=== PATIENT | female | born 1970 | race Caucasian/White ===

== ENCOUNTER 2019-12-20 16:24 | Emergency (ER) | payer SELFPAY ==
[2019-12-20 16:56] VITALS: BP 106/72; PULSE 82; RESP 20; TEMP 36.7; O2SAT 92; BMI 33.6
--- NOTE | 2019-12-20 17:11 | ECG_ITS ---
Measurements Intervals [place] Rate: 90 P: 77 [place]: 181 QRS: -46 QRSD: 118 T: 104 QT: 361 QTc: 442 SINUS RHYTHM RIGHT ATRIAL ENLARGEMENT [0.3mV P WAVE] LEFT ATRIAL ENLARGEMENT [-0.15mV P WAVE IN V1/V2] MARKED LEFT AXIS DEVIATION [QRS AXIS < -30] LEFT VENTRICULAR HYPERTROPHY AND ST-T CHANGE [VOLTAGE CRITERIA PLUS ST/T ABN ABNORMALITY] POSSIBLE ANTEROSEPTAL MYOCARDIAL INFARCTION [30 ms Q WAVE IN V1-V4], OF IN INDETERMINATE AGE Compared to ECG 11/18/2018 15:27:06 No significant changes Electronically Signed On 12-20-2019 20:51:09 CDT by Marbella Forbes M.D. [id number]
--- NOTE | 2019-12-20 18:43 | ED_ITS ---
HPI - SOB/Dyspnea General: Chief Complaint: Shortness of Breath/Dyspnea Stated Complaint: SOB Time Seen by Provider: 12/20/19 18:43 History of Present Illness: HPI Narrative: Patient is a 49-year-old female who comes into the ED with a shortness of breath, cough, nasal drainage and body aches. All the symptoms started about 3 days ago. Patient also has a past medical history of hypertension and heart failure. She has also had prior heart attacks and has had stents placed. She is also current every day smoker. Patient describes that she has trouble laying flat in bed because it makes it hard for her to breathe. She denies any chest pain or fever. She has had 2 episodes of vomiting in the last 3 days. Associated symptoms: Reports lightheadedness, orthopnea and vomiting; Deny abdominal pain, chest pain, fever(s), nausea or palpitations Review of Systems Const: Reports: body aches; Denies: fever, chills or fatigue Eyes: Denies: change in vision or eye discomfort ENMT: Reports: nasal discharge and nasal congestion; Denies: throat pain, painful swallowing, ear pain or facial/sinus pain Card: Reports: lightheadedness and shortness of breath when lying down; Denies: chest pain, palpitations, edema, swelling of feet/ankles or shortness of breath on exertion Resp: Reports: non-productive cough; Denies: shortness of breath or productive cough GI: Reports: vomiting; Denies: abdominal pain, nausea, diarrhea, constipation or blood in stool : Denies: flank pain, painful urination or blood in urine Musc: Denies: neck pain, back pain or extremity swelling Skin/Breast: Denies: rash or new lesion Neuro: Denies: headache, numbness in extremities or weakness in extremities PFS ED PFSH: Medical History Acute anterior wall ND 01/2014 Adult-onset obesity Chest pain COPD (chronic obstructive pulmonary disease) Ischemic cardiomyopathy Tobacco abuse Surgical History History of heart artery stent Hx of cholecystectomy Hx of tubal ligation Family History Grandmother Cancer Father Cancer Hyperlipidemia Hypertension Grandmother Cancer Sister Stroke Denies family history of Diabetes CAD (coronary artery disease) Clotting disorder Dementia Psychiatric illness Chronic kidney disease (CKD) Suicide Anesthesia complication Bleeding disorder Family history of premature coronary artery disease Lung disease Social History Smoking and tobacco status: current every day smoker Second hand smoke exposure: No Smoking risk assessment/counseling performed?: Yes Alcohol intake: never Physical Exam Const: COMMON NORMALS: oriented x3 HENMT: COMMON NORMALS: normocephalic and external nose normal HEAD & SCALP: normocephalic FACE & SINUS: normal facial exam and sinuses nontender NOSE: external nose normal and no nasal discharge TYMPANIC MEMBRANE: TM normal on the right and unable to visualize TM (Left Ear-cerumen obstructed viewing.) MOUTH: oral and palatal mucosa normal THROAT: uvula midline and posterior oropharynx abnormal cobblestoning Neck/C-Spine: COMMON NORMALS: supple GENERAL: Yes normal visual inspection Lymph: LYMPHATIC: no lymphadenopathy noted Resp: COMMON NORMALS: normal respiratory effort, no retractions and no use of accessory muscles AUSCULTATION: wheezes expiratory wheezes (Left lung lower lobe) Cardio: COMMON NORMALS: regular rate, regular rhythm, S1 normal heart sound, S2 normal heart sound, no gallops, no clicks, no murmurs and peripheral pulses 2+ throughout RATE: regular rate RHYTHM: regular rhythm HEART SOUNDS: S1 normal and S2 normal PERIPHERAL PULSES: pulses 2+ throughout GI: COMMON NORMALS: normal to inspection, nondistended, normoactive bowel eric nds, soft to palpation, non-tender and no masses INSPECTION: Yes central obesity PALPATION: Yes soft : COMMON NORMALS: Yes no CVA tenderness BLADDER/KIDNEY EXAM: Yes no CVA tenderness Back/Pelvis: COMMON NORMALS: no CVA tenderness Extremity: COMMON NORMALS: normal to inspection and normal capillary refill Neuro: COMMON NORMALS: oriented x3 and moves all extremities Skin: COMMON NORMALS: no rashes or lesions noted GENERAL SKIN EXAM: no rashes or lesions noted and dry skin Course Reevaluation(s): Reevaluation #1: I wanted to talk with the patient about the results of all the labs that we have done. She says her breathing feels better after the breathing treatment. She is saying that she is starting develop a headache. I told her I would get her some Toradol to help with the headache. She has had no episodes of nausea or vomiting while here in the ED and has been able to keep PO fluids down. Time: 20:27 Vital Signs: Vital signs: Vital Signs Temperature 98.1 F 12/20/19 16:56 Pulse Rate 68 12/20/19 21:39 Respiratory Rate 20 H 12/20/19 21:39 Blood Pressure 146/82 12/20/19 21:39 Pulse Oximetry 93 12/20/19 21:39 MDM - SOB/Dyspnea MDM Narrative: Medical decision making narrative: Patient is a 49-year-old female who comes to the ED with some shortness of breath and other upper respiratory symptoms. Physical exam showed with female in no acute distress or any respiratory distress. There was some light wheezing heard in the lungs upon auscultation. Patient was given a DuoNeb treatment to help with wheezing and it improved. Troponins and EKG were performed and both were negative for cardiac cause of shortness of breath. Chest x-ray was normal and showed no acute findings. CMP and CBC was unremarkable and showed no elevation of white blood cell count. Patient was diagnosed with a viral syndrome and discharged and told to follow-up with primary care doctor in 5 to 7 days for reevaluation. Patient agreed with understood plan and I explained to patient she can return to the ED if symptoms worsen. Lab Data: Attestation: I reviewed the patient's lab results. Labs: Lab Results 12/20/19 12/20/19 12/20/19 Range/Units 17:20 18:20 18:20 WBC 8.1 (4.0-10.0) 10^3/ uL RBC 5.10 (4.1-5.3) 10^6/u L Hgb 15.8 H (11.5-15.3) g/dL Hct 50.3 H (37.0-47.0) % MCV 98.6 (81-99) fL MCH 31.0 (28.0-34.0) pg MCHC 31.4 (30.0-36.0) g/dL RDW 12.9 (12.1-15.1) % Plt Count 288 (130-400) 10^3/c mm MPV 11.4 H (7.4-10.4) fL Neut % (Auto) 82.8 % Lymph % (Auto) 8.9 % [place] % (Auto) 7.8 % Eos % (Auto) 0.1 % Baso % (Auto) 0.2 % Neut # (Auto) 6.7 (1.8-7.7) 10^3/u L Lymph # (Auto) 0.7 L (0.8-4.8) 10^3/u L [place] # (Auto) 0.6 (0.2-0.9) 10^3/u L Eos # (Auto) 0.0 (0.0-0.8) 10^3/u L Baso # (Auto) 0.0 (0.0-0.1) 10^3/u L Nucleated RBC % (a uto) 0 % Nucleated RBCs # 0.0 /100WBC Sodium 139 (136-145) mmol/L Potassium 4.1 (3.5-5.1) mmol/L Chloride 99 (98-107) mmol/L Carbon Dioxide 27 (22-29) mmol/L Anion Gap 17.1 (5-19) BUN 12 (6-20) mg/dL Creatinine 0.8 (0.5-0.9) mg/dL GFR Calculation 76.2 L (90-130) mL/min Glucose 149 H (65-115) mg/dL Calculated Osmolal ity 287 (285-295) mOsm/k g Calcium 9.8 (8.5-10.5) mg/dL Total Bilirubin 1.1 (0.15-1.2) mg/dL AST 18 (0-32) U/L ALT 15 (0-33) U/L Alkaline Phosphata se 90 (35-105) IU/L Troponin T Baselin e 12 H (0-10) ng/mL Troponin T 120 Min [place] (0-10) ng/mL Delta Troponin T (0-10) ABS# NT-Pro-B Natriuret Pep 1396 H (0-125) pg/mL Total Protein 8.1 (6.6-8.7) g/dL Albumin 4.2 (3.5-5.2) g/dL Globulin 3.9 (1.3-4.6) g/dL Influenza Type A A g (Negative) POC Influenza B Ag (Negative) 12/20/19 12/20/19 Range/Units 19:13 19:30 WBC (4.0-10.0) 10^3/ uL RBC (4.1-5.3) 10^6/u L Hgb (11.5-15.3) g/dL Hct (37.0-47.0) % MCV (81-99) fL MCH (28.0-34.0) pg MCHC (30.0-36.0) g/dL RDW (12.1-15.1) % Plt Count (130-400) 10^3/c mm MPV (7.4-10.4) fL Neut % (Auto) % Lymph % (Auto) % [place] % (Auto) % Eos % (Auto) % Baso % (Auto) % Neut # (Auto) (1.8-7.7) 10^3/u L Lymph # (Auto) (0.8-4.8) 10^3/u L [place] # (Auto) (0.2-0.9) 10^3/u L Eos # (Auto) (0.0-0.8) 10^3/u L Baso # (Auto) (0.0-0.1) 10^3/u L Nucleated RBC % (a uto) % Nucleated RBCs # /100WBC Sodium (136-145) mmol/L Potassium (3.5-5.1) mmol/L Chloride (98-107) mmol/L Carbon Dioxide (22-29) mmol/L Anion Gap (5-19) BUN (6-20) mg/dL Creatinine (0.5-0.9) mg/dL GFR Calculation (90-130) mL/min Glucose (65-115) mg/dL Calculated Osmolal ity (285-295) mOsm/k g Calcium (8.5-10.5) mg/dL Total Bilirubin (0.15-1.2) mg/dL AST (0-32) U/L ALT (0-33) U/L Alkaline Phosphata se (35-105) IU/L Troponin T Baselin e (0-10) ng/mL Troponin T 120 Min [place] 11.87 H (0-10) ng/mL Delta Troponin T -0.13 L (0-10) ABS# NT-Pro-B Natriuret Pep (0-125) pg/mL Total Protein (6.6-8.7) g/dL Albumin (3.5-5.2) g/dL Globulin (1.3-4.6) g/dL Influenza Type A A g Negative (Negative) POC Influenza B Ag Negative (Negative) Imaging Data^: CXR: Attestation: I personally reviewed and interpreted this imaging study as follows: Radiologist's impression: [place] [address] XRay Report Signed Patient: Silvia Persaud Unit #: [id number] : 1970 Age/Sex: 49 / F ADM Date: 12/20/19 Loc: ER Room/Bed: Attending Dr: Ordering Provider/Ordering MD: Robel Delatorre Date of Service: 12/20/19 Procedure(s): XR chest 1V portable [id number] Accession Number(s): [id number] Report Number: [id number] PROCEDURE INFORMATION: Exam: XR Chest, 1 View Exam date and time: 12/20/2019 7:33 PM Age: 49 years old Clinical indication: Patient HX: Cough/congestion x1 day, PT denies HX of surgery on chest, PT denies HX of CA, PT is a current smoker; Additional info: Cough and SOB TECHNIQUE: Imaging protocol: XR of the chest Views: 1 view. COMPARISON: CR Chest 1 [place] [id number] 11/18/2018 11:51 AM FINDINGS: The lungs are clear of infiltrate. There are no pleural effusions or pneumothorax. The heart size and pulmonary vascularity are normal. XR/XR chest 1V portable [id number] IMPRESSION: No active disease. Dictated By: Rubén Eisenberg MD Signed By: Rubén Eisenberg MD Signed Date/Time: 12/20/192003 DD/ 01 EKG Data^: EKG 1: Attestation: I personally reviewed and interpreted this EKG as follows: EKG Interpretation Date: 12/20/19 Interpretation: Sinus rhythm, P waves present, 90 bpm, possible ST elevation in leads V1, V2 and V3. No ST segment depression seen. EKG 2: Attestation: I personally reviewed and interpreted this EKG as follows: EKG Interpretation Date: 12/20/19 Interpretation: Sinus rhythm with occasional PVCs. Rate 82 bpm, P waves present, ST segment elevation in V1 V2 and V3 is unchanged and may be a little improved compared to last EKG. No ST segment depression. Discharge Plan Discharge Patient Disposition: Home, Self-Care Clinical Impression: Acute viral syndrome Condition: Stable Prescriptions: No Action lisinopril 20 mg tablet 20 mg PO DAILY Qty: 30 RF: 3 Tylenol PM Extra Strength 2 - 4 tab PO BEDTIME PRN (Reason: Sleep) RF: 0 Discharge Orders: Discharge Order (Routine); Ordered 12/20/19 Ordered By: Robel Delatorre Referrals: [facility] [Other] Discharge Diet: Regular Discharge Activity: Resume usual activity Patient Instructions: Viral Syndrome - Adult Activity Restrictions/Additional Instructions: Follow-up with your PCP in 5 to 7 days reevaluation. Take ibuprofen or Tylenol as needed for fever or headaches. Drink plenty of fluids and stay hydrated. If symptoms worsen you can return to the ED for evaluation. 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
[2019-12-20 19:03] LABS: Basophils % 0.2 %; Eosinophils % 0.1 %; Hematocrit 50.3 % (37.0-47.0); Hemoglobin 15.8 g/dL (11.5-15.3); Lymphocytes # 0.7 10^3/uL (0.8-4.8); Lymphocytes % 8.9 %; Mean Corpuscular HGB Conc 31.4 g/dL (30.0-36.0); Mean Corpuscular Volume 98.6 fL (81-99); Mean Platelet Volume 11.4 fL (7.4-10.4); Monocytes # 0.6 10^3/uL (0.2-0.9); Monocytes % 7.8 %; Neutrophils # 6.7 10^3/uL (1.8-7.7); Neutrophils % 82.8 %; Nucleated Red Blood Cells % 0 %; Platelet Count 288 10^3/cmm (130-400); Red Cell Distribution Width 12.9 % (12.1-15.1); White Blood Count 8.1 10^3/uL (4.0-10.0)
[2019-12-20 19:11] LABS: Troponin(5th) Baseline 12 ng/mL (0-10)
--- NOTE | 2019-12-20 19:11 | ECG_ITS ---
Measurements Intervals [place] Rate: 82 P: 75 [place]: 177 QRS: -44 QRSD: 114 T: 102 QT: 356 QTc: 417 SINUS RHYTHM WITH OCCASIONAL VENTRICULAR PREMATURE COMPLEXES RIGHT ATRIAL ENLARGEMENT [0.3mV P WAVE] LEFT ATRIAL ENLARGEMENT [-0.15mV P WAVE IN V1/V2] LEFT AXIS DEVIATION [QRS AXIS < -30] LEFT VENTRICULAR HYPERTROPHY AND ST-T CHANGE [VOLTAGE CRITERIA PLUS ST/T ABN ABNORMALITY] ANTEROSEPTAL MYOCARDIAL INFARCTION , OF INDETERMINATE AGE [40+ ms Q WAVE IN V1-V4] Compared to ECG 11/18/2018 15:27:06 Ventricular premature complex(es) now present ST (T wave) deviation still present Myocardial infarct finding still present Electronically Signed On 12-20-2019 20:54:21 CDT by Marbella Forbes M.D. [id number]
--- NOTE | 2019-12-20 19:15 | XRR_ITS ---
PROCEDURE INFORMATION: Exam: XR Chest, 1 View Exam date and time: 12/20/2019 7:33 PM Age: 49 years old Clinical indication: Patient HX: Cough/congestion x1 day, PT denies HX of surgery on chest, PT denies HX of CA, PT is a current smoker; Additional info: Cough and SOB TECHNIQUE: Imaging protocol: XR of the chest Views: 1 view. COMPARISON: CR Chest 1 [place] [id number] 11/18/2018 11:51 AM FINDINGS: The lungs are clear of infiltrate. There are no pleural effusions or pneumothorax. The heart size and pulmonary vascularity are normal. XR/XR chest 1V portable [id number] IMPRESSION: No active disease.
[2019-12-20 19:19] LABS: Alanine Aminotransferase 15 U/L (0-33); Albumin Level 4.2 g/dL (3.5-5.2); Alkaline Phosphatase 90 IU/L (35-105); Anion Gap 17.1 (5-19); Aspartate Amino Transferase 18 U/L (0-32); Blood Urea Nitrogen 12 mg/dL (6-20); Calcium 9.8 mg/dL (8.5-10.5); Carbon Dioxide 27 mmol/L (22-29); Chloride 99 mmol/L (98-107); Globulin 3.9 g/dL (1.3-4.6); Glomerular Filtration Rate 76.2 mL/min (90-130); Glucose 149 mg/dL (65-115); NT Pro B Type Natriuretic Pept 1396 pg/mL (0-125); Osmolality Calculated 287 mOsm/kg (285-295); Potassium 4.1 mmol/L (3.5-5.1); Sodium 139 mmol/L (136-145); Total Bilirubin 1.1 mg/dL (0.15-1.2); Total Protein 8.1 g/dL (6.6-8.7)
[2019-12-20] MEDS: ipratropium-albuterol 3 mL Neb INHALATION (19:19)
[2019-12-20 19:20] VITALS: BP 114/57; PULSE 87; RESP 18; O2SAT 94
[2019-12-20 19:21] VITALS: PULSE 89; RESP 18; O2SAT 93
[2019-12-20 19:27] VITALS: PULSE 93
[2019-12-20 19:57] LABS: Troponin 5 2HR 11.87 ng/mL (0-10)
[2019-12-20 20:00] LABS: Troponin 5 2HR Delta -0.13 ABS# (0-10)
[2019-12-20 20:29] LABS: Influenza A by IFA Negative (Negative); Influenza B by IFA Negative (Negative)
[2019-12-20] MEDS: sodium chloride 0.9% 500 ML IV (21:00)
[2019-12-20] MEDS: ketorolac 30 mg/mL INJ IVP (21:01)
[2019-12-20 21:39] VITALS: BP 146/82; PULSE 68; RESP 20; O2SAT 93
== END 2019-12-20 21:42 | disposition home or self-care (01) ==
PROVIDERS: Emergency Medicine; Emergency Provider Physician Assistant; PCP Nurse Practitioner Family
DX: B34.9 Viral infection, unspecified (principal); I11.0 Hypertensive heart disease with heart failure; I50.9 Heart failure, unspecified; I25.2 Old myocardial infarction; J44.9 Chronic obstructive pulmonary disease, unspecified; F17.200 Nicotine dependence, unspecified, uncomplicated; Z95.5 Presence of coronary angioplasty implant and graft
CPT/HCPCS: 12345; 36415; 71045; 80053; 83880; 84484; 85025; 87804; 93005; 94640; 96360; 96361; 96374; 96375; 99283; 99284; J1885; J7040

== ENCOUNTER 2021-02-27 02:43 | Emergency (ER) | payer SELFPAY ==
[2021-02-27] VITALS (8 sets, daily range): BP systolic 187–222; BP diastolic 79–108; PULSE 53–78; RESP 16–20; TEMP 36.1–36.7; O2SAT 97–99; BMI 31.8
--- NOTE | 2021-02-27 02:53 | XRR_ITS ---
PROCEDURE INFORMATION: Exam: XR Chest Exam date and time: 02/27/2021 2:54 AM Age: 50 years old Clinical indication: Pain; Other: Epigastric; Prior surgery; Surgery date: 6+ months; Surgery type: Stents; Additional info: SOB TECHNIQUE: Imaging protocol: XR of the chest. Views: 1 view. COMPARISON: CR XR chest 1V portable [id number] 12/20/2019 7:21 PM FINDINGS: Lungs: Unremarkable. No consolidation. Pleural spaces: Unremarkable. No pleural effusion. No pneumothorax. Heart/Mediastinum: There is mild cardiomegaly. Bones/joints: Unremarkable. XR/XR chest 1V portable [id number] IMPRESSION: Mild cardiomegaly.
--- NOTE | 2021-02-27 02:56 | ECG_ITS ---
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 Measurements Intervals [place] Rate: 50 P: 59 [place]: 181 QRS: -33 QRSD: 122 T: 143 QT: 494 QTc: 454 Interpretive Statements SINUS BRADYCARDIA POSSIBLE LEFT ATRIAL ENLARGEMENT [-0.1mV P WAVE IN V1/V2] MARKED LEFT AXIS DEVIATION [QRS AXIS < -30] LEFT VENTRICULAR HYPERTROPHY AND ST-T CHANGE POSSIBLE ANTERIOR MYOCARDIAL INFARCTION,OF INDETERMINATE AGE Compared to ECG 12/20/2019 19:47:26 Sinus rhythm no longer present Ventricular premature complex(es) no longer present ST (T wave) deviation still present Myocardial infarct finding still present Electronically Signed On 02-28-2021 6:54:37 CDT by Hannah Jordan M.D. [id number]
--- NOTE | 2021-02-27 02:57 | W.ED.DIZZY ---
HPI - Dizziness General: Chief Complaint: Dizziness Stated Complaint: SOB, dizziness Time Seen by Provider: 02/27/21 02:46 Source: patient Mode of arrival: ambulatory Limitations: no limitations History of Present Illness: HPI Narrative: 50-year-old female states she been having upper abdominal pain since 10:00 last night. She has been a sharp pain in the epigastric region. She denies any worsening improving factors. She had some dyspnea when it began but denies any shortness of breath currently. She did vomit once and have nausea. She denies any chest pain. She denies any fevers. Associated symptoms: Reports nausea and vomiting; Denies chest pain, chills or headache(s) Review of Systems Const: Denies: fever(s), chills, body aches or change in appetite Eyes: Denies: blurry vision or eye discomfort ENMT: Denies: throat pain or dental pain Card: Denies: chest pain Resp: Denies: dyspnea GI: Reports: abdominal pain, nausea and vomiting : Denies: dysuria Musc: Denies: neck pain or back pain Skin/Breast: Denies: rash Neuro: Denies: headache(s) Psych: Denies: depression Sandro/Lymph: Denies: easy bruising All/Imm: Denies: urticaria PFSH ED PFSH: Medical History (Updated 02/27/21 @ 05:23 by Nasir Romero MD) Acute anterior wall [place] 01/2014 Adult-onset obesity Chest pain COPD (chronic obstructive pulmonary disease) Ischemic cardiomyopathy Tobacco abuse Surgical History History of heart artery stent Hx of cholecystectomy Hx of tubal ligation Family History Grandmother Cancer Father Cancer Hyperlipidemia Hypertension Grandmother Cancer Sister Stroke Denies family history of Diabetes CAD (coronary artery disease) Clotting disorder Dementia Psychiatric illness Chronic kidney disease (CKD) Suicide Anesthesia complication Bleeding disorder Family history of premature coronary artery disease Lung disease Social History Smoking and tobacco status: current every day smoker Second hand smoke exposure: No Smoking risk assessment/counseling performed?: Yes Alcohol intake: never Physical Exam Const: COMMON NORMALS: no acute distress, patient oriented x3 and healthy appearing HENMT: COMMON NORMALS: normocephalic and atraumatic HEAD & SCALP: normocephalic and atraumatic Eye: COMMON NORMALS: Equal, round and reactive pupils present and EOMs intact bilaterally PUPIL: Yes Equal, round and reactive pupils present Neck/C-Spine: COMMON NORMALS: full ROM and supple Chest: COMMONS NORMALS: normal inspection of the chest and normal palpation of entire chest wall Resp: COMMON NORMALS: normal respiratory effort, No retractions, No use of accessory muscles and clear to auscultation bilaterally AUSCULTATION: clear to auscultation bilaterally Cardio: COMMON NORMALS: regular rate, regular rhythm and No murmurs present (Cardio) RATE: regular rate RHYTHM: regular rhythm GI: COMMON NORMALS: Normal to inspection, nondistended, normoactive bowel sounds present, Soft to palpation and no masses PALPATION: Yes Soft to palpation and Yes Tenderness to palpation present (GI) Details: other (epigastric) Extremity: COMMON NORMALS: normal to inspection and full ROM Neuro: COMMON NORMALS: patient oriented x3, moves all extremities and no focal motor deficits Psych: COMMON NORMALS: mental status grossly normal, Normal thought process present and cooperative THOUGHT PROCESS: Normal thought process present Skin: COMMON NORMALS: no rashes or lesions noted and no wounds GENERAL SKIN EXAM: no rashes or lesions noted Course Vital Signs: Vital signs: Vital Signs Temperature 97.0 F L 02/27/21 02:48 Pulse Rate 75 02/27/21 05:14 Respiratory Rate 20 H 02/27/21 05:14 Blood Pressure 187/108 02/27/21 05:16 Pulse Oximetry 97 02/27/21 05:14 MDM - Dizziness MDM Narrative: Medical decision making narrative: Paper presents with epigastric abdominal pain likely gastritis. Her pain was completely resolved here with GI cocktail. Patient's blood work including initial repeat troponins are negative. CT scan showed no acute findings. Her pain like this had resolved with GI cocktail. We will start her on Protonix and she is to follow-up with PCP and return if worsening. Lab Data: Labs: Lab Results 02/27/21 02/27/21 02/27/21 Range/Units 03:00 03:00 03:00 WBC 5.7 (4.0-10.0) 10^3/ uL RBC 4.46 (4.1-5.3) 10^6/u L Hgb 14.0 (11.5-15.3) g/dL Hct 43.7 (37.0-47.0) % MCV 98.0 (81-99) fL MCH 31.4 (28.0-34.0) pg MCHC 32.0 (30.0-36.0) g/dL RDW 12.6 (12.1-15.1) % Plt Count 284 (130-400) 10^3/c mm MPV 10.3 (7.4-10.4) fL Neut % (Auto) 62.9 % Lymph % (Auto) 26.1 % [place] % (Auto) 9.2 % Eos % (Auto) 0.9 % Baso % (Auto) 0.7 % Neut # (Auto) 3.56 (1.8-7.7) 10^3/u L Lymph # (Auto) 1.5 (0.8-4.8) 10^3/u L [place] # (Auto) 0.5 (0.2-0.9) 10^3/u L Eos # (Auto) 0.1 (0.0-0.8) 10^3/u L Baso # (Auto) 0.0 (0.0-0.1) 10^3/u L Nucleated RBC % (a uto) 0 % Nucleated RBCs # 0.0 /100WBC Sodium 140 (136-145) mmol/L Potassium 4.3 (3.5-5.1) mmol/L Chloride 106 (98-107) mmol/L Carbon Dioxide 25 (22-29) mmol/L Anion Gap 13.3 (5-19) BUN 14 (6-20) mg/dL Creatinine 0.7 (0.5-0.9) mg/dL GFR Calculation 88.6 L (90-130) mL/min Glucose 109 (65-115) mg/dL Calculated Osmolal ity 291 (285-295) mOsm/k g Calcium 8.3 L (8.5-10.5) mg/dL Total Bilirubin 0.7 (0.15-1.2) mg/dL AST 12 (0-32) U/L ALT 11 (0-33) U/L Alkaline Phosphata se 84 (35-105) IU/L Troponin T Baselin e 12 H (0-10) ng/L Troponin T [address] [place] (0-10) ng/L Delta Troponin T (0-10) ABS# Total Protein 7.5 (6.6-8.7) g/dL Albumin 4.0 (3.5-5.2) g/dL Globulin 3.5 (1.3-4.6) g/dL Lipase 20 (13-60) U/L 02/27/21 Range/Units 04:45 WBC (4.0-10.0) 10^3/ uL RBC (4.1-5.3) 10^6/u L Hgb (11.5-15.3) g/dL Hct (37.0-47.0) % MCV (81-99) fL MCH (28.0-34.0) pg MCHC (30.0-36.0) g/dL RDW (12.1-15.1) % Plt Count (130-400) 10^3/c mm MPV (7.4-10.4) fL Neut % (Auto) % Lymph % (Auto) % [place] % (Auto) % Eos % (Auto) % Baso % (Auto) % Neut # (Auto) (1.8-7.7) 10^3/u L Lymph # (Auto) (0.8-4.8) 10^3/u L [place] # (Auto) (0.2-0.9) 10^3/u L Eos # (Auto) (0.0-0.8) 10^3/u L Baso # (Auto) (0.0-0.1) 10^3/u L Nucleated RBC % (a uto) % Nucleated RBCs # /100WBC Sodium (136-145) mmol/L Potassium (3.5-5.1) mmol/L Chloride (98-107) mmol/L Carbon Dioxide (22-29) mmol/L Anion Gap (5-19) BUN (6-20) mg/dL Creatinine (0.5-0.9) mg/dL GFR Calculation (90-130) mL/min Glucose (65-115) mg/dL Calculated Osmolal ity (285-295) mOsm/k g Calcium (8.5-10.5) mg/dL Total Bilirubin (0.15-1.2) mg/dL AST (0-32) U/L ALT (0-33) U/L Alkaline Phosphata se (35-105) IU/L Troponin T Baselin e (0-10) ng/L Troponin T [address] [place] 8.83 (0-10) ng/L Delta Troponin T -3.17 L (0-10) ABS# Total Protein (6.6-8.7) g/dL Albumin (3.5-5.2) g/dL Globulin (1.3-4.6) g/dL Lipase (13-60) U/L Imaging Data^: CT Abd/Pel: Attestation: I personally reviewed and interpreted this imaging study as follows: Radiologist's impression: [facility] [address] [address] [address] Scan Report Signed Patient: Silvia Persaud Unit #: [id number] : 1970 Age/Sex: 50 / F ADM Date: 02/27/21 Loc: ER Room/Bed: Attending Dr: Ordering Provider/Ordering MD: Nasir Romero MD Date of Service: 02/27/21 Procedure(s): CT abdomen pelvis w con* [id number] Accession Number(s): [id number] Report Number: [id number] PROCEDURE INFORMATION: Exam: CT Abdomen And Pelvis With Contrast Exam date and time: 02/27/2021 4:07 AM Age: 50 years old Clinical indication: Abdominal pain; Epigastric; Prior surgery; Surgery date: 6+ months; Surgery type: Gb; Additional info: Abd pain TECHNIQUE: Imaging protocol: Computed tomography of the abdomen and pelvis with contrast. Radiation optimization: All CT scans at this facility use at least one of these dose optimization techniques: automated exposure control; mA and/or kV adjustment per patient size (includes targeted exams where dose is matched to clinical indication); or iterative reconstruction. Contrast material: OMNI 300; Contrast volume: 95 ml; Contrast route: INTRAVENOUS (IV); COMPARISON: CT abdomen pelvis w con* [id number] 02/09/2015 12:07 AM RADIATION DOSE METRICS: Total DLP (mGy-cm): 1640.88 FINDINGS: Lungs: The lung bases are clear. No effusion Liver: Normal. No mass. Gallbladder and bile ducts: There has been a cholecystectomy. Pancreas: Normal. No ductal dilation. Spleen: Normal. No splenomegaly. Adrenal glands: Normal. No mass. Kidneys and ureters: There is a subcentimeter low-attenuation lesions/lesions, both kidneys which are too small to accurately characterize by CT. Stomach and bowel: Diverticulosis without diverticulitis. Appendix: No evidence of appendicitis. Intraperitoneal space: Unremarkable. No free air. No significant fluid collection. Vasculature: Unremarkable. No abdominal aortic aneurysm. Lymph nodes: Unremarkable. No enlarged lymph nodes. Urinary bladder: Unremarkable as visualized. Reproductive: Unremarkable as visualized. Bones/joints: Unremarkable. No acute fracture. Soft tissues: Unremarkable. CT/CT abdomen pelvis w con* [id number] IMPRESSION: 1. No cause for acute pain is identified. 2. Diverticulosis without diverticulitis. EKG Data^: EKG 1: Attestation: I personally reviewed and interpreted this EKG as follows: EKG interpretation date: 02/27/21 EKG interpretation time: 03:03 Interpretation: sinus uvaldo hr 50 lad lvh, t wave inversion lead I no st elevation qrs 122 qtc 468 unchanged 12/20/19 EKG 2: Attestation: I personally reviewed and interpreted this EKG as follows: EKG interpretation date: 02/27/21 EKG interpretation time: 04:52 Interpretation: nsr hr 70 t wave inversion I, avl no st elevation qrs 137 qtc 472 unchanged from previous Discharge Plan Discharge Patient Disposition: Home Clinical Impression: Abdominal pain Qualifiers: Abdominal location: generalized Qualified Code(s): R10.84 - Generalized abdominal pain Condition: Stable Prescriptions: New Protonix 40 mg tablet,delayed release (DR/EC) 40 mg PO DAILY Qty: 60 RF: 0 No Action atorvastatin 40 mg tablet 40 mg PO DAILY Qty: 90 RF: 3 carvedilol 6.25 mg tablet 6.25 mg PO BID Qty: 180 RF: 3 lisinopril 20 mg tablet 20 mg PO DAILY Qty: 90 RF: 3 aspirin [Adult Low Dose Aspirin] 81 mg tablet,delayed release (DR/EC) 81 mg PO DAILY Qty: 90 RF: 3 Tylenol PM Extra Strength 2 - 4 tab PO BEDTIME PRN (Reason: Sleep) RF: 0 Discharge Orders: Discharge ED (Routine); Ordered 02/27/21 Ordered By: Nasir Romero Referrals: Geovanna Ross FNP [Primary Care Provider] - 1-3 days Discharge Diet: Advance as tolerated Discharge Activity: Resume usual activity Patient Instructions: Abdominal Pain (ED) Coding Level of Care Code ED 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
[2021-02-27 03:09] LABS: Basophils % 0.7 %; Eosinophils # 0.1 10^3/uL (0.0-0.8); Eosinophils % 0.9 %; Hematocrit 43.7 % (37.0-47.0); Lymphocytes # 1.5 10^3/uL (0.8-4.8); Lymphocytes % 26.1 %; Mean Corpuscular Hemoglobin 31.4 pg (28.0-34.0); Mean Platelet Volume 10.3 fL (7.4-10.4); Monocytes # 0.5 10^3/uL (0.2-0.9); Monocytes % 9.2 %; Neutrophils # 3.56 10^3/uL (1.8-7.7); Neutrophils % 62.9 %; Nucleated Red Blood Cells % 0 %; Platelet Count 284 10^3/cmm (130-400); Red Blood Count 4.46 10^6/uL (4.1-5.3); Red Cell Distribution Width 12.6 % (12.1-15.1); White Blood Count 5.7 10^3/uL (4.0-10.0)
[2021-02-27] MEDS: morphine 4 mg/mL SDV 1 mL IVP (03:09)
[2021-02-27] MEDS: ondansetron 2 mg/ML SDV 2 mL 4 MG IVP ×2 (03:09→04:43)
[2021-02-27 03:31] LABS: Alanine Aminotransferase 11 U/L (0-33); Alkaline Phosphatase 84 IU/L (35-105); Anion Gap 13.3 (5-19); Aspartate Amino Transferase 12 U/L (0-32); Blood Urea Nitrogen 14 mg/dL (6-20); Calcium 8.3 mg/dL (8.5-10.5); Carbon Dioxide 25 mmol/L (22-29); Chloride 106 mmol/L (98-107); Globulin 3.5 g/dL (1.3-4.6); Glomerular Filtration Rate 88.6 mL/min (90-130); Glucose 109 mg/dL (65-115); Lipase 20 U/L (13-60); Osmolality Calculated 291 mOsm/kg (285-295); Potassium 4.3 mmol/L (3.5-5.1); Sodium 140 mmol/L (136-145); Total Bilirubin 0.7 mg/dL (0.15-1.2); Total Protein 7.5 g/dL (6.6-8.7)
[2021-02-27 03:33] LABS: Troponin(5th) Baseline 12 ng/L (0-10)
--- NOTE | 2021-02-27 03:37 | CTR_ITS ---
PROCEDURE INFORMATION: Exam: CT Abdomen And Pelvis With Contrast Exam date and time: 02/27/2021 4:07 AM Age: 50 years old Clinical indication: Abdominal pain; Epigastric; Prior surgery; Surgery date: 6+ months; Surgery type: Gb; Additional info: Abd pain TECHNIQUE: Imaging protocol: Computed tomography of the abdomen and pelvis with contrast. Radiation optimization: All CT scans at this facility use at least one of these dose optimization techniques: automated exposure control; mA and/or kV adjustment per patient size (includes targeted exams where dose is matched to clinical indication); or iterative reconstruction. Contrast material: OMNI 300; Contrast volume: 95 ml; Contrast route: INTRAVENOUS (IV); COMPARISON: CT abdomen pelvis w con* [id number] 02/09/2015 12:07 AM RADIATION DOSE METRICS: Total DLP (mGy-cm): 1640.88 FINDINGS: Lungs: The lung bases are clear. No effusion Liver: Normal. No mass. Gallbladder and bile ducts: There has been a cholecystectomy. Pancreas: Normal. No ductal dilation. Spleen: Normal. No splenomegaly. Adrenal glands: Normal. No mass. Kidneys and ureters: There is a subcentimeter low-attenuation lesions/lesions, both kidneys which are too small to accurately characterize by CT. Stomach and bowel: Diverticulosis without diverticulitis. Appendix: No evidence of appendicitis. Intraperitoneal space: Unremarkable. No free air. No significant fluid collection. Vasculature: Unremarkable. No abdominal aortic aneurysm. Lymph nodes: Unremarkable. No enlarged lymph nodes. Urinary bladder: Unremarkable as visualized. Reproductive: Unremarkable as visualized. Bones/joints: Unremarkable. No acute fracture. Soft tissues: Unremarkable. CT/CT abdomen pelvis w con* [id number] IMPRESSION: 1. No cause for acute pain is identified. 2. Diverticulosis without diverticulitis. COMMENTS: Consistent with the [employer] [employer]'s Incidental Findings Committee white paper (J Am Ryan Radiol 2018): Any incidental renal lesion less than 1 cm or classified as too small to characterize, or any incidental cystic renal lesion characterized as simple-appearing, is likely benign. No follow-up imaging is recommended for these lesions per consensus recommendations based on imaging criteria. Radiation Dose CTDIVOL = (mGy): DLP = 1640.88 (mGy-cm)
[2021-02-27] MEDS: hyDRALAzine 20 mg/mL INJ 1 mL 10 MG IVP (03:43)
[2021-02-27] MEDS: lidocaine 2% viscous 15 ML, aluminum-mag hydrox-simethicon 30 ML, sucralfate oral liq 1 GM PO (03:50)
[2021-02-27] MEDS: HYDROmorphone 1 mg/mL INJ 1 mL IVP (03:52)
[2021-02-27] MEDS: iohexol 300 mg/mL 100 mL Btl IV (04:19)
--- NOTE | 2021-02-27 04:56 | ECG_ITS ---
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 Measurements Intervals [place] Rate: 70 P: 62 CO: 160 QRS: -34 QRSD: 137 T: 129 QT: 452 QTc: 489 Interpretive Statements SINUS RHYTHM POSSIBLE LEFT ATRIAL ENLARGEMENT [-0.1mV P WAVE IN V1/V2] LEFT AXIS DEVIATION [QRS AXIS < -30] INTRAVENTRICULAR CONDUCTION DELAY [130+ ms QRS DURATION] LEFT VENTRICULAR HYPERTROPHY AND ST-T CHANGE [VOLTAGE CRITERIA PLUS ST/T ABNORMALITY] POSSIBLE ANTERIOR MYOCARDIAL INFARCTION , OF INDETERMINATE AGE [30 ms Q WAVE IN V3/V4, OR R < 0.2 mV IN V4] Compared to ECG 02/27/2021 03:03:02 Intraventricular conduction delay now present Sinus bradycardia no longer present ST (T wave) deviation still present Myocardial infarct finding still present Electronically Signed On 02-28-2021 7:03:54 CDT by Hannah Jordan M.D. [id number]
[2021-02-27] MEDS: cloNIDine 0.1 mg Tablet PO (05:16)
[2021-02-27 05:23] LABS: Troponin 5 2HR 8.83 ng/L (0-10)
[2021-02-27 05:25] LABS: Troponin 5 2HR Delta -3.17 ABS# (0-10)
--- NOTE | 2021-02-27 05:56 | PC.NURSE ---
Patient left with ride.
== END 2021-02-27 05:55 | disposition home or self-care (01) ==
PROVIDERS: Emergency Provider Emergency Medicine; PCP Nurse Practitioner Family
DX: R10.84 Generalized abdominal pain (principal); Z79.82 Long term (current) use of aspirin; J44.9 Chronic obstructive pulmonary disease, unspecified; F17.210 Nicotine dependence, cigarettes, uncomplicated
CPT/HCPCS: 71045; 74177; 80053; 83690; 84484; 85025; 93005; 96374; 96375; 96376; 99284; J0360; J1170; J2270; J2405; Q9967

== ENCOUNTER 2021-04-18 09:06 | Emergency (ER) | payer SELFPAY ==
[2021-04-18 09:23] VITALS: BP 145/65; PULSE 60; RESP 16; TEMP 36.5; O2SAT 95; BMI 31.3
--- NOTE | 2021-04-18 09:32 | XR_ITS ---
WS: [id number] KUB, AP portable supine view, 04/18/2021 Clinical Data: N/V Comparison: Acute abdomen series, 10/07/2013 Findings: No abnormal intraabdominal masses or calcifications are seen. There is no dilatated small bowel or ev idence of obstruction. There are clips in the right upper quadrant from a cholecystectomy. XR/XR KUB portable [id number] Impression: Negative KUB.
[2021-04-18 09:33] VITALS: BP 136/77; PULSE 53; O2SAT 96
--- NOTE | 2021-04-18 09:33 | ED_ITS ---
HPI - General Adult General: Chief complaint: General Medical Stated complaint: N/V Time Seen by Provider: 04/18/21 09:15 History of Present Illness: HPI narrative: Patient complains about intermittent nausea and vomiting over the last few days without any pain. Patient did have chills the first day. Denies any fever sore throat headache or body aches. Patient said she is not able to keep most food down, is able to keep some down. Is able to drink fluids which mainly include Sprite to the last few days. Has had some diarrhea. She did have a bout with constipation before the start of this and took one of her child's laxatives. Does have a history of cardiovascular disease COPD hypertension. Onset (ago): day(s) Associated symptoms: Reports nausea and vomiting; Deny chest pain, dyspnea, headache(s) or rash Review of Systems Const: Denies: fever(s), chills or body aches Eyes: Denies: change in vision or blurry vision ENMT: Denies: throat pain or nasal congestion Card: Denies: chest pain or dyspnea on exertion Resp: Denies: dyspnea, productive cough or non-productive cough GI: Reports: nausea and vomiting Musc: Denies: extremity pain Skin/Breast: Denies: rash Neuro: Denies: headache(s) Psych: Denies: anxiety or depression Sandro/Lymph: Denies: easy bruising PFSH ED PFSH: Medical History (Updated 04/18/21 @ 11:26 by SYEDA [place]) Acute anterior wall [place] 01/2014 Adult-onset obesity Chest pain COPD (chronic obstructive pulmonary disease) Ischemic cardiomyopathy Tobacco abuse Surgical History History of heart artery stent Hx of cholecystectomy Hx of tubal ligation Family History Grandmother Cancer Father Cancer Hyperlipidemia Hypertension Grandmother Cancer Sister Stroke Denies family history of Diabetes CAD (coronary artery disease) Clotting disorder Dementia Psychiatric illness Chronic kidney disease (CKD) Suicide Anesthesia complication Bleeding disorder Family history of premature coronary artery disease Lung disease Social History Smoking and tobacco status: current every day smoker Second hand smoke exposure: No Smoking risk assessment/counseling performed?: Yes Alcohol intake: never Physical Exam Const: COMMON NORMALS: no acute distress, average body habitus and patient oriented x3 HENMT: COMMON NORMALS: normocephalic HEAD & SCALP: normal to inspection and normocephalic FACE & SINUS: normal facial exam Eye: COMMON NORMALS: conjunctivae normal GENERAL EYE: appearance normal, both eyes and all related structures CONJUNCTIVA: Yes conjunctivae normal Neck/C-Spine: COMMON NORMALS: no JVD Chest: COMMONS NORMALS: normal inspection of the chest Resp: COMMON NORMALS: normal respiratory effort and clear to auscultation bilaterally AUSCULTATION: clear to auscultation bilaterally Cardio: COMMON NORMALS: no JVD, regular rate and regular rhythm RATE: regular rate RHYTHM: regular rhythm GI: COMMON NORMALS: Normal to inspection, nondistended, normoactive bowel sounds present Extremity: COMMON NORMALS: normal to inspection and full ROM Neuro: COMMON NORMALS: patient oriented x3 Course Vital Signs: Vital signs: Vital Signs Temperature 97.7 F 04/18/21 09:23 Pulse Rate 53 L 04/18/21 09:57 Respiratory Rate 16 04/18/21 09:23 Blood Pressure 129/76 04/18/21 09:57 Pulse Oximetry 95 04/18/21 09:57 MDM - General Adult MDM Narrative: Medical decision making narrative: Patient did fine during her stay here. Labs were all negative radiology study negative. Patient had no episodes of vomiting. Shared results with patient in the visit patient asked for work note for today. Encourage her to advance diet slowly use medication as directed follow-up with her family medical provider as needed. Lab Data: Labs: Lab Results 04/18/21 04/18/21 04/18/21 Range/Units 10:14 10:14 11:04 WBC 9.2 (4.0-10.0) 10^3/ uL RBC 4.90 (4.1-5.3) 10^6/u L Hgb 15.4 H (11.5-15.3) g/dL Hct 48.6 H (37.0-47.0) % MCV 99.2 H (81-99) fL MCH 31.4 (28.0-34.0) pg MCHC 31.7 (30.0-36.0) g/dL RDW 13.3 (12.1-15.1) % Plt Count 331 (130-400) 10^3/c mm MPV 10.1 (7.4-10.4) fL Neut % (Auto) 79.7 % Lymph % (Auto) 12.4 % [place] % (Auto) 7.0 % Eos % (Auto) 0.4 % Baso % (Auto) 0.3 % Neut # (Auto) 7.33 (1.8-7.7) 10^3/u L Lymph # (Auto) 1.1 (0.8-4.8) 10^3/u L [place] # (Auto) 0.6 (0.2-0.9) 10^3/u L Eos # (Auto) 0.0 (0.0-0.8) 10^3/u L Baso # (Auto) 0.0 (0.0-0.1) 10^3/u L Nucleated RBC % (a uto) 0 % Nucleated RBCs # 0.0 /100WBC Sodium 136 (136-145) mmol/L Potassium 3.9 (3.5-5.1) mmol/L Chloride 101 (98-107) mmol/L Carbon Dioxide 27 (22-29) mmol/L Anion Gap 11.9 (5-19) BUN 19 (6-20) mg/dL Creatinine 0.8 (0.5-0.9) mg/dL GFR Calculation 75.6 L (90-130) mL/min Glucose 135 H (65-115) mg/dL Calculated Osmolal ity 286 (285-295) mOsm/k g Calcium 9.3 (8.5-10.5) mg/dL Total Bilirubin 1.1 (0.15-1.2) mg/dL AST 14 (0-32) U/L ALT 14 (0-33) U/L Alkaline Phosphata se 90 (35-105) IU/L Total Protein 7.6 (6.6-8.7) g/dL Albumin 4.1 (3.5-5.2) g/dL Globulin 3.5 (1.3-4.6) g/dL Lipase 14 (13-60) U/L Urine Color Yellow (Yellow) Urine Appearance Sl hazy (CLEAR) Urine pH 5 (5-7) Ur Specific Gravit y 1.020 (1.005-1.030) Urine Protein Neg (Negative) Urine Glucose (UA) Norm (Normal) Urine Ketones Negative (Negative) Urine Blood Trace H (Negative) Urine Nitrate Negative (Negative) Urine Bilirubin 1+ H (Negative) Urine Urobilinogen 1 H (Negative) mg/dL Ur Leukocyte [place] ase Negative (Negative) Urine RBC Rare (0-2) /hpf Urine WBC 0-4 H (0-5) /hpf Ur Squamous Epith Cells 5-10 H (0-5) /hpf Amorphous Sediment Not Reportable Urine Bacteria Trace (NONE) /hpf Discharge Plan Discharge Patient Disposition: Home Clinical Impression: Gastroenteritis Condition: Stable Prescriptions: New Zofran 4 mg tablet 4 mg PO Q8H 3 Days Qty: 9 RF: 0 No Action carvedilol 6.25 mg tablet 6.25 mg PO BID Qty: 180 RF: 3 atorvastatin 40 mg tablet 40 mg PO QAM RF: 0 lisinopril 20 mg tablet 20 mg PO QAM RF: 0 Adult Low Dose Aspirin 81 mg tablet,delayed release (DR/EC) 81 mg PO QAM RF: 0 Protonix 40 mg tablet,delayed release (DR/EC) 40 mg PO QAM RF: 0 Discharge Orders: Discharge ED (Routine); Ordered 04/18/21 Ordered By: Akbar Tapia Discharge Diet: Advance as tolerated Discharge Activity: Increase activity as tolerated Patient Instructions: Gastroenteritis (ED) Activity Restrictions/Additional Instructions: Follow-up with medical provider as directed. Take medications as prescribed. Return to the ER or your medical provider if condition worsens. Please read and understand discharge instructions. If any questions ask please. Stand Alone Forms: Work/School Release Coding Level of Care Code ED Supervisor Properties for Annie Fwd Exam Comprehensive
[2021-04-18 09:57] VITALS: BP 129/76; PULSE 53; O2SAT 95
[2021-04-18] MEDS: sodium chloride 0.9% 1,000 ML 999 ML IV (10:10)
[2021-04-18] MEDS: ondansetron 2 mg/ML SDV 2 mL 4 MG IVP (10:11)
[2021-04-18 10:18] LABS: Basophils % 0.3 %; Eosinophils % 0.4 %; Hematocrit 48.6 % (37.0-47.0); Hemoglobin 15.4 g/dL (11.5-15.3); Lymphocytes # 1.1 10^3/uL (0.8-4.8); Lymphocytes % 12.4 %; Mean Corpuscular HGB Conc 31.7 g/dL (30.0-36.0); Mean Corpuscular Hemoglobin 31.4 pg (28.0-34.0); Mean Corpuscular Volume 99.2 fL (81-99); Mean Platelet Volume 10.1 fL (7.4-10.4); Monocytes # 0.6 10^3/uL (0.2-0.9); Neutrophils # 7.33 10^3/uL (1.8-7.7); Neutrophils % 79.7 %; Nucleated Red Blood Cells % 0 %; Platelet Count 331 10^3/cmm (130-400); Red Cell Distribution Width 13.3 % (12.1-15.1); White Blood Count 9.2 10^3/uL (4.0-10.0)
[2021-04-18 10:45] LABS: Alanine Aminotransferase 14 U/L (0-33); Albumin Level 4.1 g/dL (3.5-5.2); Alkaline Phosphatase 90 IU/L (35-105); Anion Gap 11.9 (5-19); Aspartate Amino Transferase 14 U/L (0-32); Blood Urea Nitrogen 19 mg/dL (6-20); Calcium 9.3 mg/dL (8.5-10.5); Carbon Dioxide 27 mmol/L (22-29); Chloride 101 mmol/L (98-107); Globulin 3.5 g/dL (1.3-4.6); Glomerular Filtration Rate 75.6 mL/min (90-130); Glucose 135 mg/dL (65-115); Lipase 14 U/L (13-60); Osmolality Calculated 286 mOsm/kg (285-295); Potassium 3.9 mmol/L (3.5-5.1); Sodium 136 mmol/L (136-145); Total Bilirubin 1.1 mg/dL (0.15-1.2); Total Protein 7.6 g/dL (6.6-8.7)
[2021-04-18 11:18] LABS: Bilirubin Urine 1+ (Negative); Blood Urine Trace (Negative); Glucose Urine UA Norm (Normal); Ketones Urine Negative (Negative); Nitrate Urine Negative (Negative); Protein Urine Neg (Negative); Urine Appearance SL Hazy (CLEAR); Urine Color Yellow (Yellow); pH Urine 5 (5-7)
[2021-04-18 11:19] LABS: Add Urine Microscopic? YES; Leukocyte Esterase Urine Negative (Negative); Urobilinogen Urine 1 mg/dL (Negative)
[2021-04-18 11:20] LABS: Add Urine Culture? No; Bacteria Urine TRACE /hpf; RBC Urine RARE /hpf (0-2); WBC Urine 0-4 /hpf (0-5)
== END 2021-04-18 11:32 | disposition home or self-care (01) ==
PROVIDERS: Emergency Provider Nurse Practitioner Family
DX: K52.9 Noninfective gastroenteritis and colitis, unspecified (principal); Z79.82 Long term (current) use of aspirin; J44.9 Chronic obstructive pulmonary disease, unspecified; F17.210 Nicotine dependence, cigarettes, uncomplicated
CPT/HCPCS: 74018; 80053; 81001; 83690; 85025; 96361; 96374; 99284; J2405; J7030

== ENCOUNTER 2021-07-11 15:25 | Emergency (ER) | payer SELFPAY ==
[2021-07-11 15:32] VITALS: BP 152/77; PULSE 69; RESP 20; TEMP 36.4; O2SAT 96; BMI 31.8
--- NOTE | 2021-07-11 15:35 | XR_ITS ---
WS: [id number] Exam: XR chest 1V portable [id number] Date/Time of Exam: 07/11/2021 3:35 PM Reason For Exam: chest pain Comparison 02/27/2021. Findings: The lungs are clear and fully expanded. Costophrenic angles are sharp. No infiltrates. Bronchovascula r relief appears normal. Cardiac silhouette is unremarkable. Bony elements are intact. XR/XR chest 1V portable [id number] IMPRESSION: Unremarkable chest radiograph.
--- NOTE | 2021-07-11 15:57 | ECG_ITS ---
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 Measurements Intervals [place] Rate: 66 P: 64 CA: 183 QRS: -34 QRSD: 102 T: 116 QT: 418 QTc: 438 Interpretive Statements SINUS RHYTHM WITH OCCASIONAL VENTRICULAR PREMATURE COMPLEXES LEFT AXIS DEVIATION [QRS AXIS < -30] LEFT VENTRICULAR HYPERTROPHY AND ST-T CHANGE [VOLTAGE CRITERIA PLUS ST/T ABNORMALITY] POSSIBLE ANTEROSEPTAL MYOCARDIAL INFARCTION , OF INDETERMINATE AGE [30 ms Q WAVE IN V1-V4] INTERPRETATION BASED ON A DEFAULT AGE OF 40 YEARS Compared to ECG 02/27/2021 04:52:24 Ventricular premature complex(es) now present Intraventricular conduction delay no longer present ST (T wave) deviation still present Myocardial infarct finding still present Electronically Signed On 07-11-2021 21:42:10 CDT by Swati Daniels M.D. [id number]
--- NOTE | 2021-07-11 16:06 | W.ED.SOB ---
HPI - SOB/Dyspnea General: Chief Complaint: Shortness of Breath/Dyspnea Stated Complaint: painful/difficult breathing; cough Time Seen by Provider: 07/11/21 16:05 History of Present Illness: HPI Narrative: This patient presents to the emergency department with sinus congestion for a week. Patient denies any acute shortness of breath denies any significant body aches. Patient states she has been taking [id number] antihistamines but still cannot get her nose cleaned out. Noticed that she when she sniffed up and try to cough out some phlegm it was greenish in color. Patient denies fever. On exam patient has tenderness over the maxillary sinuses. Patient believes she has seasonal allergies make it worse. MD elicited complaint: cough Onset (ago): week(s) Timing: constant Severity: mild Relieving factors: nothing Associated symptoms: Deny abdominal pain, chest pain, extremity pain, fever(s), lightheadedness, nausea, palpitations or vomiting Review of Systems General: Reports: 10 or more systems reviewed and unremarkable except in HPI and below Const: Denies: fever(s), chills, body aches or fatigue Eyes: Denies: change in vision or blurry vision ENMT: Reports: nasal discharge and nasal congestion; Denies: throat pain, hoarseness or mouth pain Card: Denies: chest pain, palpitations, irregular heart rhythm, edema, swelling of feet/ankles or lightheadedness Resp: Denies: dyspnea, productive cough, non-productive cough, wheezing or pain on inspiration GI: Denies: abdominal pain, nausea or vomiting : Denies: flank pain, difficulty voiding, dysuria, urinary frequency, urinary urgency or urinary hesitancy Musc: Denies: neck pain, back pain, extremity pain, extremity swelling, joint pain, joint swelling, joint redness, joint warmth or limited range of motion Skin/Breast: Denies: rash, pruritus, erythema or skin tenderness Neuro: Denies: headache(s), numbness in extremities or weakness in extremities Psych: Denies: anxiety or depression PFSH ED PFSH: Medical History Acute anterior wall OR 01/2014 Adult-onset obesity Chest pain COPD (chronic obstructive pulmonary disease) Ischemic cardiomyopathy Tobacco abuse Surgical History History of heart artery stent Hx of cholecystectomy Hx of tubal ligation Family History Grandmother Cancer Father Cancer Hyperlipidemia Hypertension Grandmother Cancer Sister Stroke Denies family history of Diabetes CAD (coronary artery disease) Clotting disorder Dementia Psychiatric illness Chronic kidney disease (CKD) Suicide Anesthesia complication Bleeding disorder Family history of premature coronary artery disease Lung disease Social History Smoking and tobacco status: current every day smoker Second hand smoke exposure: No Smoking risk assessment/counseling performed?: Yes Alcohol intake: never Physical Exam Const: COMMON NORMALS: no acute distress, average body habitus, patient oriented x3, no limitations, healthy appearing, alert and well nourished HENMT: COMMON NORMALS: normocephalic, atraumatic, hearing grossly normal bilaterally, external ears normal, EAC's normal, TM's normal bilaterally, Normal external nose present, Normal nasal mucous membranes and turbinates present, moist oral mucous membranes, oropharynx normal, dentition normal and gingiva normal HEAD & SCALP: normocephalic and atraumatic FACE & SINUS: sinus tenderness maxillary NOSE: Normal external nose present and Normal nasal mucous membranes and turbinates present EXTERNAL EAR: Yes external ears normal EXTERNAL AUDITORY CANAL: EAC's normal TYMPANIC MEMBRANE: TM's normal bilaterally Neck/C-Spine: COMMON NORMALS: full ROM, no lymphadenopathy, supple, no meningeal signs, no JVD, Thyroid normal and No carotid bruits THYROID: Thyroid normal Chest: COMMONS NORMALS: normal inspection of the chest, normal palpation of entire chest wall, normal inspection of the breasts and normal palpation of the breasts Breast/axilla inspection: Yes normal inspection of the breasts BREAST/AXILLA PALPATION: Yes normal palpation of the breasts Resp: COMMON NORMALS: normal respiratory effort, No retractions, No use of accessory muscles, clear to auscultation bilaterally and percussion normal AUSCULTATION: clear to auscultation bilaterally PERCUSSION: percussion normal Cardio: COMMON NORMALS: no JVD, regular rate, regular rhythm, S1 normal heart sound present, S2 normal heart sound present, No gallops present (Cardio), No clicks present (Cardio), No murmurs present (Cardio), No rub (Cardio) and Peripheral pulses 2+ throughout RATE: regular rate RHYTHM: regular rhythm HEART SOUNDS: S1 normal heart sound present and S2 normal heart sound present PERIPHERAL PULSES: Peripheral pulses 2+ throughout GI: COMMON NORMALS: Normal to inspection, nondistended, normoactive bowel sounds present, Soft to palpation, non-tender, No hepatosplenomegaly present, no masses and no bruits PALPATION: Yes Soft to palpation and Yes No hepatosplenomegaly present Back/Pelvis: COMMON NORMALS: thoracic and lumbar spine normal to inspection, no thoracic nor lumbar tenderness, thoraco-lumbar ROM normal and straight leg raise negative bilaterally Extremity: COMMON NORMALS: normal to inspection, full ROM, capillary refill normal, no joint enlargement, no clubbing, cyanosis or edema, no calf tenderness and no pedal edema Neuro: COMMON NORMALS: patient oriented x3 SENSORIUM/ORIENTATION: Yes alert MENINGEAL SIGNS: Yes no meningeal signs Course Reevaluation(s): Reevaluation #1: Encourage p.o. fluids. Any over the counter antihistamine as needed. He will be started on a Zithromax antibiotic. Use nasal saline washes as needed. Coolmist humidifier as needed. Follow-up in primary care physician as needed in 3 to 5 days. Time: 16:13 Vital Signs: Vital signs: Vital Signs Temperature 97.5 F L 07/11/21 15:32 Pulse Rate 69 07/11/21 15:32 Respiratory Rate 20 H 07/11/21 15:32 Blood Pressure 152/77 07/11/21 15:32 Pulse Oximetry 96 07/11/21 15:32 MDM - SOB/Dyspnea MDM Narrative: Medical decision making narrative: This patient presents to the emergency department with sinus congestion for a week. Patient denies any acute shortness of breath denies any significant body aches. Patient states she has been taking [id number] antihistamines but still cannot get her nose cleaned out. Noticed that she when she sniffed up and try to cough out some phlegm it was greenish in color. Patient denies fever. On exam patient has tenderness over the maxillary sinuses. Patient believes she has seasonal allergies make it worse. Encourage p.o. fluids. Any over the counter antihistamine as needed. He will be started on a Zithromax antibiotic. Use nasal saline washes as needed. Coolmist humidifier as needed. Follow-up in primary care physician as needed in 3 to 5 days. Imaging Data^: CXR: Attestation: I personally reviewed and interpreted this imaging study as follows: Radiologist's impression: IMPRESSION: Unremarkable chest radiograph. Discharge Plan Discharge Patient Disposition: Home Clinical Impression: Acute maxillary sinusitis Condition: Stable Prescriptions: New azithromycin 250 mg tablet 250 mg PO DAILY 6 Days Qty: 6 RF: 0 No Action carvedilol 6.25 mg tablet 6.25 mg PO BID Qty: 180 RF: 3 atorvastatin 40 mg tablet 40 mg PO QAM RF: 0 lisinopril 20 mg tablet 20 mg PO QAM RF: 0 Adult Low Dose Aspirin 81 mg tablet,delayed release (DR/EC) 81 mg PO QAM RF: 0 Protonix 40 mg tablet,delayed release (DR/EC) 40 mg PO QAM RF: 0 Discharge Orders: Discharge ED (Routine); Ordered 07/11/21 Ordered By: Terrance Delvalle Discharge Diet: Advance as tolerated Discharge Activity: Resume usual activity Patient Instructions: Opioid Safety Activity Restrictions/Additional Instructions: Encourage p.o. fluids. Any over the counter antihistamine as needed. He will be started on a Zithromax antibiotic. Use nasal saline washes as needed. Coolmist humidifier as needed. Follow-up in primary care physician as needed in 3 to 5 days. Coding Level of Care Code ED Rubber Vulcanizing Machine Operator for Annie Wright
[2021-07-11 16:08] VITALS: TEMP 36.8; O2SAT 96
[2021-07-11 16:13] VITALS: BP 144/80; PULSE 64; RESP 18; O2SAT 96
[2021-07-11] MEDS: benzonatate 100 mg Capsule PO (16:25)
[2021-07-11 16:26] VITALS: BP 134/82; PULSE 78; RESP 18; TEMP 36.8; O2SAT 96
== END 2021-07-11 16:29 | disposition home or self-care (01) ==
PROVIDERS: Emergency Provider Emergency Medicine
DX: J01.00 Acute maxillary sinusitis, unspecified (principal); Z79.82 Long term (current) use of aspirin; J44.9 Chronic obstructive pulmonary disease, unspecified; F17.210 Nicotine dependence, cigarettes, uncomplicated
CPT/HCPCS: 71045; 93005; 99283

== ENCOUNTER 2021-09-04 12:54 | Emergency (ER) | payer MEDICAID, SELFPAY ==
[2021-09-04 13:06] VITALS: BP 127/75; PULSE 62; RESP 16; TEMP 36.4; O2SAT 97; BMI 31.8
--- NOTE | 2021-09-04 13:21 | XRR_ITS ---
PROCEDURE INFORMATION: Exam: XR Right Foot Exam date and time: 09/04/2021 1:21 PM Age: 51 years old Clinical indication: Pain; Foot and toes; Right; Additional info: 1st mcp joint pain TECHNIQUE: Imaging protocol: XR Right foot. Views: Frontal, lateral, and oblique, 3 views. COMPARISON: No relevant prior studies available. FINDINGS: Bones/joints: Slight dorsomedial articular hypertrophy of the 1st metatarsal head at the 1st metatarsophalangeal joint. No acute bony abnormality identified. A moderate plantar calcaneal ossified spur is present. Soft tissues: Soft tissue swelling without calcification medial to the 1st metatarsophalangeal (bunion). XR/XR foot RT min 3V* 24402 IMPRESSION: 1. Soft tissue bunion medial distal forefoot . 2. 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 3. No acute bony abnormality identified. 4. Plantar calcaneal spur. Radiation Dose CTDIVOL = (mGy): DLP = (mGy-cm)
--- NOTE | 2021-09-04 13:31 | ED_ITS ---
HPI - Extremity Problem General: Chief complaint: Extremity Injury, Lower Stated complaint: R GREAT TOE INJURY Time Seen by Provider: 09/04/21 13:14 Source: patient Mode of arrival: wheelchair Limitations: no limitations History of Present Illness: HPI Narrative: Patient is a 51-year-old female who presents to ED today for evaluation of her right foot pain. Patient tells me ye sterday morning she woke up with severe right foot pain and noticed some redness and warmth near her great toe. No injury or trauma. No recent scrapes/abrasions/sores. No previous history of gout. Complaint: extremity pain Onset (ago): hour(s) Pain Consistency: constant Location: right and lower extremity Quality: burning and sharp Radiation: none Relieving factors: nothing Exacerbating factors: range of motion, walking and palpation Associated symptoms: Reports no associated symptoms; Deny chest pain or fever(s) Review of Systems Const: Denies: fever(s), chills, body aches, fatigue or malaise Card: Denies: chest pain Resp: Denies: dyspnea GI: Denies: nausea or vomiting Musc: Reports: extremity pain (R foot) and joint redness (R 1st MTP joint) Neuro: Denies: numbness in extremities, weakness in extremities or sensory changes PFSH ED PFSH: Medical History Acute anterior wall CT 01/2014 Adult-onset obesity Chest pain COPD (chronic obstructive pulmonary disease) Ischemic cardiomyopathy Tobacco abuse Surgical History History of heart artery stent Hx of cholecystectomy Hx of tubal ligation Family History Grandmother Cancer Father Cancer Hyperlipidemia Hypertension Grandmother Cancer Sister Stroke Denies family history of Diabetes CAD (coronary artery disease) Clotting disorder Dementia Psychiatric illness Chronic kidney disease (CKD) Suicide Anesthesia complication Bleeding disorder Family history of premature coronary artery disease Lung disease Social History Smoking and tobacco status: current every day smoker Second hand smoke exposure: No Smoking risk assessment/counseling performed?: Yes Alcohol intake: never Physical Exam Const: COMMON NORMALS: no acute distress, patient oriented x3, no limitations and alert GENERAL APPEARANCE: cooperative Extremity: RIGHT LOWER EXTREMITY: Yes foot & digits (medial bunion) Right foot and digits: Yes palpation (TTP R 1st MTP joint; warm to touch with mild erythema) and Yes neurovascular exam (normal) Neuro: COMMON NORMALS: patient oriented x3, moves all extremities, no focal motor deficits and no sensory deficits noted SENSORIUM/ORIENTATION: Yes alert Skin: NARRATIVE SKIN EXAM: see extremity assessment for pertinent skin findings Course Vital Signs: Vital signs: Vital Signs Temperature 97.6 F 09/04/21 13:06 Pulse Rate 55 L 09/04/21 13:51 Respiratory Rate 16 09/04/21 13:51 Blood Pressure 113/73 09/04/21 13:51 Pulse Oximetry 96 09/04/21 13:51 MDM - Extremity (Nontraumatic) MDM Narrative: Medical decision making narrative: Patient has fairly acute onset right MTP pain. Nontraumatic. She does have a medial bunion present. She has pain, redness, and warmth to her 1st MTP raising the suspicion for a gout flare. Patient has risk factors for gout although she has never experienced a flare previously. Will place on indomethacin and steroids and get her set up with podiatry in case symptoms do not improve (patient does not have a PCP for follow-up). Return to ED precautions given. Imaging Data^: XR R foot: Radiologist's impression: [address] [address]OMfs ReportSigned Patient: Shailesh Persaud #: [id number]: 1970Acct#:[id number]/Sex: 51 / FADM Date: 09/04/21Loc: ERRoom/Bed:Attending Dr: Ordering Provider/Ordering MD: Jennifer Padgett Date of Service: 09/04/21 Procedure(s): XR foot RT min 3V* [id number] Accession Number(s): [id number] Report Number: [id number] PROCEDURE INFORMATION: Exam: XR Right Foot Exam date and time: 09/04/2021 1:21 PM Age: 51 years old Clinical indication: Pain; Foot and toes; Right; Additional info: 1st mcp joint pain TECHNIQUE: Imaging protocol: XR Right foot. Views: Frontal, lateral, and oblique, 3 views. COMPARISON: No relevant prior studies available. FINDINGS: Bones/joints: Slight dorsomedial articular hypertrophy of the 1st metatarsal head at the 1st metatarsophalangeal joint. No acute bony abnormality identified. A moderate plantar calcaneal ossified spur is present. Soft tissues: Soft tissue swelling without calcification medial to the 1st metatarsophalangeal (bunion). XR/XR foot RT min 3V* [id number] IMPRESSION: 1. Soft tissue bunion medial distal forefoot . 2. 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 3. No acute bony abnormality identified. 4. Plantar calcaneal spur. Radiation Dose CTDIVOL = (mGy): DLP = (mGy-cm) Dictated By:Neil Krishnamurthy MDSigned By:Neil Krishnamurthy MDSigned Date/Time:09/04/21 1416DD/ 1321 Discharge Plan Discharge Patient Disposition: Home Clinical Impression: Gout Qualifiers: Gout site: toe Gout etiology: unspecified cause Chronicity: acute Laterality: right Qualified Code(s): M10.9 - Gout, unspecified Condition: Stable Prescriptions: New indomethacin 50 mg capsule 50 mg PO TID Qty: 15 RF: 0 prednisone 10 mg tablet 10 mg PO DAILY 10 Days Qty: 41 RF: 0 No Action carvedilol 6.25 mg tablet 6.25 mg PO BID Qty: 180 RF: 3 atorvastatin 40 mg tablet 40 mg PO QAM RF: 0 lisinopril 20 mg tablet 20 mg PO QAM RF: 0 Adult Low Dose Aspirin 81 mg tablet,delayed release (DR/EC) 81 mg PO QAM RF: 0 Protonix 40 mg tablet,delayed release (DR/EC) 40 mg PO QAM RF: 0 Discharge Orders: Discharge ED (Routine); Ordered 09/04/21 Ordered By: Jennifer Padgett Patient Instructions: Gout, Gout (ED) Activity Restrictions/Additional Instructions: You need to begin taking medications immediately. Case management should contact you shortly to set you up with a follow up appointment with podiatry in case symptoms do not improve. You need to return to ED for worsening or uncontrollable pain, worsening redness/swelling, fevers, streaking up your leg, or any other concerns you may have. I hope you begin to feel better soon. Stand Alone Forms: Work/School Release Coding Level of Care Code ED Sustainability Specialist for Chg Fwd Exam Expanded Problem Focused
[2021-09-04 13:51] VITALS: BP 113/73; PULSE 55; RESP 16; O2SAT 96
--- NOTE | 2021-09-05 09:59 | DCPLANNER ---
platform material handler manager had message to schedule a follow up appointment for patient with ortho. platform material handler manager called the ortho clinic, spoke with Krissy, gave clinic patients information. platform material handler manager was told that patients information would be printed and reviewed. Clinic will call patient with appointment information.
--- NOTE | 2021-09-24 06:30 | DCPLANNER ---
Addendum entered by Elsi Parikh 11/15/21 16:11: Patient had a follow up appointment scheduled for 10.23.[address] Alvarez at ortho - patient did not attend appointment. Original Note: Patient has a follow up appointment scheduled for Saturday, October 23, 2021 at 1:[address] Alvarez at ortho. Clinic will call patient with appointment information.
== END 2021-09-04 14:22 | disposition home or self-care (01) ==
PROVIDERS: Emergency Provider Physician Assistant
DX: M10.9 Gout, unspecified (principal); F17.210 Nicotine dependence, cigarettes, uncomplicated; J44.9 Chronic obstructive pulmonary disease, unspecified; I25.5 Ischemic cardiomyopathy; I25.2 Old myocardial infarction
CPT/HCPCS: 73630; 99282

== ENCOUNTER → 2022-03-05 15:55 | Outpatient (BNVA) | payer BC, SELFPAY | PROVIDERS: Visit Provider Internal Medicine | DX: I11.9 Hypertensive heart disease without heart failure (principal); I25.10 Atherosclerotic heart disease of native coronary artery without angina pectoris; J44.9 Chronic obstructive pulmonary disease, unspecified; F17.200 Nicotine dependence, unspecified, uncomplicated | CPT/HCPCS: 99214 ==

== ENCOUNTER 2022-10-21 01:32 | Inpatient (IN) | payer BC, SELFPAY ==
[2022-10-21] VITALS (137 sets, daily range): BP systolic 102–197; BP diastolic 62–107; PULSE 50–88; RESP 10–29; TEMP 36.6–37.2; O2SAT 86–96; BMI 28.3
--- NOTE | 2022-10-21 01:56 | XRR_ITS ---
PROCEDURE INFORMATION: Exam: XR Chest Exam date and time: 10/21/2022 3:25 AM Age: 52 years old Clinical indication: Pain; Chest pressure; Additional info: Chest pain, c/c TECHNIQUE: Imaging protocol: Radiologic exam of the chest. Views: 1 view. COMPARISON: CR XR chest 1V portable [id number] 07/11/2021 3:47 PM FINDINGS: Lungs: Normal lung volumes. No interstitial or airspace opacities. Pleural spaces: No pleural effusion. No pneumothorax. Heart/Mediastinum: Normal heart size. There is a mildly tortuous thoracic aorta. Midline trachea. Bones/joints: No acute abnormalities. XR/XR chest 1V portable [id number] IMPRESSION: No chest radiographic evidence of acute cardiopulmonary disease.
--- NOTE | 2022-10-21 01:56 | ECG_ITS ---
[facility] Test Date: 2022-10-21 Pat Name: Silvia Persaud Department: Room: Gender: Female [employer] Ambassador: : 1970 Requested By: Erika Muhammad Order Number: [id number] Ana Laura MD: Swati Daniels M.D. Measurements Intervals [place] Rate: 62 P: 65 VT: 187 QRS: -23 QRSD: 126 T: 140 QT: 420 QTc: 428 Interpretive Statements SINUS RHYTHM POSSIBLE LEFT ATRIAL ENLARGEMENT [-0.1mV P-WAVE IN V1/V2] LEFT VENTRICULAR HYPERTROPHY AND ST-T CHANGE [VOLTAGE CRITERIA PLUS ST/T ABNORMALITY] POSSIBLE ANTERIOR MYOCARDIAL INFARCTION , OF INDETERMINATE AGE [30 ms Q WAVE IN V3/V4, OR R < 0.2 mV IN V4] Compared to ECG 07/11/2021 16:02:05 Ventricular premature complex(es) no longer present Left-axis deviation no longer present ST (T wave) deviation still present Myocardial infarct finding still present Electronically Signed On 10-21-2022 20:25:53 MERCHANDISE PICKUP/RECEIVING ASSOCIATE by Swati Daniels M.D. [email or web address] [id number] [email or web address]
[2022-10-21 05:20] LABS: Basophils % 0.2 %; Hemoglobin 14.8 g/dL (11.5-15.3); Lymphocytes # 1.2 10^3/uL (0.8-4.8); Lymphocytes % 10.5 %; Mean Corpuscular HGB Conc 32.9 g/dL (30.0-36.0); Mean Corpuscular Hemoglobin 31.4 pg (28.0-34.0); Mean Corpuscular Volume 95.5 fl (81-99); Mean Platelet Volume 10.3 fL (7.4-10.4); Monocytes # 0.6 10^3/uL (0.2-0.9); Monocytes % 5.2 %; Neutrophils # 9.35 10^3/uL (1.8-7.7); Neutrophils % 83.8 %; Nucleated Red Blood Cells % 0 %; Platelet Count 282 10^3/cmm (130-400); Red Blood Count 4.71 10^6/uL (4.1-5.3); Red Cell Distribution Width 12.6 % (12.1-15.1); White Blood Count 11.2 10^3/uL (4.0-10.0)
--- NOTE | 2022-10-21 05:35 | W.ED.CHESTPA ---
Documented by User: Bryan Barraza DO 10/22/22 12:56 HPI - Chest Pain General: Chief Complaint: Chest Pain Stated Complaint: SOB, CP Time Seen by Provider: 10/21/22 05:31 Source: patient History of Present Illness: 52-year-old female with a history of coronary disease and stents. She presents with chest pressure that woke her up around 1230 this morning with shortness of breath. She notes that she has had a cough and congestion for 2 to 3 weeks. No fever. Some clear sputum production. No increased swelling of her feet. MD complaint: chest heaviness and chest discomfort Pertinent past history: coronary artery disease Onset (ago): hour(s) Timing of current episode: constant and still present Onset: during rest and awoke with symptoms Pain location: substernal Pain radiation: none Quality: aching and heaviness Relieving factors: nothing Exacerbating factors: exertion Associated symptoms: Reports dyspnea and vomiting (1 time); Deny abdominal pain, fever(s) or palpitations Treatment prior to arrival: none Review of Systems Const: Denies: fever(s) or chills ENMT: Denies: throat pain Card: Reports: chest pain; Denies: palpitations Resp: Reports: dyspnea and non-productive cough; Denies: productive cough GI: Reports: vomiting (1 time); Denies: abdominal pain PFSH ED PFSH: Medical History Acute anterior wall [place] 01/2014 Adult-onset obesity Chest pain COPD (chronic obstructive pulmonary disease) GERD (gastroesophageal reflux disease) History of seizure Hypertension Ischemic cardiomyopathy Tobacco abuse Surgical History History of heart artery stent Hx of cholecystectomy Hx of tubal ligation Family History Grandmother Cancer Father Cancer Hyperlipidemia Hypertension Grandmother Cancer Sister Stroke Denies family history of Diabetes CAD (coronary artery disease) Clotting disorder Dementia Psychiatric illness Chronic kidney disease (CKD) Suicide Anesthesia complication Bleeding disorder Family history of premature coronary artery disease Lung disease Social History Smoking and tobacco status: current every day smoker Second hand smoke exposure: No Smoking risk assessment/counseling performed?: Yes Alcohol intake: never Physical Exam Const: COMMON NORMALS: no acute distress GENERAL APPEARANCE: ill appearing; not frail appearing HENMT: COMMON NORMALS: normocephalic and atraumatic HEAD & SCALP: normocephalic and atraumatic FACE & SINUS: normal facial exam Eye: COMMON NORMALS: Equal, round and reactive pupils present and EOMs intact bilaterally PUPIL: Yes Equal, round and reactive pupils present Chest: CHEST: Yes Symmetrical chest wall rise Resp: EFFORT & INSPECTION: Yes tachypneic AUSCULTATION: rhonchi and wheezes Cardio: COMMON NORMALS: regular rate and regular rhythm RATE: regular rate RHYTHM: regular rhythm GI: COMMON NORMALS: Normal to inspection, nondistended, normoactive bowel sounds present and Soft to palpation PALPATION: Yes Soft to palpation Neuro: AVELINO COMA SCALE: document GCS findings A[place] coma scale eye opening: Spontaneous [place] coma scale verbal response: Orientated A[place]ino coma scale motor response: Obey commands [place] coma scale total score: 15 Course Vital Signs: Vital signs: Vital Signs Temperature 98.1 F 10/22/22 11:18 Pulse Rate 78 10/22/22 11:18 Respiratory Rate 22 H 10/22/22 12:41 Blood Pressure 122/73 10/22/22 11:18 Pulse Oximetry 95 10/22/22 12:41 Oxygen Delivery Me thod 10/21/22 20:02 Oxygen Flow Rate 2 10/21/22 20:00 MDM - Chest Pain Medical Decision Making EKG reveals a sinus rhythm without ST changes. She is hypertensive on arrival, 200s over 100s. This is improved to 160 systolic after the use of topical nitroglycerin paste. Heart rate is 60. White blood cell count is 11.2. Hemoglobin 15. Her first troponin is 15 which is near her baseline troponin is prior. Her BNP however is 4800. Chest x-ray does not reveal infiltrate or vascular congestion. She is breathing room air. Swabs for flu and COVID are negative. Will await a second troponin. If no significant delta, will go home on Lasix for the next 4 days to follow-up with PCP or return if worsening conditions. Lab Data 10/21/22 05:11 10/21/22 05:11 Radiology Impressions Chest X-Ray 10/21/22 01:56 IMPRESSION: No chest radiographic evidence of acute cardiopulmonary disease. Laboratory Results WBC 11.9 10^3/uL (4.0-10.0) H 10/22/22 03:12 RBC 4.95 10^6/uL (4.1-5.3) 10/22/22 03:12 Hgb 15.3 g/dL (11.5-15.3) 10/22/22 03:12 Hct 47.2 % (37.0-47.0) H 10/22/22 03:12 MCV 95.4 fl (81-99) 10/22/22 03:12 MCH 30.9 pg (28.0-34.0) 10/22/22 03:12 MCHC 32.4 g/dL (30.0-36.0) 10/22/22 03:12 RDW 12.6 % (12.1-15.1) 10/22/22 03:12 Plt Count 284 10^3/cmm (130-400) 10/22/22 03:12 MPV 10.7 fL (7.4-10.4) H 10/22/22 03:12 Neut % (Auto) 80.0 % 10/22/22 03:12 Lymph % (Auto) 11.0 % 10/22/22 03:12 [place] % (Auto) 8.2 % 10/22/22 03:12 Eos % (Auto) 0.1 % 10/22/22 03:12 Baso % (Auto) 0.2 % 10/22/22 03:12 Neut # (Auto) 9.56 10^3/uL (1.8-7.7) H 10/22/22 03:12 Lymph # (Auto) 1.3 10^3/uL (0.8-4.8) 10/22/22 03:12 [place] # (Auto) 1.0 10^3/uL (0.2-0.9) H 10/22/22 03:12 Eos # (Auto) 0.0 10^3/uL (0.0-0.8) 10/22/22 03:12 Baso # (Auto) 0.0 10^3/uL (0.0-0.1) 10/22/22 03:12 Nucleated RBC % (auto) 0 % 10/22/22 03:12 Nucleated RBCs # 0.0 /100WBC 10/22/22 03:12 Sodium 139 mmol/L (136-145) 10/22/22 03:12 Potassium 3.4 mmol/L (3.5-5.1) L 10/22/22 03:12 Chloride 97 mmol/L (98-107) L 10/22/22 03:12 Carbon Dioxide 28 mmol/L (22-29) 10/22/22 03:12 Anion Gap 17.4 (5-19) 10/22/22 03:12 BUN 12 mg/dL (6-20) 10/22/22 03:12 Creatinine 0.7 mg/dL (0.5-0.9) 10/22/22 03:12 GFR Calculation 87.9 mL/min (90-130) L 10/22/22 03:12 Glucose 126 mg/dL (65-115) H 10/22/22 03:12 Calculated Osmolality 289 mOsm/kg (285-295) 10/22/22 03:12 Calcium 9.0 mg/dL (8.5-10.5) 10/22/22 03:12 Magnesium 1.7 mg/dL (1.7-2.3) 10/22/22 03:12 Total Bilirubin 1.2 mg/dL (0.15-1.2) 10/22/22 03:12 AST 12 U/L (0-32) 10/22/22 03:12 ALT 10 U/L (0-33) 10/22/22 03:12 Alkaline Phosphatase 97 U/L (35-105) 10/22/22 03:12 Troponin T Baseline 15 ng/L (0-10) H 10/21/22 05:11 Troponin T 120 Minute 19.90 ng/L (0-10) H 10/21/22 06:49 Delta Troponin T 4.90 ABS# (0-10) 10/21/22 06:49 Troponin T Hi Sens 6Hr 14.51 ng/L (0-10) H 10/21/22 12:08 Troponin T Hi Sens 6Hr Delta -0.49 ng/L (0-12) L 10/21/22 12:08 NT-Pro-B Natriuret Pep 4832 pg/mL (0-125) H 10/21/22 05:11 Total Protein 8.1 g/dL (6.6-8.7) 10/22/22 03:12 Albumin 3.9 g/dL (3.5-5.2) 10/22/22 03:12 Globulin 4.2 g/dL (1.3-4.6) 10/22/22 03:12 Influenza Type A Ag negative (Negative) 10/21/22 05:11 Influenza Type B Ag negative (Negative) 10/21/22 05:11 SARS-CoV-2 Ag (Rapid) negative (Negative) 10/21/22 05:11 Discharge Plan Discharge Patient Disposition: Admitted As Inpatient Admit Provider: Carlos Banerjee Clinical Impression: Chest pain, Combined systolic and diastolic cardiac dysfunction, Coronary artery disease Condition: Stable Sign Out Sign Out Data: Patient Sign Out occurred on 10/21/22 at 07:21. Patient's care was discussed, and care was transferred from to Alpesh Rowley DO. Coding Level of Care Code ED Java User Interface Developer for Chg Fwd Exam Comprehensive Documented by User: Alpesh Rowley DO 10/21/22 09:37 HPI - Chest Pain General: Chief Complaint: Chest Pain Stated Complaint: SOB, CP Time Seen by Provider: 10/21/22 05:31 PFS ED PFSH: Medical History Acute anterior wall [place] 01/2014 Adult-onset obesity Chest pain COPD (chronic obstructive pulmonary disease) GERD (gastroesophageal reflux disease) History of seizure Hypertension Ischemic cardiomyopathy Tobacco abuse Surgical History History of heart artery stent Hx of cholecystectomy Hx of tubal ligation Family History Grandmother Cancer Father Cancer Hyperlipidemia Hypertension Grandmother Cancer Sister Stroke Denies family history of Diabetes CAD (coronary artery disease) Clotting disorder Dementia Psychiatric illness Chronic kidney disease (CKD) Suicide Anesthesia complication Bleeding disorder Family history of premature coronary artery disease Lung disease Social History Smoking and tobacco status: current every day smoker Second hand smoke exposure: No Smoking risk assessment/counseling performed?: Yes Alcohol intake: never Physical Exam Neuro: AVELINO COMA SCALE: document GCS findings [place] coma scale total score: 15 Course Vital Signs: Vital signs: Vital Signs Temperature 98.1 F 10/22/22 11:18 Pulse Rate 78 10/22/22 11:18 Respiratory Rate 22 H 10/22/22 12:41 Blood Pressure 122/73 10/22/22 11:18 Pulse Oximetry 95 10/22/22 12:41 Oxygen Delivery Me thod 10/21/22 20:02 Oxygen Flow Rate 2 10/21/22 20:00 MDM - Chest Pain Medical Decision Making EKG reveals a sinus rhythm without ST changes. She is hypertensive on arrival, 200s over 100s. This is improved to 160 systolic after the use of topical nitroglycerin paste. Heart rate is 60. White blood cell count is 11.2. Hemoglobin 15. Her first troponin is 15 which is near her baseline troponin is prior. Her BNP however is 4800. Chest x-ray does not reveal infiltrate or vascular congestion. She is breathing room air. Swabs for flu and COVID are negative. Will await a second troponin. If no significant delta, will go home on Lasix for the next 4 days to follow-up with PCP or return if worsening conditions. 10/21/2022 0936 Care assumed at change of shift patient continuing to have chest pain reviewed her chart she had a rather difficult angiogram in 2016 she had an in-stent stenosis. She continues to have chest pain now her troponin bumped +4. She states she has been having intermittent episodes of chest pain for some time now they are increasing intensity and frequency. Discussed with Dr. Pa will admit I switched her from Nitropaste to a nitro drip. Orders written Dr. Banerjee is consulted cardiology. Medical Records I reviewed the patient's medical records. Lab Data I reviewed the patient's lab results. 10/21/22 05:11 10/21/22 05:11 Radiology Impressions Chest X-Ray 10/21/22 01:56 IMPRESSION: No chest radiographic evidence of acute cardiopulmonary disease. Laboratory Results WBC 11.9 10^3/uL (4.0-10.0) H 10/22/22 03:12 RBC 4.95 10^6/uL (4.1-5.3) 10/22/22 03:12 Hgb 15.3 g/dL (11.5-15.3) 10/22/22 03:12 Hct 47.2 % (37.0-47.0) H 10/22/22 03:12 MCV 95.4 fl (81-99) 10/22/22 03:12 MCH 30.9 pg (28.0-34.0) 10/22/22 03:12 MCHC 32.4 g/dL (30.0-36.0) 10/22/22 03:12 RDW 12.6 % (12.1-15.1) 10/22/22 03:12 Plt Count 284 10^3/cmm (130-400) 10/22/22 03:12 MPV 10.7 fL (7.4-10.4) H 10/22/22 03:12 Neut % (Auto) 80.0 % 10/22/22 03:12 Lymph % (Auto) 11.0 % 10/22/22 03:12 [place] % (Auto) 8.2 % 10/22/22 03:12 Eos % (Auto) 0.1 % 10/22/22 03:12 Baso % (Auto) 0.2 % 10/22/22 03:12 Neut # (Auto) 9.56 10^3/uL (1.8-7.7) H 10/22/22 03:12 Lymph # (Auto) 1.3 10^3/uL (0.8-4.8) 10/22/22 03:12 [place] # (Auto) 1.0 10^3/uL (0.2-0.9) H 10/22/22 03:12 Eos # (Auto) 0.0 10^3/uL (0.0-0.8) 10/22/22 03:12 Baso # (Auto) 0.0 10^3/uL (0.0-0.1) 10/22/22 03:12 Nucleated RBC % (auto) 0 % 10/22/22 03:12 Nucleated RBCs # 0.0 /100WBC 10/22/22 03:12 Sodium 139 mmol/L (136-145) 10/22/22 03:12 Potassium 3.4 mmol/L (3.5-5.1) L 10/22/22 03:12 Chloride 97 mmol/L (98-107) L 10/22/22 03:12 Carbon Dioxide 28 mmol/L (22-29) 10/22/22 03:12 Anion Gap 17.4 (5-19) 10/22/22 03:12 BUN 12 mg/dL (6-20) 10/22/22 03:12 Creatinine 0.7 mg/dL (0.5-0.9) 10/22/22 03:12 GFR Calculation 87.9 mL/min (90-130) L 10/22/22 03:12 Glucose 126 mg/dL (65-115) H 10/22/22 03:12 Calculated Osmolality 289 mOsm/kg (285-295) 10/22/22 03:12 Calcium 9.0 mg/dL (8.5-10.5) 10/22/22 03:12 Magnesium 1.7 mg/dL (1.7-2.3) 10/22/22 03:12 Total Bilirubin 1.2 mg/dL (0.15-1.2) 10/22/22 03:12 AST 12 U/L (0-32) 10/22/22 03:12 ALT 10 U/L (0-33) 10/22/22 03:12 Alkaline Phosphatase 97 U/L (35-105) 10/22/22 03:12 Troponin T Baseline 15 ng/L (0-10) H 10/21/22 05:11 Troponin T 120 Minute 19.90 ng/L (0-10) H 10/21/22 06:49 Delta Troponin T 4.90 ABS# (0-10) 10/21/22 06:49 Troponin T Hi Sens 6Hr 14.51 ng/L (0-10) H 10/21/22 12:08 Troponin T Hi Sens 6Hr Delta -0.49 ng/L (0-12) L 10/21/22 12:08 NT-Pro-B Natriuret Pep 4832 pg/mL (0-125) H 10/21/22 05:11 Total Protein 8.1 g/dL (6.6-8.7) 10/22/22 03:12 Albumin 3.9 g/dL (3.5-5.2) 10/22/22 03:12 Globulin 4.2 g/dL (1.3-4.6) 10/22/22 03:12 Influenza Type A Ag negative (Negative) 10/21/22 05:11 Influenza Type B Ag negative (Negative) 10/21/22 05:11 SARS-CoV-2 Ag (Rapid) negative (Negative) 10/21/22 05:11 Discharge Plan Discharge Patient Disposition: Admitted As Inpatient Admit Provider: Carlos Banerjee Clinical Impression: Chest pain, Combined systolic and diastolic cardiac dysfunction, Coronary artery disease Condition: Stable Sign Out Sign Out Data: Patient Sign Out occurred on 10/21/22 at 07:21. Patient's care was discussed, and care was transferred from to Alpesh Rowley DO. Coding Level of Care Code ED Java User Interface Developer for Annie Fwd Exam Comprehensive
[2022-10-21 05:40] LABS: Troponin(5th) Baseline 15 ng/L (0-10)
[2022-10-21 05:44] LABS: Influenza A by IFA negative (Negative); Influenza B by IFA negative (Negative); SARS Covid-2 Antigen negative (Negative)
[2022-10-21] MEDS: nitroglycerin 1 gm/inch oint Pkt 1.5 INCH TOPICAL (05:51)
[2022-10-21] MEDS: aspirin 325 mg Tablet PO (05:51)
[2022-10-21] MEDS: nitroglycerin 0.4 mg sublingual Tablet SUBLINGUAL (05:51)
[2022-10-21 06:02] LABS: Alanine Aminotransferase 12 U/L (0-33); Albumin Level 4.2 g/dL (3.5-5.2); Alkaline Phosphatase 89 U/L (35-105); Anion Gap 15.8 (5-19); Aspartate Amino Transferase 13 U/L (0-32); Blood Urea Nitrogen 9 mg/dL (6-20); Calcium 8.9 mg/dL (8.5-10.5); Carbon Dioxide 22 mmol/L (22-29); Chloride 106 mmol/L (98-107); Globulin 3.4 g/dL (1.3-4.6); Glucose 135 mg/dL (65-115); NT Pro B Type Natriuretic Pept 4832 pg/mL (0-125); Osmolality Calculated 291 mOsm/kg (285-295); Potassium 3.8 mmol/L (3.5-5.1); Sodium 140 mmol/L (136-145); Total Protein 7.6 g/dL (6.6-8.7)
[2022-10-21] MEDS: FUROsemide 10 mg/mL SDV 10mL 60 MG IVP (06:55)
[2022-10-21] MEDS: nitroglycerin drip 50 MG/250 ML PREMIX IV (08:09)
--- NOTE | 2022-10-21 08:09 | PC.NURSE ---
Topical Nitro removed.
--- NOTE | 2022-10-21 08:38 | PC.PHAR ---
pt states she takes care of her own medications-pt states she still takes carvedilol 6.25mg bid ext med history shows last filled 08/13/22 30d/s-
--- NOTE | 2022-10-21 08:55 | PM.HP ---
Providers/Chief Complaint Admitting Physician: Carlos Banerjee MD, hospitalist Chief Complaint: SOB, CP History of Present Illness Silvia Persaud is a 52 year old female with past history of coronary disease presenting to the emergency department complaining of chest discomfort. She reports she has had some chest discomfort on and off for the last 2 weeks, usually only lasting minutes. Last night, she had some chest discomfort that woke her from sleep. It felt like someone sitting on her chest. She ultimately coughed and ended up vomiting. It persisted, and she has a very minor amount currently. The emergency department physician has placed her on a nitroglycerin drip for this discomfort. She reports she had some shortness of breath associated with this. She states she has a cough, productive of white to yellow sputum which is usually chronic with her COPD. She reports she occasionally wheezes, but was not necessarily wheezing more than usual during the event last night. She denies any fevers, recent illness. Last angiogram 2013 and stenting occurred in her LAD and an in-stent stenosis. Last echocardiogram October 1999 1540% EF 1/4 diastolic dysfunction and hypokinesis anterior wall. In the emergency department she got 60 mg of Lasix IV, and aspirin, and was placed on a nitroglycerin drip. Review of Systems General: Reports: 10 or more systems reviewed and unremarkable except in HPI and below Const: Denies: fever(s), chills or fatigue Eyes: Denies: change in vision ENMT: Denies: throat pain Card: Reports: chest pain, dyspnea on exertion and orthopnea; Denies: palpitations or edema Resp: Reports: dyspnea, productive cough and wheezing GI: Reports: nausea and vomiting; Denies: abdominal pain, hematochezia or melena : Denies: flank pain Musc: Denies: neck pain Skin/Breast: Denies: rash Neuro: Denies: headache(s) Psych: Denies: anxiety or depression Endo: Denies: polyuria Sandro/Lymph: Denies: easy bruising All/Imm: Denies: urticaria Medications/Allergies Home Medications Medication Instructions Recorded Confirmed Last Taken Type aspirin 81 mg tablet,delayed 81 mg PO QAM #30 tabs 11/14/21 10/21/22 Unknown Rx release (Adult Low Dose Aspirin) carvedilol 6.25 mg tablet 6.25 mg PO BID #60 tabs 04/17/22 10/21/22 Unknown Rx lisinopril 20 mg tablet 20 mg PO QAM #90 tabs 04/17/22 10/21/22 Unknown Rx pantoprazole 40 mg tablet,delayed 40 mg PO QAM #90 tabs 04/17/22 10/21/22 Unknown Rx release (Protonix) ondansetron 8 mg disintegrating 8 mg PO Q8H PRN nausea and 06/24/22 10/21/22 Unknown Rx tablet vomiting 5 days #15 tabs atorvastatin 40 mg tablet 40 mg PO QAM #90 tabs 09/26/22 10/21/22 Unknown Rx Allergies Allergy/AdvReac Type Severity Reaction Status Date / Time No Known Allergies Allergy Verified 10/21/22 08:36 PFSH Acute PFSH: Medical History (Updated 10/21/22 @ 09:19 by Carlos Banerjee MD) Acute anterior wall [place] 01/2014 Adult-onset obesity Chest pain COPD (chronic obstructive pulmonary disease) GERD (gastroesophageal reflux disease) History of seizure Hypertension Ischemic cardiomyopathy Tobacco abuse Surgical History History of heart artery stent Hx of cholecystectomy Hx of tubal ligation Family History Grandmother Cancer Father Cancer Hyperlipidemia Hypertension Grandmother Cancer Sister Stroke Denies family history of Diabetes CAD (coronary artery disease) Clotting disorder Dementia Psychiatric illness Chronic kidney disease (CKD) Suicide Anesthesia complication Bleeding disorder Family history of premature coronary artery disease Lung disease Social History Smoking and tobacco status: current every day smoker Second hand smoke exposure: No Smoking risk assessment/counseling performed?: Yes Alcohol intake: never Vitals/I&O/Wt Last Vital Signs Temp 97.9 F 10/21/22 01:36 Pulse 61 10/21/22 01:36 Resp 18 10/21/22 01:36 BP 197/80 10/21/22 01:36 Pulse Ox 96 10/21/22 01:36 O2 Del Method 10/21/22 01:36 10/20/22 10/21/22 10/21/22 22:59 06:59 14:59 Intake Total 1.025 / 1.025 Balance 1.025 / 1.025 Weight last 48 hrs Weight 72.575 kg Physical Exam Narrative: General exam is white female, no distress HEENT: Atraumatic normocephalic. Pupils equally round. Oropharynx clear Neck is supple no lymphadenopathy or thyromegaly Cardiovascular regular rate and rhythm without murmur Lungs diminished breath sounds bilaterally but no wheezes or crackles Abdomen is soft with positive bowel sounds. No obvious organomegaly exam is deferred Extremities no cyanosis clubbing or edema, cap refill brisk Skin no rash Neuro no obvious focal deficits. Data 10/21/22 05:11 10/21/22 05:11 Other Labs: EKG demonstrates normal sinus rhythm, left axis deviation, T wave flipped laterally and poor R wave progression. Consistent with past anterior myocardial infarction. LVH by criteria. Chest x-ray no infiltrate Last nuclear stress test November 2015 demonstrating old [place] and no reversible ischemia LFTs normal Troponin 15 with repeat of 20 BNP 4832 COVID and influenza negative A&P Assessment and plan (1) Chest pain: Patient presents with chest discomfort. Some description is atypical, as it is not exertional but other components are concerning. Certainly she has history of coronary disease and significant intervention in the past. Troponin is only minimally elevated. For now continue statin, beta-beth, aspirin Currently on a nitroglycerin drip Will go ahead and fully anticoagulate Morphine for breakthrough pain Cardiology consult. They report possisble angiogram tomorrow. (2) Combined systolic and diastolic cardiac dysfunction: Some concern of acute exacerbation of combined systolic heart failure. 60 mg of Lasix given in the emergency department. We will continue 40 mg IV every 12 hours. (3) COPD (chronic obstructive pulmonary disease): No evidence of exacerbation currently Budesonide, DuoNeb (4) Hypertension: Continue home medications Plan Tobacco abuse. Encourage cessation. Multiple other medical problems as noted in past medical history Full code Lovenox will suffice for DVT prophylaxis Attestations Medical Necessity Statement*: Will need less than 2 midnight stay for evaluation and treatment of chest discomfort Coding Level of Care Code Acute Security Developer for [facility] Fw Diagnoses Chest pain R07.9 Combined systolic and diastolic cardiac dysfunction I51.89 COPD (chronic obstructive pulmonary disease) J44.9 Hypertension I10
--- NOTE | 2022-10-21 09:21 | P.CONIM_ITS ---
Providers/Reason For Consult Consulting Physician/Specialty*: Gurdeep Phillip MD/ Cardiology Reason for Consult*: Unstable angina Requesting Physician: Dr Banerjee History of Present Illness History of Present Illness Silvia Persaud is a 52 year old female with past medical history of coronary artery disease who presented to the hospital with 2 weeks of on and off significant chest pain symptoms. These were lasting few minutes. Occasional radiation to the jaw. Last night she woke up with significant chest pressure and shortness of breath. She felt something sitting on the chest. Troponins are negative. EKG shows normal sinus rhythm with LVH changes.NT proBNP is elevated and is more than 4800. Review of Systems General: Reports: 10 or more systems reviewed and unremarkable except in HPI and below Const: Denies: fever(s), chills or fatigue Eyes: Denies: change in vision ENMT: Denies: throat pain Card: Reports: chest pain, dyspnea on exertion and orthopnea; Denies: palpitations or edema Resp: Reports: dyspnea, productive cough and wheezing GI: Reports: nausea and vomiting; Denies: abdominal pain, hematochezia or melena : Denies: flank pain Musc: Denies: neck pain Skin/Breast: Denies: rash Neuro: Denies: headache(s) Psych: Denies: anxiety or depression Endo: Denies: polyuria Sandro/Lymph: Denies: easy bruising All/Imm: Denies: urticaria Medications/Allergies Home Medications Medication Instructions Recorded Confirmed Last Taken Type aspirin 81 mg tablet,delayed 81 mg PO QAM #30 tabs 11/14/21 10/21/22 Unknown Rx release (Adult Low Dose Aspirin) carvedilol 6.25 mg tablet 6.25 mg PO BID #60 tabs 04/17/22 10/21/22 Unknown Rx lisinopril 20 mg tablet 20 mg PO QAM #90 tabs 04/17/22 10/21/22 Unknown Rx pantoprazole 40 mg tablet,delayed 40 mg PO QAM #90 tabs 04/17/22 10/21/22 Unknown Rx release (Protonix) ondansetron 8 mg disintegrating 8 mg PO Q8H PRN nausea and 06/24/22 10/21/22 Unknown Rx tablet vomiting 5 days #15 tabs atorvastatin 40 mg tablet 40 mg PO QAM #90 tabs 09/26/22 10/21/22 Unknown Rx Allergies Allergy/AdvReac Type Severity Reaction Status Date / Time No Known Allergies Allergy Verified 10/21/22 08:36 Current Medications Generic Name Dose Route Start Last Admin Trade Name Ayaka PRN Reason Stop Dose Admin Nitroglycerin/Dextrose 50 mg in 250 mls @ 0 mls/hr 10/21/22 08:00 10/21/22 08:50 Nitroglycerin Drip IV 10 mcg/min .Q0M LILLIE 3 mls/hr Titration Protocol Per Protocol PFSH Acute PFSH: Medical History Acute anterior wall OR 01/2014 Adult-onset obesity Chest pain COPD (chronic obstructive pulmonary disease) GERD (gastroesophageal reflux disease) History of seizure Hypertension Ischemic cardiomyopathy Tobacco abuse Surgical History History of heart artery stent Hx of cholecystectomy Hx of tubal ligation Family History Grandmother Cancer Father Cancer Hyperlipidemia Hypertension Grandmother Cancer Sister Stroke Denies family history of Diabetes CAD (coronary artery disease) Clotting disorder Dementia Psychiatric illness Chronic kidney disease (CKD) Suicide Anesthesia complication Bleeding disorder Family history of premature coronary artery disease Lung disease Social History Smoking and tobacco status: current every day smoker Second hand smoke exposure: No Smoking risk assessment/counseling performed?: Yes Alcohol intake: never Vitals/I&O/Wt Last Vital Signs Temp 97.9 F 10/21/22 01:36 Pulse 61 10/21/22 01:36 Resp 18 10/21/22 01:36 BP 197/80 10/21/22 01:36 Pulse Ox 96 10/21/22 01:36 O2 Del Method 10/21/22 01:36 10/20/22 10/21/22 10/21/22 22:59 06:59 14:59 Intake Total 1.025 / 1.025 Balance 1.025 / 1.025 Weight last 48 hrs Weight 160 lb Physical Exam Narrative: GENERAL: Patient is alert, awake and oriented x3. [] NECK: No jugular vein distension. [] HEENT: No cyanosis. No icterus. No pallor. [] HEART: Regular S1 and S2. No murmur, rub or gallop. [] LUNGS:Diminished breath sounds CENTRAL NERVOUS SYSTEM: Grossly nonfocal. [] EXTREMITIES: Lower extremities with 1+ edema bilaterally. Pulses palpable in the lower extremities, both dorsalis pedis and posterior tibial. [] Data 10/21/22 05:11 10/21/22 05:11 A&P Assessment and plan (1) Chest pain: (2) Hyperlipidemia: (3) Tobacco abuse: (4) Combined systolic and diastolic cardiac dysfunction: (5) Coronary artery disease: Plan Patient has presented with worsening chest pain symptoms over the last 2 weeks. Some features are concerning for unstable angina. Patient started on nitro drip and anticoagulation. She is mildly volume overloaded. Will need diuresis today. Continue IV diuretics. Tentatively we will plan on coronary angiogram with possible percutaneous coronary intervention tomorrow morning. N.p.o. past midnight. Risks and benefits of the procedure been discussed with the patient. Strict I&O's. Telemetry monitoring Trend troponins Thank you for involving us with care of this patient. We will continue to follow. Please call with questions. Consult Attestations Medical Necessity Statement: Care expected to cross 2 midnights. Coding Level of Care Code Acute Splicing Machine Operator Automatic for Annie Wright Diagnoses Chest pain R07.9 Hyperlipidemia E78.5 Tobacco abuse Z72.0 Combined systolic and diastolic cardiac dysfunction I51.89 Coronary artery disease I25.10
[2022-10-21] MEDS: ondansetron 2 mg/ML SDV 2 mL 4 MG IVP (12:23)
[2022-10-21] MEDS: oxyCODONE 5 mg IR Tab/Cap PO ×2 (12:23→16:51)
[2022-10-21 12:36] LABS: Troponin 5 6HR 14.51 ng/L (0-10)
[2022-10-21 12:40] LABS: Troponin 5 6HR Delta -0.49 ng/L (0-12)
--- NOTE | 2022-10-21 12:56 | PC.NURSE ---
Nitro drip increased to 15mcgs for a sysyolic bp of 167 per protocol.
--- NOTE | 2022-10-21 16:16 | PC.NURSE ---
Pts systolic pressure was 158, titrated nitro drip to 10 mcgs, rechecked pressure 15 minues later and systolic [id number]. Titrated drip back up to 15 mcgs.
[2022-10-21] MEDS: carvedilol 6.25 mg Tablet PO (16:51)
[2022-10-21] MEDS: FUROsemide 10 mg/mL SDV 4mL 40 MG IVP (16:52)
[2022-10-21] MEDS: enoxaparin 80 mg/0.8 mL Syringe 70 MG SUBCUT (19:52)
[2022-10-21] MEDS: morphine 4 mg/mL SDV 1 mL 2 MG IVP (19:56)
[2022-10-22] VITALS (17 sets, daily range): BP systolic 105–173; BP diastolic 62–88; PULSE 56–83; RESP 16–30; TEMP 36.6–37.3; O2SAT 89–95
[2022-10-22] MEDS: oxyCODONE 5 mg IR Tab/Cap PO ×3 (02:28→19:17)
[2022-10-22 04:21] LABS: Basophils % 0.2 %; Eosinophils % 0.1 %; Hematocrit 47.2 % (37.0-47.0); Hemoglobin 15.3 g/dL (11.5-15.3); Lymphocytes # 1.3 10^3/uL (0.8-4.8); Mean Corpuscular HGB Conc 32.4 g/dL (30.0-36.0); Mean Corpuscular Hemoglobin 30.9 pg (28.0-34.0); Mean Corpuscular Volume 95.4 fl (81-99); Mean Platelet Volume 10.7 fL (7.4-10.4); Monocytes % 8.2 %; Neutrophils # 9.56 10^3/uL (1.8-7.7); Nucleated Red Blood Cells % 0 %; Platelet Count 284 10^3/cmm (130-400); Red Blood Count 4.95 10^6/uL (4.1-5.3); Red Cell Distribution Width 12.6 % (12.1-15.1); White Blood Count 11.9 10^3/uL (4.0-10.0)
[2022-10-22 04:50] LABS: Alanine Aminotransferase 10 U/L (0-33); Albumin Level 3.9 g/dL (3.5-5.2); Alkaline Phosphatase 97 U/L (35-105); Anion Gap 17.4 (5-19); Aspartate Amino Transferase 12 U/L (0-32); Blood Urea Nitrogen 12 mg/dL (6-20); Carbon Dioxide 28 mmol/L (22-29); Chloride 97 mmol/L (98-107); Globulin 4.2 g/dL (1.3-4.6); Glomerular Filtration Rate 87.9 mL/min (90-130); Glucose 126 mg/dL (65-115); Magnesium 1.7 mg/dL (1.7-2.3); Osmolality Calculated 289 mOsm/kg (285-295); Potassium 3.4 mmol/L (3.5-5.1); Sodium 139 mmol/L (136-145); Total Bilirubin 1.2 mg/dL (0.15-1.2); Total Protein 8.1 g/dL (6.6-8.7)
[2022-10-22] MEDS: FUROsemide 10 mg/mL SDV 4mL 40 MG IVP (05:48)
[2022-10-22] MEDS: lisinopril 20 mg Tablet PO (05:48)
[2022-10-22] MEDS: pantoprazole DR 40 mg Tablet PO (05:48)
[2022-10-22] MEDS: atorvastatin 40 mg Tablet PO (05:48)
[2022-10-22] MEDS: aspirin 81 mg EC Tablet PO (05:48)
--- NOTE | 2022-10-22 07:34 | XACV_ITS ---
Exam Room: 2 Ht: 160 cm Wt: 73 kg BSA: 1.82 m2 Gender: Female : 1970 Exam Priority: Routine Procedure(s): Procedure Description: Diagnostic procedure Procedure Description: PCI procedure Procedure Description: Left Heart Catheterization Procedure Description: Coronary IVUS Procedure Description: Drug Eluting Coronary Stent Procedure Description: PTCA Procedure Description: Coronary Angiography Diagnostic Cath Status: Urgent Diagnostic Findings * Left Main is very short and has no significant disease. * Right Coronary Artery has diffuse mild to moderate disease. * LAD has a proximal to mid stent * that is patent. It does have * moderate in-stent restenosis * and a distal large there is another 50% stenosis.. * Left circumflex artery is a large sized vessel. Mid Circumflex: significant 80% stenosis, HERIBERTO: 3 flow. * Distal Circumflex: obstructive 70% stenosis, HERIBERTO: 3 flow. * Coronary angiography shows co-dominance. PCI Status: Urgent PCI Indication: Other Interventional Findings * PROCEDURE DETAIL: We engaged left main artery with XB 3.5 guide catheter. IV heparin was administered to maintain ACT above 250S. Using a 0.014 run-through guidewire we crossed left circumflex artery stenoses and was put in distal vessel. We predilated the stenosis with 2.5 x 12 mm compliant balloon. This was followed with placement of 3.0 x 18 mm resolute Summit drug-eluting stent. We postdilated the stent with 3.5 x 8 mm NC balloon. IVUS was performed that showed excellent stent expansion. However there was significant residual distal vessel disease at distal edge of stent. We tried putting an overlapping stent distally however at the time of the stent deployment patient coughed and stent moved further distal leaving a small gap between the 2 stents. To cover it, another 3.0x12 mm Resolute Summit stent was deployed. At this time, final angiogram was performed that showed excellent stent expansion, no residual stenosis and HERIBERTO 3 flow. We then performed IVUS of the LAD. Minimal luminal area was found to be 4.1mm2. It was treated medically. Guidewire and guide catheter were removed. Patient left the Lehr Stripper in a stable condition.. * Mid Circumflex: 80% stenosis treated with a AB TREK 2.50X12 RX BALLOON, MDT R TRACY 3.0X18 VARGAS, and MDT NC EUPHORA RX [id number] BALLOON. 0% residual stenosis, HERIBERTO: 3 flow. * Distal Circumflex: 70% stenosis treated with a MDT R TRACY 3.0X18 VARGAS, and MDT R TRACY 3.0X12 VARGAS. 0% residual stenosis, HERIBERTO: 3 flow. Conclusions 1. Severe mid to distal left circumflex artery stenosis. S/p successful revascularization with VARGAS x3.. 2. Mid Circumflex was treated with a Balloon, Drug Eluting Stent, and Balloon. 3. Distal Circumflex was treated with a Drug Eluting Stent, and Drug Eluting Stent. Recommendations * Dual antiplatelet therapy with aspirin and Plavix for atleast 1 year. * High intensity statin therapy. * Outpatient cardiology follow up in 4 weeks. Interventional RX Recommendation: PCI w/o planned CABG Diagnostic RX Recommendation: PCI w/o planned CABG Anticoagulation: Heparin Pressures Phase:Rest AO : 121 / 83 ( 101 ) @ 8:23:00 AM 122 / 87 ( 105 ) @ 8:27:00 AM 76 / 47 ( 58 ) @ 8:31:00 AM 156 / 88 ( 114 ) @ 8:35:00 AM 156 / 87 ( 113 ) @ 8:35:00 AM 142 / 88 ( 112 ) @ 8:44:00 AM 145 / 94 ( 117 ) @ 8:51:00 AM 191 / 109 ( 145 ) @ 9:01:00 AM 154 / 89 ( 117 ) @ 9:19:00 AM LV : 157 / 3 / 11 @ 8:35:00 AM 153 / 4 / 11 @ 8:35:00 AM Valves Phase:DefaultPhase AV : 0.0 @ 9:50:10 AM AV Mean Gradient: 0.0 @ 9:50:10 AM Clinical Evaluation EBL: 5mL-10mL Procedural Details Procedure Consent Obtained. Pre-Procedure Time Out. Identified patient by full name and date of as verbalized by the patient/guarantor. Does the consent match the physician's order: Yes. Accurate & Complete Informed Consent: Yes. Inpatient/Outpatient History & Physical on Chart: Yes. If H&P is completed, is and addenduem needed: No; If yes, is the addendum complete: N/A. Visualize and Verify Site with Patient/Guarantor: N/A. Relevant Radiology Images available: N/A. The risks, benefits, and alternatives of sedation and/or procedure were discussed by physician. The patient agrees to continue. Procedure started. [facility] Clinical Fraility Score: 3: Managing Well. Lehr Stripper Indications: Worsening Angina. Chest Pain Symptom Assessment: Atypical Angina. Cardiovascular Instability: No,. Correct patient, site and procedure confirmed by cath team. Current diagnosis: Chest Pain. PERRLA. Strong, equal hand insurance underwriter bilaterally. Lungs clear x 5 lobes. IV Site on Arrival: 20 gauge in the right anticubital. IV Fluids: 0.9% NaCl at KVO. 0 mL infused prior to construction laborer. Pre Procedural Pulses: bilateral radial was 2+. Pre Procedural Pulses: bilateral posterior tibial was 1+. Pre Procedural Pulses: bilateral dorsalis pedis was 1+. Oxygen started at 2liters/min via nasal canula. right groin was prepped with chloroprep then draped in the usual sterile fashion. right radial was prepped with chloroprep then draped in the usual sterile fashion. Baseline sample Acquired. HR: 61 BPM. Physician notified. Physician arrived. Physician scrubbed in. Immediate Pre-Procedure Time Out. Correct Patient: Yes; Correct Procedure: Yes; Correct Site: Yes; Correct Patient Position: Yes; Correct Supplies: Yes; Dried Flammable Prep: Yes; Blood Products Available: N/A;. Lidocaine 1% infiltrated to the right radial. Nitro given through access needle. An attempt to gain access to the right radial artery was unsuccessful. Manual pressure was held as needed to stop the bleeding. Lidocaine 1% infiltrated to the right groin. Arterial access obtained with micropuncture set. A 5 cape ver[place] JL4 catheter in over wire. Multiple views taken of left coronary artery. Admit Source: In Patient. Catheter removed over the standard wire. A 5 [place] JR4 catheter in over wire. Multiple views taken of right coronary artery. Catheter removed over the standard wire. A 5 c[place] ver[place] Angled Pig catheter in over wire. EDP Sample taken: LV 157/3,11; HR: 79 BPM; SpO2: 94%. Pullback taken: LV 153/4,11; AO 156/88(114); Mean: 0mmHg, Peak to Peak: 0mmHg, SEP: 6sec/min; HR: 80 BPM; SpO2: 95%. Catheter out. 6 cape verdean XB 3.5 guide catheter was inserted over the wire. Runthrough guidewire was advanced through the guide catheter to lesion in the mid Circ. Inflation number : 1 A AB TREK 2.50X12 RX BALLOON was prepped and advanced across the Mid CX , then inflated to 10 MARGARET for 0:22 seconds. Balloon out. Inflation Number : 2 A MDT R TRACY 3.0X18 VARGAS -Lot Number# [id number] exp date was prepped and advanced across the Mid CX. The stent was deployed at 12 MARGARET for 0:16 seconds. Stent balloon out. IVUS catheter inserted over the wire. IVUS run of the mid CX. Inflation number : 3 A MDT NC EUPHORA RX [id number] BALLOON was prepped and advanced across the Mid CX , then inflated to 12 MARGARET for 0:13 seconds. Inflation number: 4 The MDT NC EUPHORA RX [id number] BALLOON was reinflated across the Mid CX, to 12 MARGARET for 0:10 seconds. Balloon out. Results checked. Inflation Number : 1 A MDT R TRACY 3.0X18 VARGAS -Lot Number# [id number] exp date 05/19/2025 was prepped and advanced across the Dist CX. The stent was deployed at 12 MARGARET for 0:16 seconds. Stent balloon out over wire. IVUS catheter inserted over the wire. IVUS run of the dist CX. IVUS catheter out. Inflation Number : 2 A WALLACE Brooks TRACY 3.0X12 VARGAS -Lot Number#[id number] exp date 11/21/2024 was prepped and advanced across the Dist CX. The stent was deployed at 12 MARGARET for 0:15 seconds. Stent balloon and wire out. Results checked. Results checked. Wire out. ACT drawn. Results 328 seconds. Therapeutic limits - pre-heparin administration 90-150 seconds and monitoring heparin during a vascular procedure >250 seconds. 6 cape verdean XB 3 guide catheter was inserted over the wire. IVUS catheter inserted over the wire. IVUS run of the LAD. ACT drawn. Results 218 seconds. Therapeutic limits - pre-heparin administration 90-150 seconds and monitoring heparin during a vascular procedure >250 seconds. IVUS catheter out. Guide catheter out. A Right femoral angiogram was performed to determine safe placement of closure device. Lidocaine 1% infiltrated to the right groin. A Angio-Seal VIP ([facility]) was successful obtaining hemostatsis at the Right Femoral artery insertion site Lot # [id number] exp date 07/12/2023. Angioseal placed without complications. No signs or symptoms of hematoma noted. Sterile dressing applied per usual sterile fashion. Post Procedure: Pulses reassessed and unchanged. PERRLA. Strong, equal hand insurance underwriter bilaterally. No VTE prophylaxis required. Medication's Wasted: Heparin = 1000 units. Medication's Wasted: Lidocaine 1% = 1 mL. Medication's Wasted: Nitro = 49.7 mg. Total IV fluids: 90 mL. Post-op diagnosis: severe stenosis of MID Circ. Stents to Circ. Complications: none. Estimated blood loss: 5mL-10mL. Responsiveness - Normal response to verbal stimuli; alert and oriented, PERRLA. Airway - Unaffected, no intervention required; spontaneous ventilation. Circulation: W/N/L, pulses unchanged. Nausea/Vomiting: No. Procedure completed. Patient transferred by bed to 1st floor. Vital chart was stopped. Medication's Wasted: Other = lasix 60 mg. Access Site Site: Right Femoral artery Sheath Size: 6 Fr Hemostasis Method: Angio-Seal VIP ([facility]) Hemostasis Success: Successful Procedure Medications Start: 8:16 AM Stop: 8:16 AM Medication: Versed Amount: 1 mg Route: I.V. Start: 8:16 AM Stop: 8:16 AM Medication: Fentanyl Amount: 50 mcg Route: I.V. Start: 8:16 AM Stop: 8:16 AM Medication: Nitrogylcerin Amount: 100 mcg Route: I.A. Start: 8:17 AM Stop: 8:17 AM Medication: Versed Amount: 1 mg Route: I.V. Start: 8:19 AM Stop: 8:19 AM Medication: Versed Amount: 1 mg Route: I.V. Start: 8:19 AM Stop: 8:19 AM Medication: Fentanyl Amount: 50 mcg Route: I.V. Start: 8:36 AM Stop: 8:36 AM Medication: Heparin Amount: 7000 units Route: I.V. Start: 8:43 AM Stop: 8:43 AM Medication: Versed 1 mg and Fentanyl 25 mcg Amount: 1 Route: I.V. Start: 8:43 AM Stop: 8:43 AM Medication: Heparin Amount: 1000 units Route: I.V. Start: 8:54 AM Stop: 8:54 AM Medication: Nitrogylcerin Amount: 200 mcg Route: I.C. Start: 9:05 AM Stop: 9:05 AM Medication: Hydralazine Amount: 10 Route: I.V. Start: 9:05 AM Stop: 9:05 AM Medication: Heparin Amount: 1000 units Route: I.V. Start: 9:08 AM Stop: 9:08 AM Medication: Versed 1 mg and Fentanyl 25 mcg Amount: 1 Route: I.V. Start: 9:12 AM Stop: 9:12 AM Medication: Hydralazine Amount: 10 Route: I.V. Start: 9:16 AM Stop: 9:16 AM Medication: Fentanyl Amount: 50 mcg Route: I.V. Start: 9:23 AM Stop: 9:23 AM Medication: Heparin Amount: 2000 units Route: I.V. Start: 9:40 AM Stop: 9:40 AM Medication: Zofran (ondansetron) Amount: 4 mg Route: I.V. Start: 9:45 AM Stop: 9:45 AM Medication: Lasix (furosemide) Amount: 40 mg Route: I.V. Start: 9:48 AM Stop: 9:48 AM Medication: Plavix Amount: 600 mg Route: P.O. I, the attending physician, have reviewed and verified all procedure medications. Yes, all medications given per verbal order History/Risk Factors Hypertension: Yes Dyslipidemia: Yes Peripheral Arterial Disease (PAD): No Myocardial Infarction (PR): Yes Obesity: No Renal Disease: No Prior Interventions PCI: Yes CABG: Yes Valve Surgery: No Report Signatures Finalized by Gurdeep Phillip MD on 10/28/2022 12:36 PM
--- NOTE | 2022-10-22 08:00 | USCV_ITS ---
Silvia Persaud Age: 52 Gender: F : 1970 Exam Date: 10/22/2022 14:25 Ordering Phys: Gurdeep Phililp M.D ([email or web address]) Technologist: Darrell Murphy Exam Location: [facility] [place] Indication: post cath BP: 123 / 74 HR: 82 Rhythm: Sinus Technical Quality: Adequate MEASUREMENTS (Male / Female) Normal Values 2D ECHO LV Diastolic Diameter PLAX 4.0 cm 4.2 - 5.9 / 3.9 - 5.3 cm LV Systolic Diameter PLAX 2.9 cm IVS Diastolic Thickness 1.5 cm 0.6 - 1.0 / 0.6 - 0.9 cm IVS Systolic Thickness 1.4 cm LVPW Diastolic Thickness 1.4 cm 0.6 - 1.0 / 0.6 - 0.9 cm LVPW Systolic Thickness 1.3 cm LVOT Diameter 2.0 cm LV Ejection Fraction 2D Teich 45.5 % LV Ejection Fraction MOD 2C 66.1 % LV Ejection Fraction 2C AL 64.7 % LA Diameter 3.2 cm M-MODE Aortic Annulus Diameter 2.7 cm LA Ao Ratio MM 1.2 MV E Point Septal Separation 0.9 cm DOPPLER AV Peak Velocity 189.0 cm/s LVOT Peak Velocity 88.0 cm/s AV Area Cont Eq vti 1.6 cm squared AV Area Cont Eq pk 1.5 cm squared MV Area PHT 5.0 cm squared Mitral E to A Ratio 0.8 MV E' Velocity 44.0 cm/s Mitral E to MV E' Ratio 14.3 Mitral E to LV E' Lateral Ratio 11.8 Mitral E to LV E' Septal Ratio 18.1 TR Peak Velocity 182.0 cm/s TR Peak Gradient 13.2 mmHg TV Peak E Velocity 79.0 cm/s Right Atrial Pressure 3.0 mmHg Pulmonary Artery Systolic Pressu 16.2 mmHg RV Acceleration Time 0.1 s FINDINGS Left Ventricle Left ventricle is normal in size. LV systolic function appears to be normal with EF of 50 to 55%. Regional wall motion abnormalities cannot be accurately assessed because of poor windows. Grade 1 diastolic dysfunction. Right Ventricle Normal in size and function Right Atrium Not well visualized Left Atrium Normal in size Mitral Valve Grossly normal. Mild mitral regurgitation Aortic Valve Not well-visualized. No significant stenosis or regurgitation. Tricuspid Valve Mild tricuspid regurgitation. Insufficient TR jet to calculate RVSP. Pulmonic Valve Not well-visualized Pericardium Normal Aorta Normal in size IVC Appears to be normal CONCLUSIONS Technically limited quality echocardiogram because of poor ultrasonic windows. LV systolic function is normal with EF of 50 to 55%. Grade 1 diastolic dysfunction Mild mitral regurgitation Mild tricuspid regurgitation Compared to prior echocardiogram from 2015, LV systolic function has improved and is normal now. Gurdeep Phillip MD (Electronically Signed) Final Date: 22 October 2022 15:25 S
--- NOTE | 2022-10-22 08:04 | W.PM.OPSUD ---
Surgery/Procedure H&P Update DATE OF PROCEDURE: October 22, 2022 DATE H&P PERFORMED: 10/21/22 H&P UPDATE INFORMATION: I have reviewed H&P completed within last 30 days, I have examined patient prior to procedure and No changes to prior documentation PREOP DIAGNOSIS: Unstable angina PRIMARY INDICATION FOR PROCEDURE: Unstable angina PLANNED PROCEDURE: Left heart cath with possible percutaneous coronary intervention PATIENT REASSESSED PRIOR TO SEDATION, WITH NO CHANGE NOTED: Yes PHYSICAL EXAM: alert, oriented x 3, clear to auscultation bilaterally and regular rate & rhythm AIRWAY EVAL/ANESTHESIA PLAN: normal airway, ASA III, Local Anesthesia, Risks, benefits & alternatives of sedation and/or procedure discussed and Patient agrees to continue as planned
--- NOTE | 2022-10-22 10:46 | PC.CHAP ---
Pastoral Care Encounter/Spiritual Assessment Type of Contact [] Declined pathology collector visit [] Patient/Family/Request visit [] Outpatient visit [] Follow-up visit [] Physician referral [] Code/Alert [x] Routine visit [] Staff referral [] Actively dying [] Patient sleeping [] Family support [] [] Out of room [] Palliative care [] [x] Receiving care in room [] Pre-surgical visit [] Trauma [] Long length of stay [] ICU visit [] Other: Relational/Emotional Strength [] Patient feels connected with others/family/visitors/staff [] Distress [] Loneliness/isolation [] Abandonment Spirituality of Patient [] Person of Nohelia [] Attends Synagogue of their Nohelia [] Believes in Prayer [] Reads Bible or Voodoo materials [] There are Spiritual issues to be addressed Speech Pathologist Assistant Interventions [] Prayer [] Active listening [] Non-anxious presence [] Spiritual/emotional support [] Crisis/trauma care [] Spiritual counseling [] Bereavement support [] Provided bereavement packet [] Provided Bible/devotional materials [] Provided toy/stuffed animal, coloring book to patient or family member [] Provided Communion [] Anointing/[place] [] Salvation [] Completed spiritual assessment [] Other: Impact on Illness or Injury [] Angry [] Fearful [] Anxious [] Often cries [] Exhaustion [] Unable to work [] Unable to attend uatsdin [] Unable to walk/stand [] Unable to read [] Unable to drive [] Unable to eat/drink [] Unable to sleep [] Unable to be with family [] Patient intubated [] Other: Summary Time spent with patient
--- NOTE | 2022-10-22 10:52 | P.PN_ITS ---
Subjective Subjective: Silvia was seen after her angiogram. She was having some chest discomfort, which she described as relatively mild. They were notified cardiology. During her angiogram she received stenting of her circumflex artery without complication. Medications: Reviewed: Yes Vitals/I&O/Wt Last Vital Signs Temp 97.8 F 10/22/22 04:30 Pulse 56 L 10/22/22 06:31 Resp 16 10/22/22 04:30 BP 173/74 10/22/22 04:30 Pulse Ox 94 10/22/22 04:30 O2 Del Method 10/21/22 20:02 O2 Flow Rate 2 10/21/22 20:00 10/21/22 10/22/22 10/22/22 22:59 06:59 14:59 Intake Total 120 / 369.325 Balance 120 / 369.325 Weight last 48 hrs Weight 72.575 kg Weight 72.575 kg Physical Exam Narrative: General exam is white female, no distress HEENT: Atraumatic normocephalic. Pupils equally round. Oropharynx clear Neck is supple no lymphadenopathy or thyromegaly Cardiovascular regular rate and rhythm without murmur Lungs diminished breath sounds bilaterally but no wheezes or crackles Abdomen is soft with positive bowel sounds. No obvious organomegaly exam is deferred Extremities no cyanosis clubbing or edema, cap refill brisk Skin no rash Neuro no obvious focal deficits. Data 10/22/22 03:12 10/22/22 03:12 A&P Assessment and plan (1) Chest pain: Patient presents with chest discomfort. Some description is atypical, as it is not exertional but other components are concerning. Certainly she has history of coronary disease and significant intervention in the past. Troponin is only minimally elevated. Continue statin, beta-beth, aspirin Appreciate cardiology consult, circumflex stenting occurred today (2) Combined systolic and diastolic cardiac dysfunction: Some concern of acute exacerbation of combined systolic heart failure. Patient diuresed with Lasix. Hold further Lasix today, reassess tomorrow for p.o. Lasix. She appears compensated currently. (3) COPD (chronic obstructive pulmonary disease): No evidence of exacerbation currently Budesonide, DuoNeb (4) Hypertension: Continue home medications Plan Tobacco abuse. Encourage cessation. Multiple other medical problems as noted in past medical history Full code Hold Lovenox today after cardiac procedure, home monitoring right groin. Attestations Medical Necessity Statement*: Needs continued hospitalization for close monitoring following circumflex stenting performed today. Coding Level of Care Code Acute Building Materials Sales Attendant for Chg Fwd Diagnoses Chest pain R07.9 Combined systolic and diastolic cardiac dysfunction I51.89 COPD (chronic obstructive pulmonary disease) J44.9 Hypertension I10
--- NOTE | 2022-10-22 10:58 | PC.NURSE ---
Spoke with Dr. Adair and he doesn't want pt to receive lasix, IV fluids, or Nitro drip.
[2022-10-22] MEDS: potassium chloride ER 20 mEq Tablet 40 MEQ PO (11:48)
[2022-10-22] MEDS: perflutren protein-a microsphr 0.22 mg/mL SDV 3 mL IV (15:16)
--- NOTE | 2022-10-22 16:37 | PM.PN ---
Subjective Subjective: Patient underwent coronary angiogram which showed severe left circumflex artery stenosis. She underwent successful revascularization with PCI. Vitals/I&O/Wt Last Vital Signs Temp 98.5 F 10/22/22 15:52 Pulse 79 10/22/22 15:52 Resp 24 H 10/22/22 15:52 BP 117/64 10/22/22 15:52 Pulse Ox 92 10/22/22 15:52 O2 Del Method 10/22/22 11:45 O2 Flow Rate 2 10/22/22 11:45 10/22/22 10/22/22 10/22/22 06:59 14:59 22:59 Intake Total 120 / 369.325 120 / 120 Balance 120 / 369.325 120 / 120 Weight last 48 hrs Weight 160 lb Weight 160 lb Physical Exam Narrative: GENERAL: Patient is alert, awake and oriented x3. [] NECK: No jugular vein distension. [] HEENT: No cyanosis. No icterus. No pallor. [] HEART: Regular S1 and S2. No murmur, rub or gallop. [] LUNGS:Diminished breath sounds CENTRAL NERVOUS SYSTEM: Grossly nonfocal. [] EXTREMITIES: Lower extremities with 1+ edema bilaterally. Pulses palpable in the lower extremities, both dorsalis pedis and posterior tibial. [] Data 10/22/22 03:12 10/22/22 03:12 A&P Assessment and plan (1) Chest pain: (2) Hyperlipidemia: (3) Tobacco abuse: (4) Combined systolic and diastolic cardiac dysfunction: (5) Coronary artery disease: Plan Patient has presented with unstable angina. She underwent successful revascularization of left circumflex artery today. Continue dual antiplatelet therapy with aspirin and Plavix Echo shows improved LV systolic function with EF of 50%. Patient has diuresed well. Hold further diuresis for today given contrast use. Thank you for involving us with care of this patient. We will continue to follow. Please call with questions. Attestations Medical Necessity Statement*: Care expected to cross 2 midnights. Coding Level of Care Code Acute Shell Trim Operator for Annie Wright Diagnoses Chest pain R07.9 Hyperlipidemia E78.5 Tobacco abuse Z72.0 Combined systolic and diastolic cardiac dysfunction I51.89 Coronary artery disease I25.10
[2022-10-22] MEDS: carvedilol 6.25 mg Tablet PO (19:18)
[2022-10-23 04:01] LABS: Basophils % 0.1 %; Eosinophils % 0.1 %; Hematocrit 45.4 % (37.0-47.0); Hemoglobin 15.1 g/dL (11.5-15.3); Lymphocytes % 14.1 %; Mean Corpuscular HGB Conc 33.3 g/dL (30.0-36.0); Mean Corpuscular Hemoglobin 31.1 pg (28.0-34.0); Mean Corpuscular Volume 93.4 fl (81-99); Mean Platelet Volume 10.2 fL (7.4-10.4); Monocytes # 1.7 10^3/uL (0.2-0.9); Monocytes % 12.2 %; Neutrophils # 10.21 10^3/uL (1.8-7.7); Neutrophils % 73.1 %; Nucleated Red Blood Cells % 0 %; Platelet Count 357 10^3/cmm (130-400); Red Blood Count 4.86 10^6/uL (4.1-5.3); Red Cell Distribution Width 12.8 % (12.1-15.1)
[2022-10-23 04:05] VITALS: BP 123/64; PULSE 70; RESP 35; O2SAT 91
[2022-10-23 04:22] LABS: Anion Gap 15.4 (5-19); Blood Urea Nitrogen 19 mg/dL (6-20); Calcium 8.9 mg/dL (8.5-10.5); Carbon Dioxide 26 mmol/L (22-29); Chloride 95 mmol/L (98-107); Glomerular Filtration Rate 65.8 mL/min (90-130); Glucose 115 mg/dL (65-115); Magnesium 1.8 mg/dL (1.7-2.3); Osmolality Calculated 279 mOsm/kg (285-295); Potassium 3.4 mmol/L (3.5-5.1); Sodium 133 mmol/L (136-145)
[2022-10-23 04:31] VITALS: PULSE 60
[2022-10-23] MEDS: pantoprazole DR 40 mg Tablet PO (05:12)
[2022-10-23] MEDS: atorvastatin 40 mg Tablet PO (05:12)
[2022-10-23] MEDS: lisinopril 20 mg Tablet PO (05:12)
[2022-10-23] MEDS: aspirin 81 mg EC Tablet PO (05:12)
[2022-10-23 05:15] VITALS: RESP 20; O2SAT 93
[2022-10-23] MEDS: oxyCODONE 5 mg IR Tab/Cap PO (05:15)
--- NOTE | 2022-10-23 07:08 | P.PN_ITS ---
Subjective Subjective: Patient is overall doing well. She underwent successful revascularization of Left circumflex artery yesterday. no chest pain. Still has cough. Vitals/I&O/Wt Last Vital Signs Temp 99.1 F 10/22/22 19:29 Pulse 60 10/23/22 04:31 Resp 20 H 10/23/22 05:15 BP 123/64 10/23/22 04:05 Pulse Ox 93 10/23/22 05:15 O2 Del Method 10/22/22 19:29 O2 Flow Rate 2 10/22/22 11:45 10/22/22 10/23/22 10/23/22 22:59 06:59 14:59 Intake Total 377.775 / 497.775 480 / 977.775 Balance 377.775 / 497.775 480 / 977.775 Weight last 48 hrs Weight 160 lb Physical Exam Narrative: GENERAL: Patient is alert, awake and oriented x3. [] NECK: No jugular vein distension. [] HEENT: No cyanosis. No icterus. No pallor. [] HEART: Regular S1 and S2. No murmur, rub or gallop. [] LUNGS:Diminished breath sounds CENTRAL NERVOUS SYSTEM: Grossly nonfocal. [] EXTREMITIES: Lower extremities with 1+ edema bilaterally. Pulses palpable in the lower extremities, both dorsalis pedis and posterior tibial. [] Data 10/23/22 03:11 10/23/22 03:11 A&P Assessment and plan (1) Chest pain: (2) Hyperlipidemia: (3) Tobacco abuse: (4) Combined systolic and diastolic cardiac dysfunction: (5) Coronary artery disease: Plan Patient is stable from cardiac standpoint. Continue aspirin and plavix for atleast 1 year. High intensity statin therapy. Still having cough and WBC count is higher today. Can consider repeating CXR. Can restart low dose diuretics today. Thank you for involving us with care of this patient. Please call with questi ons. Attestations Medical Necessity Statement*: Care expected to cross 2 midnights. Coding Level of Care Code Acute Machine Edge Bander for Sumig Kyle Diagnoses Chest pain R07.9 Hyperlipidemia E78.5 Tobacco abuse Z72.0 Combined systolic and diastolic cardiac dysfunction I51.89 Coronary artery disease I25.10
[2022-10-23] MEDS: potassium chloride ER 20 mEq Tablet 40 MEQ PO (07:16)
[2022-10-23 07:20] VITALS: PULSE 64; O2SAT 92
[2022-10-23 07:21] VITALS: BP 115/66; PULSE 54; RESP 18; TEMP 36.7; O2SAT 92
[2022-10-23] MEDS: clopidogrel 75 mg Tablet PO ×2 (08:34→10:03)
--- NOTE | 2022-10-23 09:23 | PM.DCS ---
Discharge Providers Date of Admission: 10/22/22 10:56 Date of Discharge: October 23, 2022 Attending Provider at Admission: Carlos Banerjee MD Attending Provider at Discharge: Carlos Banerjee MD Diagnoses at Discharge Discharge Diagnosis (1) Chest pain: Status: Acute (2) Hyperlipidemia: Status: Acute (3) Tobacco abuse: Status: Acute (4) Combined systolic and diastolic cardiac dysfunction: Status: Chronic Permanent problem details: Last echocardiogram 10/2014: LVEF 40%, grade 1/4 diastolic dysfunction. (5) Coronary artery disease: Status: Chronic Permanent problem details: stent to prox LAD, treated with angioplasty due to in-stent restenosis 09/07/2014. Reason for Visit Reason for Visit: DAVID KIM Hospital Course Hospital Course Silvia is a 52-year-old white female who presented to the emergency department with complaints of chest discomfort. EKG nonspecific. Troponin slightly high with positive trend on first enzyme. She was admitted to the hospital, cardiology consulted for concerns of chest discomfort secondary to past history of coronary disease. She was continued on statin, beta-beth, aspirin, full dose anticoagulation, and nitroglycerin was initiated. Echocardiogram was performed demonstrating an EF of 50 to 55% and 1/4 diastolic dysfunction. Angiogram occurred, right femoral artery approach October 22. Circumflex stenting with drug-eluting stent occurred x3, full report pending. She tolerated this well and was ready for discharge the following day. She was given an opportunity to ask questions, and agreed with the plan. Plavix compliance was discussed in detail. Risks and benefits of medicine was discussed in detail. Physical Exam Narrative: General exam no distress Neck is supple Cardiovascular regular rate and rhythm without murmur Lungs clear Abdomen is soft, positive bowel sounds. No obvious organomegaly Extremities no cyanosis clubbing edema, right groin with no significant hematoma. Distal pulses intact. Skin no rash Discharge Data Studies Completed and Pending Completed Studies During Hospitalization Category Date Time Status XR chest 1V portable [id number] Stat Exams 10/21/22 01:56 Completed CV. echo wo/w contrast [id number] Routine Ultrasound 10/22/22 08:00 Completed Pending at discharge Category Date Time Status FIRE INFORMATION OFFICER request for service Routine Exams 10/22/22 07:34 Taken Urinalysis Stat Lab 10/21/22 01:56 Uncollected Radiology Impressions Chest X-Ray 10/21/22 01:56 IMPRESSION: No chest radiographic evidence of acute cardiopulmonary disease. Laboratory Results WBC 14.0 10^3/uL (4.0-10.0) H 10/23/22 03:11 RBC 4.86 10^6/uL (4.1-5.3) 10/23/22 03:11 Hgb 15.1 g/dL (11.5-15.3) 10/23/22 03:11 Hct 45.4 % (37.0-47.0) 10/23/22 03:11 MCV 93.4 fl (81-99) 10/23/22 03:11 MCH 31.1 pg (28.0-34.0) 10/23/22 03:11 MCHC 33.3 g/dL (30.0-36.0) 10/23/22 03:11 RDW 12.8 % (12.1-15.1) 10/23/22 03:11 Plt Count 357 10^3/cmm (130-400) 10/23/22 03:11 MPV 10.2 fL (7.4-10.4) 10/23/22 03:11 Neut % (Auto) 73.1 % 10/23/22 03:11 Lymph % (Auto) 14.1 % 10/23/22 03:11 [place] % (Auto) 12.2 % 10/23/22 03:11 Eos % (Auto) 0.1 % 10/23/22 03:11 Baso % (Auto) 0.1 % 10/23/22 03:11 Neut # (Auto) 10.21 10^3/uL (1.8-7.7) H 10/23/22 03:11 Lymph # (Auto) 2.0 10^3/uL (0.8-4.8) 10/23/22 03:11 [place] # (Auto) 1.7 10^3/uL (0.2-0.9) H 10/23/22 03:11 Eos # (Auto) 0.0 10^3/uL (0.0-0.8) 10/23/22 03:11 Baso # (Auto) 0.0 10^3/uL (0.0-0.1) 10/23/22 03:11 Nucleated RBC % (auto) 0 % 10/23/22 03:11 Nucleated RBCs # 0.0 /100WBC 10/23/22 03:11 Sodium 133 mmol/L (136-145) L 10/23/22 03:11 Potassium 3.4 mmol/L (3.5-5.1) L 10/23/22 03:11 Chloride 95 mmol/L (98-107) L 10/23/22 03:11 Carbon Dioxide 26 mmol/L (22-29) 10/23/22 03:11 Anion Gap 15.4 (5-19) 10/23/22 03:11 BUN 19 mg/dL (6-20) 10/23/22 03:11 Creatinine 0.9 mg/dL (0.5-0.9) 10/23/22 03:11 GFR Calculation 65.8 mL/min (90-130) L 10/23/22 03:11 Glucose 115 mg/dL (65-115) 10/23/22 03:11 Calculated Osmolality 279 mOsm/kg (285-295) L 10/23/22 03:11 Calcium 8.9 mg/dL (8.5-10.5) 10/23/22 03:11 Magnesium 1.8 mg/dL (1.7-2.3) 10/23/22 03:11 Total Bilirubin 1.2 mg/dL (0.15-1.2) 10/22/22 03:12 AST 12 U/L (0-32) 10/22/22 03:12 ALT 10 U/L (0-33) 10/22/22 03:12 Alkaline Phosphatase 97 U/L (35-105) 10/22/22 03:12 Troponin T Baseline 15 ng/L (0-10) H 10/21/22 05:11 Troponin T 120 Minute 19.90 ng/L (0-10) H 10/21/22 06:49 Delta Troponin T 4.90 ABS# (0-10) 10/21/22 06:49 Troponin T Hi Sens 6Hr 14.51 ng/L (0-10) H 10/21/22 12:08 Troponin T Hi Sens 6Hr Delta -0.49 ng/L (0-12) L 10/21/22 12:08 NT-Pro-B Natriuret Pep 4832 pg/mL (0-125) H 10/21/22 05:11 Total Protein 8.1 g/dL (6.6-8.7) 10/22/22 03:12 Albumin 3.9 g/dL (3.5-5.2) 10/22/22 03:12 Globulin 4.2 g/dL (1.3-4.6) 10/22/22 03:12 Influenza Type A Ag negative (Negative) 10/21/22 05:11 Influenza Type B Ag negative (Negative) 10/21/22 05:11 SARS-CoV-2 Ag (Rapid) negative (Negative) 10/21/22 05:11 Vitals Last Vital Signs Temp 98.1 F 10/23/22 07:21 Pulse 54 L 10/23/22 07:21 Resp 18 10/23/22 07:21 BP 115/66 10/23/22 07:21 Pulse Ox 92 10/23/22 07:21 O2 Del Method 10/23/22 07:21 O2 Flow Rate 2 10/22/22 11:45 Discharge Plan Discharge Patient Disposition: Home Condition: Stable Prescriptions: New clopidogrel 75 mg Tablet 75 mg PO DAILY Qty: 30 11RF doxycycline monohydrate 100 mg Tablet 100 mg PO BID Qty: 13 0RF Continued ondansetron 8 mg tablet,disintegrating 8 mg PO Q8H PRN (Reason: nausea and vomiting) 5 Days Qty: 15 0RF Adult Low Dose Aspirin 81 mg tablet,delayed release (DR/EC) 81 mg PO QAM Qty: 30 3RF carvedilol 6.25 mg tablet 6.25 mg PO BID Qty: 60 3RF Rx Instructions: must administer with a meal/food Protonix 40 mg tablet,delayed release (DR/EC) 40 mg PO QAM Qty: 90 3RF lisinopril 20 mg tablet 20 mg PO QAM Qty: 90 3RF atorvastatin 40 mg tablet 40 mg PO QAM Qty: 90 3RF Discharge Orders: Discharge Order (Routine); Ordered 10/23/22 Ordered By: Carlos Banerjee Referrals: Khushi Molina FNP [Nurse Practitioner] - 4-7 days Discharge Diet: Cardiac Discharge Activity: Increase activity as tolerated Patient Instructions: Coronary Angioplasty (DC), Pulmonary Edema (ED), Opioid Safety Activity Restrictions/Additional Instructions: Coronavirus instructed Do not miss any doses of your Plavix Stop smoking Follow-up with cardiology early next week Return for any concerns Please arrange follow-up with primary care provider 3 to 5 days Patient's Health Concerns: Chest pain Assessment: Coronary artery disease, stenting of circumflex Plan of Treatment: Stent as above, medical management Discharge Attestations Time Spent in Discharge Care*: greater than 30 min Quality Metrics Clinical Quality Measures [ No reported AMI, CVA or VTE this stay] Coding Level of Care Code Acute Chg FW DC note Diagnoses Chest pain R07.9 Hyperlipidemia E78.5 Tobacco abuse Z72.0 Combined systolic and diastolic cardiac dysfunction I51.89 Coronary artery disease I25.10
[2022-10-23] MEDS: doxycycline 100 mg Tablet PO (09:58)
[2022-10-23] MEDS: carvedilol 3.125 mg Tablet PO (10:50)
[2022-10-23 10:58] VITALS: BP 104/72; PULSE 82; RESP 18; TEMP 37.1; O2SAT 93
--- NOTE | 2022-10-23 11:57 | PC.NURSE ---
LE: 10/23/2022 @ 1100 systolic Bp greater than 90. Carvedilol given as ordered.
--- NOTE | 2022-10-23 11:59 | PC.NURSE ---
Pt discharged home. Mother here to warp picker patient. Discharge instructions given and pt voices understanding. Taken to vehicle per wc.
== END 2022-10-23 11:56 | disposition home or self-care (01) | DRG 246 ==
LOC: ER 07:38 → CSU 09:37
PROVIDERS: Internal Medicine; Physician Assistant; Admitting Provider Internal Medicine; Emergency Provider Family Medicine; Visit Provider Internal Medicine
PROC: 027036Z Dilation of Coronary Artery, One Artery with Three Drug-eluting Intraluminal Devices, Percutaneous Approach (ICD-10-PCS; principal; 2022-10-22 10:00)
PROC: 027036Z Dilation of Coronary Artery, One Artery with Three Drug-eluting Intraluminal Devices, Percutaneous Approach (ICD-10-PCS; 2022-10-22 10:00)
DX: I25.110 Atherosclerotic heart disease of native coronary artery with unstable angina pectoris (principal); I50.43 Acute on chronic combined systolic (congestive) and diastolic (congestive) heart failure; I95.9 Hypotension, unspecified; E78.5 Hyperlipidemia, unspecified; F17.200 Nicotine dependence, unspecified, uncomplicated; I11.0 Hypertensive heart disease with heart failure; Z79.82 Long term (current) use of aspirin; J44.9 Chronic obstructive pulmonary disease, unspecified; I25.2 Old myocardial infarction; E66.9 Obesity, unspecified; Z68.28 Body mass index [BMI] 28.0-28.9, adult; K21.9 Gastro-esophageal reflux disease without esophagitis; I25.5 Ischemic cardiomyopathy
CPT/HCPCS: 36415; 71045; 80048; 80053; 83735; 83880; 84484; 85025; 85347; 87426; 87804; 92978; 93005; 93458; 96372; 96374; 96375; 99152; 99153; 99285; C1725; C1753; C1760; C1769; C1874; C1887; C1894; C8929; C9600; G0269; G0378; J0360; J0461; J1644; J1650; J1940; J2250; J2270; J2405; J3010; J3490; J7030; Q9956; Q9967

== ENCOUNTER 2023-02-19 02:24 | Emergency (ER) | payer BC, MEDICAID, SELFPAY ==
[2023-02-19] VITALS (7 sets, daily range): BP systolic 146–192; BP diastolic 40–76; PULSE 46–66; RESP 16–18; TEMP 36.6; O2SAT 96–98; BMI 29.2
[2023-02-19] MEDS: ondansetron 2 mg/ML SDV 2 mL 4 MG IVP (02:41)
[2023-02-19] MEDS: sodium chloride 0.9% 1,000 ML 999 ML IV (02:41)
--- NOTE | 2023-02-19 02:44 | USR_ITS ---
PROCEDURE INFORMATION: Exam: US Abdomen, Limited; Right Upper Quadrant Exam date and time: 02/19/2023 2:58 AM Age: 52 years old Clinical indication: Abdominal pain; Prior surgery; Surgery date: 6+ months; Surgery type: [place] 2007; Patient HX: Epigastric pain for months. All labs are pending at end of exam. ; Additional info: Ruq pain TECHNIQUE: Imaging protocol: Real time ultrasound of the abdomen with image documentation. Limited exam focused on the right upper quadrant. COMPARISON: CT abdomen pelvis w con* [id number] 02/27/2021 4:16 AM FINDINGS: Liver: The liver appears borderline/mildly enlarged, with right lobe length of about 19 cm. No definite/significant focal hepatic abnormality. Gallbladder: Prior cholecystectomy. Biliary ducts: No biliary dilation, common duct measures 8-9 mm. Pancreas: Visible pancreas unremarkable. Right kidney: Images of the right kidney show no significant hydronephrosis. US/US gall bladder [id number] IMPRESSION: 1. Prior cholecystectomy, no significant biliary tree dilation. 2. Other findings discussed above.
--- NOTE | 2023-02-19 02:44 | ED_ITS ---
HPI - Abdominal Pain General: Chief Complaint: Abdominal Pain Stated Complaint: n/v Time Seen by Provider: 02/19/23 02:25 Source: patient Mode of arrival: ambulatory Limitations: no limitations History of Present Illness: 52-year-old female states she has been having intermittent abdominal pain for months. States it is upper abdominal pain does take Protonix for reflux she states that today she started having some worsening pain was sharp in nature rates an 8 out of 10 she has had some nausea and vomiting today as well denies any fever denies any worsening improving factors. Denies any diarrhea. Associated Symptoms: Reports nausea and vomiting; Denies chills, diarrhea, dysuria and fever(s) Review of Systems Const: Denies: fever(s) or chills Eyes: Denies: blurry vision or eye discomfort ENMT: Denies: throat pain or dental pain Card: Denies: chest pain Resp: Denies: dyspnea GI: Reports: abdominal pain, nausea and vomiting; Denies: diarrhea : Denies: dysuria Musc: Denies: neck pain or back pain Skin/Breast: Denies: rash Neuro: Denies: headache(s) PFSH ED PFSH: Medical History Acute anterior wall ME 01/2014 Adult-onset obesity Chest pain COPD (chronic obstructive pulmonary disease) GERD (gastroesophageal reflux disease) History of seizure Hypertension Ischemic cardiomyopathy Tobacco abuse Surgical History History of heart artery stent Hx of cholecystectomy Hx of tubal ligation Family History Grandmother Cancer Father Cancer Hyperlipidemia Hypertension Grandmother Cancer Sister Stroke Denies family history of Diabetes CAD (coronary artery disease) Clotting disorder Dementia Psychiatric illness Chronic kidney disease (CKD) Suicide Anesthesia complication Bleeding disorder Family history of premature coronary artery disease Lung disease Social History Smoking and tobacco status: current every day smoker Second hand smoke exposure: No Smoking risk assessment/counseling performed?: Yes Alcohol intake: never Substance/Drug Use: never Physical Exam Const: COMMON NORMALS: no acute distress, patient oriented x3 and healthy appearing HENMT: COMMON NORMALS: normocephalic and atraumatic HEAD & SCALP: normocephalic and atraumatic Eye: COMMON NORMALS: conjunctivae normal CONJUNCTIVA: Yes conjunctivae normal Neck/C-Spine: COMMON NORMALS: full ROM and supple Chest: COMMONS NORMALS: normal inspection of the chest and normal palpation of entire chest wall Resp: COMMON NORMALS: normal respiratory effort, No retractions, No use of accessory muscles and clear to auscultation bilaterally AUSCULTATION: clear to auscultation bilaterally Cardio: COMMON NORMALS: regular rate, regular rhythm and No murmurs present (Cardio) RATE: regular rate RHYTHM: regular rhythm GI: COMMON NORMALS: Normal to inspection, nondistended, normoactive bowel sounds present, Soft to palpation, non-tender and no masses PALPATION: Yes Soft to palpation Extremity: COMMON NORMALS: normal to inspection and full ROM Neuro: COMMON NORMALS: patient oriented x3, moves all extremities and no focal motor deficits Psych: COMMON NORMALS: mental status grossly normal, Normal thought process p resent and cooperative THOUGHT PROCESS: Normal thought process present Skin: COMMON NORMALS: no rashes or lesions noted and no wounds GENERAL SKIN EXAM: no rashes or lesions noted Course Vital Signs: Vital signs: Vital Signs Temperature 97.9 F 02/19/23 02:30 Pulse Rate 66 02/19/23 03:58 Respiratory Rate 16 02/19/23 03:58 Blood Pressure 159/64 02/19/23 03:58 Pulse Oximetry 97 02/19/23 03:58 Oxygen Delivery Me thod Room Air 02/19/23 02:30 MDM - Abdominal Pain Medical Decision Making Patient presents here with abdominal pain has been chronic in nature she is well-appearing here exam here is benign ultrasound showed no acute findings blood work here is all normal she feels improved here we will place her on Bentyl and Zofran she is to follow-up with surgery and she is to return if worsening she understands agrees to plan. Differential Diagnosis Likely abdominal pain; Unlikely acute appendicitis, diverticulitis, pancreatitis or small bowel obstruction Medical Records I reviewed the patient's medical records. Lab Data I reviewed the patient's lab results. 02/19/23 02:40 02/19/23 02:40 Labs/Radiology: Laboratory Results WBC 5.3 10^3/uL (4.0-10.0) 02/19/23 02:40 RBC 4.65 10^6/uL (4.1-5.3) 02/19/23 02:40 Hgb 14.7 g/dL (11.5-15.3) 02/19/23 02:40 Hct 47.0 % (37.0-47.0) 02/19/23 02:40 MCV 101.1 fl (81-99) H 02/19/23 02:40 MCH 31.6 pg (28.0-34.0) 02/19/23 02:40 MCHC 31.3 g/dL (30.0-36.0) 02/19/23 02:40 RDW 14.4 % (12.1-15.1) 02/19/23 02:40 Plt Count 395 10^3/cmm (130-400) 02/19/23 02:40 MPV 9.7 fL (7.4-10.4) 02/19/23 02:40 Neut % (Auto) 46.3 % 02/19/23 02:40 Lymph % (Auto) 43.5 % 02/19/23 02:40 [place] % (Auto) 7.5 % 02/19/23 02:40 Eos % (Auto) 1.9 % 02/19/23 02:40 Baso % (Auto) 0.6 % 02/19/23 02:40 Neut # (Auto) 2.46 10^3/uL (1.8-7.7) 02/19/23 02:40 Lymph # (Auto) 2.3 10^3/uL (0.8-4.8) 02/19/23 02:40 [place] # (Auto) 0.4 10^3/uL (0.2-0.9) 02/19/23 02:40 Eos # (Auto) 0.1 10^3/uL (0.0-0.8) 02/19/23 02:40 Baso # (Auto) 0.0 10^3/uL (0.0-0.1) 02/19/23 02:40 Nucleated RBC % (auto) 0 % 02/19/23 02:40 Nucleated RBCs # 0.0 /100WBC 02/19/23 02:40 Sodium 140 mmol/L (136-145) 02/19/23 02:40 Potassium 4.0 mmol/L (3.5-5.1) 02/19/23 02:40 Chloride 105 mmol/L (98-107) 02/19/23 02:40 Carbon Dioxide 25 mmol/L (22-29) 02/19/23 02:40 Anion Gap 14.0 (5-19) 02/19/23 02:40 BUN 17 mg/dL (6-20) 02/19/23 02:40 Creatinine 0.9 mg/dL (0.5-0.9) 02/19/23 02:40 GFR Calculation 65.8 mL/min (90-130) L 02/19/23 02:40 Glucose 116 mg/dL (65-115) H 02/19/23 02:40 Calculated Osmolality 293 mOsm/kg (285-295) 02/19/23 02:40 Calcium 8.9 mg/dL (8.5-10.5) 02/19/23 02:40 Total Bilirubin 0.3 mg/dL (0.15-1.2) 02/19/23 02:40 AST 15 U/L (0-32) 02/19/23 02:40 ALT 9 U/L (0-33) 02/19/23 02:40 Alkaline Phosphatase 87 U/L (35-105) 02/19/23 02:40 Total Protein 7.8 g/dL (6.6-8.7) 02/19/23 02:40 Albumin 3.8 g/dL (3.5-5.2) 02/19/23 02:40 Globulin 4.0 g/dL (1.3-4.6) 02/19/23 02:40 Lipase 14 U/L (13-60) 02/19/23 02:40 Urine Color Yellow (Yellow) 02/19/23 03:34 Urine Appearance Clear (CLEAR) 02/19/23 03:34 Urine pH 5 (5-7) 02/19/23 03:34 Ur Specific [place] 1.020 (1.005-1.030) 02/19/23 03:34 Urine Protein Neg (Negative) 02/19/23 03:34 Urine Glucose (UA) Norm (Normal) 02/19/23 03:34 Urine Ketones Negative (Negative) 02/19/23 03:34 Urine Blood 2+ (Negative) H 02/19/23 03:34 Urine Nitrate Negative (Negative) 02/19/23 03:34 Urine Bilirubin Neg (Negative) 02/19/23 03:34 Urine Urobilinogen 1 mg/dL (Negative) H 02/19/23 03:34 Ur Leukocyte Esterase Negative (Negative) 02/19/23 03:34 Urine RBC 5-10 /hpf (0-2) H 02/19/23 03:34 Urine WBC None /hpf (0-5) 02/19/23 03:34 Ur Squamous Epith Cells 5-10 /hpf (0-5) H 02/19/23 03:34 Amorphous Sediment Not Reportable 02/19/23 03:34 Urine Bacteria 1+ /hpf (NONE) H 02/19/23 03:34 Urine Mucus 2+ /hpf 02/19/23 03:34 Discharge Plan Discharge Patient Disposition: Home Clinical Impression: Abdominal pain Condition: Stable Prescriptions: New ondansetron 4 mg tablet,disintegrating 4 mg PO Q6H PRN (Reason: nausea and vomiting) Qty: 14 0RF dicyclomine 20 mg tablet 20 mg PO TID PRN (Reason: abdominal pain) Qty: 20 0RF No Action ondansetron 8 mg tablet,disintegrating 8 mg PO Q8H PRN (Reason: nausea and vomiting) 5 Days Qty: 15 0RF Adult Low Dose Aspirin 81 mg tablet,delayed release (DR/EC) 81 mg PO QAM Qty: 30 3RF Protonix 40 mg tablet,delayed release (DR/EC) 40 mg PO QAM Qty: 90 3RF lisinopril 20 mg tablet 20 mg PO QAM Qty: 90 3RF atorvastatin 40 mg tablet 40 mg PO QAM Qty: 90 3RF nicotine 7 mg/24 hr patch 24 hour 1 patch transdermal Q24H Qty: 30 0RF clopidogrel 75 mg Tablet 75 mg PO DAILY Qty: 30 11RF carvedilol 3.125 mg tablet 3.125 mg PO BID Qty: 60 0RF Rx Instructions: must administer with a meal/food Discharge Orders: Discharge ED (Routine); Ordered 02/19/23 Ordered By: Nasir Romero Referrals: Jesus Rinaldi DO [Physician] - 1-3 days Discharge Diet: Advance as tolerated Discharge Activity: Resume usual activity Patient Instructions: Abdominal Pain (ED) Coding Level of Care Code ED Loss Prevention Coordinator for Chg Kyle
[2023-02-19] MEDS: morphine 4 mg/mL SDV 1 mL IVP (02:45)
[2023-02-19 02:46] LABS: Basophils % 0.6 %; Eosinophils # 0.1 10^3/uL (0.0-0.8); Eosinophils % 1.9 %; Hemoglobin 14.7 g/dL (11.5-15.3); Lymphocytes # 2.3 10^3/uL (0.8-4.8); Lymphocytes % 43.5 %; Mean Corpuscular HGB Conc 31.3 g/dL (30.0-36.0); Mean Corpuscular Hemoglobin 31.6 pg (28.0-34.0); Mean Corpuscular Volume 101.1 fl (81-99); Mean Platelet Volume 9.7 fL (7.4-10.4); Monocytes # 0.4 10^3/uL (0.2-0.9); Monocytes % 7.5 %; Neutrophils # 2.46 10^3/uL (1.8-7.7); Neutrophils % 46.3 %; Nucleated Red Blood Cells % 0 %; Platelet Count 395 10^3/cmm (130-400); Red Blood Count 4.65 10^6/uL (4.1-5.3); Red Cell Distribution Width 14.4 % (12.1-15.1); White Blood Count 5.3 10^3/uL (4.0-10.0)
--- NOTE | 2023-02-19 02:54 | ECG_ITS ---
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 Measurements Intervals [place] Rate: 47 P: 69 DC: 195 QRS: -32 QRSD: 148 T: 151 QT: 516 QTc: 460 Interpretive Statements SINUS BRADYCARDIA LEFT AXIS DEVIATION [QRS AXIS < -30] INTRAVENTRICULAR CONDUCTION DELAY [130+ ms QRS DURATION] Compared to ECG 10/21/2022 01:42:04 Left-axis deviation now present Intraventricular conduction delay now present Sinus rhythm no longer present Left ventricular hypertrophy no longer present ST (T wave) deviation no longer present Myocardial infarct finding no longer present Electronically Signed On 02-19-2023 20:59:42 CDT by Swati Daniels M.D. [email or web address]
[2023-02-19 03:04] LABS: Alanine Aminotransferase 9 U/L (0-33); Albumin Level 3.8 g/dL (3.5-5.2); Alkaline Phosphatase 87 U/L (35-105); Aspartate Amino Transferase 15 U/L (0-32); Blood Urea Nitrogen 17 mg/dL (6-20); Calcium 8.9 mg/dL (8.5-10.5); Carbon Dioxide 25 mmol/L (22-29); Chloride 105 mmol/L (98-107); Glomerular Filtration Rate 65.8 mL/min (90-130); Glucose 116 mg/dL (65-115); Lipase 14 U/L (13-60); Osmolality Calculated 293 mOsm/kg (285-295); Sodium 140 mmol/L (136-145); Total Bilirubin 0.3 mg/dL (0.15-1.2); Total Protein 7.8 g/dL (6.6-8.7)
[2023-02-19 03:50] LABS: Urine Appearance Clear (CLEAR); Urine Color Yellow (Yellow)
[2023-02-19 03:51] LABS: Add Urine Microscopic? YES; Bilirubin Urine Neg (Negative); Blood Urine 2+ (Negative); Glucose Urine UA Norm (Normal); Ketones Urine Negative (Negative); Leukocyte Esterase Urine Negative (Negative); Nitrate Urine Negative (Negative); Protein Urine Neg (Negative); Urobilinogen Urine 1 mg/dL (Negative); pH Urine 5 (5-7)
[2023-02-19 03:53] LABS: Add Urine Culture? No; Bacteria Urine 1+ /hpf; Mucus Urine 2+ /hpf
--- NOTE | 2023-02-19 08:37 | DCPLANNER ---
Addendum entered by Elsi Parikh 03/19/23 11:35: Patient had a follow up appointment scheduled with general surgery - patient did not attend appointment. Addendum entered by Elsi Parikh 02/26/23 14:49: Patient has a follow up appointment scheduled for Saturday, March 18, 2023 at 8:[address] Rinaldi at general surgery. Original Note: global sourcing manager had message to schedule a follow up appointment for patient with general surgery. global sourcing manager sent patients information to the front office staff at general surgery. Patients information will be printed and reviewed. Clinic will call patient with appointment information.
--- NOTE | 2023-02-28 07:18 | DCPLANNER ---
software project manager was triggered to call patient due to no primary care physician - patient is established with Dr. Negro.
== END 2023-02-19 04:08 | disposition home or self-care (01) ==
PROVIDERS: Emergency Provider Emergency Medicine
DX: R10.10 Upper abdominal pain, unspecified (principal); Z79.82 Long term (current) use of aspirin; Z79.02 Long term (current) use of antithrombotics/antiplatelets; F17.210 Nicotine dependence, cigarettes, uncomplicated; J44.9 Chronic obstructive pulmonary disease, unspecified; I10 Essential (primary) hypertension
CPT/HCPCS: 76705; 80053; 81001; 83690; 85025; 93005; 96361; 96374; 96375; 99285; J2270; J2405; J7030

== ENCOUNTER 2023-07-30 14:00 | Observation (INO) | payer BC, MEDICAID, SELFPAY ==
[2023-07-30 14:16] VITALS: BP 177/89; PULSE 64; RESP 20; TEMP 36.9; O2SAT 96
--- NOTE | 2023-07-30 14:24 | ECG_ITS ---
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 Measurements Intervals [place] Rate: 63 P: 61 OR: 186 QRS: -30 QRSD: 118 T: 131 QT: 434 QTc: 447 Interpretive Statements SINUS RHYTHM POSSIBLE LEFT ATRIAL ENLARGEMENT [-0.1mV P-WAVE IN V1/V2] LEFT VENTRICULAR HYPERTROPHY AND ST-T CHANGE [VOLTAGE CRITERIA PLUS ST/T ABNORMALITY] POSSIBLE SEPTAL MYOCARDIAL INFARCTION , OF INDETERMINATE AGE [30 ms Q WAVE IN V1/V2] Compared to ECG 02/19/2023 02:54:34 Left ventricular hypertrophy now present ST (T wave) deviation now present.Myocardial infarct finding now present Sinus bradycardia no longer present.Left-axis deviation no longer present Intraventricular conduction delay no longer present Electronically Signed On 07-30-2023 19:37:21 CDT by Swati Daniels M.D. [id number]
--- NOTE | 2023-07-30 14:25 | ED_ITS ---
HPI - Chest Pain General: Chief Complaint: Chest Pain Stated Complaint: chest pressure, sob Time Seen by Provider: 07/30/23 14:19 Source: patient Mode of arrival: ambulatory History of Present Illness: 53-year-old female with a history of coronary disease presents emergency room complaining of central chest pressure that began last night while at rest she has not noticed anything that exacerbates or relieves it. She has some mild associated shortness of breath and nausea during exam she did notice that with deep inspiration exacerbates the pain slightly. No vomiting no diarrhea. Known history of previous coronary disease with previous stenting in the past. MD complaint: chest pain Pertinent past history: coronary artery disease Onset (ago): day(s) (1) Timing of current episode: episodic Prior episodes: Yes Onset: during rest Pain location: substernal Severity: mild Quality: tightness and aching Exacerbating factors: inspiration Associated symptoms: Reports dyspnea and nausea; Deny abdominal pain, diaphoresis, fever(s), leg edema, palpitations, sense of impending doom, syncope or vomiting Risk Factors: Coronary artery disease risk factors: smoking history Review of Systems Const: Denies: fever(s), chills or diaphoresis Card: Reports: chest pain; Denies: palpitations or syncope Resp: Reports: dyspnea GI: Reports: nausea; Denies: abdominal pain or vomiting : Denies: dysuria, urinary frequency or urinary urgency Musc: Denies: neck pain or back pain Skin/Breast: Denies: rash PFSH ED PFSH: Medical History Acute anterior wall [place] 01/2014 Adult-onset obesity Chest pain COPD (chronic obstructive pulmonary disease) GERD (gastroesophageal reflux disease) History of seizure Hypertension Ischemic cardiomyopathy Tobacco abuse Surgical History History of heart artery stent Hx of cholecystectomy Hx of tubal ligation Family History Grandmother Cancer Maternal cervical Father Cancer lung and throat Hyperlipidemia Hypertension Grandmother Cancer Paternal-unknown Sister Stroke Grandfather Cancer Paternal-brain Denies family history of Diabetes CAD (coronary artery disease) Clotting disorder Dementia Psychiatric illness Chronic kidney disease (CKD) Suicide Anesthesia complication Bleeding disorder Family history of premature coronary artery disease Lung disease Social History Smoking and tobacco/nicotine status: current every day tobacco/nicotine user cigarettes Packs smoked per day: 1 Second hand smoke exposure: No Alcohol intake: never Substance/Drug Use: never Lives independently: Yes Marital status: Single Number of children: 3 Current occupational status: employed Previous occupational history: [employer] Special shandra needs: No Agree to transfusion: Yes Physical Exam Const: COMMON NORMALS: no acute distress GENERAL APPEARANCE: cooperative and comfortable ORIENTATION/CONSCIOUSNESS: Yes awake, Yes oriented to person, Yes oriented to place and Yes oriented to time HENMT: COMMON NORMALS: normocephalic, atraumatic and hearing grossly normal bilaterally HEAD & SCALP: normocephalic and atraumatic Resp: COMMON NORMALS: normal respiratory effort, No retractions, No use of a ccessory muscles and clear to auscultation bilaterally AUSCULTATION: clear to auscultation bilaterally Cardio: COMMON NORMALS: regular rate, regular rhythm and No murmurs present (Cardio) RATE: regular rate RHYTHM: regular rhythm GI: COMMON NORMALS: Soft to palpation and No hepatosplenomegaly present AUSCULTATION: Yes normoactive bowel sounds PALPATION: Yes Soft to palpation, No Tenderness to palpation present (GI), No Guarding due to palpation present (GI) and Yes No hepatosplenomegaly present Extremity: COMMON NORMALS: normal to inspection, capillary refill normal, no clubbing, cyanosis or edema, no calf tenderness and no pedal edema Neuro: SENSORIUM/ORIENTATION: Yes oriented to person, Yes oriented to place and Yes oriented to time Skin: COMMON NORMALS: no rashes or lesions noted GENERAL SKIN EXAM: no rashes or lesions noted Course Vital Signs: Vital signs: Vital Signs Temperature 98.0 F 07/31/23 03:58 Pulse Rate 52 L 07/31/23 05:52 Respiratory Rate 18 07/31/23 04:12 Blood Pressure 127/87 07/31/23 03:58 Pulse Oximetry 95 07/31/23 04:12 Oxygen Delivery Me thod Room Air 07/30/23 20:37 MDM - Chest Pain Medical Decision Making EKG shows early repole but largely unchanged from February 2023. Her second troponin is slightly elevated +3.26. Concerning is that the patient has been not taking Plavix for the last several days discussed Dr. Daniels they recommended admission to complete the rule out reestablish optimal medical care. If symptoms persist may need to be further evaluated by cardiology. Per his recommendation we will load with Plavix 300 mg. Medical Records I reviewed the patient's medical records. Lab Data I reviewed the patient's lab results. 07/31/23 03:26 07/31/23 03:26 Radiology Impressions Chest X-Ray 07/30/23 16:24 IMPRESSION: Single-view chest is without acute cardiopulmonary abnormality. Laboratory Results WBC 5.96 10^3/uL (3.29-11.43) 07/30/23 14:53 RBC 4.12 10^6/uL (3.85-5.65) 07/30/23 14:53 Hgb 14.30 g/dL (11.27-16.99) 07/30/23 14:53 Hct 43.7 % (36-47) 07/30/23 14:53 MCV 106.1 fl (85-98) H 07/30/23 14:53 MCH 34.7 pg (27-33) H 07/30/23 14:53 MCHC 32.7 g/dL (30-55) 07/30/23 14:53 RDW 13.2 % (12.1-15.1) 07/30/23 14:53 Plt Count 251 10^3/cmm (157-399) 07/30/23 14:53 MPV 9.9 fL (7.4-10.4) 07/30/23 14:53 Neut % (Auto) 69.6 % 07/30/23 14:53 Lymph % (Auto) 22.5 % 07/30/23 14:53 Alfalfa % (Auto) 7.2 % 07/30/23 14:53 Eos % (Auto) 0.2 % 07/30/23 14:53 Baso % (Auto) 0.2 % 07/30/23 14:53 Neut # (Auto) 4.15 10^3/uL (1.8-7.7) 07/30/23 14:53 Lymph # (Auto) 1.3 10^3/uL (0.8-4.8) 07/30/23 14:53 Alfalfa # (Auto) 0.4 10^3/uL (0.2-0.9) 07/30/23 14:53 Eos # (Auto) 0.0 10^3/uL (0.0-0.8) 07/30/23 14:53 Baso # (Auto) 0.0 10^3/uL (0.0-0.1) 07/30/23 14:53 Nucleated RBC % (auto) 0 % 07/30/23 14:53 Nucleated RBCs # 0.0 /100WBC 07/30/23 14:53 D-Dimer 0.43 ug/mLFEU (0-0.59) 07/30/23 14:53 Sodium 138 mmol/L (136-145) 07/30/23 14:53 Potassium 3.5 mmol/L (3.5-5.1) 07/30/23 14:53 Chloride 106 mmol/L (98-107) 07/30/23 14:53 Carbon Dioxide 22 mmol/L (22-29) 07/30/23 14:53 Anion Gap 13.5 (5-19) 07/30/23 14:53 BUN 11 mg/dL (6-20) 07/30/23 14:53 Creatinine 0.7 mg/dL (0.5-0.9) 07/30/23 14:53 GFR Calculation 87.5 mL/min (90-130) L 07/30/23 14:53 Glucose 159 mg/dL (65-115) H 07/30/23 14:53 Calculated Osmolality 289 mOsm/kg (285-295) 07/30/23 14:53 Calcium 9.3 mg/dL (8.5-10.5) 07/30/23 14:53 Total Bilirubin 0.7 mg/dL (0.15-1.2) 07/30/23 14:53 AST 15 U/L (0-32) 07/30/23 14:53 ALT 12 U/L (0-33) 07/30/23 14:53 Alkaline Phosphatase 77 U/L (35-105) 07/30/23 14:53 Troponin T Baseline 19 ng/L (0-10) H 07/30/23 14:53 Troponin T 120 Minute 22.26 ng/L (0-10) H 07/30/23 16:40 Delta Troponin T 3.26 ABS# (0-10) 07/30/23 16:40 Total Protein 7.9 g/dL (6.6-8.7) 07/30/23 14:53 Albumin 4.4 g/dL (3.5-5.2) 07/30/23 14:53 Globulin 3.5 g/dL (1.3-4.6) 07/30/23 14:53 Vitamin B12 501 pg/mL (232-1245) 07/30/23 14:53 TSH 0.87 uIU/mL (0.27-4.20) 07/30/23 14:53 Urine Color Yellow (Yellow) 07/30/23 15:00 Urine Appearance Hazy (CLEAR) A 07/30/23 15:00 Urine pH 5 (5-7) 07/30/23 15:00 Ur Specific [place] 1.015 (1.005-1.030) 07/30/23 15:00 Urine Protein Trace (Negative) 07/30/23 15:00 Urine Glucose (UA) Norm (Normal) 07/30/23 15:00 Urine Ketones Negative (Negative) 07/30/23 15:00 Urine Blood 2+ (Negative) H 07/30/23 15:00 Urine Nitrate Negative (Negative) 07/30/23 15:00 Urine Bilirubin Neg (Negative) 07/30/23 15:00 Urine Urobilinogen Norm mg/dL (Negative) 07/30/23 15:00 Ur Leukocyte Esterase Negative (Negative) 07/30/23 15:00 Urine RBC 0-4 /hpf (0-2) H 07/30/23 15:00 Urine WBC 0-4 /hpf (0-5) H 07/30/23 15:00 Ur Squamous Epith Cells 0-4 /hpf (0-5) H 07/30/23 15:00 Amorphous Sediment Not Reportable 07/30/23 15:00 Urine Bacteria None /hpf (NONE) 07/30/23 15:00 Urine Mucus None /hpf 07/30/23 15:00 All radiology interpretation(s) finalized by discharge Discharge Plan Discharge Patient Disposition: Placed in Observation Admit Provider: Marbella Moss Clinical Impression: Chest pain, Coronary artery disease, Hypertension Coding Level of Care Code ED It Sales Consultant for Annie Wright
[2023-07-30 15:00] LABS: Basophils % 0.2 %; Eosinophils % 0.2 %; Hematocrit 43.7 % (36-47); Lymphocytes # 1.3 10^3/uL (0.8-4.8); Lymphocytes % 22.5 %; Mean Corpuscular HGB Conc 32.7 g/dL (30-55); Mean Corpuscular Hemoglobin 34.7 pg (27-33); Mean Corpuscular Volume 106.1 fl (85-98); Mean Platelet Volume 9.9 fL (7.4-10.4); Monocytes # 0.4 10^3/uL (0.2-0.9); Monocytes % 7.2 %; Neutrophils # 4.15 10^3/uL (1.8-7.7); Neutrophils % 69.6 %; Nucleated Red Blood Cells % 0 %; Platelet Count 251 10^3/cmm (157-399); Red Blood Count 4.12 10^6/uL (3.85-5.65); Red Cell Distribution Width 13.2 % (12.1-15.1); White Blood Count 5.96 10^3/uL (3.29-11.43)
[2023-07-30 15:18] LABS: Alanine Aminotransferase 12 U/L (0-33); Albumin Level 4.4 g/dL (3.5-5.2); Alkaline Phosphatase 77 U/L (35-105); Anion Gap 13.5 (5-19); Aspartate Amino Transferase 15 U/L (0-32); Blood Urea Nitrogen 11 mg/dL (6-20); Calcium 9.3 mg/dL (8.5-10.5); Carbon Dioxide 22 mmol/L (22-29); Chloride 106 mmol/L (98-107); Globulin 3.5 g/dL (1.3-4.6); Glomerular Filtration Rate 87.5 mL/min (90-130); Glucose 159 mg/dL (65-115); Osmolality Calculated 289 mOsm/kg (285-295); Potassium 3.5 mmol/L (3.5-5.1); Sodium 138 mmol/L (136-145); Total Bilirubin 0.7 mg/dL (0.15-1.2); Total Protein 7.9 g/dL (6.6-8.7)
[2023-07-30 15:20] LABS: Troponin(5th) Baseline 19 ng/L (0-10)
[2023-07-30 15:48] LABS: Add Urine Microscopic? YES; Bilirubin Urine Neg (Negative); Blood Urine 2+ (Negative); Glucose Urine UA Norm (Normal); Ketones Urine Negative (Negative); Leukocyte Esterase Urine Negative (Negative); Nitrate Urine Negative (Negative); Protein Urine Trace (Negative); Specific Gravity, Urine 1.015 (1.005-1.030); Urine Appearance Hazy (CLEAR); Urine Color Yellow (Yellow); Urobilinogen Urine Norm (Negative); pH Urine 5 (5-7)
[2023-07-30 15:51] LABS: RBC Urine 0-4 /hpf (0-2); Squamous Epithelial Cell Urine 0-4 /hpf (0-5); WBC Urine 0-4 /hpf (0-5)
[2023-07-30 15:52] LABS: Add Urine Culture? No
--- NOTE | 2023-07-30 16:24 | XRR_ITS ---
PROCEDURE INFORMATION: Exam: XR Chest Exam date and time: 07/30/2023 4:28 PM Age: 53 years old Clinical indication: Cough and dyspnea and shortness of breath; Additional info: Dyspnea/cough TECHNIQUE: Imaging protocol: Radiologic exam of the chest. Views: 1 view. COMPARISON: CR XR chest 1V portable [id number] 10/21/2022 3:25 AM FINDINGS: Tubes, catheters and devices: Overlying monitor leads are seen. Lungs: Unremarkable. No consolidation. Pleural spaces: Unremarkable. No pleural effusion. No pneumothorax. Heart/Mediastinum: Unremarkable. No cardiomegaly. Bones/joints: Visualized osseous structures show no acute abnormality. Other findings: No significant change with prior exam. XR/XR chest 1V portable [id number] IMPRESSION: Single-view chest is without acute cardiopulmonary abnormality.
--- NOTE | 2023-07-30 16:24 | ECG_ITS ---
[facility] Test Date: 2023-07-30 Pat Name: Silvia Persaud Department: Room: Gender: Female Lead Investigator: : 1970 Requested By: Alpesh Marino Order Number: [id number] Ana Laura MD: Swati Daniels M.D. Measurements Intervals [place] Rate: 58 P: 59 OR: 184 QRS: -27 QRSD: 118 T: 132 QT: 451 QTc: 444 Interpretive Statements SINUS BRADYCARDIA POSSIBLE LEFT ATRIAL ENLARGEMENT [-0.1mV P-WAVE IN V1/V2] LEFT VENTRICULAR HYPERTROPHY AND ST-T CHANGE [VOLTAGE CRITERIA PLUS ST/T ABNORMALITY] POSSIBLE SEPTAL MYOCARDIAL INFARCTION , OF INDETERMINATE AGE [30 ms Q WAVE IN V1/V2] Compared to ECG 07/30/2023 14:07:27 Sinus rhythm no longer present ST (T wave) deviation still present Myocardial infarct finding still present Electronically Signed On 07-30-2023 19:46:48 CDT by Swati Daniels M.D. [id number]
[2023-07-30 17:23] LABS: Troponin 5 2HR 22.26 ng/L (0-10)
[2023-07-30 17:24] LABS: Troponin 5 2HR Delta 3.26 ABS# (0-10)
[2023-07-30 18:24] VITALS: BP 207/96; PULSE 57
[2023-07-30] MEDS: clopidogrel 300 mg Tablet PO (18:24)
[2023-07-30] MEDS: nitroglycerin 1 gm/inch oint Pkt 1 INCH TOPICAL (18:24)
--- NOTE | 2023-07-30 18:35 | PM.HP ---
Providers/Chief Complaint Admitting Physician: Marbella Moss MD Chief Complaint: chest pressure, sob History of Present Illness Silvia Persaud is a 53 year old female with history of established coronary disease, active smoker, noncompliant, missed 2 days of Plavix presented with chief complaint of chest pain. 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 She smokes 1 pack/day, denies alcohol In the ER nonsignificant troponin however because of her hypertension and active chest pain she was put on Nitropaste Dr. Daniels recommended monitoring overnight Review of Systems Const: Denies: fever(s) Eyes: Denies: change in vision ENMT: Denies: throat pain Card: Reports: chest pain Resp: Denies: dyspnea GI: Denies: abdominal pain : Denies: flank pain Musc: Denies: neck pain Skin/Breast: Denies: rash Neuro: Denies: headache(s) Psych: Reports: anxiety Medications/Allergies Home Medications Medication Instructions Recorded Confirmed Last Taken Type aspirin 81 mg tablet,delayed 81 mg PO QAM #30 tabs 11/14/21 07/30/23 07/29/23 Rx release (Adult Low Dose Aspirin) atorvastatin 40 mg tablet 40 mg PO QAM #90 tabs 09/26/22 07/30/23 07/29/23 Rx carvedilol 3.125 mg tablet 3.125 mg PO BID #60 tabs 10/23/22 07/30/23 07/29/23 Rx clopidogrel 75 mg tablet 75 mg PO DAILY #30 tabs 10/23/22 07/30/23 07/29/23 Rx nicotine 7 mg/24 hr daily 1 patch transdermal Q24H #30 ea 12/03/22 07/30/23 Unknown Rx transdermal patch dicyclomine 20 mg tablet 20 mg PO TID PRN abdominal pain 02/19/23 07/30/23 Unknown Rx #20 tabs nicotine 21 mg/24 hr daily 1 patch transdermal Q24H #28 ea 02/20/23 07/30/23 Unknown Rx transdermal patch budesonide-formoterol HFA 160 1 puff inhalation Q12H PRN COPD 04/21/23 07/30/23 07/29/23 Rx mcg-4.5 mcg/actuation aerosol #10.2 grams inhaler (Symbicort) lisinopril 20 mg tablet 20 mg PO QAM #90 tabs 05/29/23 07/30/23 07/29/23 Rx Allergies Allergy/AdvReac Type Severity Reaction Status Date / Time No Known Allergies Allergy Verified 07/30/23 14:37 PFSH Acute PFSH: Medical History Acute anterior wall [place] 01/2014 Adult-onset obesity Chest pain COPD (chronic obstructive pulmonary disease) GERD (gastroesophageal reflux disease) History of seizure Hypertension Ischemic cardiomyopathy Tobacco abuse Surgical History History of heart artery stent Hx of cholecystectomy Hx of tubal ligation Family History Grandmother Cancer Maternal cervical Father Cancer lung and throat Hyperlipidemia Hypertension Grandmother Cancer Paternal-unknown Sister Stroke Grandfather Cancer Paternal-brain Denies family history of Diabetes CAD (coronary artery disease) Clotting disorder Dementia Psychiatric illness Chronic kidney disease (CKD) Suicide Anesthesia complication Bleeding disorder Family history of premature coronary artery disease Lung disease Social History Smoking and tobacco/nicotine status: current every day tobacco/nicotine user cigarettes Packs smoked per day: 1 Second hand smoke exposure: No Alcohol intake: never Substance/Drug Use: never Lives independently: Yes Marital status: Single Number of children: 3 Current occupational status: employed Previous occupational history: [employer] Special shandra needs: No Agree to transfusion: Yes Vitals/I&O/Wt Last Vital Signs Temp 98.4 F 07/30/23 14:16 Pulse 57 L 07/30/23 18:24 Resp 20 H 07/30/23 14:16 BP 207/96 07/30/23 18:24 Pulse Ox 96 07/30/23 14:16 O2 Del Method Room Air 07/30/23 14:16 Weight last 48 hrs Weight 74.843 kg Physical Exam Narrative: Sitting comfortably Hypertensive Reproducible chest pain Awake and alert Nonfocal neuro exam Currently on room air Euvolemic Pleasant and cooperative In good spirits Data 07/30/23 14:53 07/30/23 14:53 A&P Assessment and plan (1) Unstable angina: (2) Smoker: (3) Bipolar disease, chronic: (4) Hypertension: (5) Hypertensive urgency: Plan Unstable angina Established coronary disease Monitor troponins If her troponins are trending up She probably will need a coronary angiogram Nitropaste has beenApplied She is hypertensive Optimize antihypertensive regimen and antianginal Dr. Daniels will be consulted We will keep her n.p.o. after midnight Continue aspirin and loaded with Plavix Full code Attestations Medical Necessity Statement*: Anticipating discharge within 48 hours Diagnoses Unstable angina I20.0 Smoker F17.200 Bipolar disease, chronic F31.9 Hypertension I10 Hypertensive urgency I16.0
[2023-07-30] MEDS: ketorolac 30 mg/mL INJ 15 MG IVP (19:06)
[2023-07-30 19:16] LABS: D Dimer 0.43 ug/mLFEU (0-0.59)
--- NOTE | 2023-07-30 19:25 | USCV_ITS ---
Hung Silvia Age: 53 Gender: F : 1970 Exam Date: 07/30/2023 22:32 Ordering Phys: Marbella Moss MD Technologist: JACQUELINE [place] [facility] [place]ication: chest pain today, history of CAD, some SOB, HTN BP: 207 / 96 HR: 51 Rhythm: Sinus Technical Quality: Technically difficult study MEASUREMENTS (Male / Female) Normal Values 2D ECHO LV Diastolic Diameter PLAX 5.1 cm 4.2 - 5.9 / 3.9 - 5.3 cm LV Systolic Diameter PLAX 3.8 cm IVS Diastolic Thickness 1.4 cm 0.6 - 1.0 / 0.6 - 0.9 cm IVS Systolic Thickness 2.0 cm LVPW Diastolic Thickness 1.1 cm 0.6 - 1.0 / 0.6 - 0.9 cm LVPW Systolic Thickness 1.5 cm LVOT Diameter 1.9 cm LV Ejection Fraction 2D Teich 52.3 % LV Ejection Fraction MOD 2C 50.9 % LV Ejection Fraction 2C AL 51.6 % LA Diameter 3.6 cm LA Width 3.4 cm LA Height 6.3 cm RA Width 3.4 cm RA Height 3.9 cm Aorta at Sinotubular Diameter 2.1 cm IVC Diameter 1.7 cm M-MODE Aortic Annulus Diameter 4.2 cm LA Ao Ratio MM 0.8 DOPPLER AV Peak Velocity 165.0 cm/s LVOT Peak Velocity 126.0 cm/s AV Area Cont Eq vti 2.3 cm squared AV Area Cont Eq pk 2.3 cm squared MV Peak Velocity 126.0 cm/s MV Area PHT 1.8 cm squared Mitral E to A Ratio 0.7 MV E' Velocity 40.0 cm/s Mitral E to MV E' Ratio 12.9 Mitral E to LV E' Lateral Ratio 12.1 Mitral E to LV E' Septal Ratio 14.2 TR Peak Velocity 163.0 cm/s TR Peak Gradient 10.6 mmHg TV Peak E Velocity 56.0 cm/s Right Atrial Pressure 5.0 mmHg Pulmonary Artery Systolic Pressu 15.6 mmHg PV Peak Velocity 149.0 cm/s RV Acceleration Time 0.1 s RV Ejection Time 0.4 s RV AcT/ET 0.3 FINDINGS Left Ventricle Moderate hypokinesia the mid and apical septum and the anteroseptal segments. LV ejection fraction 45 to 50%, visual.Grade I/IV diastolic dysfunction (abnormal relaxation filling pattern), normal to mildly elevated filling pressures. Echodensity at the LV apex, may suggest degenerated endocardial structures versus organized thrombus Right Ventricle The right ventricle is normal in size and function. Right Atrium The right atrium is normal in size. Left Atrium Mildly increased left atrial size. Mitral Valve Thickened mitral valve. Aortic Valve Thickened aortic valve. Tricuspid Valve No gross abnormality noted Pulmonic Valve No gross abnormality noted Pericardium No pericardial effusion. Aorta Normal aortic annulus size. IVC Inferior vena cava not visualized. CONCLUSIONS Moderate hypokinesia the mid and apical septum and the anteroseptal segments. LV ejection fraction 45 to 50%, visual. Grade I/IV diastolic dysfunction (abnormal relaxation filling pattern), normal to mildly elevated filling pressures. Echodensity at the LV apex, may suggest degenerated endocardial structures versus organized thrombus. Thickened mitral valve. Thickened aortic valve. Mildly increased left atrial size. There is no pericardial effusion. Consider contrast echo, to better evaluate the LV apex and rule out apical thrombus Dr Swati Daniels MD FACC (Electronically Signed) Final Date: 31 July 2023 09:14 S
[2023-07-30 20:00] VITALS: BP 199/78; PULSE 54; RESP 17; TEMP 36.4; O2SAT 94
--- NOTE | 2023-07-30 20:00 | ECG_ITS ---
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 Measurements Intervals [place] Rate: 52 P: 60 CT: 179 QRS: -26 QRSD: 126 T: 146 QT: 482 QTc: 451 Interpretive Statements SINUS BRADYCARDIA POSSIBLE LEFT ATRIAL ENLARGEMENT [-0.1mV P-WAVE IN V1/V2] LEFT VENTRICULAR HYPERTROPHY AND ST-T CHANGE [VOLTAGE CRITERIA PLUS ST/T ABNORMALITY] POSSIBLE SEPTAL MYOCARDIAL INFARCTION , OF INDETERMINATE AGE [30 ms Q WAVE IN V1/V2] Compared to ECG 07/30/2023 16:40:42 No significant changes Electronically Signed On 08-01-2023 1:12:12 CDT by Swati Daniels M.D. [id number]
[2023-07-30 20:12] LABS: Thyroid Stimulating Hormone 0.87 uIU/mL (0.27-4.20); Vitamin B12 501 pg/mL (232-1245)
[2023-07-30] MEDS: enoxaparin 100 mg/mL Syringe 70 MG SUBCUT (20:22)
[2023-07-30] MEDS: nicotine 21 mg Patch 1 PATCH TRANSDERMA (20:23)
[2023-07-30] MEDS: lidocaine 2% viscous 15 ML, aluminum-mag hydrox-simethicon 30 ML, sucralfate oral liq 1 GM PO (20:23)
[2023-07-30 20:24] VITALS: RESP 20; O2SAT 96
[2023-07-30] MEDS: morphine IR 15 mg Tablet PO (20:24)
[2023-07-30] MEDS: ondansetron 2 mg/ML SDV 2 mL 4 MG IVP (20:25)
[2023-07-30 20:51] LABS: Troponin 5 6HR 25.04 ng/L (0-10)
[2023-07-30 20:52] LABS: Troponin 5 6HR Delta 6.04 ng/L (0-12)
[2023-07-30 22:00] VITALS: PULSE 59
[2023-07-31] VITALS (12 sets, daily range): BP systolic 127–140; BP diastolic 64–87; PULSE 52–77; RESP 12–18; TEMP 36.4–36.7; O2SAT 92–95
[2023-07-31] MEDS: morphine IR 15 mg Tablet PO ×3 (04:12→15:55)
[2023-07-31 04:13] LABS: Basophils % 0.3 %; Eosinophils # 0.1 10^3/uL (0.0-0.8); Eosinophils % 0.8 %; Hematocrit 40.9 % (36-47); Lymphocytes # 2.3 10^3/uL (0.8-4.8); Lymphocytes % 38.1 %; Mean Corpuscular HGB Conc 32.3 g/dL (30-55); Mean Corpuscular Volume 105.4 fl (85-98); Mean Platelet Volume 10.3 fL (7.4-10.4); Monocytes # 0.5 10^3/uL (0.2-0.9); Monocytes % 8.9 %; Neutrophils # 3.12 10^3/uL (1.8-7.7); Neutrophils % 51.6 %; Nucleated Red Blood Cells % 0 %; Platelet Count 229 10^3/cmm (157-399); Red Blood Count 3.88 10^6/uL (3.85-5.65); Red Cell Distribution Width 13.2 % (12.1-15.1); White Blood Count 6.06 10^3/uL (3.29-11.43)
[2023-07-31 04:35] LABS: Blood Urea Nitrogen 14 mg/dL (6-20); Calcium 8.6 mg/dL (8.5-10.5); Carbon Dioxide 23 mmol/L (22-29); Chloride 107 mmol/L (98-107); Glomerular Filtration Rate 104.6 mL/min (90-130); Glucose 95 mg/dL (65-115); Magnesium 2.1 mg/dL (1.7-2.3); Osmolality Calculated 288 mOsm/kg (285-295); Sodium 139 mmol/L (136-145)
[2023-07-31 05:10] LABS: Anion Gap 12.9 (5-19); Potassium 3.9 mmol/L (3.5-5.1)
[2023-07-31] MEDS: aspirin 81 mg EC Tablet PO (06:18)
[2023-07-31] MEDS: atorvastatin 40 mg Tablet PO (06:19)
[2023-07-31] MEDS: lisinopril 20 mg Tablet PO (06:19)
[2023-07-31] MEDS: pantoprazole 40 mg SDV IVP (08:27)
[2023-07-31] MEDS: clopidogrel 75 mg Tablet PO (08:27)
[2023-07-31] MEDS: enoxaparin 100 mg/mL Syringe 70 MG SUBCUT (08:27)
[2023-07-31] MEDS: sennosides-docusate Tablet 1 TAB PO (08:27)
[2023-07-31] MEDS: isosorbide mononitrate 20 mg Tablet PO (08:27)
--- NOTE | 2023-07-31 09:42 | PM.DCS ---
Discharge Providers Date of Admission: 07/30/23 19:25 Date of Discharge: July 31, 2023 Attending Provider at Admission: Marbella Moss MD Attending Provider at Discharge: Marbella Moss MD Diagnoses at Discharge Discharge Diagnosis (1) Unstable angina: Status: Inactive (2) Smoker: Status: Inactive (3) Bipolar disease, chronic: Status: Inactive (4) Hypertension: Status: Inactive (5) Hypertensive urgency: Status: Inactive Reason for Visit Reason for Visit: chest pressure, sob Hospital Course Hospital Course 53-year-old female with established history of coronary disease with multiple stents, active smoker, has missed 2 days of Plavix because she ran of her medications, presented to the hospital with reproducible chest pain, she was hypertensive, blood pressure improved with use of Nitropaste, her pain improved with use of opioids, EKG not consistent with acute scheming or infarctive changes, echo did show changes related to the territory where she had stents placed patient is hemodynamically stable, contrast echo was requested to rule out left apical thrombus, D-dimer unremarkable, she does have grade 1 diastolic dysfunction. Follows up with Dr. Phillip outpatient Physical Exam Narrative: Awake and alert Chest pain-free Reproducible midsternal pain Currently on room air Blood pressure 138/88 mmHg Pleasant and cooperative Euvolemic Discharge Data Studies Completed and Pending Completed Studies During Hospitalization Category Date Time Status XR chest 1V portable [id number] Stat Exams 07/30/23 16:24 Completed CV. echo complete* [id number] Routine Ultrasound 07/30/23 19:25 Completed Radiology Impressions Chest X-Ray 07/30/23 16:24 IMPRESSION: Single-view chest is without acute cardiopulmonary abnormality. Laboratory Results WBC 6.06 10^3/uL (3.29-11.43) 07/31/23 03:26 RBC 3.88 10^6/uL (3.85-5.65) 07/31/23 03:26 Hgb 13.20 g/dL (11.27-16.99) 07/31/23 03:26 Hct 40.9 % (36-47) 07/31/23 03:26 MCV 105.4 fl (85-98) H 07/31/23 03:26 MCH 34.0 pg (27-33) H 07/31/23 03:26 MCHC 32.3 g/dL (30-55) 07/31/23 03:26 RDW 13.2 % (12.1-15.1) 07/31/23 03:26 Plt Count 229 10^3/cmm (157-399) 07/31/23 03:26 MPV 10.3 fL (7.4-10.4) 07/31/23 03:26 Neut % (Auto) 51.6 % 07/31/23 03:26 Lymph % (Auto) 38.1 % 07/31/23 03:26 Campbell % (Auto) 8.9 % 07/31/23 03:26 Eos % (Auto) 0.8 % 07/31/23 03:26 Baso % (Auto) 0.3 % 07/31/23 03:26 Neut # (Auto) 3.12 10^3/uL (1.8-7.7) 07/31/23 03:26 Lymph # (Auto) 2.3 10^3/uL (0.8-4.8) 07/31/23 03:26 Campbell # (Auto) 0.5 10^3/uL (0.2-0.9) 07/31/23 03:26 Eos # (Auto) 0.1 10^3/uL (0.0-0.8) 07/31/23 03:26 Baso # (Auto) 0.0 10^3/uL (0.0-0.1) 07/31/23 03:26 Nucleated RBC % (auto) 0 % 07/31/23 03:26 Nucleated RBCs # 0.0 /100WBC 07/31/23 03:26 D-Dimer 0.43 ug/mLFEU (0-0.59) 07/30/23 14:53 Sodium 139 mmol/L (136-145) 07/31/23 03:26 Potassium 3.9 mmol/L (3.5-5.1) 07/31/23 03:26 Chloride 107 mmol/L (98-107) 07/31/23 03:26 Carbon Dioxide 23 mmol/L (22-29) 07/31/23 03:26 Anion Gap 12.9 (5-19) 07/31/23 03:26 BUN 14 mg/dL (6-20) 07/31/23 03:26 Creatinine 0.6 mg/dL (0.5-0.9) 07/31/23 03:26 GFR Calculation 104.6 mL/min (90-130) 07/31/23 03:26 Glucose 95 mg/dL (65-115) 07/31/23 03:26 Calculated Osmolality 288 mOsm/kg (285-295) 07/31/23 03:26 Calcium 8.6 mg/dL (8.5-10.5) 07/31/23 03:26 Magnesium 2.1 mg/dL (1.7-2.3) 07/31/23 03:26 Total Bilirubin 0.7 mg/dL (0.15-1.2) 07/30/23 14:53 AST 15 U/L (0-32) 07/30/23 14:53 ALT 12 U/L (0-33) 07/30/23 14:53 Alkaline Phosphatase 77 U/L (35-105) 07/30/23 14:53 Troponin T Baseline 19 ng/L (0-10) H 07/30/23 14:53 Troponin T 120 Minute 22.26 ng/L (0-10) H 07/30/23 16:40 Delta Troponin T 3.26 ABS# (0-10) 07/30/23 16:40 Troponin T Hi Sens 6Hr 25.04 ng/L (0-10) H 07/30/23 20:30 Troponin T Hi Sens 6Hr Delta 6.04 ng/L (0-12) 07/30/23 20:30 Total Protein 7.9 g/dL (6.6-8.7) 07/30/23 14:53 Albumin 4.4 g/dL (3.5-5.2) 07/30/23 14:53 Globulin 3.5 g/dL (1.3-4.6) 07/30/23 14:53 Vitamin B12 501 pg/mL (232-1245) 07/30/23 14:53 TSH 0.87 uIU/mL (0.27-4.20) 07/30/23 14:53 Urine Color Yellow (Yellow) 07/30/23 15:00 Urine Appearance Hazy (CLEAR) A 07/30/23 15:00 Urine pH 5 (5-7) 07/30/23 15:00 Ur Specific [place] 1.015 (1.005-1.030) 07/30/23 15:00 Urine Protein Trace (Negative) 07/30/23 15:00 Urine Glucose (UA) Norm (Normal) 07/30/23 15:00 Urine Ketones Negative (Negative) 07/30/23 15:00 Urine Blood 2+ (Negative) H 07/30/23 15:00 Urine Nitrate Negative (Negative) 07/30/23 15:00 Urine Bilirubin Neg (Negative) 07/30/23 15:00 Urine Urobilinogen Norm mg/dL (Negative) 07/30/23 15:00 Ur Leukocyte Esterase Negative (Negative) 07/30/23 15:00 Urine RBC 0-4 /hpf (0-2) H 07/30/23 15:00 Urine WBC 0-4 /hpf (0-5) H 07/30/23 15:00 Ur Squamous Epith Cells 0-4 /hpf (0-5) H 07/30/23 15:00 Amorphous Sediment Not Reportable 07/30/23 15:00 Urine Bacteria None /hpf (NONE) 07/30/23 15:00 Urine Mucus None /hpf 07/30/23 15:00 Vitals Last Vital Signs Temp 98.1 F 07/31/23 07:00 Pulse 61 07/31/23 07:00 Resp 12 07/31/23 09:21 BP 138/83 07/31/23 07:00 Pulse Ox 93 07/31/23 09:21 O2 Del Method Room Air 07/31/23 07:00 Discharge Plan Discharge Patient Disposition: Home Condition: Stable Prescriptions: New isosorbide mononitrate 30 mg tablet extended release 24 hr 30 mg PO DAILY Qty: 90 2RF Continued nicotine 21 mg/24 hr patch 24 hour 1 patch transdermal Q24H Qty: 28 0RF atorvastatin 40 mg tablet 40 mg PO QAM Qty: 90 3RF nicotine 7 mg/24 hr patch 24 hour 1 patch transdermal Q24H Qty: 30 0RF budesonide-formoterol [Symbicort] 160-4.5 mcg/actuation HFA aerosol inhaler 1 puff inhalation Q12H PRN (Reason: COPD) Qty: 10.2 0RF carvedilol 3.125 mg tablet 3.125 mg PO BID Qty: 60 0RF Rx Instructions: must administer with a meal/food dicyclomine 20 mg tablet 20 mg PO TID PRN (Reason: abdominal pain) Qty: 20 0RF lisinopril 20 mg tablet 20 mg PO QAM Qty: 60 3RF clopidogrel 75 mg Tablet 75 mg PO DAILY Qty: 60 4RF aspirin 81 mg tablet,delayed release (DR/EC) 81 mg PO QAM Qty: 90 3RF Discharge Orders: Discharge Order (Routine); Ordered 07/31/23 Ordered By: Marbella Moss Discharge Diet: Cardiac Discharge Activity: Increase activity as tolerated Patient Instructions: Isosorbide Mononitrate (By mouth) (Imdur, Imdur ER, Ismo), Cardiac Stress Test (GEN), Nuclear Stress Test (GEN), Chest Pain Stoplight, Opioid Safety Stand Alone Forms: Work/School Release Discharge Attestations Time Spent in Discharge Care*: greater than 30 min Quality Metrics Clinical Quality Measures [ No reported AMI, CVA or VTE this stay] Coding Level of Care Code Acute Code for Chg Fwd Diagnoses Unstable angina I20.0 Smoker F17.200 Bipolar disease, chronic F31.9 Hypertension I10 Hypertensive urgency I16.0
--- NOTE | 2023-07-31 09:43 | USCV_ITS ---
Silvia Persaud Age: 53 Gender: F : 1970 Exam Date: 07/31/2023 10:59 Ordering Phys: Marbella Moss MD Technologist: Darrell Murphy Exam Location: [facility] – [place] Indication: ? thrombus BP: 138 / 83 HR: 58 Rhythm: Sinus Technical Quality: Adequate MEASUREMENTS (Male / Female) Normal Values 2D ECHO LV Ejection Fraction MOD 2C 64.8 % LV Ejection Fraction 2C AL 64.9 % FINDINGS Left Ventricle Echo contrast, Optison was used to delineate the endocardium. The left ventricle was found to have concentric hypertrophy with a prominent trabeculations. There was moderate hypokinesia of the mid and apical septum and anteroseptal segments .No filling defects are noted. LV ejection fraction was around 50% (visual). Right Ventricle Right Atrium Left Atrium Mitral Valve Aortic Valve Tricuspid Valve Pulmonic Valve Pericardium Aorta IVC CONCLUSIONS 1. No evidence of LV thrombus. 2. Concentric left ventricular hypertrophy with a prominent trabeculations 3. Hypokinetic segments as mentioned above 4. LV ejection fraction around 50%, (visual) Optison was used for endocardial delineation Dr Swati Daniels MD [facility] (Electronically Signed) Final Date: 31 July 2023 15:12 S
--- NOTE | 2023-07-31 09:54 | PC.CHAP ---
Pastoral Care Encounter/Spiritual Assessment Type of Contact [] Declined improvement specialist visit [] Patient/Family/Request visit [] Outpatient visit [] Follow-up visit [] Physician referral [] Code/Alert [x] Routine visit [] Staff referral [] Actively dying [] Patient sleeping [] Family support [] [] Out of room [] Palliative care [] [x] Receiving care in room [] Pre-surgical visit [] Trauma [] Long length of stay [] ICU visit [] Other: Relational/Emotional Strength [x] Patient feels connected with others/family/visitors/staff [] Distress [] Loneliness/isolation [] Abandonment Spirituality of Patient [x] Person of Nohelia [] Attends Catholic of their Nohelia [x] Believes in Prayer [] Reads Bible or Anabaptist materials [] There are Spiritual issues to be addressed Bow Rehairer Interventions [x] Prayer [x] Active listening [x] Non-anxious presence [x] Spiritual/emotional support [] Crisis/trauma care [x] Spiritual counseling [] Bereavement support [] Provided bereavement packet [] Provided Bible/devotional materials [] Provided toy/stuffed animal, coloring book to patient or family member [] Provided Communion [] Anointing/[place] [] Salvation [x] Completed spiritual assessment [] Other: Impact on Illness or Injury [] Angry [] Fearful [] Anxious [] Often cries [] Exhaustion [] Unable to work [] Unable to attend jain [] Unable to walk/stand [] Unable to read [] Unable to drive [] Unable to eat/drink [] Unable to sleep [] Unable to be with family [] Patient intubated [] Other: Summary senior heart tests waiting on report has a good attitude well go home Time spent with patient 10 mins
[2023-07-31] MEDS: perflutren protein-a microsphr 0.22 mg/mL SDV 3 mL IV (11:16)
--- NOTE | 2023-07-31 16:08 | PC.NURSE ---
contact case mgt that pt does not have any pcp. case mgt is aware already.
--- NOTE | 2023-07-31 19:23 | PC.NURSE ---
Discharge Note Patient discharged to home via bed accompanied by mother and nephew. Discharge instructions reviewed with patient and/or telephone service representative. Mobile pharmacy medications and/or prescriptions provided. Belongings/home medications returned.
== END 2023-07-31 17:58 | disposition home or self-care (01) ==
LOC: ER 17:47 → CSU 07-31 06:14
PROVIDERS: Admitting Provider Internal Medicine; Emergency Provider Family Medicine; Visit Provider Internal Medicine
DX: I25.110 Atherosclerotic heart disease of native coronary artery with unstable angina pectoris (principal); F31.9 Bipolar disorder, unspecified; I10 Essential (primary) hypertension; I16.0 Hypertensive urgency; Z95.5 Presence of coronary angioplasty implant and graft; Z79.02 Long term (current) use of antithrombotics/antiplatelets; I35.8 Other nonrheumatic aortic valve disorders; I05.9 Rheumatic mitral valve disease, unspecified; Z91.148 Patient's other noncompliance with medication regimen for other reason; I25.2 Old myocardial infarction; J44.9 Chronic obstructive pulmonary disease, unspecified; F17.210 Nicotine dependence, cigarettes, uncomplicated
CPT/HCPCS: 36415; 71045; 80048; 80053; 81001; 81015; 82607; 83735; 84443; 84484; 85025; 85378; 93005; 93306; 96372; 96374; 96375; 96376; 99285; C8924; C9113; G0378; J1650; J1885; J2405; Q9956

== ENCOUNTER 2023-08-18 08:04 | Outpatient (CLI) | payer BC, MEDICAID, SELFPAY ==
[2023-08-18 08:21] VITALS: BMI 29.2
--- NOTE | 2023-08-18 08:22 | ECG_ITS ---
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 Interpretive Statements NAME OF STUDY: LEXISCAN SESTAMIBI STRESS TEST INDICATION: [Chest Pain, ] Procedure: At the baseline, the blood pressure was 186/78 mmHg with a heart rate of 47 bpm. The electrocardiogram showed sinus bradycardia, interventricular conduction delay with normal ST and T's. The Lexiscan was infused over a period of 20 seconds. A total of 0.4 mg of Lexiscan was infused. The stress phase was continued for a total of 5 minutes. Heart rate was at the end of stress phase was 93 bpm and a blood pressure of 165/91 mmHg. The EKG at the peak infusion revealed normal sinus rhythm with no significant ST-T wave changes. Sestamibi was injected 20 seconds after the Lexiscan infusion. Blood pressure at the end of recovery phase was 178/80 mmHg with a heart rate of 50 bpm. Conclusion: 1. Normal EKG response to Lexiscan infusion 2. No Lexiscan induced chest pain or cardiac arrhythmia. 3. Normal blood pressure and heart rate response. 4. Sestamibi/sestamibi perfusion scan pending; see separate report. Electronically Signed On 08-20-2023 10:00:33 [employer] by Gurdeep Phillip M.D. [id number]
--- NOTE | 2023-08-18 08:32 | NMCV_ITS ---
NM liang perf SPECT r/s* [id number] Silvia Persaud Age: 53 Gender: F : 1970 Exam Date: 08/18/2023 08:32 Ordering Phys: Marbella Moss MD Technologist: CELESTE Uriarte Exam Location: [facility] Indications: CHEST PAIN, UNSTABLE ANGINA PECTORIS STRESS TEST Please see separate stress test report in [facility] for full findings IMAGE PROTOCOL Rest/Stress 1 Lexiscan Day Radiopharmaceutical Dose (mCi) Administration Site Administered by Rest: Tc-99m 10.5 IV CELESTE Mustafa Sestamibi Stress:Tc-99m 32.5 IV CELESTE Mustafa Sestamibi Rest: 18-Aug-2023 60 Discovery 630 Stress: 18-Aug-2023 30 Discovery 630 0.4mg Lexiscan. Supine position only as patient was unable to lay prone. SPECT RESULTS Technical Quality: Excellent Raw Data Analysis: Normal Image Corrections: No attenuation or motion correction applied Summed Stress Score: 19 Summed Rest Score: 16 Summed Difference Score: 4 PERFUSION FINDINGS Moderate area of moderate to severely decreased tracer uptake was noted in the mid anterior, mid anteroseptal, mid anterolateral and all the apical segments including the LV apex. Some reversibility was noted in the mid anterior, anterolateral and apical lateral regions FUNCTIONAL RESULTS (calculated via Gated SPECT) Stress Image LV EF (%): 27 Stress EDV (mL):223 TID: 1.05 Stress ESV (mL):163 FUNCTIONAL FINDINGS: Segmental wall motion analysis revealed severe diffuse hypokinesia of the left ventricle, most of the mid and apical segments IMPRESSIONS 1. Myocardial perfusion imaging revealing moderate area of moderate to severely decreased tracer uptake, involving all the apical segments including the LV apex, mid anterior, mid anteroseptal, mid anterolateral regions with some reversibility suggesting myocardial scarring in the distribution of all the 3 coronary arteries, predominantly involving the LAD distribution with a small areas of barrington-infarction ischemia. 2. Diminished LV ejection fraction of 27%. 3. Multiple wall motion normalities as mentioned above. 4. Moderately dilated LV cavity with an end-systolic volume of 163 mL No similar previous studies are available for comparison Dr Swati Daniels MD [facility] (Electronically Signed) Final Date: 18 August 2023 14:00 S
[2023-08-18] MEDS: regadenoson 0.4 Mg/5 ml Syringe IVP (10:06)
[2023-08-18] MEDS: aminophylline 25 mg/mL SDV 10 mL IVP ×2 (10:14→10:18)
[2023-08-18 10:30] VITALS: BP 148/80; PULSE 53
== END 2023-08-18 08:05 | disposition home or self-care (01) ==
LOC: CDL 08:05
PROVIDERS: Visit Provider Internal Medicine
DX: R07.9 Chest pain, unspecified (principal); I20.0 Unstable angina
CPT/HCPCS: 36415; 78452; 93017; 96374; 96375; A9500; J0280; J2785

== ENCOUNTER 2024-05-12 03:35 | Emergency (ER) | payer BC, MEDICAID, SELFPAY ==
[2024-05-12] VITALS (7 sets, daily range): BP systolic 149–194; BP diastolic 61–94; PULSE 50–57; RESP 16–18; TEMP 36.4; O2SAT 96–99; BMI 30.1
--- NOTE | 2024-05-12 03:54 | XRR_ITS ---
PROCEDURE INFORMATION: Exam: XR Chest Exam date and time: 05/12/2024 4:07 AM Age: 54 years old Clinical indication: Dyspnea; Prior surgery; Surgery date: 6+ months; Surgery type: Stents TECHNIQUE: Imaging protocol: Radiologic exam of the chest. Views: 1 view. COMPARISON: CR XR chest 1V portable [id number] 07/30/2023 4:28 PM FINDINGS: Lungs: Unremarkable. No consolidation. Pleural spaces: Unremarkable. No pleural effusion. No pneumothorax. Heart/Mediastinum: Unremarkable. No cardiomegaly. Bones/joints: Unremarkable. XR/XR chest 1V portable [id number] IMPRESSION: No acute findings.
--- NOTE | 2024-05-12 03:55 | ECG_ITS ---
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 Measurements Intervals Beauty Rate: 52 P: 76 MI: 200 QRS: -14 QRSD: 111 T: 149 QT: 448 QTc: 420 Interpretive Statements SINUS BRADYCARDIA INCOMPLETE RIGHT BUNDLE BRANCH BLOCK [90+ ms QRS DURATION, TERMINAL R IN V1/V2, 40+ ms S IN I/aVL/V4/V5/V6] LEFT VENTRICULAR HYPERTROPHY AND ST-T CHANGE [VOLTAGE CRITERIA PLUS ST/T ABNORMALITY] POSSIBLE SEPTAL MYOCARDIAL INFARCTION , OF INDETERMINATE AGE [30 ms Q WAVE IN V1/V2] Compared to ECG 07/30/2023 20:00:56 Incomplete right bundle-branch block now present ST (T wave) deviation still present Myocardial infarct finding still present Electronically Signed On 05-12-2024 6:29:17 CDT by Swati Daniels M.D. [id number]
[2024-05-12 04:12] LABS: Basophils % 0.5 %; Eosinophils # 0.2 10^3/uL (0.0-0.8); Eosinophils % 2.2 %; Hematocrit 41.9 % (36-47); Lymphocytes # 1.9 10^3/uL (0.8-4.8); Lymphocytes % 24.6 %; Mean Corpuscular Hemoglobin 32.8 pg (27-33); Mean Corpuscular Volume 102.4 fl (85-98); Mean Platelet Volume 9.5 fL (7.4-10.4); Monocytes # 0.7 10^3/uL (0.2-0.9); Monocytes % 8.8 %; Neutrophils % 63.6 %; Nucleated Red Blood Cells % 0 %; Platelet Count 302 10^3/cmm (157-399); Red Blood Count 4.09 10^6/uL (3.85-5.65); Red Cell Distribution Width 13.1 % (12.1-15.1); White Blood Count 7.71 10^3/uL (3.29-11.43)
--- NOTE | 2024-05-12 04:12 | ED_ITS ---
Documented by User: Billy Vázquez DO 05/12/24 05:48 HPI - SOB/Dyspnea 2 General: Chief Complaint: Shortness of Breath/Dyspnea Stated Complaint: SOB Time Seen by Provider: 05/12/24 03:54 History of Present Illness: HPI Narrative: Patient arrives via private vehicle from home with complaints of shortness of breath and chest tightness. Patient says over the last few days she did wake up in the middle the night short of breath. Tonight she woke up short of breath and chest tightness. This has not resolved so that she came to the ER to be checked out. Patient's O2 sat is 99% on room air. Patient is a smoker and does report history of 2 heart attacks. Patient takes 81 mg aspirin, Plavix, isosorbide, lisinopril, carvedilol, budesonide/formoterol inhaler. Patient has a history of COPD, obesity, ischemic cardiomyopathy, coronary artery disease, smoker Review of Systems 2 General: Reports: 10 or more systems reviewed and unremarkable except in HPI and below PFSH ED 2 PFSH: Medical History Chest pain Hypertensive urgency Smoker Unstable angina Bipolar disease, chronic History of seizure GERD (gastroesophageal reflux disease) Chest pain Coronary artery disease Hypertension Ischemic cardiomyopathy Tobacco abuse COPD (chronic obstructive pulmonary disease) Adult-onset obesity Acute anterior wall [place] 01/2014 Surgical History History of heart artery stent Hx of cholecystectomy Hx of tubal ligation Family History Grandmother Cancer Maternal cervical Father Cancer lung and throat Hyperlipidemia Hypertension Grandmother Cancer Paternal-unknown Sister Stroke Grandfather Cancer Paternal-brain Denies family history of Diabetes CAD (coronary artery disease) Clotting disorder Dementia Psychiatric illness Chronic kidney disease (CKD) Suicide Anesthesia complication Bleeding disorder Family history of premature coronary artery disease Lung disease Social History Smoking and tobacco/nicotine status: current every day tobacco/nicotine user cigarettes Packs smoked per day: 1 Second hand smoke exposure: No Alcohol intake: never Substance/Drug Use: never Lives independently: Yes Marital status: Single Number of children: 3 Current occupational status: employed Previous occupational history: [employer] Special shandra needs: No Agree to transfusion: Yes Physical Exam 2 Const: COMMON NORMALS: no acute distress, average body habitus, patient oriented x3, no limitations, healthy appearing, alert and well nourished HENMT: COMMON NORMALS: normocephalic, atraumatic, hearing grossly normal bilaterally, external ears normal, Normal external nose present and moist oral mucous membranes HEAD & SCALP: normocephalic and atraumatic NOSE: Normal external nose present EXTERNAL EAR: Yes external ears normal Neck/C-Spine: COMMON NORMALS: full ROM, no lymphadenopathy, supple, no meningeal signs, no JVD and Thyroid normal THYROID: Thyroid normal Chest: COMMONS NORMALS: normal inspection of the chest and normal palpation of entire chest wall Resp: COMMON NORMALS: normal respiratory effort, No retractions and No use of accessory muscles; negative for clear to auscultation bilaterally (Diffuse wheezing expiratory leg bilaterally) AUSCULTATION: not clear to auscultation bilaterally (Diffuse wheezing expiratory leg bilaterally) Cardio: COMMON NORMALS: no JVD, regular rate, regular rhythm, S1 normal heart sound present, S2 normal heart sound present, No gallops present (Cardio), No clicks present (Cardio), No murmurs present (Cardio) and No rub (Cardio) R ATE: regular rate RHYTHM: regular rhythm HEART SOUNDS: S1 normal heart sound present and S2 normal heart sound present GI: COMMON NORMALS: Normal to inspection, nondistended, normoactive bowel sounds present, Soft to palpation, non-tender, No hepatosplenomegaly present and no masses PALPATION: Yes Soft to palpation and Yes No hepatosplenomegaly present Neuro: COMMON NORMALS: patient oriented x3 SENSORIUM/ORIENTATION: Yes alert MENINGEAL SIGNS: Yes no meningeal signs Course 2 Vital Signs: Vital signs: Vital Signs Temperature 97.5 F L 05/12/24 03:40 Pulse Rate 55 L 05/12/24 06:00 Respiratory Rate 16 05/12/24 06:00 Blood Pressure 150/68 05/12/24 06:00 Pulse Oximetry 96 05/12/24 06:00 Oxygen Delivery Me thod Room Air 05/12/24 06:00 MDM - SOB/Dyspnea Differential Diagnosis Likely acute exacerbation of chronic obstructive airways disease and congestive heart failure Medical Records I reviewed the patient's medical records. Lab Data I reviewed the patient's lab results. 05/12/24 04:07 05/12/24 04:07 Labs/Radiology: Radiology Impressions Chest X-Ray 05/12/24 03:54 IMPRESSION: No acute findings. Laboratory Results WBC 7.71 10^3/uL (3.29-11.43) 05/12/24 04:07 RBC 4.09 10^6/uL (3.85-5.65) 05/12/24 04:07 Hgb 13.40 g/dL (11.27-16.99) 05/12/24 04:07 Hct 41.9 % (36-47) 05/12/24 04:07 MCV 102.4 fl (85-98) H 05/12/24 04:07 MCH 32.8 pg (27-33) 05/12/24 04:07 MCHC 32.0 g/dL (30-55) 05/12/24 04:07 RDW 13.1 % (12.1-15.1) 05/12/24 04:07 Plt Count 302 10^3/cmm (157-399) 05/12/24 04:07 MPV 9.5 fL (7.4-10.4) 05/12/24 04:07 Neut % (Auto) 63.6 % 05/12/24 04:07 Lymph % (Auto) 24.6 % 05/12/24 04:07 Caroline % (Auto) 8.8 % 05/12/24 04:07 Eos % (Auto) 2.2 % 05/12/24 04:07 Baso % (Auto) 0.5 % 05/12/24 04:07 Neut # (Auto) 4.90 10^3/uL (1.8-7.7) 05/12/24 04:07 Lymph # (Auto) 1.9 10^3/uL (0.8-4.8) 05/12/24 04:07 Caroline # (Auto) 0.7 10^3/uL (0.2-0.9) 05/12/24 04:07 Eos # (Auto) 0.2 10^3/uL (0.0-0.8) 05/12/24 04:07 Baso # (Auto) 0.0 10^3/uL (0.0-0.1) 05/12/24 04:07 Nucleated RBC % (auto) 0 % 05/12/24 04:07 Nucleated RBCs # 0.0 /100WBC 05/12/24 04:07 PT 13.00 SECONDS (12.1-14.9) 05/12/24 04:07 INR 0.95 (0.8-1.2) 05/12/24 04:07 Sodium 140 mmol/L (136-145) 05/12/24 04:07 Potassium 4.3 mmol/L (3.5-5.1) 05/12/24 04:07 Chloride 108 mmol/L (98-107) H 05/12/24 04:07 Carbon Dioxide 21 mmol/L (22-29) L 05/12/24 04:07 Anion Gap 15.3 (5-19) 05/12/24 04:07 BUN 23 mg/dL (6-20) H 05/12/24 04:07 Creatinine 0.8 mg/dL (0.5-0.9) 05/12/24 04:07 GFR Calculation 74.7 mL/min (90-130) L 05/12/24 04:07 Glucose 116 mg/dL (65-115) H 05/12/24 04:07 Calculated Osmolality 295 mOsm/kg (285-295) 05/12/24 04:07 Calcium 8.6 mg/dL (8.5-10.5) 05/12/24 04:07 Total Bilirubin 0.6 mg/dL (0.15-1.2) 05/12/24 04:07 AST 13 U/L (0-32) 05/12/24 04:07 ALT 11 U/L (0-33) 05/12/24 04:07 Alkaline Phosphatase 72 U/L (35-105) 05/12/24 04:07 Troponin T Baseline 13 ng/L (0-10) H 05/12/24 04:07 Troponin T 120 Minute 14.91 ng/L (0-10) H 05/12/24 03:45 Delta Troponin T 1.91 ABS# (0-10) 05/12/24 03:45 Total Protein 7.4 g/dL (6.6-8.7) 05/12/24 04:07 Albumin 3.7 g/dL (3.5-5.2) 05/12/24 04:07 Globulin 3.7 g/dL (1.3-4.6) 05/12/24 04:07 All radiology interpretation(s) finalized by discharge Discharge Plan Discharge Patient Disposition: Home Clinical Impression: Acute exacerbation of chronic obstructive airways disease Condition: Stable Prescriptions: New doxycycline hyclate 100 mg capsule 100 mg PO BID 10 Days Qty: 20 0RF Medrol (Seth) 4 mg tablets,dose pack See Rx Instructions .ROUTE .COMPLEX Qty: 21 0RF Rx Instructions: orally per package directions albuterol sulfate 90 mcg/actuation HFA aerosol inhaler 2 inh INHALATION Q4H PRN (Reason: shortness of breath or wheezing) Qty: 18 0RF No Action nicotine 21 mg/24 hr patch 24 hour 1 patch transdermal Q24H Qty: 28 0RF nicotine 7 mg/24 hr patch 24 hour 1 patch transdermal Q24H Qty: 30 0RF budesonide-formoterol [Symbicort] 160-4.5 mcg/actuation HFA aerosol inhaler 1 puff inhalation Q12H PRN (Reason: COPD) Qty: 10.2 0RF clopidogrel 75 mg tablet 75 mg PO DAILY Qty: 90 0RF Rx Instructions: PATIENT MUST MAKE APPOINTMENT AND BE SEEN FOR FURTHER REFILLS atorvastatin 40 mg tablet 40 mg PO QAM Qty: 90 0RF Rx Instructions: PATIENT MUST MAKE APPOINTMENT AND BE SEEN FOR FURTHER REFILLS carvedilol 3.125 mg tablet 3.125 mg PO BID Qty: 60 0RF Rx Instructions: must administer with a meal/food dicyclomine 20 mg tablet 20 mg PO TID PRN (Reason: abdominal pain) Qty: 20 0RF isosorbide mononitrate 30 mg tablet extended release 24 hr 30 mg PO DAILY Qty: 90 2RF lisinopril 20 mg tablet 20 mg PO QAM Qty: 60 3RF aspirin 81 mg tablet,delayed release (DR/EC) 81 mg PO QAM Qty: 90 3RF Discharge Orders: Discharge ED (Routine); Ordered 05/12/24 Ordered By: Alpesh Rowley Discharge Diet: Usual diet Discharge Activity: Increase activity as tolerated Patient Instructions: Opioid Safety, Pain Management Activity Restrictions/Additional Instructions: Thank you for choosing [facility] for your healthcare needs today. It is very important that you follow up as instructed or that you return to the Emergency Department should you have concerns or if your condition changes or worsens in any way. You were seen today for complaints of shortness of breath. Cardiac enzymes and EKG did not show any abnormalities. Chest x-ray did not show any evidence of pneumonia or congestive heart failure. Recommend that you use albuterol inhaler as needed for shortness of breath or wheezing you had reported increased productive cough we will have used start doxycycline 100 mg twice a day for 1 week. Will also have use a steroid taper. Avoid the heat and humidity [id number] and recommend that you stop smoking. Sign Out Sign Out Data: Patient Sign Out occurred on 05/12/24 at 05:57. Patient's care was discussed, and care was transferred from Billy Vázquez DO to Alpesh Rowley DO. Coding Level of Care Code ED Otm Consultant for Chg Fwd Documented by User: Alpesh Rowley DO 05/12/24 06:45 HPI - SOB/Dyspnea 2 General: Chief Complaint: Shortness of Breath/Dyspnea Stated Complaint: SOB Time Seen by Provider: 05/12/24 03:54 [facility] ED 2 PFSH: Medical History Chest pain Hypertensive urgency Smoker Unstable angina Bipolar disease, chronic History of seizure GERD (gastroesophageal reflux disease) Chest pain Coronary artery disease Hypertension Ischemic cardiomyopathy Tobacco abuse COPD (chronic obstructive pulmonary disease) Adult-onset obesity Acute anterior wall [place] 01/2014 Surgical History History of heart artery stent Hx of cholecystectomy Hx of tubal ligation Family History Grandmother Cancer Maternal cervical Father Cancer lung and throat Hyperlipidemia Hypertension Grandmother Cancer Paternal-unknown Sister Stroke Grandfather Cancer Paternal-brain Denies family history of Diabetes CAD (coronary artery disease) Clotting disorder Dementia Psychiatric illness Chronic kidney disease (CKD) Suicide Anesthesia complication Bleeding disorder Family history of premature coronary artery disease Lung disease Social History Smoking and tobacco/nicotine status: current every day tobacco/nicotine user cigarettes Packs smoked per day: 1 Second hand smoke exposure: No Alcohol intake: never Substance/Drug Use: never Lives independently: Yes Marital status: Single Number of children: 3 Current occupational status: employed Previous occupational history: [employer] Special shandra needs: No Agree to transfusion: Yes Course 2 Vital Signs: Vital signs: Vital Signs Temperature 97.5 F L 05/12/24 03:40 Pulse Rate 55 L 05/12/24 06:00 Respiratory Rate 16 05/12/24 06:00 Blood Pressure 150/68 05/12/24 06:00 Pulse Oximetry 96 05/12/24 06:00 Oxygen Delivery Me thod Room Air 05/12/24 06:00 MDM - SOB/Dyspnea Medical Decision Making Care assumed at change of shift. EKG does not show any acute changes cardiac enzymes negative. Unchanged from EKG done July 30, 2023. Patient not having any chest pain. Patient improved with nebulizer and steroid. Will start on oral steroid taper doxycycline 100 twice daily for 1 week follow-up with her primary care doctor. Return if she has worsening symptoms. 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 Medical Records I reviewed the patient's medical records. Lab Data I reviewed the patient's lab results. 05/12/24 04:07 05/12/24 04:07 Labs/Radiology: Radiology Impressions Chest X-Ray 05/12/24 03:54 IMPRESSION: No acute findings. Laboratory Results WBC 7.71 10^3/uL (3.29-11.43) 05/12/24 04:07 RBC 4.09 10^6/uL (3.85-5.65) 05/12/24 04:07 Hgb 13.40 g/dL (11.27-16.99) 05/12/24 04:07 Hct 41.9 % (36-47) 05/12/24 04:07 MCV 102.4 fl (85-98) H 05/12/24 04:07 MCH 32.8 pg (27-33) 05/12/24 04:07 MCHC 32.0 g/dL (30-55) 05/12/24 04:07 RDW 13.1 % (12.1-15.1) 05/12/24 04:07 Plt Count 302 10^3/cmm (157-399) 05/12/24 04:07 MPV 9.5 fL (7.4-10.4) 05/12/24 04:07 Neut % (Auto) 63.6 % 05/12/24 04:07 Lymph % (Auto) 24.6 % 05/12/24 04:07 Caroline % (Auto) 8.8 % 05/12/24 04:07 Eos % (Auto) 2.2 % 05/12/24 04:07 Baso % (Auto) 0.5 % 05/12/24 04:07 Neut # (Auto) 4.90 10^3/uL (1.8-7.7) 05/12/24 04:07 Lymph # (Auto) 1.9 10^3/uL (0.8-4.8) 05/12/24 04:07 Caroline # (Auto) 0.7 10^3/uL (0.2-0.9) 05/12/24 04:07 Eos # (Auto) 0.2 10^3/uL (0.0-0.8) 05/12/24 04:07 Baso # (Auto) 0.0 10^3/uL (0.0-0.1) 05/12/24 04:07 Nucleated RBC % (auto) 0 % 05/12/24 04:07 Nucleated RBCs # 0.0 /100WBC 05/12/24 04:07 PT 13.00 SECONDS (12.1-14.9) 05/12/24 04:07 INR 0.95 (0.8-1.2) 05/12/24 04:07 Sodium 140 mmol/L (136-145) 05/12/24 04:07 Potassium 4.3 mmol/L (3.5-5.1) 05/12/24 04:07 Chloride 108 mmol/L (98-107) H 05/12/24 04:07 Carbon Dioxide 21 mmol/L (22-29) L 05/12/24 04:07 Anion Gap 15.3 (5-19) 05/12/24 04:07 BUN 23 mg/dL (6-20) H 05/12/24 04:07 Creatinine 0.8 mg/dL (0.5-0.9) 05/12/24 04:07 GFR Calculation 74.7 mL/min (90-130) L 05/12/24 04:07 Glucose 116 mg/dL (65-115) H 05/12/24 04:07 Calculated Osmolality 295 mOsm/kg (285-295) 05/12/24 04:07 Calcium 8.6 mg/dL (8.5-10.5) 05/12/24 04:07 Total Bilirubin 0.6 mg/dL (0.15-1.2) 05/12/24 04:07 AST 13 U/L (0-32) 05/12/24 04:07 ALT 11 U/L (0-33) 05/12/24 04:07 Alkaline Phosphatase 72 U/L (35-105) 05/12/24 04:07 Troponin T Baseline 13 ng/L (0-10) H 05/12/24 04:07 Troponin T 120 Minute 14.91 ng/L (0-10) H 05/12/24 03:45 Delta Troponin T 1.91 ABS# (0-10) 05/12/24 03:45 Total Protein 7.4 g/dL (6.6-8.7) 05/12/24 04:07 Albumin 3.7 g/dL (3.5-5.2) 05/12/24 04:07 Globulin 3.7 g/dL (1.3-4.6) 05/12/24 04:07 All radiology interpretation(s) finalized by discharge Discharge Plan Discharge Patient Disposition: Home Clinical Impression: Acute exacerbation of chronic obstructive airways disease Condition: Stable Prescriptions: New doxycycline hyclate 100 mg capsule 100 mg PO BID 10 Days Qty: 20 0RF Medrol (Seth) 4 mg tablets,dose pack See Rx Instructions .ROUTE .COMPLEX Qty: 21 0RF Rx Instructions: orally per package directions albuterol sulfate 90 mcg/actuation HFA aerosol inhaler 2 inh INHALATION Q4H PRN (Reason: shortness of breath or wheezing) Qty: 18 0RF No Action nicotine 21 mg/24 hr patch 24 hour 1 patch transdermal Q24H Qty: 28 0RF nicotine 7 mg/24 hr patch 24 hour 1 patch transdermal Q24H Qty: 30 0RF budesonide-formoterol [Symbicort] 160-4.5 mcg/actuation HFA aerosol inhaler 1 puff inhalation Q12H PRN (Reason: COPD) Qty: 10.2 0RF clopidogrel 75 mg tablet 75 mg PO DAILY Qty: 90 0RF Rx Instructions: PATIENT MUST MAKE APPOINTMENT AND BE SEEN FOR FURTHER REFILLS atorvastatin 40 mg tablet 40 mg PO QAM Qty: 90 0RF Rx Instructions: PATIENT MUST MAKE APPOINTMENT AND BE SEEN FOR FURTHER REFILLS carvedilol 3.125 mg tablet 3.125 mg PO BID Qty: 60 0RF Rx Instructions: must administer with a meal/food dicyclomine 20 mg tablet 20 mg PO TID PRN (Reason: abdominal pain) Qty: 20 0RF isosorbide mononitrate 30 mg tablet extended release 24 hr 30 mg PO DAILY Qty: 90 2RF lisinopril 20 mg tablet 20 mg PO QAM Qty: 60 3RF aspirin 81 mg tablet,delayed release (DR/EC) 81 mg PO QAM Qty: 90 3RF Discharge Orders: Discharge ED (Routine); Ordered 05/12/24 Ordered By: Alpesh Rowley Discharge Diet: Usual diet Discharge Activity: Increase activity as tolerated Patient Instructions: Opioid Safety, Pain Management Activity Restrictions/Additional Instructions: Thank you for choosing [facility] for your healthcare needs today. It is very important that you follow up as instructed or that you return to the Emergency Department should you have concerns or if your condition changes or worsens in any way. You were seen today for complaints of shortness of breath. Cardiac enzymes and EKG did not show any abnormalities. Chest x-ray did not show any evidence of pneumonia or congestive heart failure. Recommend that you use albuterol inhaler as needed for shortness of breath or wheezing you had reported increased productive cough we will have used start doxycycline 100 mg twice a day for 1 week. Will also have use a steroid taper. Avoid the heat and humidity [id number] and recommend that you stop smoking. Sign Out Sign Out Data: Patient Sign Out occurred on 05/12/24 at 05:57. Patient's care was discussed, and care was transferred from Billy Vázquez DO to Alpesh Rowley DO. Coding Level of Care Code ED Otm Consultant for Annie Wright
[2024-05-12] MEDS: ipratropium-albuterol 3 mL Neb INHALATION (04:15)
[2024-05-12 04:24] LABS: INR 0.95 (0.8-1.2)
[2024-05-12 04:29] LABS: Alanine Aminotransferase 11 U/L (0-33); Albumin Level 3.7 g/dL (3.5-5.2); Alkaline Phosphatase 72 U/L (35-105); Anion Gap 15.3 (5-19); Aspartate Amino Transferase 13 U/L (0-32); Blood Urea Nitrogen 23 mg/dL (6-20); Calcium 8.6 mg/dL (8.5-10.5); Carbon Dioxide 21 mmol/L (22-29); Chloride 108 mmol/L (98-107); Globulin 3.7 g/dL (1.3-4.6); Glomerular Filtration Rate 74.7 mL/min (90-130); Glucose 116 mg/dL (65-115); Osmolality Calculated 295 mOsm/kg (285-295); Potassium 4.3 mmol/L (3.5-5.1); Sodium 140 mmol/L (136-145); Total Bilirubin 0.6 mg/dL (0.15-1.2); Total Protein 7.4 g/dL (6.6-8.7); Troponin(5th) Baseline 13 ng/L (0-10)
--- NOTE | 2024-05-12 05:55 | ECG_ITS ---
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 Measurements Intervals [place] Rate: 51 P: 59 [place]: 198 QRS: -29 QRSD: 115 T: 150 QT: 448 QTc: 417 Interpretive Statements SINUS BRADYCARDIA LOW QRS VOLTAGE IN PRECORDIAL LEADS [QRS DEFLECTION < 1.0 mV IN CHEST LEADS] INCOMPLETE RIGHT BUNDLE BRANCH BLOCK [90+ ms QRS DURATION, TERMINAL R IN V1/V2, 40+ ms S IN I/aVL/V4/V5/V6] LEFT VENTRICULAR HYPERTROPHY AND ST-T CHANGE [VOLTAGE CRITERIA PLUS ST/T ABNORMALITY] POSSIBLE ANTEROSEPTAL MYOCARDIAL INFARCTION , OF INDETERMINATE AGE [30 ms Q WAVE IN V1-V4] Compared to ECG 05/12/2024 03:44:20 Low QRS voltage now present ST (T wave) deviation still present Myocardial infarct finding still present Electronically Signed On 05-12-2024 17:17:13 CDT by Gurdeep Phillip M.D. [email or web address]
[2024-05-12 06:16] LABS: Troponin 5 2HR 14.91 ng/L (0-10)
[2024-05-12 06:21] LABS: Troponin 5 2HR Delta 1.91 ABS# (0-10)
== END 2024-05-12 06:51 | disposition home or self-care (01) ==
PROVIDERS: Emergency Medicine; Emergency Provider Family Medicine
DX: J44.1 Chronic obstructive pulmonary disease with (acute) exacerbation (principal); Z79.02 Long term (current) use of antithrombotics/antiplatelets; Z79.82 Long term (current) use of aspirin; F17.210 Nicotine dependence, cigarettes, uncomplicated; I25.10 Atherosclerotic heart disease of native coronary artery without angina pectoris; I10 Essential (primary) hypertension; I25.5 Ischemic cardiomyopathy; J44.9 Chronic obstructive pulmonary disease, unspecified; I25.2 Old myocardial infarction
CPT/HCPCS: 36415; 71045; 80053; 84484; 85025; 85610; 93005; 94640; 96374; 99285

== ENCOUNTER 2024-06-23 16:27 | Emergency (ER) | payer BC, MEDICAID, SELFPAY ==
[2024-06-23 16:39] VITALS: BP 171/76; PULSE 66; RESP 18; TEMP 36.9; O2SAT 96; BMI 32.5
--- NOTE | 2024-06-23 17:32 | ED_ITS ---
HPI - Wound/Laceration General: Chief Complaint: Wound/Laceration Stated Complaint: left hand middle finger cut Time Seen by Provider: 06/23/24 16:38 Source: patient Mode of arrival: ambulatory Limitations: no limitations History of Present Illness: Patient is a nice 54-year-old female presents to ED today for evaluation of a laceration to her left middle finger that she sustained just prior to arrival after she was washing dishes and accidentally cut it while washing a knife. Last tetanus is unknown. Onset (ago): hour(s) Extremity Location: Left: hand (middle finger) Place: home Patient tetanus UTD: No Context: accidental Associated symptoms: Reports no associated symptoms Treatments prior to arrival: bandage Related Data Previous Rx's Medication Instructions Recorded carvedilol 3.125 mg tablet 3.125 mg PO BID #60 tabs 10/23/22 nicotine 7 mg/24 hr daily 1 patch transdermal Q24H #30 ea 12/03/22 transdermal patch dicyclomine 20 mg tablet 20 mg PO TID PRN abdominal pain 02/19/23 #20 tabs nicotine 21 mg/24 hr daily 1 patch transdermal Q24H #28 ea 02/20/23 transdermal patch budesonide-formoterol HFA 160 1 puff inhalation Q12H PRN COPD 04/21/23 mcg-4.5 mcg/actuation aerosol #10.2 grams inhaler (Symbicort) aspirin 81 mg tablet,delayed 81 mg PO QAM #90 tabs 07/31/23 release isosorbide mononitrate 30 mg 30 mg PO DAILY #90 tabs 07/31/23 tablet,extended release 24 hr lisinopril 20 mg tablet 20 mg PO QAM #60 tabs 07/31/23 atorvastatin 40 mg tablet 40 mg PO QAM #90 tabs 11/10/23 clopidogrel 75 mg tablet 75 mg PO DAILY #90 tabs 11/10/23 albuterol sulfate 90 mcg/actuation 2 inh inhalation Q4H PRN shortness 05/12/24 aerosol inhaler of breath or wheezing #18 grams methylprednisolone 4 mg tablets in See Rx Instructions PO .COMPLEX 05/12/24 a dose pack (Medrol (Seth)) #21 ea Allergies Allergy/AdvReac Type Severity Reaction Status Date / Time No Known Allergies Allergy Verified 07/30/23 14:37 Review of Systems Musc: Reports: extremity pain Skin/Breast: Reports: other (laceration L middle finger) Neuro: Denies: numbness in extremities or sensory changes PFSH ED 2 PFSH: Medical History Chest pain Hypertensive urgency Smoker Unstable angina Bipolar disease, chronic History of seizure GERD (gastroesophageal reflux disease) Chest pain Coronary artery disease Hypertension Ischemic cardiomyopathy Tobacco abuse COPD (chronic obstructive pulmonary disease) Adult-onset obesity Acute anterior wall IN 01/2014 Surgical History History of heart artery stent Hx of cholecystectomy Hx of tubal ligation Family History Grandmother Cancer Maternal cervical Father Cancer lung and throat Hyperlipidemia Hypertension Grandmother Cancer Paternal-unknown Sister Stroke Grandfather Cancer Paternal-brain Denies family history of Diabetes CAD (coronary artery disease) Clotting disorder Dementia Psychiatric illness Chronic kidney disease (CKD) Suicide Anesthesia complication Bleeding disorder Family history of premature coronary artery disease Lung disease Social History Smoking and tobacco/nicotine status: current every day tobacco/nicotine user cigarettes Packs smoked per day: 1 Second hand smoke exposure: No Alcohol intake: never Substance/Drug Use: never Lives independently: Yes Marital status: Single Number of children: 3 Current occupational status: employed Previous occupational history: [employer] Special shandra needs: No Agree to transfusion: Yes Physical Exam Const: COMMON NORMALS: no acute distress, average body habitus, no limitations, healthy appearing, alert and well nourished Extremity: COMMON NORMALS: full ROM and capillary refill normal GENERAL: Yes normal exam except as noted LEFT UPPER EXTREMITY: Yes hand & digits (small flap laceration distal palmar pad L middle finger) Left hand and digits: Yes neurovascular exam (normal) and Yes tendon exam (no tendon involvement) Neuro: SENSORIUM/ORIENTATION: Yes alert Procedures Laceration Laceration 1: Site: hand (L middle finger) Side (If applicable): left Size (cm): 1.0 Description: flap Depth: simple, single layer Pre-repair: wound explored and irrigated extensively Skin layer closed with: other (glue/steri strips) Course Vital Signs: Vital signs: Vital Signs Temperature 98.5 F 06/23/24 16:39 Pulse Rate 52 L 09/11/24 17:52 Respiratory Rate 18 06/23/24 16:39 Blood Pressure 176/93 06/23/24 17:52 Pulse Oximetry 93 06/23/24 17:52 Oxygen Delivery Me thod Room Air 06/23/24 16:39 MDM - Wound/Laceration Medical Decision Making Wound copiously irrigated and repaired with skin glue/Steri-Strips. Tetanus updated. Infection/wound care precautions discussed. Differential Diagnosis Likely laceration and avulsion of skin Medical Records I reviewed the patient's medical records. No radiology studies performed this visit Discharge Plan Discharge Patient Disposition: Home Clinical Impression: Laceration of left middle finger Qualifiers: Encounter type: initial encounter Damage to nail status: without damage Foreign body presence: without foreign body Qualified Code(s): S61.213A - Laceration without foreign body of left middle finger without damage to nail, initial encounter Condition: Stable Prescriptions: No Action nicotine 21 mg/24 hr patch 24 hour 1 patch transdermal Q24H Qty: 28 0RF nicotine 7 mg/24 hr patch 24 hour 1 patch transdermal Q24H Qty: 30 0RF budesonide-formoterol [Symbicort] 160-4.5 mcg/actuation HFA aerosol inhaler 1 puff inhalation Q12H PRN (Reason: COPD) Qty: 10.2 0RF clopidogrel 75 mg tablet 75 mg PO DAILY Qty: 90 0RF Rx Instructions: PATIENT MUST MAKE APPOINTMENT AND BE SEEN FOR FURTHER REFILLS atorvastatin 40 mg tablet 40 mg PO QAM Qty: 90 0RF Rx Instructions: PATIENT MUST MAKE APPOINTMENT AND BE SEEN FOR FURTHER REFILLS carvedilol 3.125 mg tablet 3.125 mg PO BID Qty: 60 0RF Rx Instructions: must administer with a meal/food Medrol (Seth) 4 mg tablets,dose pack See Rx Instructions .ROUTE .COMPLEX Qty: 21 0RF Rx Instructions: orally per package directions albuterol sulfate 90 mcg/actuation HFA aerosol inhaler 2 inh INHALATION Q4H PRN (Reason: shortness of breath or wheezing) Qty: 18 0RF dicyclomine 20 mg tablet 20 mg PO TID PRN (Reason: abdominal pain) Qty: 20 0RF isosorbide mononitrate 30 mg tablet extended release 24 hr 30 mg PO DAILY Qty: 90 2RF lisinopril 20 mg tablet 20 mg PO QAM Qty: 60 3RF aspirin 81 mg tablet,delayed release (DR/EC) 81 mg PO QAM Qty: 90 3RF Discharge Orders: Discharge ED (Routine); Ordered 06/23/24 Ordered By: Jennifer Padgett Activity Restrictions/Additional Instructions: Keep wound/laceration clean with warm soap and water twice daily. Monitor for signs of infection such as redness, swelling, increased pain, or drainage. Please seek medical re-evaluation if these occur. If your wound was closed with Steri-Strips or glue/adhesive these will fall off within the next week or so. Coding Level of Care Code ED Multimedia Developer for Annie Wright
[2024-06-23] MEDS: tetanus-dipt-pertussis 0.5 mL SDV IM (17:43)
[2024-06-23 17:52] VITALS: BP 176/93; PULSE 52; O2SAT 93
== END 2024-06-23 17:53 | disposition home or self-care (01) ==
PROVIDERS: Emergency Provider Physician Assistant
DX: S61.213A Laceration without foreign body of left middle finger without damage to nail, initial encounter (principal); Z79.02 Long term (current) use of antithrombotics/antiplatelets; Z79.82 Long term (current) use of aspirin; F17.210 Nicotine dependence, cigarettes, uncomplicated; I25.10 Atherosclerotic heart disease of native coronary artery without angina pectoris; I25.5 Ischemic cardiomyopathy; I10 Essential (primary) hypertension; J44.9 Chronic obstructive pulmonary disease, unspecified; I25.2 Old myocardial infarction; W26.0XXA Contact with knife, initial encounter; Y93.G1 Activity, food preparation and clean up; Z23 Encounter for immunization
CPT/HCPCS: 12001; 90471; 90715; 99283

== ENCOUNTER 2024-06-30 03:45 | Emergency (ER) | payer BC, MEDICAID, SELFPAY ==
[2024-06-30] VITALS (10 sets, daily range): BP systolic 158–210; BP diastolic 70–157; PULSE 55–70; RESP 18–23; TEMP 36.7; O2SAT 58–99; BMI 31.8
--- NOTE | 2024-06-30 03:48 | ECG_ITS ---
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 Measurements Intervals [place] Rate: 67 P: 66 NC: 192 QRS: -28 QRSD: 113 T: 123 QT: 439 QTc: 464 Interpretive Statements SINUS RHYTHM WITH MARKED SINUS ARRHYTHMIA POSSIBLE LEFT ATRIAL ENLARGEMENT [-0.1mV P-WAVE IN V1/V2] INCOMPLETE RIGHT BUNDLE BRANCH BLOCK [90+ ms QRS DURATION, TERMINAL R IN V1/V2, 40+ ms S IN I/aVL/V4/V5/V6] POSSIBLE LEFT VENTRICULAR HYPERTROPHY [VOLTAGE CRITERIA PLUS LAE OR QRS WIDENING] POSSIBLE ANTEROSEPTAL MYOCARDIAL INFARCTION , OF INDETERMINATE AGE [30 ms Q WAVE IN V1-V4] MODERATE T-WAVE ABNORMALITY, CONSIDER LATERAL ISCHEMIA [-0.1+ mV T-WAVE IN I/aVL/V5/V6] Compared to ECG 05/12/2024 06:42:06 T-wave abnormality now present Possible ischemia now present Sinus bradycardia no longer present ST (T wave) deviation no longer present Myocardial infarct finding still present Electronically Signed On 07-01-2024 0:18:13 CDT by Swati Daniels M.D. [email or web address]
--- NOTE | 2024-06-30 03:58 | XRR_ITS ---
PROCEDURE INFORMATION: Exam: XR Chest Exam date and time: 06/30/2024 4:05 AM Age: 54 years old Clinical indication: Shortness of breath; Additional info: Dyspnea TECHNIQUE: Imaging protocol: Radiologic exam of the chest. Views: 1 view. COMPARISON: CR XR chest 1V portable [id number] 05/12/2024 4:07 AM FINDINGS: Lungs: No acute infiltrate identified. Pleural spaces: No significant pleural fluid. No pneumothorax detected. Heart/Mediastinum: Heart size is stable compared to 05/12/2024. No pulmonary vascular congestion. Bones/joints: No obvious acute abnormality. XR/XR chest 1V portable [id number] IMPRESSION: No acute cardiopulmonary abnormality detected on AP portable chest radiograph.
--- NOTE | 2024-06-30 04:01 | ED_ITS ---
Documented by User: Billy Vázquez DO 06/30/24 04:03 HPI - SOB/Dyspnea 2 General: Chief Complaint: Shortness of Breath/Dyspnea Stated Complaint: SOB cant catch air Time Seen by Provider: 06/30/24 03:55 History of Present Illness: HPI Narrative: Presents to the ER with complaints of increasing cough, shortness of breath, chest pain. Says started about 3 days ago but has progressively gotten worse. Patient states chest pain does not radiate. Patient denies any fevers chills nausea vomiting diarrhea. Patient does have COPD and still smokes. Related Data Previous Rx's Medication Instructions Recorded carvedilol 3.125 mg tablet 3.125 mg PO BID #60 tabs 10/23/22 nicotine 7 mg/24 hr daily 1 patch transdermal Q24H #30 ea 12/03/22 transdermal patch dicyclomine 20 mg tablet 20 mg PO TID PRN abdominal pain 02/19/23 #20 tabs nicotine 21 mg/24 hr daily 1 patch transdermal Q24H #28 ea 02/20/23 transdermal patch budesonide-formoterol HFA 160 1 puff inhalation Q12H PRN COPD 04/21/23 mcg-4.5 mcg/actuation aerosol #10.2 grams inhaler (Symbicort) aspirin 81 mg tablet,delayed 81 mg PO QAM #90 tabs 07/31/23 release isosorbide mononitrate 30 mg 30 mg PO DAILY #90 tabs 07/31/23 tablet,extended release 24 hr lisinopril 20 mg tablet 20 mg PO QAM #60 tabs 07/31/23 atorvastatin 40 mg tablet 40 mg PO QAM #90 tabs 11/10/23 clopidogrel 75 mg tablet 75 mg PO DAILY #90 tabs 11/10/23 albuterol sulfate 90 mcg/actuation 2 inh inhalation Q4H PRN shortness 05/12/24 aerosol inhaler of breath or wheezing #18 grams methylprednisolone 4 mg tablets in See Rx Instructions PO .COMPLEX 05/12/24 a dose pack (Medrol (Seth)) #21 ea prednisone 20 mg tablet 60 mg (3 x 20 mg) PO DAILY 5 days 06/30/24 #15 tabs Allergies Allergy/AdvReac Type Severity Reaction Status Date / Time No Known Allergies Allergy Verified 07/30/23 14:37 Review of Systems 2 General: Reports: 10 or more systems reviewed and unremarkable except in HPI and below PFSH ED 2 PFSH: Medical History Chest pain Hypertensive urgency Smoker Unstable angina Bipolar disease, chronic History of seizure GERD (gastroesophageal reflux disease) Chest pain Coronary artery disease Hypertension Ischemic cardiomyopathy Tobacco abuse COPD (chronic obstructive pulmonary disease) Adult-onset obesity Acute anterior wall IN 01/2014 Surgical History History of heart artery stent Hx of cholecystectomy Hx of tubal ligation Family History Grandmother Cancer Maternal cervical Father Cancer lung and throat Hyperlipidemia Hypertension Grandmother Cancer Paternal-unknown Sister Stroke Grandfather Cancer Paternal-brain Denies family history of Diabetes CAD (coronary artery disease) Clotting disorder Dementia Psychiatric illness Chronic kidney disease (CKD) Suicide Anesthesia complication Bleeding disorder Family history of premature coronary artery disease Lung disease Social History Smoking and tobacco/nicotine status: current every day tobacco/nicotine user cigarettes Packs smoked per day: 1 Second hand smoke exposure: No Alcohol intake: never Substance/Drug Use: never Lives independently: Yes Marital status: Single Number of children: 3 Current occupational status: employed Previous occupational history: [employer] Special shandra needs: No Agree to transfusion: Yes Physical Exam 2 Const: COMMON NORMALS: no acute distress, average body habitus, patient oriented x3, no limitations, healthy appearing, alert and well nourished HENMT: COMMON NORMALS: normocephalic, atraumatic, hearing grossly normal bilaterally, external ears normal, Normal external nose present and moist oral mucous membranes HEAD & SCALP: normocephalic and atraumatic NOSE: Normal external nose present EXTERNAL EAR: Yes external ears normal Neck/C-Spine: COMMON NORMALS: no JVD Chest: COMMONS NORMALS: normal inspection of the chest and normal palpation of entire chest wall Resp: COMMON NORMALS: normal respiratory effort, No retractions, No use of accessory muscles and clear to auscultation bilaterally AUSCULTATION: clear to auscultation bilaterally Cardio: COMMON NORMALS: no JVD, regular rate, regular rhythm, S1 normal heart sound present, S2 normal heart sound present, No gallops present (Cardio), No clicks present (Cardio), No murmurs present (Cardio) and No rub (Cardio) R ATE: regular rate RHYTHM: regular rhythm HEART SOUNDS: S1 normal heart sound present and S2 normal heart sound present GI: COMMON NORMALS: Normal to inspection, nondistended, normoactive bowel sounds present, Soft to palpation, non-tender, No hepatosplenomegaly present and no masses PALPATION: Yes Soft to palpation and Yes No hepatosplenomegaly present Neuro: COMMON NORMALS: patient oriented x3 SENSORIUM/ORIENTATION: Yes alert Course 2 Vital Signs: Vital signs: Vital Signs Temperature 98.1 F 06/30/24 03:53 Pulse Rate 57 L 06/30/24 06:00 Respiratory Rate 23 H 06/30/24 05:30 Blood Pressure 158/87 06/30/24 06:00 Pulse Oximetry 99 06/30/24 06:00 Oxygen Delivery Me thod Room Air 06/30/24 06:00 MDM - SOB/Dyspnea Medical Records I reviewed the patient's medical records. Lab Data I reviewed the patient's lab results. 06/30/24 04:05 06/30/24 04:05 Labs/Radiology: Radiology Impressions Chest X-Ray 06/30/24 03:58 IMPRESSION: No acute cardiopulmonary abnormality detected on AP portable chest radiograph. Laboratory Results WBC 6.95 10^3/uL (3.29-11.43) 06/30/24 04:05 RBC 4.18 10^6/uL (3.85-5.65) 06/30/24 04:05 Hgb 13.60 g/dL (11.27-16.99) 06/30/24 04:05 Hct 42.2 % (36-47) 06/30/24 04:05 MCV 101.0 fl (85-98) H 06/30/24 04:05 MCH 32.5 pg (27-33) 06/30/24 04:05 MCHC 32.2 g/dL (30-55) 06/30/24 04:05 RDW 12.9 % (12.1-15.1) 06/30/24 04:05 Plt Count 282 10^3/cmm (157-399) 06/30/24 04:05 MPV 9.7 fL (7.4-10.4) 06/30/24 04:05 Neut % (Auto) 69.8 % 06/30/24 04:05 Lymph % (Auto) 22.2 % 06/30/24 04:05 Whitley % (Auto) 6.5 % 06/30/24 04:05 Eos % (Auto) 1.0 % 06/30/24 04:05 Baso % (Auto) 0.4 % 06/30/24 04:05 Neut # (Auto) 4.85 10^3/uL (1.8-7.7) 06/30/24 04:05 Lymph # (Auto) 1.5 10^3/uL (0.8-4.8) 06/30/24 04:05 Whitley # (Auto) 0.5 10^3/uL (0.2-0.9) 06/30/24 04:05 Eos # (Auto) 0.1 10^3/uL (0.0-0.8) 06/30/24 04:05 Baso # (Auto) 0.0 10^3/uL (0.0-0.1) 06/30/24 04:05 Nucleated RBC % (auto) 0 % 06/30/24 04:05 Nucleated RBCs # 0.0 /100WBC 06/30/24 04:05 Sodium 140 mmol/L (136-145) 06/30/24 04:05 Potassium 4.0 mmol/L (3.5-5.1) 06/30/24 04:05 Chloride 105 mmol/L (98-107) 06/30/24 04:05 Carbon Dioxide 24 mmol/L (22-29) 06/30/24 04:05 Anion Gap 15.0 (5-19) 06/30/24 04:05 BUN 15 mg/dL (6-20) 06/30/24 04:05 Creatinine 0.8 mg/dL (0.5-0.9) 06/30/24 04:05 GFR Calculation 74.7 mL/min (90-130) L 06/30/24 04:05 Glucose 138 mg/dL (65-115) H 06/30/24 04:05 Calculated Osmolality 293 mOsm/kg (285-295) 06/30/24 04:05 Calcium 8.9 mg/dL (8.5-10.5) 06/30/24 04:05 Total Bilirubin 0.6 mg/dL (0.15-1.2) 06/30/24 04:05 AST 15 U/L (0-32) 06/30/24 04:05 ALT 11 U/L (0-33) 06/30/24 04:05 Alkaline Phosphatase 78 U/L (35-105) 06/30/24 04:05 Troponin T Baseline 18 ng/L (0-10) H 06/30/24 04:05 Total Protein 7.3 g/dL (6.6-8.7) 06/30/24 04:05 Albumin 4.1 g/dL (3.5-5.2) 06/30/24 04:05 Globulin 3.2 g/dL (1.3-4.6) 06/30/24 04:05 All radiology interpretation(s) finalized by discharge Discharge Plan Discharge Patient Disposition: Home Condition: Stable Prescriptions: New prednisone 20 mg tablet 60 mg PO DAILY 5 Days Qty: 15 0RF No Action nicotine 21 mg/24 hr patch 24 hour 1 patch transdermal Q24H Qty: 28 0RF nicotine 7 mg/24 hr patch 24 hour 1 patch transdermal Q24H Qty: 30 0RF budesonide-formoterol [Symbicort] 160-4.5 mcg/actuation HFA aerosol inhaler 1 puff inhalation Q12H PRN (Reason: COPD) Qty: 10.2 0RF clopidogrel 75 mg tablet 75 mg PO DAILY Qty: 90 0RF Rx Instructions: PATIENT MUST MAKE APPOINTMENT AND BE SEEN FOR FURTHER REFILLS atorvastatin 40 mg tablet 40 mg PO QAM Qty: 90 0RF Rx Instructions: PATIENT MUST MAKE APPOINTMENT AND BE SEEN FOR FURTHER REFILLS carvedilol 3.125 mg tablet 3.125 mg PO BID Qty: 60 0RF Rx Instructions: must administer with a meal/food Medrol (Seth) 4 mg tablets,dose pack See Rx Instructions .ROUTE .COMPLEX Qty: 21 0RF Rx Instructions: orally per package directions albuterol sulfate 90 mcg/actuation HFA aerosol inhaler 2 inh INHALATION Q4H PRN (Reason: shortness of breath or wheezing) Qty: 18 0RF dicyclomine 20 mg tablet 20 mg PO TID PRN (Reason: abdominal pain) Qty: 20 0RF isosorbide mononitrate 30 mg tablet extended release 24 hr 30 mg PO DAILY Qty: 90 2RF lisinopril 20 mg tablet 20 mg PO QAM Qty: 60 3RF aspirin 81 mg tablet,delayed release (DR/EC) 81 mg PO QAM Qty: 90 3RF Discharge Orders: Discharge ED (Routine); Ordered 06/30/24 Ordered By: Renetta Nuñez Discharge Diet: Usual diet Discharge Activity: Increase activity as tolerated Patient Instructions: COPD (Chronic Obstructive Pulmonary Disease) (ED) Activity Restrictions/Additional Instructions: Thank you for choosing [facility] for your healthcare needs today. Please realize this is an emergency room and that we are providing you with a medical screening exam and this may not be complete and all inclusive of all the testing and or work up that you may need to determine your ailment or severity of your illness. You have been screened and evaluated and felt safe for discharge. Health conditions do change or evolve sometimes and as such it is important that you follow up with your Primary Doctor to be re checked, 3-5 days is a general good time frame for follow up. You are always welcome to return to the ED for re assessment if your symptoms are worsening or you have new concerns Coding Level of Care Code ED Machine Adjuster Leader for Chg Fwd Documented by User: Renetta Nuñez MD 06/30/24 06:06 HPI - SOB/Dyspnea 2 General: Chief Complaint: Shortness of Breath/Dyspnea Stated Complaint: SOB cant catch air Time Seen by Provider: 06/30/24 03:55 Related Data Previous Rx's Medication Instructions Recorded carvedilol 3.125 mg tablet 3.125 mg PO BID #60 tabs 10/23/22 nicotine 7 mg/24 hr daily 1 patch transdermal Q24H #30 ea 12/03/22 transdermal patch dicyclomine 20 mg tablet 20 mg PO TID PRN abdominal pain 02/19/23 #20 tabs nicotine 21 mg/24 hr daily 1 patch transdermal Q24H #28 ea 02/20/23 transdermal patch budesonide-formoterol HFA 160 1 puff inhalation Q12H PRN COPD 04/21/23 mcg-4.5 mcg/actuation aerosol #10.2 grams inhaler (Symbicort) aspirin 81 mg tablet,delayed 81 mg PO QAM #90 tabs 07/31/23 release isosorbide mononitrate 30 mg 30 mg PO DAILY #90 tabs 07/31/23 tablet,extended release 24 hr lisinopril 20 mg tablet 20 mg PO QAM #60 tabs 07/31/23 atorvastatin 40 mg tablet 40 mg PO QAM #90 tabs 11/10/23 clopidogrel 75 mg tablet 75 mg PO DAILY #90 tabs 11/10/23 albuterol sulfate 90 mcg/actuation 2 inh inhalation Q4H PRN shortness 05/12/24 aerosol inhaler of breath or wheezing #18 grams methylprednisolone 4 mg tablets in See Rx Instructions PO .COMPLEX 05/12/24 a dose pack (Medrol (Seth)) #21 ea prednisone 20 mg tablet 60 mg (3 x 20 mg) PO DAILY 5 days 06/30/24 #15 tabs Allergies Allergy/AdvReac Type Severity Reaction Status Date / Time No Known Allergies Allergy Verified 07/30/23 14:37 PFS ED 2 PFSH: Medical History Chest pain Hypertensive urgency Smoker Unstable angina Bipolar disease, chronic History of seizure GERD (gastroesophageal reflux disease) Chest pain Coronary artery disease Hypertension Ischemic cardiomyopathy Tobacco abuse COPD (chronic obstructive pulmonary disease) Adult-onset obesity Acute anterior wall IN 01/2014 Surgical History History of heart artery stent Hx of cholecystectomy Hx of tubal ligation Family History Grandmother Cancer Maternal cervical Father Cancer lung and throat Hyperlipidemia Hypertension Grandmother Cancer Paternal-unknown Sister Stroke Grandfather Cancer Paternal-brain Denies family history of Diabetes CAD (coronary artery disease) Clotting disorder Dementia Psychiatric illness Chronic kidney disease (CKD) Suicide Anesthesia complication Bleeding disorder Family history of premature coronary artery disease Lung disease Social History Smoking and tobacco/nicotine status: current every day tobacco/nicotine user cigarettes Packs smoked per day: 1 Second hand smoke exposure: No Alcohol intake: never Substance/Drug Use: never Lives independently: Yes Marital status: Single Number of children: 3 Current occupational status: employed Previous occupational history: [employer] Special shandra needs: No Agree to transfusion: Yes Course 2 Vital Signs: Vital signs: Vital Signs Temperature 98.1 F 06/30/24 03:53 Pulse Rate 57 L 06/30/24 06:00 Respiratory Rate 23 H 06/30/24 05:30 Blood Pressure 158/87 06/30/24 06:00 Pulse Oximetry 99 06/30/24 06:00 Oxygen Delivery Me thod Room Air 06/30/24 06:00 MDM - SOB/Dyspnea Medical Decision Making Patient care transitioned me at discharge. Awaiting second troponin. Assessment and plan: Accelerated hypertension COPD with acute exacerbation - Discharged home - Evaluation and treatment of this problem were appropriate in the emergency setting Lab Data 06/30/24 04:05 06/30/24 04:05 Labs/Radiology: Radiology Impressions Chest X-Ray 06/30/24 03:58 IMPRESSION: No acute cardiopulmonary abnormality detected on AP portable chest radiograph. Laboratory Results WBC 6.95 10^3/uL (3.29-11.43) 06/30/24 04:05 RBC 4.18 10^6/uL (3.85-5.65) 06/30/24 04:05 Hgb 13.60 g/dL (11.27-16.99) 06/30/24 04:05 Hct 42.2 % (36-47) 06/30/24 04:05 MCV 101.0 fl (85-98) H 06/30/24 04:05 MCH 32.5 pg (27-33) 06/30/24 04:05 MCHC 32.2 g/dL (30-55) 06/30/24 04:05 RDW 12.9 % (12.1-15.1) 06/30/24 04:05 Plt Count 282 10^3/cmm (157-399) 06/30/24 04:05 MPV 9.7 fL (7.4-10.4) 06/30/24 04:05 Neut % (Auto) 69.8 % 06/30/24 04:05 Lymph % (Auto) 22.2 % 06/30/24 04:05 Whitley % (Auto) 6.5 % 06/30/24 04:05 Eos % (Auto) 1.0 % 06/30/24 04:05 Baso % (Auto) 0.4 % 06/30/24 04:05 Neut # (Auto) 4.85 10^3/uL (1.8-7.7) 06/30/24 04:05 Lymph # (Auto) 1.5 10^3/uL (0.8-4.8) 06/30/24 04:05 Whitley # (Auto) 0.5 10^3/uL (0.2-0.9) 06/30/24 04:05 Eos # (Auto) 0.1 10^3/uL (0.0-0.8) 06/30/24 04:05 Baso # (Auto) 0.0 10^3/uL (0.0-0.1) 06/30/24 04:05 Nucleated RBC % (auto) 0 % 06/30/24 04:05 Nucleated RBCs # 0.0 /100WBC 06/30/24 04:05 Sodium 140 mmol/L (136-145) 06/30/24 04:05 Potassium 4.0 mmol/L (3.5-5.1) 06/30/24 04:05 Chloride 105 mmol/L (98-107) 06/30/24 04:05 Carbon Dioxide 24 mmol/L (22-29) 06/30/24 04:05 Anion Gap 15.0 (5-19) 06/30/24 04:05 BUN 15 mg/dL (6-20) 06/30/24 04:05 Creatinine 0.8 mg/dL (0.5-0.9) 06/30/24 04:05 GFR Calculation 74.7 mL/min (90-130) L 06/30/24 04:05 Glucose 138 mg/dL (65-115) H 06/30/24 04:05 Calculated Osmolality 293 mOsm/kg (285-295) 06/30/24 04:05 Calcium 8.9 mg/dL (8.5-10.5) 06/30/24 04:05 Total Bilirubin 0.6 mg/dL (0.15-1.2) 06/30/24 04:05 AST 15 U/L (0-32) 06/30/24 04:05 ALT 11 U/L (0-33) 06/30/24 04:05 Alkaline Phosphatase 78 U/L (35-105) 06/30/24 04:05 Troponin T Baseline 18 ng/L (0-10) H 06/30/24 04:05 Total Protein 7.3 g/dL (6.6-8.7) 06/30/24 04:05 Albumin 4.1 g/dL (3.5-5.2) 06/30/24 04:05 Globulin 3.2 g/dL (1.3-4.6) 06/30/24 04:05 Discharge Plan Discharge Patient Disposition: Home Condition: Stable Prescriptions: New prednisone 20 mg tablet 60 mg PO DAILY 5 Days Qty: 15 0RF No Action nicotine 21 mg/24 hr patch 24 hour 1 patch transdermal Q24H Qty: 28 0RF nicotine 7 mg/24 hr patch 24 hour 1 patch transdermal Q24H Qty: 30 0RF budesonide-formoterol [Symbicort] 160-4.5 mcg/actuation HFA aerosol inhaler 1 puff inhalation Q12H PRN (Reason: COPD) Qty: 10.2 0RF clopidogrel 75 mg tablet 75 mg PO DAILY Qty: 90 0RF Rx Instructions: PATIENT MUST MAKE APPOINTMENT AND BE SEEN FOR FURTHER REFILLS atorvastatin 40 mg tablet 40 mg PO QAM Qty: 90 0RF Rx Instructions: PATIENT MUST MAKE APPOINTMENT AND BE SEEN FOR FURTHER REFILLS carvedilol 3.125 mg tablet 3.125 mg PO BID Qty: 60 0RF Rx Instructions: must administer with a meal/food Medrol (Seth) 4 mg tablets,dose pack See Rx Instructions .ROUTE .COMPLEX Qty: 21 0RF Rx Instructions: orally per package directions albuterol sulfate 90 mcg/actuation HFA aerosol inhaler 2 inh INHALATION Q4H PRN (Reason: shortness of breath or wheezing) Qty: 18 0RF dicyclomine 20 mg tablet 20 mg PO TID PRN (Reason: abdominal pain) Qty: 20 0RF isosorbide mononitrate 30 mg tablet extended release 24 hr 30 mg PO DAILY Qty: 90 2RF lisinopril 20 mg tablet 20 mg PO QAM Qty: 60 3RF aspirin 81 mg tablet,delayed release (DR/EC) 81 mg PO QAM Qty: 90 3RF Discharge Orders: Discharge ED (Routine); Ordered 06/30/24 Ordered By: Renetta Nuñez Discharge Diet: Usual diet Discharge Activity: Increase activity as tolerated Patient Instructions: COPD (Chronic Obstructive Pulmonary Disease) (ED) Activity Restrictions/Additional Instructions: Thank you for choosing [facility] for your healthcare needs today. Please realize this is an emergency room and that we are providing you with a medical screening exam and this may not be complete and all inclusive of all the testing and or work up that you may need to determine your ailment or severity of your illness. You have been screened and evaluated and felt safe for discharge. Health conditions do change or evolve sometimes and as such it is important that you follow up with your Primary Doctor to be re checked, 3-5 days is a general good time frame for follow up. You are always welcome to return to the ED for re assessment if your symptoms are worsening or you have new concerns Coding Level of Care Code ED Machine Adjuster Leader for Annie Wright
[2024-06-30] MEDS: hyDRALAzine 20 mg/mL INJ 1 mL IVP (04:07)
[2024-06-30 04:13] LABS: Basophils % 0.4 %; Eosinophils # 0.1 10^3/uL (0.0-0.8); Hematocrit 42.2 % (36-47); Lymphocytes # 1.5 10^3/uL (0.8-4.8); Lymphocytes % 22.2 %; Mean Corpuscular HGB Conc 32.2 g/dL (30-55); Mean Corpuscular Hemoglobin 32.5 pg (27-33); Mean Platelet Volume 9.7 fL (7.4-10.4); Monocytes # 0.5 10^3/uL (0.2-0.9); Monocytes % 6.5 %; Neutrophils # 4.85 10^3/uL (1.8-7.7); Neutrophils % 69.8 %; Nucleated Red Blood Cells % 0 %; Platelet Count 282 10^3/cmm (157-399); Red Blood Count 4.18 10^6/uL (3.85-5.65); Red Cell Distribution Width 12.9 % (12.1-15.1); White Blood Count 6.95 10^3/uL (3.29-11.43)
[2024-06-30 04:30] LABS: Troponin(5th) Baseline 18 ng/L (0-10)
[2024-06-30 04:31] LABS: Alanine Aminotransferase 11 U/L (0-33); Albumin Level 4.1 g/dL (3.5-5.2); Alkaline Phosphatase 78 U/L (35-105); Aspartate Amino Transferase 15 U/L (0-32); Blood Urea Nitrogen 15 mg/dL (6-20); Calcium 8.9 mg/dL (8.5-10.5); Carbon Dioxide 24 mmol/L (22-29); Chloride 105 mmol/L (98-107); Creatinine Clr Calc Pharmacy 81.3476; Globulin 3.2 g/dL (1.3-4.6); Glomerular Filtration Rate 74.7 mL/min (90-130); Glucose 138 mg/dL (65-115); Osmolality Calculated 293 mOsm/kg (285-295); Sodium 140 mmol/L (136-145); Total Bilirubin 0.6 mg/dL (0.15-1.2); Total Protein 7.3 g/dL (6.6-8.7)
[2024-06-30] MEDS: cloNIDine 0.1 mg Tablet 0.2 MG PO ×2 (04:47→05:46)
[2024-06-30] MEDS: ipratropium-albuterol 3 mL Neb INHALATION (05:13)
[2024-06-30 06:07] LABS: Adenovirus Not Detected (NOT DETECT); Chlamydia Pneumoniae Not Detected (NOT DETECT); Coronavirus 229E,HKU1,NL63,OC4 Not Detected (NOT DETECT); Human Metapneumovirus Not Detected (NOT DETECT); Human Rhinovirus/Enterovirus Detected (NOT DETECT); Influenza A Not Detected (NOT DETECT); Influenza A H1 Not Detected (NOT DETECT); Influenza A H1-2009 Not Detected (NOT DETECT); Influenza A H3 Not Detected (NOT DETECT); Influenza B Not Detected (NOT DETECT); Mycoplasma Pneumoniae Not Detected (NOT DETECT); Parainfluenza Virus Type 1 Not Detected (NOT DETECT); Parainfluenza Virus Type 2 Not Detected (NOT DETECT); Parainfluenza Virus Type 3 Not Detected (NOT DETECT); Parainfluenza Virus Type 4 Not Detected (NOT DETECT); Respiratory Syncytial Virus A Not Detected (NOT DETECT); Respiratory Syncytial Virus B Not Detected (NOT DETECT); SARS-COV-2 Not Detected (NOT DETECT)
[2024-06-30 06:12] LABS: Troponin 5 2HR 16.31 ng/L (0-10)
[2024-06-30 06:15] LABS: Troponin 5 2HR Delta -1.69 ABS# (0-10)
[2024-06-30 07:16] LABS: Human Metapneumovirus Not Detected (NOT DETECT); Human Rhinovirus/Enterovirus Detected (NOT DETECT); Results from Genmark
== END 2024-06-30 06:10 | disposition home or self-care (01) ==
PROVIDERS: Emergency Medicine; Emergency Provider Emergency Medicine
DX: R05.9 Cough, unspecified (principal); R06.02 Shortness of breath; R07.9 Chest pain, unspecified; I25.10 Atherosclerotic heart disease of native coronary artery without angina pectoris; I25.5 Ischemic cardiomyopathy; I10 Essential (primary) hypertension; J44.9 Chronic obstructive pulmonary disease, unspecified; I25.2 Old myocardial infarction; F17.210 Nicotine dependence, cigarettes, uncomplicated; Z79.02 Long term (current) use of antithrombotics/antiplatelets; Z79.82 Long term (current) use of aspirin
CPT/HCPCS: 71045; 80053; 84484; 85025; 87635; 87801; 93005; 94640; 96374; 99285; J0360

== ENCOUNTER 2024-07-04 16:45 | Emergency (ER) | payer BC, MEDICAID, SELFPAY ==
[2024-07-04 16:57] VITALS: BP 207/100; PULSE 59; RESP 18; TEMP 36.8; O2SAT 95
--- NOTE | 2024-07-04 17:14 | ECG_ITS ---
[facility] Test Date: 2024-07-04 Pat Name: Silvia Persaud Department: Room: Gender: Female Breeding Manager: : 1970 Requested By: Renetta Marino Order Number: [id number] Du MD: Swati Daniels M.D. Measurements Intervals [place] Rate: 56 P: 81 [place]: 157 QRS: -3 QRSD: 108 T: 150 QT: 418 QTc: 405 Interpretive Statements SINUS BRADYCARDIA LEFT VENTRICULAR HYPERTROPHY AND ST-T CHANGE [VOLTAGE CRITERIA PLUS ST/T ABNORMALITY] POSSIBLE SEPTAL MYOCARDIAL INFARCTION , OF INDETERMINATE AGE [30 ms Q WAVE IN V1/V2] Compared to ECG 06/30/2024 03:48:30 ST (T wave) deviation now present Sinus rhythm no longer present Sinus arrhythmia no longer present. Incomplete right bundle-branch block no longer present T-wave abnormality no longer present. Possible ischemia no longer present Myocardial infarct finding still present Electronically Signed On 07-04-2024 19:21:17 CDT by Swati Daniels M.D. [email or web address]
--- NOTE | 2024-07-04 17:20 | XRR_ITS ---
PROCEDURE INFORMATION: Exam: XR Chest Exam date and time: 07/04/2024 5:32 PM Age: 54 years old Clinical indication: Cough and dyspnea; Patient HX: Cough; Chest congestion; SOB TECHNIQUE: Imaging protocol: Radiologic exam of the chest. Views: 1 view. COMPARISON: CR (CHEST, ) 06/30/2024 4:05 AM FINDINGS: Lungs: Mild peribronchial cuffing. No consolidation. Pleural spaces: Unremarkable. No pleural effusion. No pneumothorax. Heart/Mediastinum: Unremarkable. No cardiomegaly. Bones/joints: Unremarkable. XR/XR chest 1V portable [id number] IMPRESSION: Mild peribronchial cuffing could indicate mild bronchitis or asthma.
[2024-07-04 18:21] LABS: Basophils % 0.1 %; Eosinophils % 0.2 %; Hematocrit 43.4 % (36-47); Lymphocytes # 0.9 10^3/uL (0.8-4.8); Lymphocytes % 7.2 %; Mean Corpuscular HGB Conc 32.5 g/dL (30-55); Mean Corpuscular Hemoglobin 33.1 pg (27-33); Mean Corpuscular Volume 101.9 fl (85-98); Mean Platelet Volume 9.6 fL (7.4-10.4); Monocytes % 8.3 %; Neutrophils # 10.26 10^3/uL (1.8-7.7); Neutrophils % 83.4 %; Nucleated Red Blood Cells % 0 %; Platelet Count 358 10^3/cmm (157-399); Red Blood Count 4.26 10^6/uL (3.85-5.65); Red Cell Distribution Width 13.3 % (12.1-15.1); White Blood Count 12.29 10^3/uL (3.29-11.43)
[2024-07-04 18:42] LABS: Alanine Aminotransferase 27 U/L (0-33); Albumin Level 3.9 g/dL (3.5-5.2); Alkaline Phosphatase 93 U/L (35-105); Aspartate Amino Transferase 25 U/L (0-32); Blood Urea Nitrogen 20 mg/dL (6-20); Carbon Dioxide 24 mmol/L (22-29); Chloride 103 mmol/L (98-107); Creatinine Clr Calc Pharmacy 92.9687; Globulin 3.5 g/dL (1.3-4.6); Glomerular Filtration Rate 87.2 mL/min (90-130); Glucose 129 mg/dL (65-115); Osmolality Calculated 288 mOsm/kg (285-295); Sodium 137 mmol/L (136-145); Total Bilirubin 0.7 mg/dL (0.15-1.2); Total Protein 7.4 g/dL (6.6-8.7)
[2024-07-04 18:44] LABS: Anion Gap 14.2 (5-19); Potassium 4.2 mmol/L (3.5-5.1)
[2024-07-04 18:51] LABS: ABG PCO2 40.8 mmHg (35-45); ABG PH Result 7.41 (7.35-7.45); Alveolar-Arterial Oxygen Gradi 3.4 mmHg (5-10); Arterial Blood Gas Hematocrit 43.5 % (37-47); Base Excess ABG 1.1 mmol/L (-2.0-2.0); Blood Gas Allen Test Pos; Blood Gas Operator Identificat CAK; Blood Gas Sample Site Brachial, left; Blood Gas Sample Type Arterial; Carboxyhemoglobin 2.4 %THgb (0.4-20.1); HCO3 ABG 25.9 mmol/L (22-26); HGB O2 Sat 92.9 % (95-100); Ionized Calcium Level - ABG 1.2 mmol/L (1.1-1.4); Methemoglobin 0.9 % (0.4-1.5); Oxygen Device ROOM AIR; PO2 ABG 72.3 mmHg (80.0-100.0); PO2 FiO2 Ratio Arterial Blood 344; Potassium Level - ABG 3.8 mmol/L (3.5-5.0); Total Hemoglobin 14.2 g/dL (12-16)
[2024-07-04] MEDS: hyDRALAzine 20 mg/mL INJ 1 mL IVP (18:53)
[2024-07-04 18:55] VITALS: BP 198/76; PULSE 57; O2SAT 95
[2024-07-04 19:02] LABS: NT Pro B Type Natriuretic Pept 4417 pg/mL (0-125)
[2024-07-04 19:03] LABS: Slide Review Slide Review Perform
--- NOTE | 2024-07-04 19:28 | ED_ITS ---
HPI - SOB/Dyspnea 2 General: Chief Complaint: Shortness of Breath/Dyspnea Stated Complaint: SOB Time Seen by Provider: 07/04/24 18:36 History of Present Illness: HPI Narrative: Patient presents to the ER still short of breath, patient was seen approximately 4 days ago by myself and Dr. Nuñez, lab work was reviewed as well as chest x- ray, patient was discharged on prednisone. A nasal swab was obtained which showed positive for rhino enterovirus patient saw Dr. Daniels yesterday and he set her up to get a BNP, we got a BNP on her today, patient says she is no better but she finished her steroid pack and she is oxygen saturation on room air is 95+ percent. Patient appears in no acute distress and is nontoxic in appearance. Related Data Previous Rx's Medication Instructions Recorded dicyclomine 20 mg tablet 20 mg PO TID PRN abdominal pain 02/19/23 #20 tabs budesonide-formoterol HFA 160 1 puff inhalation Q12H PRN COPD 04/21/23 mcg-4.5 mcg/actuation aerosol #10.2 grams inhaler (Symbicort) aspirin 81 mg tablet,delayed 81 mg PO QAM #90 tabs 07/31/23 release albuterol sulfate 90 mcg/actuation 2 inh inhalation Q4H PRN shortness 05/12/24 aerosol inhaler of breath or wheezing #18 grams atorvastatin 40 mg tablet 40 mg PO QAM #90 tabs 07/01/24 carvedilol 3.125 mg tablet 3.125 mg PO BID #60 tabs 07/01/24 clopidogrel 75 mg tablet 75 mg PO DAILY #90 tabs 07/01/24 isosorbide mononitrate 30 mg 30 mg PO DAILY #90 tabs 07/01/24 tablet,extended release 24 hr lisinopril 40 mg tablet 40 mg PO DAILY #90 tabs 07/01/24 furosemide 40 mg tablet (Lasix) 40 mg PO DAILY #5 tabs 07/04/24 Allergies Allergy/AdvReac Type Severity Reaction Status Date / Time No Known Allergies Allergy Verified 07/04/24 17:01 [facility] ED 2 PFSH: Medical History Chest pain Hypertensive urgency Smoker Unstable angina Bipolar disease, chronic History of seizure GERD (gastroesophageal reflux disease) Chest pain Coronary artery disease Hypertension Ischemic cardiomyopathy Tobacco abuse COPD (chronic obstructive pulmonary disease) Adult-onset obesity Acute anterior wall [place] 01/2014 Surgical History History of heart artery stent Hx of cholecystectomy Hx of tubal ligation Family History Grandmother Cancer Maternal cervical Father Cancer lung and throat Hyperlipidemia Hypertension Grandmother Cancer Paternal-unknown Sister Stroke Grandfather Cancer Paternal-brain Denies family history of Diabetes CAD (coronary artery disease) Clotting disorder Dementia Psychiatric illness Chronic kidney disease (CKD) Suicide Anesthesia complication Bleeding disorder Family history of premature coronary artery disease Lung disease Social History Smoking and tobacco/nicotine status: current every day tobacco/nicotine user cigarettes Packs smoked per day: 1 Second hand smoke exposure: No Alcohol intake: never Substance/Drug Use: never Lives independently: Yes Marital status: Single Number of children: 3 Current occupational status: employed Previous occupational history: [employer] Special shandra needs: No Agree to transfusion: Yes Physical Exam 2 Const: COMMON NORMALS: no acute distress, average body habitus, patient oriented x3, no limitations, healthy appearing, alert and well nourished HENMT: COMMON NORMALS: normocephalic, atraumatic, hearing grossly normal bilaterally, external ears normal, Normal external nose present and moist oral mucous membranes HEAD & SCALP: normocephalic and atraumatic NOSE: Normal external nose present EXTERNAL EAR: Yes external ears normal Neck/C-Spine: COMMON NORMALS: full ROM, no lymphadenopathy, supple, no meningeal signs, no JVD and Thyroid normal THYROID: Thyroid normal Chest: COMMONS NORMALS: normal inspection of the chest and normal palpation of entire chest wall Resp: COMMON NORMALS: normal respiratory effort, No retractions, No use of accessory muscles and clear to auscultation bilaterally AUSCULTATION: clear to auscultation bilaterally Cardio: COMMON NORMALS: no JVD, regular rate, regular rhythm, S1 normal heart sound present, S2 normal heart sound present, No gallops present (Cardio), No clicks present (Cardio), No murmurs present (Cardio) and No rub (Cardio) R ATE: regular rate RHYTHM: regular rhythm HEART SOUNDS: S1 normal heart sound present and S2 normal heart sound present GI: COMMON NORMALS: Normal to inspection, nondistended, normoactive bowel sounds present, Soft to palpation, non-tender, No hepatosplenomegaly present and no masses PALPATION: Yes Soft to palpation and Yes No hepatosplenomegaly present Neuro: COMMON NORMALS: patient oriented x3 SENSORIUM/ORIENTATION: Yes alert MENINGEAL SIGNS: Yes no meningeal signs Course 2 Vital Signs: Vital signs: Vital Signs Temperature 98.2 F 07/04/24 16:57 Pulse Rate 68 07/04/24 20:39 Respiratory Rate 18 07/04/24 16:57 Blood Pressure 174/73 07/04/24 20:39 Pulse Oximetry 93 07/04/24 20:39 Oxygen Delivery Me thod Room Air 07/04/24 20:00 MDM - SOB/Dyspnea Medical Decision Making . Last visits note and labs, this visits x-rays labs also show benign except elevated BNP of approximately 4400. Will be given Lasix 40 mg IV here and sent home with 20 mg daily for the next 5 days. Lab Data 07/04/24 18:14 07/04/24 18:14 Labs/Radiology: Radiology Impressions Chest X-Ray 07/04/24 17:20 IMPRESSION: Mild peribronchial cuffing could indicate mild bronchitis or asthma. Laboratory Results WBC 12.29 10^3/uL (3.29-11.43) H 07/04/24 18:14 RBC 4.26 10^6/uL (3.85-5.65) 07/04/24 18:14 Hgb 14.10 g/dL (11.27-16.99) 07/04/24 18:14 Hct 43.4 % (36-47) 07/04/24 18:14 MCV 101.9 fl (85-98) H 07/04/24 18:14 MCH 33.1 pg (27-33) H 07/04/24 18:14 MCHC 32.5 g/dL (30-55) 07/04/24 18:14 RDW 13.3 % (12.1-15.1) 07/04/24 18:14 Plt Count 358 10^3/cmm (157-399) 07/04/24 18:14 MPV 9.6 fL (7.4-10.4) 07/04/24 18:14 Neut % (Auto) 83.4 % 07/04/24 18:14 Lymph % (Auto) 7.2 % 07/04/24 18:14 [place] % (Auto) 8.3 % 07/04/24 18:14 Eos % (Auto) 0.2 % 07/04/24 18:14 Baso % (Auto) 0.1 % 07/04/24 18:14 Neut # (Auto) 10.26 10^3/uL (1.8-7.7) H 07/04/24 18:14 Lymph # (Auto) 0.9 10^3/uL (0.8-4.8) 07/04/24 18:14 [place] # (Auto) 1.0 10^3/uL (0.2-0.9) H 07/04/24 18:14 Eos # (Auto) 0.0 10^3/uL (0.0-0.8) 07/04/24 18:14 Baso # (Auto) 0.0 10^3/uL (0.0-0.1) 07/04/24 18:14 Nucleated RBC % (auto) 0 % 07/04/24 18:14 Nucleated RBCs # 0.0 /100WBC 07/04/24 18:14 Specimen Type Arterial 07/04/24 18:40 Sample Site Brachial, left 07/04/24 18:40 ABG pH 7.41 (7.35-7.45) 07/04/24 18:40 ABG pCO2 40.8 mmHg (35-45) 07/04/24 18:40 ABG pO2 72.3 mmHg (80.0-100.0) L 07/04/24 18:40 ABG PO2/FiO2 Ratio 344 07/04/24 18:40 ABG HCO3 25.9 mmol/L (22-26) 07/04/24 18:40 ABG O2 Saturation 96.0 07/04/24 18:40 ABG Base Excess 1.1 mmol/L (-2.0-2.0) 07/04/24 18:40 [place] Test Pos 07/04/24 18:40 A-a O2 Gradient 3.4 mmHg (5-10) L 07/04/24 18:40 Hematocrit 43.5 % (37-47) 07/04/24 18:40 Hgb O2 Saturation 92.9 % (95-100) L 07/04/24 18:40 Carboxyhemoglobin 2.4 %THgb (0.4-20.1) 07/04/24 18:40 Methemoglobin 0.9 % (0.4-1.5) 07/04/24 18:40 Total Hemoglobin 14.2 g/dL (12-16) 07/04/24 18:40 Sodium 141.0 mmol/L (131-143) 07/04/24 18:40 Potassium 3.8 mmol/L (3.5-5.0) 07/04/24 18:40 Glucose 120.0 mg/dL (70-115) H 07/04/24 18:40 Ionized Calcium 1.2 mmol/L (1.1-1.4) 07/04/24 18:40 O2 Delivery Device Room air 07/04/24 18:40 FiO2 21.0 % 07/04/24 18:40 Traffic Police Officer ID Cak 07/04/24 18:40 Sodium 137 mmol/L (136-145) 07/04/24 18:14 Potassium 4.2 mmol/L (3.5-5.1) 07/04/24 18:14 Chloride 103 mmol/L (98-107) 07/04/24 18:14 Carbon Dioxide 24 mmol/L (22-29) 07/04/24 18:14 Anion Gap 14.2 (5-19) 07/04/24 18:14 BUN 20 mg/dL (6-20) 07/04/24 18:14 Creatinine 0.7 mg/dL (0.5-0.9) 07/04/24 18:14 GFR Calculation 87.2 mL/min (90-130) L 07/04/24 18:14 Glucose 129 mg/dL (65-115) H 07/04/24 18:14 Calculated Osmolality 288 mOsm/kg (285-295) 07/04/24 18:14 Calcium 9.0 mg/dL (8.5-10.5) 07/04/24 18:14 Total Bilirubin 0.7 mg/dL (0.15-1.2) 07/04/24 18:14 AST 25 U/L (0-32) 07/04/24 18:14 ALT 27 U/L (0-33) 07/04/24 18:14 Alkaline Phosphatase 93 U/L (35-105) 07/04/24 18:14 NT-Pro-B Natriuret Pep 4417 pg/mL (0-125) H 07/04/24 18:14 Total Protein 7.4 g/dL (6.6-8.7) 07/04/24 18:14 Albumin 3.9 g/dL (3.5-5.2) 07/04/24 18:14 Globulin 3.5 g/dL (1.3-4.6) 07/04/24 18:14 All radiology interpretation(s) finalized by discharge Discharge Plan Discharge Patient Disposition: Home Clinical Impression: Exertional shortness of breath, Elevated brain natriuretic peptide (BNP) level, Acute bronchitis due to Rhinovirus Condition: Stable Prescriptions: New Lasix 40 mg tablet 40 mg PO DAILY Qty: 5 0RF No Action lisinopril 40 mg tablet 40 mg PO DAILY Qty: 90 3RF carvedilol 3.125 mg tablet 3.125 mg PO BID Qty: 60 0RF Rx Instructions: must administer with a meal/food clopidogrel 75 mg tablet 75 mg PO DAILY Qty: 90 0RF Rx Instructions: PATIENT MUST MAKE APPOINTMENT AND BE SEEN FOR FURTHER REFILLS isosorbide mononitrate 30 mg tablet extended release 24 hr 30 mg PO DAILY Qty: 90 2RF atorvastatin 40 mg tablet 40 mg PO QAM Qty: 90 0RF Rx Instructions: PATIENT MUST MAKE APPOINTMENT AND BE SEEN FOR FURTHER REFILLS budesonide-formoterol [Symbicort] 160-4.5 mcg/actuation HFA aerosol inhaler 1 puff inhalation Q12H PRN (Reason: COPD) Qty: 10.2 0RF albuterol sulfate 90 mcg/actuation HFA aerosol inhaler 2 inh INHALATION Q4H PRN (Reason: shortness of breath or wheezing) Qty: 18 0RF dicyclomine 20 mg tablet 20 mg PO TID PRN (Reason: abdominal pain) Qty: 20 0RF aspirin 81 mg tablet,delayed release (DR/EC) 81 mg PO QAM Qty: 90 3RF Discharge Orders: Discharge ED (Routine); Ordered 07/04/24 Ordered By: Billy Vázquez Patient Instructions: Shortness of Breath (ED) Activity Restrictions/Additional Instructions: Review of your lab work shows you have rhinovirus which is a common cold virus but now also an upper respiratory virus. Your BNP is also elevated. You have been put on Lasix for this. Please go to the pharmacy get your prescription filled and take them as directed. Please follow-up with your family practice physician and/or inspector circuitry negative within next 7 to 10 days for further evaluation and treatment. Stand Alone Forms: Work/School Release Coding Level of Care Code ED Engine Room Operator for Annie Wright
[2024-07-04 19:59] VITALS: BP 164/77
[2024-07-04] MEDS: cloNIDine 0.1 mg Tablet 0.2 MG PO (19:59)
[2024-07-04 20:00] VITALS: BP 164/77; PULSE 63; O2SAT 92
[2024-07-04] MEDS: FUROsemide 10 mg/mL SDV 4mL 40 MG IVP (20:33)
[2024-07-04 20:39] VITALS: BP 174/73; PULSE 68; O2SAT 93
== END 2024-07-04 20:43 | disposition home or self-care (01) ==
PROVIDERS: Emergency Provider Emergency Medicine
DX: R06.02 Shortness of breath (principal); J20.6 Acute bronchitis due to rhinovirus; R79.89 Other specified abnormal findings of blood chemistry; Z79.02 Long term (current) use of antithrombotics/antiplatelets; Z79.82 Long term (current) use of aspirin; F17.210 Nicotine dependence, cigarettes, uncomplicated; I25.10 Atherosclerotic heart disease of native coronary artery without angina pectoris; I10 Essential (primary) hypertension; J44.0 Chronic obstructive pulmonary disease with (acute) lower respiratory infection; I25.2 Old myocardial infarction
CPT/HCPCS: 36415; 36600; 71045; 80051; 80053; 82330; 82805; 83880; 85025; 93005; 96374; 96375; 99285; J0360; J1940

== ENCOUNTER 2024-11-09 08:18 | Emergency (ER) | payer BC, MEDICAID, SELFPAY ==
[2024-11-09 08:39] VITALS: BP 174/79; PULSE 61; RESP 16; TEMP 36.7; O2SAT 99; BMI 30.9
[2024-11-09 08:58] VITALS: PULSE 76; RESP 16; O2SAT 99
--- NOTE | 2024-11-09 09:04 | CT_ITS ---
WS: [id number] CT ABDOMEN PELVIS TECHNIQUE: Noncontrast CT of the abdomen and pelvis with coronal and sagittal reformatted images. CLINICAL INFORMATION: epigastric pain radiating to RLQ COMPARISON: 02/27/2021 DLP: 696.[address] scans at [facility] use at least one of these dose optimization techniques: automated e xposure control; mA and/or kV adjustment per patient size (includes targeted exams where dose is matc hed to clinical indication); or iterative reconstruction. FINDINGS: Hepatomegaly. Cholecystectomy clips. Splenic artery calcification. Lung bases are well aerated. Normal noncontrast pancreas. Adrenal gland s are normal. 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 Slightly dilated RI GHT renal pelvis and proximal ureter unchanged from the prior studies. Tiny RIGHT renal cortical cyst. Cortical scarring LEFT kidney. No obstructing renal or ureteral calcu li. Normal caliber abdominal aorta. Aortic calcification. Sigmoid diverticulosis. Normal appendix in the RIGHT lower quadrant. Tiny fat-containing umbilical hernia. CT/CT abdomen pelvis wo con [id number] IMPRESSION: 1. No obstructing renal or ureteral calculi. 2. Normal appendix in the RIGHT lower quadrant. 3. Prior cholecystectomy. 4. Hepatomegaly.
--- NOTE | 2024-11-09 09:04 | ECG_ITS ---
[facility] Test Date: 2024-11-09 Pat Name: Silvia Persaud Department: Room: Gender: Female Resistor Winder: : 1970 Requested By: Alpesh Marino Order Number: [id number] Ana Laura MD: Gurdeep Phillip M.D. Measurements Intervals [place] Rate: 54 P: 69 W[place]: 190 QRS: -30 QRSD: 129 T: 130 QT: 454 QTc: 432 Interpretive Statements SINUS BRADYCARDIA POSSIBLE RIGHT VENTRICULAR CONDUCTION DELAY [RSR (QR) IN V1/V2] LEFT VENTRICULAR HYPERTROPHY AND ST-T CHANGE [VOLTAGE CRITERIA PLUS ST/T ABNORMALITY] POSSIBLE SEPTAL MYOCARDIAL INFARCTION , OF INDETERMINATE AGE [30 ms Q WAVE IN V1/V2] Compared to ECG 07/04/2024 17:14:19 No significant changes Electronically Signed On 11-11-2024 11:24:09 TECHNICAL SUPPORT ENGINEER by Gurdeep Phillip M.D. [email or web address]
--- NOTE | 2024-11-09 09:05 | XR_ITS ---
WS: [id number] Exam: XR chest 1V portable [id number] Date/Time of Exam: 11/09/2024 9:05 AM Reason For Exam: dyspnea/cough Comparison 07/04/2024. Lungs are clear and fully expanded. Normal cardiomediastinal silhouette and regional bony elements. N o pleural effusion. XR/XR chest 1V portable [id number] IMPRESSION: 1. Negative chest.
[2024-11-09] MEDS: diphenhydrAMINE 50 mg/mL SDV 1mL 25 MG IVP (09:37)
[2024-11-09] MEDS: ketorolac 30 mg/mL INJ IVP (09:37)
[2024-11-09] MEDS: prochlorperazine 10 mg/2 mL Inj IVP (09:37)
[2024-11-09] MEDS: sodium chloride 0.9% 1,000 ML 999 ML IV (09:38)
[2024-11-09 09:45] LABS: Basophils % 0.3 %; Eosinophils % 0.2 %; Hematocrit 45.2 % (36-47); Lymphocytes % 17.2 %; Mean Corpuscular HGB Conc 31.4 g/dL (30-55); Mean Corpuscular Hemoglobin 31.1 pg (27-33); Mean Corpuscular Volume 99.1 fl (85-98); Mean Platelet Volume 9.8 fL (7.4-10.4); Monocytes # 0.4 10^3/uL (0.2-0.9); Monocytes % 6.4 %; Neutrophils # 4.58 10^3/uL (1.8-7.7); Neutrophils % 75.7 %; Nucleated Red Blood Cells % 0 %; Platelet Count 270 10^3/cmm (157-399); Red Blood Count 4.56 10^6/uL (3.85-5.65); Red Cell Distribution Width 13.8 % (12.1-15.1); White Blood Count 6.05 10^3/uL (3.29-11.43)
[2024-11-09 10:09] LABS: Alanine Aminotransferase 11 U/L (0-33); Albumin Level 4.1 g/dL (3.5-5.2); Alkaline Phosphatase 86 U/L (35-105); Anion Gap 16.8 (5-19); Aspartate Amino Transferase 16 U/L (0-32); Blood Urea Nitrogen 15 mg/dL (6-20); Calcium 9.2 mg/dL (8.5-10.5); Carbon Dioxide 22 mmol/L (22-29); Chloride 103 mmol/L (98-107); Creatinine Clr Calc Pharmacy 80.1963; Globulin 3.7 g/dL (1.3-4.6); Glomerular Filtration Rate 74.7 mL/min (90-130); Glucose 139 mg/dL (65-115); Lipase 18 U/L (13-60); Osmolality Calculated 289 mOsm/kg (285-295); Potassium 3.8 mmol/L (3.5-5.1); Sodium 138 mmol/L (136-145); Total Bilirubin 0.8 mg/dL (0.15-1.2); Total Protein 7.8 g/dL (6.6-8.7)
[2024-11-09 10:35] VITALS: BP 168/63
[2024-11-09 11:00] VITALS: BP 197/74; PULSE 59; RESP 16; O2SAT 99
[2024-11-09 11:11] LABS: Bilirubin Urine Negative (Negative); Blood Urine 1+ (Negative); Glucose Urine UA Negative (Normal); Ketones Urine Negative (Negative); Leukocyte Esterase Urine Negative (Negative); Nitrate Urine Negative (Negative); Protein Urine Negative (Negative); Specific Gravity, Urine 1.013 (1.005-1.030); Urine Appearance Clear (CLEAR); Urine Color Yellow (Yellow); pH Urine 5.5 (5-7)
[2024-11-09 11:13] LABS: Add Urine Microscopic? YES; Bacteria Urine None Seen /hpf; Hyaline Casts Urine 0.81 /lpf; RBC Urine 0-2 /hpf (0-2); Squamous Epithelial Cell Urine 0-5 /hpf (0-5); WBC Urine 0-5 /hpf (0-5)
--- NOTE | 2024-11-09 11:56 | W.ED.NAVMDI ---
HPI - Nausea/Vomiting/Diarrhea General: Chief complaint: Nausea/Vomiting/Diarrhea Stated complaint: NVD Time Seen by Provider: 11/09/24 08:55 History of Present Illness: Silvia is a 54-year-old female presenting today for 2 days of progressively worsening abdominal pain, nausea, vomiting, diarrhea. She has been having difficulty holding down any fluids or food. Denies fevers, blood in the vomit or stool, chest pain, shortness of breath. Has been taking [id number] analgesics with some improvement. She has a history of cholecystectomy but still has her appendix. Associated symtoms: Denies chest pain or dysuria Related Data Home Medications ?Medication ?Instructions ?Recorded ?Confirmed furosemide 40 mg tablet 40 mg PO DAILY 11/09/24 11/09/24 Previous Rx's ?Medication ?Instructions ?Recorded aspirin 81 mg tablet,delayed 81 mg PO QAM #90 tabs 07/31/23 release carvedilol 3.125 mg tablet 3.125 mg PO BID #60 tabs 07/01/24 clopidogrel 75 mg tablet 75 mg PO DAILY #90 tabs 07/01/24 isosorbide mononitrate 30 mg 30 mg PO DAILY #90 tabs 07/01/24 tablet,extended release 24 hr lisinopril 40 mg tablet 40 mg PO DAILY #90 tabs 07/01/24 magnesium L-lactate 84 mg 168 mg (2 x 84 mg) PO DAILY #90 07/12/24 tablet,extended release tabs albuterol sulfate 90 mcg/actuation 2 inh inhalation Q4H PRN shortness 07/13/24 aerosol inhaler of breath or wheezing #18 grams budesonide-formoterol HFA 160 1 puff inhalation Q12H PRN COPD 07/13/24 mcg-4.5 mcg/actuation aerosol #10.2 grams inhaler (Symbicort) potassium chloride 20 mEq See Rx Instructions .Route 08/04/24 tablet,extended release .COMPLEX #90 tabs nortriptyline 25 mg capsule 25 mg PO DAILY #30 caps 09/21/24 atorvastatin 40 mg tablet 40 mg PO QAM #90 tabs 11/01/24 ondansetron HCl 4 mg tablet 4 mg PO Q6H PRN nausea and 11/09/24 vomiting #20 tabs Allergies Allergy/AdvReac Type Severity Reaction Status Date / Time No Known Allergies Allergy Verified 08/16/24 13:33 Review of Systems Const: Denies: fever(s) or body aches ENMT: Denies: nasal congestion Card: Denies: chest pain, edema, dyspnea on exertion or orthopnea Resp: Denies: dyspnea, productive cough or non-productive cough GI: Denies: hematemesis, coffee ground emesis, hematochezia or melena : Denies: flank pain, difficulty voiding, dysuria, urinary frequency or urinary urgency PFSH ED PFSH: Medical History Encounter to establish care Encounter for smoking cessation counseling Chest pain Hypertensive urgency Smoker Unstable angina Bipolar disease, chronic History of seizure GERD (gastroesophageal reflux disease) Chest pain Coronary artery disease Hypertension Ischemic cardiomyopathy Tobacco abuse COPD (chronic obstructive pulmonary disease) Adult-onset obesity Acute anterior wall [place] 01/2014 Surgical History History of heart artery stent Hx of cholecystectomy Hx of tubal ligation Family History Grandmother Cancer Maternal cervical Father Cancer lung and throat Hyperlipidemia Hypertension Grandmother Cancer Paternal-unknown Sister Stroke Grandfather Cancer Paternal-brain Denies family history of Diabetes CAD (coronary artery disease) Clotting disorder Dementia Psychiatric illness Chronic kidney disease (CKD) Suicide Anesthesia complication Bleeding disorder Family history of premature coronary artery disease Lung disease Social History Smoking and tobacco/nicotine status: current every day tobacco/nicotine user cigarettes Packs smoked per day: 1 Second hand smoke exposure: No Alcohol intake: never Substance/Drug Use: never Lives independently: Yes Marital status: Single Number of children: 3 Current occupational status: employed Previous occupational history: [employer] Special shandra needs: No Agree to transfusion: Yes Physical Exam Const: COMMON NORMALS: no acute distress GENERAL APPEARANCE: cooperative and comfortable ORIENTATION/CONSCIOUSNESS: Yes awake, Yes oriented to person, Yes oriented to place and Yes oriented to time HENMT: COMMON NORMALS: normocephalic, atraumatic, hearing grossly normal bilaterally, external ears normal, EAC's normal, TM's normal bilaterally, moist oral mucous membranes and oropharynx normal HEAD & SCALP: normocephalic and atraumatic EXTERNAL EAR: Yes external ears normal EXTERNAL AUDITORY CANAL: EAC's normal TYMPANIC MEMBRANE: TM's normal bilaterally Eye: COMMON NORMALS: Equal, round and reactive pupils present, EOMs intact bilaterally, conjunctivae normal and no scleral icterus CONJUNCTIVA: Yes conjunctivae normal PUPIL: Yes Equal, round and reactive pupils present Neck/C-Spine: COMMON NORMALS: full ROM Lymph: LYMPHATIC: no lymphadenopathy noted and no lymphedema noted Resp: COMMON NORMALS: normal respiratory effort, No retractions, No use of accessory muscles and clear to auscultation bilaterally AUSCULTATION: clear to auscultation bilaterally Cardio: COMMON NORMALS: regular rate, regular rhythm and No murmurs present (Cardio) RATE: regular rate RHYTHM: regular rhythm GI: COMMON NORMALS: Soft to palpation and No hepatosplenomegaly present AUSCULTATION: Yes normoactive bowel sounds PALPATION: Yes Soft to palpation, Yes Tenderness to palpation present (GI) (Diffuse mild tenderness present over the epigastrium radiating to RLQ ) and Yes No hepatosplenomegaly present Neuro: SENSORIUM/ORIENTATION: Yes oriented to person, Yes oriented to place and Yes oriented to time Course Vital Signs: Vital signs: Vital Signs Temperature 98.1 F 11/09/24 08:39 Pulse Rate 57 L 11/09/24 12:29 Respiratory Rate 18 11/09/24 12:29 Blood Pressure 163/72 11/09/24 12:29 Pulse Oximetry 97 11/09/24 12:29 Oxygen Delivery Me thod Room Air 11/09/24 08:39 MDM - Nausea/Vomiting/Diarrhea Medical Decision Making Silvia is a 54-year-old female presenting today for 2 days of progressively worsening abdominal pain, nausea, vomiting, diarrhea. On arrival vitals overall unremarkable. No leukocytosis, CMP and lipase were normal. Urinalysis was noninfectious. Chest x-ray unremarkable. We did obtain a CT abdomen given concern for appendicitis, it is returned negative without any acute abnormalities. She received Toradol, Compazine, and 1 L of IV fluids with improvement in her symptoms. After this time patient requested to go home. Discussed return precautions. Sent prescription for ondansetron and discharge patient home in stable condition. Lab Data 11/09/24 09:37 11/09/24 09:37 Radiology Impressions Abdomen/Pelvis CT 11/09/24 09:04 IMPRESSION: 1. No obstructing renal or ureteral calculi. 2. Normal appendix in the RIGHT lower quadrant. 3. Prior cholecystectomy. 4. Hepatomegaly. Chest X-Ray 11/09/24 09:05 IMPRESSION: 1. Negative chest. Laboratory Results WBC 6.05 10^3/uL (3.29-11.43) 11/09/24 09:37 RBC 4.56 10^6/uL (3.85-5.65) 11/09/24 09:37 Hgb 14.20 g/dL (11.27-16.99) 11/09/24 09:37 Hct 45.2 % (36-47) 11/09/24 09:37 MCV 99.1 fl (85-98) H 11/09/24 09:37 MCH 31.1 pg (27-33) 11/09/24 09:37 MCHC 31.4 g/dL (30-55) 11/09/24 09:37 RDW 13.8 % (12.1-15.1) 11/09/24 09:37 Plt Count 270 10^3/cmm (157-399) 11/09/24 09:37 MPV 9.8 fL (7.4-10.4) 11/09/24 09:37 Neut % (Auto) 75.7 % 11/09/24 09:37 Lymph % (Auto) 17.2 % 11/09/24 09:37 [place] % (Auto) 6.4 % 11/09/24 09:37 Eos % (Auto) 0.2 % 11/09/24 09:37 Baso % (Auto) 0.3 % 11/09/24 09:37 Neut # (Auto) 4.58 10^3/uL (1.8-7.7) 11/09/24 09:37 Lymph # (Auto) 1.0 10^3/uL (0.8-4.8) 11/09/24 09:37 [place] # (Auto) 0.4 10^3/uL (0.2-0.9) 11/09/24 09:37 Eos # (Auto) 0.0 10^3/uL (0.0-0.8) 11/09/24 09:37 Baso # (Auto) 0.0 10^3/uL (0.0-0.1) 11/09/24 09:37 Nucleated RBC % (auto) 0 % 11/09/24 09:37 Nucleated RBCs # 0.0 /100WBC 11/09/24 09:37 Sodium 138 mmol/L (136-145) 11/09/24 09:37 Potassium 3.8 mmol/L (3.5-5.1) 11/09/24 09:37 Chloride 103 mmol/L (98-107) 11/09/24 09:37 Carbon Dioxide 22 mmol/L (22-29) 11/09/24 09:37 Anion Gap 16.8 (5-19) 11/09/24 09:37 BUN 15 mg/dL (6-20) 11/09/24 09:37 Creatinine 0.8 mg/dL (0.5-0.9) 11/09/24 09:37 GFR Calculation 74.7 mL/min (90-130) L 11/09/24 09:37 Glucose 139 mg/dL (65-115) H 11/09/24 09:37 Calculated Osmolality 289 mOsm/kg (285-295) 11/09/24 09:37 Calcium 9.2 mg/dL (8.5-10.5) 11/09/24 09:37 Total Bilirubin 0.8 mg/dL (0.15-1.2) 11/09/24 09:37 AST 16 U/L (0-32) 11/09/24 09:37 ALT 11 U/L (0-33) 11/09/24 09:37 Alkaline Phosphatase 86 U/L (35-105) 11/09/24 09:37 Total Protein 7.8 g/dL (6.6-8.7) 11/09/24 09:37 Albumin 4.1 g/dL (3.5-5.2) 11/09/24 09:37 Globulin 3.7 g/dL (1.3-4.6) 11/09/24 09:37 Lipase 18 U/L (13-60) 11/09/24 09:37 Urine Color Yellow (Yellow) 11/09/24 10:57 Urine Appearance Clear (CLEAR) 11/09/24 10:57 Urine pH 5.5 (5-7) 11/09/24 10:57 Ur Specific [place] 1.013 (1.005-1.030) 11/09/24 10:57 Urine Protein Negative (Negative) 11/09/24 10:57 Urine Glucose (UA) Negative (Normal) 11/09/24 10:57 Urine Ketones Negative (Negative) 11/09/24 10:57 Urine Blood 1+ (Negative) A 11/09/24 10:57 Urine Nitrate Negative (Negative) 11/09/24 10:57 Urine Bilirubin Negative (Negative) 11/09/24 10:57 Urine Urobilinogen 1.0 mg/dL (Negative) 11/09/24 10:57 Ur Leukocyte Esterase Negative (Negative) 11/09/24 10:57 Urine RBC 0-2 /hpf (0-2) 11/09/24 10:57 Urine WBC 0-5 /hpf (0-5) 11/09/24 10:57 Ur Squamous Epith Cells 0-5 /hpf (0-5) 11/09/24 10:57 Amorphous Sediment Not Reportable 11/09/24 10:57 Urine Bacteria None seen /hpf (NONE) 11/09/24 10:57 Hyaline Casts 0.81 /lpf 11/09/24 10:57 All radiology interpretation(s) finalized by discharge Discharge Plan Discharge Patient Disposition: Home Clinical Impression: Gastroenteritis Condition: Stable Prescriptions: New ondansetron HCl 4 mg tablet 4 mg PO Q6H PRN (Reason: nausea and vomiting) Qty: 20 0RF No Action lisinopril 40 mg tablet 40 mg PO DAILY Qty: 90 3RF carvedilol 3.125 mg tablet 3.125 mg PO BID Qty: 60 0RF Rx Instructions: must administer with a meal/food clopidogrel 75 mg tablet 75 mg PO DAILY Qty: 90 0RF Rx Instructions: PATIENT MUST MAKE APPOINTMENT AND BE SEEN FOR FURTHER REFILLS isosorbide mononitrate 30 mg tablet extended release 24 hr 30 mg PO DAILY Qty: 90 2RF budesonide-formoterol [Symbicort] 160-4.5 mcg/actuation HFA aerosol inhaler 1 puff inhalation Q12H PRN (Reason: COPD) Qty: 10.2 2RF albuterol sulfate 90 mcg/actuation HFA aerosol inhaler 2 inh INHALATION Q4H PRN (Reason: shortness of breath or wheezing) Qty: 18 2RF magnesium L-lactate 84 mg tablet extended release 168 mg PO DAILY Qty: 90 0RF potassium chloride 20 mEq tablet extended release See Rx Instructions .ROUTE .COMPLEX Qty: 90 3RF Dose Instruction: TAKE 1 TABLET BY MOUTH EVERY DAY with lasix Rx Instructions: TAKE 1 TABLET BY MOUTH EVERY DAY with lasix nortriptyline 25 mg capsule 25 mg PO DAILY Qty: 30 0RF atorvastatin 40 mg tablet 40 mg PO QAM Qty: 90 3RF Rx Instructions: PATIENT MUST MAKE APPOINTMENT AND BE SEEN FOR FURTHER REFILLS furosemide 40 mg tablet 40 mg PO DAILY Rx Instructions: TAKE 1 TABLET BY MOUTH EVERY DAY aspirin 81 mg tablet,delayed release (DR/EC) 81 mg PO QAM Qty: 90 3RF Discharge Orders: Discharge ED (Routine); Ordered 11/09/24 Ordered By: Alpesh Rowley Referrals: Jossie Topete NP [Primary Care Provider] - Discharge Diet: Advance as tolerated Discharge Activity: Resume usual activity Patient Instructions: Opioid Safety, Pain Management Print Language: Chadian Coding Level of Care Code 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
[2024-11-09 12:02] VITALS: BP 197/74; PULSE 53; RESP 18; O2SAT 97
[2024-11-09 12:29] VITALS: BP 163/72; PULSE 57; RESP 18; O2SAT 97
== END 2024-11-09 12:32 | disposition home or self-care (01) ==
PROVIDERS: Emergency Provider Family Medicine
DX: K52.9 Noninfective gastroenteritis and colitis, unspecified (principal); Z79.82 Long term (current) use of aspirin; F17.210 Nicotine dependence, cigarettes, uncomplicated; I25.10 Atherosclerotic heart disease of native coronary artery without angina pectoris; J44.9 Chronic obstructive pulmonary disease, unspecified; I10 Essential (primary) hypertension
CPT/HCPCS: 71045; 74176; 80053; 81001; 83690; 85025; 93005; 96374; 96375; 99285; J0780; J1200; J1885; J7030

== ENCOUNTER 2024-11-29 13:14 | Emergency (ER) | payer BC, MEDICAID, SELFPAY ==
[2024-11-29 13:23] VITALS: BP 194/72; PULSE 57; RESP 18; TEMP 36.6; O2SAT 97
--- NOTE | 2024-11-29 13:30 | W.ED.EYEPROB ---
HPI - Eye Problem General: Chief complaint: Eye Problems Stated complaint: chemicals in eye Time Seen by Provider: 11/29/24 13:29 Source: patient Mode of arrival: ambulatory Limitations: no limitations History of Present Illness: Patient is a nice 54-year-old female presents to ED today for evaluation of right eye pain that began after she accidentally got countertop cleaner and polisher splashed into it. She states she irrigated her eye at home before seeking medical evaluation. She complains of eye redness, tearing, pain, and photophobia. MD chief complaint: eye pain, eye redness and vision change Onset (ago): hour(s) Onset description: sudden Duration: constant Location: right eye Eye Symptoms: burning, redness and pain Place: home Mechanism: chemical exposure Severity: moderate Associated symptoms: Reports no associated symptoms; Denies nausea or vomiting Treatments Prior to Arrival: irrigated eye Related Data Home Medications ?Medication ?Instructions ?Recorded ?Confirmed furosemide 40 mg tablet 40 mg PO DAILY 11/09/24 11/29/24 Previous Rx's ?Medication ?Instructions ?Recorded aspirin 81 mg tablet,delayed 81 mg PO QAM #90 tabs 07/31/23 release carvedilol 3.125 mg tablet 3.125 mg PO BID #60 tabs 07/01/24 clopidogrel 75 mg tablet 75 mg PO DAILY #90 tabs 07/01/24 isosorbide mononitrate 30 mg 30 mg PO DAILY #90 tabs 07/01/24 tablet,extended release 24 hr lisinopril 40 mg tablet 40 mg PO DAILY #90 tabs 07/01/24 magnesium L-lactate 84 mg 168 mg (2 x 84 mg) PO DAILY #90 07/12/24 tablet,extended release tabs albuterol sulfate 90 mcg/actuation 2 inh inhalation Q4H PRN shortness 07/13/24 aerosol inhaler of breath or wheezing #18 grams budesonide-formoterol HFA 160 1 puff inhalation Q12H PRN COPD 07/13/24 mcg-4.5 mcg/actuation aerosol #10.2 grams inhaler (Symbicort) potassium chloride 20 mEq See Rx Instructions .Route 08/04/24 tablet,extended release .COMPLEX #90 tabs nortriptyline 25 mg capsule 25 mg PO DAILY #30 caps 09/21/24 atorvastatin 40 mg tablet 40 mg PO QAM #90 tabs 11/01/24 ondansetron HCl 4 mg tablet 4 mg PO Q6H PRN nausea and 11/09/24 vomiting #20 tabs erythromycin 5 mg/gram (0.5 %) eye 1 applic ophthalmic (eye) Q4H 7 11/29/24 ointment (3.5 gram tube) days #1 g hydrocodone 5 mg-acetaminophen 325 1 tab PO Q4H PRN pain #14 tabs 11/29/24 mg tablet Allergies Allergy/AdvReac Type Severity Reaction Status Date / Time No Known Allergies Allergy Verified 08/16/24 13:33 Review of Systems Eyes: Reports: change in vision, photophobia, eye discomfort, eye discharge and eye redness; Denies: blind spots GI: Denies: nausea or vomiting PFSH ED PFSH: Medical History Encounter to establish care Encounter for smoking cessation counseling Chest pain Hypertensive urgency Smoker Unstable angina Bipolar disease, chronic History of seizure GERD (gastroesophageal reflux disease) Chest pain Coronary artery disease Hypertension Ischemic cardiomyopathy Tobacco abuse COPD (chronic obstructive pulmonary disease) Adult-onset obesity Acute anterior wall [place] 01/2014 Surgical History History of heart artery stent Hx of cholecystectomy Hx of tubal ligation Family History Grandmother Cancer Maternal cervical Father Cancer lung and throat Hyperlipidemia Hypertension Grandmother Cancer Paternal-unknown Sister Stroke Grandfather Cancer Paternal-brain Denies family history of Diabetes CAD (coronary artery disease) Clotting disorder Dementia Psychiatric illness Chronic kidney disease (CKD) Suicide Anesthesia complication Bleeding disorder Family history of premature coronary artery disease Lung disease Social History Smoking and tobacco/nicotine status: current every day tobacco/nicotine user cigarettes Packs smoked per day: 1 Second hand smoke exposure: No Alcohol intake: never Substance/Drug Use: never Lives independently: Yes Marital status: Single Number of children: 3 Current occupational status: employed Previous occupational history: [employer] Special shandra needs: No Agree to transfusion: Yes Physical Exam Const: COMMON NORMALS: average body habitus, no limitations, healthy appearing, alert and well nourished GENERAL APPEARANCE: cooperative and in distress (appears uncomfortable) HENMT: FACE & SINUS: normal facial exam Eye: COMMON NORMALS: Equal, round and reactive pupils present, EOMs intact bilaterally and no scleral icterus GENERAL EYE: normal light reflex VISUAL ACUITY: Yes acuity normal ALIGNMENT: Yes alignment normal PERIORBITAL: periorbital findings normal EYELID: eyelids normal CONJUNCTIVA: Yes conjunctival abnormal positive right conjunctival injection PUPIL: Yes Equal, round and reactive pupils present DIRECT OPHTHALMOSCOPY: Yes normal light reflex OTHER: R eye pH measured and initially 7.5-8.0; eye was copiously manually irrigated with approximately 300ml of NS; pH was re-measured and now 7.0 which matches unaffected eye; fluorescein stain used and shows a large conjunctival and small corneal area of uptake Neuro: SENSORIUM/ORIENTATION: Yes alert Course Vital Signs: Vital signs: Vital Signs Temperature 97.8 F 11/29/24 13:23 Pulse Rate 57 L 11/29/24 13:23 Respiratory Rate 18 11/29/24 13:23 Blood Pressure 194/72 11/29/24 13:23 Pulse Oximetry 97 11/29/24 13:23 Oxygen Delivery Me thod Room Air 11/29/24 13:23 MDM - Eye Problem Medical Decision Making Patient 54-year-old female came in with a chemical burn involving her right eye. Eye pH was initially elevated but this was manually irrigated to a normal pH. She does have a large amount of stain uptake involving her conjunctiva and small portion of her cornea. Spoke to Taj Craig PA-C and their office will see patient at 8 AM in the morning. He agreed with erythromycin ointment. No radiology studies performed this visit Discharge Plan Discharge Patient Disposition: Home Clinical Impression: Chemical burn of eyelid, right Qualifiers: Encounter type: initial encounter Qualified Code(s): T26.51XA - Corrosion of right eyelid and periocular area, initial encounter Condition: Stable Prescriptions: New erythromycin 5 mg/gram (0.5 %) ointment 1 applic ophthalmic (eye) Q4H 7 Days Qty: 1 0RF hydrocodone-acetaminophen 5-325 mg tablet 1 tab PO Q4H PRN (Reason: pain) Qty: 14 0RF No Action lisinopril 40 mg tablet 40 mg PO DAILY Qty: 90 3RF carvedilol 3.125 mg tablet 3.125 mg PO BID Qty: 60 0RF Rx Instructions: must administer with a meal/food clopidogrel 75 mg tablet 75 mg PO DAILY Qty: 90 0RF Rx Instructions: PATIENT MUST MAKE APPOINTMENT AND BE SEEN FOR FURTHER REFILLS isosorbide mononitrate 30 mg tablet extended release 24 hr 30 mg PO DAILY Qty: 90 2RF budesonide-formoterol [Symbicort] 160-4.5 mcg/actuation HFA aerosol inhaler 1 puff inhalation Q12H PRN (Reason: COPD) Qty: 10.2 2RF albuterol sulfate 90 mcg/actuation HFA aerosol inhaler 2 inh INHALATION Q4H PRN (Reason: shortness of breath or wheezing) Qty: 18 2RF magnesium L-lactate 84 mg tablet extended release 168 mg PO DAILY Qty: 90 0RF potassium chloride 20 mEq tablet extended release See Rx Instructions .ROUTE .COMPLEX Qty: 90 3RF Dose Instruction: TAKE 1 TABLET BY MOUTH EVERY DAY with lasix Rx Instructions: TAKE 1 TABLET BY MOUTH EVERY DAY with lasix nortriptyline 25 mg capsule 25 mg PO DAILY Qty: 30 0RF atorvastatin 40 mg tablet 40 mg PO QAM Qty: 90 3RF Rx Instructions: PATIENT MUST MAKE APPOINTMENT AND BE SEEN FOR FURTHER REFILLS furosemide 40 mg tablet 40 mg PO DAILY Rx Instructions: TAKE 1 TABLET BY MOUTH EVERY DAY ondansetron HCl 4 mg tablet 4 mg PO Q6H PRN (Reason: nausea and vomiting) Qty: 20 0RF aspirin 81 mg tablet,delayed release (DR/EC) 81 mg PO QAM Qty: 90 3RF Discharge Orders: Discharge ED (Routine); Ordered 11/29/24 Ordered By: Jennifer Padgett Referrals: Jossie Topete NP [Primary Care Provider] - Taj Meneses [Referring] - Patient Instructions: [facility], [facility] (ED) Activity Restrictions/Additional Instructions: As we discussed, Dr. Wood's office/Taj Meneses PA-C will see you tomorrow at 8 AM. Address and phone number has been attached to your discharge paperwork. As we discussed, you need to use the erythromycin is much as possible between now and your appointment in the morning. 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
[2024-11-29] MEDS: fluorescein 1 mg Strip EYE-RIGHT (13:42)
[2024-11-29] MEDS: erythromycin Op Oint 1 gm 1 APPLIC EYE-RIGHT (14:30)
[2024-11-29 14:52] VITALS: BP 196/78; PULSE 68; O2SAT 100
== END 2024-11-29 14:53 | disposition home or self-care (01) ==
PROVIDERS: Emergency Provider Physician Assistant
DX: T26.51XA Corrosion of right eyelid and periocular area, initial encounter (principal); X58.XXXA Exposure to other specified factors, initial encounter; Z79.02 Long term (current) use of antithrombotics/antiplatelets; Z79.82 Long term (current) use of aspirin; F17.210 Nicotine dependence, cigarettes, uncomplicated; I25.10 Atherosclerotic heart disease of native coronary artery without angina pectoris; J44.9 Chronic obstructive pulmonary disease, unspecified; I10 Essential (primary) hypertension
CPT/HCPCS: 99283

== ENCOUNTER → 2025-01-04 13:42 | Outpatient (BNVA) | payer SELFPAY | PROVIDERS: Visit Provider Emergency Medicine | DX: R10.9 Unspecified abdominal pain (principal) | CPT/HCPCS: 80053; 83690; 85025 ==

== ENCOUNTER 2025-02-03 11:25 | Inpatient (IN) | payer SELFPAY ==
[2025-02-03] VITALS (18 sets, daily range): BP systolic 114–199; BP diastolic 64–97; PULSE 47–71; RESP 11–21; TEMP 36.2–36.9; O2SAT 90–99; BMI 31.8; BMI 13.4
--- NOTE | 2025-02-03 11:31 | ECG_ITS ---
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 Measurements Intervals [place] Rate: 57 P: 74 TX: 190 QRS: -32 QRSD: 108 T: 109 QT: 455 QTc: 446 Interpretive Statements SINUS BRADYCARDIA POSSIBLE LEFT ATRIAL ENLARGEMENT [-0.1mV P-WAVE IN V1/V2] LEFT AXIS DEVIATION [QRS AXIS < -30] INCOMPLETE RIGHT BUNDLE BRANCH BLOCK [90+ ms QRS DURATION, TERMINAL R IN V1/V2, 40+ ms S IN I/aVL/V4/V5/V6] LEFT VENTRICULAR HYPERTROPHY AND ST-T CHANGE [VOLTAGE CRITERIA PLUS ST/T ABNORMALITY] POSSIBLE ANTEROSEPTAL MYOCARDIAL INFARCTION , OF INDETERMINATE AGE [30 ms Q WAVE IN V1-V4] Compared to ECG 11/09/2024 09:14:37 Left-axis deviation now present.Incomplete right bundle-branch block now present ST (T wave) deviation still present.Myocardial infarct finding still present Electronically Signed On 02-04-2025 10:36:56 CDT by Swati Daniels M.D. [email or web address] [id number]
--- NOTE | 2025-02-03 12:10 | XR_ITS ---
WS: [id number] Exam: XR chest 1V portable [id number] Date/Time of Exam: 02/03/2025 12:10 PM Reason For Exam: Chest pain Comparison 11/09/2024. Lungs are hyperinflated and clear. Normal cardiomediastinal silhouette. No pleural effusion. Bony structures are intact. XR/XR chest 1V portable [id number] IMPRESSION: 1. No acute process.
[2025-02-03 12:40] LABS: Basophils % 0.2 %; Eosinophils % 0.5 %; Hematocrit 45.6 % (36-47); Lymphocytes # 1.1 10^3/uL (0.8-4.8); Lymphocytes % 17.9 %; Mean Corpuscular Hemoglobin 31.5 pg (27-33); Mean Corpuscular Volume 98.5 fl (85-98); Monocytes # 0.3 10^3/uL (0.2-0.9); Monocytes % 4.9 %; Neutrophils # 4.65 10^3/uL (1.8-7.7); Neutrophils % 76.3 %; Nucleated Red Blood Cells % 0 %; Platelet Count 259 10^3/cmm (157-399); Red Blood Count 4.63 10^6/uL (3.85-5.65); Red Cell Distribution Width 14.8 % (12.1-15.1); White Blood Count 6.09 10^3/uL (3.29-11.43)
[2025-02-03] MEDS: aspirin 81 mg Chew Tablet 324 MG PO (12:55)
[2025-02-03] MEDS: ondansetron 2 mg/ML SDV 2 mL 4 MG IVP ×2 (12:55→15:08)
[2025-02-03] MEDS: nitroglycerin 0.4 mg sublingual Tablet SUBLINGUAL (12:55)
[2025-02-03 13:06] LABS: Troponin(5th) Baseline 13 ng/L (0-10)
--- NOTE | 2025-02-03 13:07 | W.ED.CHESTPA ---
HPI - Chest Pain General: Chief Complaint: Chest Pain Stated Complaint: chest pressure,abd pain, headache Time Seen by Provider: 02/03/25 12:34 History of Present Illness: 54-year-old female with history of coronary artery disease status post stents multiple times in the past, COPD, tobacco dependence, hypertension and hyperlipidemia who presents to the emergency room with chest pain. She reports a central chest pain that feels like something sitting on her chest. She also is complaining of a headache. Symptoms started last night and have been fluctuating in intensity. Related Data Home Medications ?Medication ?Instructions ?Recorded ?Confirmed furosemide 40 mg tablet 40 mg PO DAILY 11/09/24 02/03/25 hydroxyzine HCl 50 mg tablet 25 - 50 mg PO .bedtime PRN sleep 02/03/25 02/03/25 Previous Rx's ?Medication ?Instructions ?Recorded aspirin 81 mg tablet,delayed 81 mg PO QAM #90 tabs 07/31/23 release clopidogrel 75 mg tablet 75 mg PO DAILY #90 tabs 07/01/24 isosorbide mononitrate 30 mg 30 mg PO DAILY #90 tabs 07/01/24 tablet,extended release 24 hr lisinopril 40 mg tablet 40 mg PO DAILY #90 tabs 07/01/24 magnesium L-lactate 84 mg 168 mg (2 x 84 mg) PO DAILY #90 07/12/24 tablet,extended release tabs albuterol sulfate 90 mcg/actuation 2 inh inhalation Q4H PRN shortness 07/13/24 aerosol inhaler of breath or wheezing #18 grams budesonide-formoterol HFA 160 1 puff inhalation Q12H PRN COPD 07/13/24 mcg-4.5 mcg/actuation aerosol #10.2 grams inhaler (Symbicort) atorvastatin 40 mg tablet 40 mg PO QAM #90 tabs 11/01/24 carvedilol 6.25 mg tablet 6.25 mg PO BID #180 tabs 12/23/24 ondansetron 4 mg disintegrating 4 mg PO Q6H PRN nausea and 01/04/25 tablet vomiting #30 tabs icomxoxgv-ckvkfv-ocqcmmvw-scop 10 ml PO BID PRN indigestion #120 01/31/25 16.2 mg-0.1037 mg-0.0194 mg/5 mL mL elixir () Allergies Allergy/AdvReac Type Severity Reaction Status Date / Time No Known Allergies Allergy Verified 01/31/25 12:19 Review of Systems Narrative: Constitutional symptoms: Negative except as documented in HPI. Skin symptoms: Negative except as documented in HPI. Eye symptoms: Negative except as documented in HPI. ENMT symptoms: Negative except as documented in HPI. Respiratory symptoms: Negative except as documented in HPI. Cardiovascular symptoms: Negative except as documented in HPI. Gastrointestinal symptoms: Negative except as documented in HPI. Genitourinary symptoms: Negative except as documented in HPI. Musculoskeletal symptoms: Negative except as documented in HPI. Neurologic symptoms: Negative except as documented in HPI. Psychiatric symptoms: Negative except as documented in HPI. Endocrine symptoms: Negative except as documented in HPI. PFSH ED PFSH: Medical History Poor sleep pattern Encounter to establish care Encounter for smoking cessation counseling Chest pain Hypertensive urgency Smoker Unstable angina Bipolar disease, chronic History of seizure GERD (gastroesophageal reflux disease) Chest pain Coronary artery disease Hypertension Ischemic cardiomyopathy Tobacco abuse COPD (chronic obstructive pulmonary disease) Adult-onset obesity Acute anterior wall [place] 01/2014 Surgical History History of heart artery stent Hx of cholecystectomy Hx of tubal ligation Family History Grandmother Cancer Maternal cervical Father Cancer lung and throat Hyperlipidemia Hypertension Grandmother Cancer Paternal-unknown Sister Stroke Grandfather Cancer Paternal-brain Denies family history of Diabetes CAD (coronary artery disease) Clotting disorder Dementia Psychiatric illness Chronic kidney disease (CKD) Suicide Anesthesia complication Bleeding disorder Family history of premature coronary artery disease Lung disease Social History Smoking and tobacco/nicotine status: current every day tobacco/nicotine user cigarettes Packs smoked per day: 1 Second hand smoke exposure: No Alcohol intake: never Substance/Drug Use: never Lives independently: Yes Marital status: Single Number of children: 3 Current occupational status: employed Previous occupational history: [employer] Special shandra needs: No Agree to transfusion: Yes Physical Exam Narrative: EXAM NARRATIVE: General: Alert, no acute distress. Skin: Warm, dry. Head: Normocephalic, atraumatic. Neck: Supple, trachea midline. Eye: Extraocular movements are intact. Ears, nose, mouth and throat: mucosa moist. Cardiovascular: Regular, Normal peripheral perfusion. Respiratory: Lungs are clear to auscultation, respirations are non-labored, breath sounds are equal, Symmetrical chest wall expansion. Gastrointestinal: Soft, Nontender, Non distended Musculoskeletal: Normal ROM, no deformity. Neurological: Alert and oriented, No focal neurological deficit observed. Psychiatric: Cooperative, appropriate mood & affect. Course Vital Signs: Vital signs: Vital Signs Temperature 98.0 F 02/03/25 11:29 Pulse Rate 52 L 02/03/25 14:00 Respiratory Rate 20 H 02/03/25 15:08 Blood Pressure 143/86 02/03/25 14:00 Pulse Oximetry 98 02/03/25 15:08 Oxygen Delivery Me thod Room Air 02/03/25 12:35 MDM - Chest Pain Medical Decision Making Differential diagnosis for patient with chest pain includes but is not limited to and based on the above HPI, review of systems and physical exam: Pneumonia. unstable angina. angina. Acute coronary syndrome / [place]. Pulmonary embolism. Costochondritis / musculoskeletal. Pleurisy. Pericarditis. Esophageal spasm. Pancreatis. Cholecystitis. Orders placed to evaluate differential diagnosis based on the above differential, HPI and physical exam EKG: Time 1131. Rate 57. Sinus bradycardia, nonspecific ST changes, no ectopy, normal [place] & QRS intervals, This was reviewed and interpreted by myself the ER physician at 1137 Repeat EKG: Time 1420. Rate 49. Sinus bradycardia, nonspecific ST changes, no ectopy, normal [place] & QRS intervals, This was reviewed and interpreted by myself the ER physician at 1425. No significant changes other than heart rate has decreased slightly from previous EKG done in the emergency room today Chest x-ray: No acute process. No infiltrate. No pneumothorax. This was reviewed and interpreted by myself the emergency room physician. I also reviewed the radiology report. Lab Review: Laboratory results were reviewed and interpreted by myself the emergency room physician. No leukocytosis. No anemia. No renal failure. Initial troponin is 13 and follow-up is 16 with a delta of 3. proBNP is below her baseline at around 1500. I reviewed the patient's medical record. HEART Path[facility] All calculations should be rechecked by clinician prior to use RESULT SUMMARY: 6 points HEART Pathway Score High risk 12-65% 30-day MACE Admit to hospital or observation. Further testing indicated. INPUTS: History ?> 2 = Highly suspicious EKG ?> 1 = Non-specific repolarization disturbance Age ?> 1 = 45-64 Risk factors ?> 2 = >= risk factors or history of atherosclerotic disease Initial troponin ?> 0 = <=ormal limit Reexamination: Patient remained stable. No increased work of breathing. No altered mental status. No focal motor deficits. Still with some chest pain although it did improve some with nitro. Giving some morphine. She received Tylenol for headache. Consultation: I spoke with Dr. Nascimento who is on-call for the hospitalist service who agrees to admission Assessment and plan: Chest pain Coronary artery disease ?Nitro, aspirin, morphine, IV Tylenol -I discussed the patient with the hospitalist on-call who is admitting the patient. - Discussed findings and plan with patient. Answered any questions. - All laboratory values were reviewed and interpreted personally by myself, the ER physician - All imaging was reviewed and interpreted personally by myself, the ER physician. - Evaluation and treatment of this problem were appropriate in the emergency setting Lab Data 02/03/25 12:26 02/03/25 12:26 Radiology Impressions Chest X-Ray 02/03/25 12:10 IMPRESSION: 1. No acute process. Laboratory Results WBC 6.09 10^3/uL (3.29-11.43) 02/03/25 12: RBC 4.63 10^6/uL (3.85-5.65) 02/03/25 12:26 Hgb 14.60 g/dL (11.27-16.99) 02/03/25 12:26 Hct 45.6 % (36-47) 02/03/25 12:26 MCV 98.5 fl (85-98) H 02/03/25 12:26 MCH 31.5 pg (27-33) 02/03/25 12:26 MCHC 32.0 g/dL (30-55) 02/03/25 12:26 RDW 14.8 % (12.1-15.1) 02/03/25 12:26 Plt Count 259 10^3/cmm (157-399) 02/03/25 12:26 MPV 10.0 fL (7.4-10.4) 02/03/25 12: Neut % (Auto) 76.3 % 02/03/25 12: Lymph % (Auto) 17.9 % 02/03/25 12: [place] % (Auto) 4.9 % 02/03/25 12: Eos % (Auto) 0.5 % 02/03/25 12: Baso % (Auto) 0.2 % 02/03/25 12: Neut # (Auto) 4.65 10^3/uL (1.8-7.7) 02/03/25 12: Lymph # (Auto) 1.1 10^3/uL (0.8-4.8) 02/03/25 12: [place] # (Auto) 0.3 10^3/uL (0.2-0.9) 02/03/25 12: Eos # (Auto) 0.0 10^3/uL (0.0-0.8) 02/03/25 12: Baso # (Auto) 0.0 10^3/uL (0.0-0.1) 02/03/25 12: Nucleated RBC % (auto) 0 % 02/03/25 12: Nucleated RBCs # 0.0 /100WBC 02/03/25 12:26 Sodium 137 mmol/L (136-145) 02/03/25 12: Potassium 4.7 mmol/L (3.5-5.1) 02/03/25 12: Chloride 103 mmol/L (98-107) 02/03/25 12: Carbon Dioxide 24 mmol/L (22-29) 02/03/25 12:26 Anion Gap 14.7 (5-19) 02/03/25 12: BUN 15 mg/dL (6-20) 02/03/25 12:26 Creatinine 0.8 mg/dL (0.5-0.9) 02/03/25 12:26 GFR Calculation 74.7 mL/min (90-130) L 02/03/25 12:26 Glucose 109 mg/dL (65-115) 02/03/25 12: Calculated Osmolality 285 mOsm/kg (285-295) 02/03/25 12:26 Calcium 9.4 mg/dL (8.5-10.5) 02/03/25 12:26 Total Bilirubin 1.5 mg/dL (0.15-1.2) H 02/03/25 12:26 AST 17 U/L (0-32) 02/03/25 12:26 ALT 11 U/L (0-33) 02/03/25 12:26 Alkaline Phosphatase 87 U/L (35-105) 02/03/25 12:26 Troponin T Baseline 13 ng/L (0-10) H 02/03/25 12:26 Troponin T 120 Minute 15.84 ng/L (0-10) H 02/03/25 14:27 Delta Troponin T 2.84 ABS# (0-10) 02/03/25 14:27 NT-Pro-B Natriuret Pep 1634 pg/mL (0-125) H 02/03/25 12:26 Total Protein 7.6 g/dL (6.6-8.7) 02/03/25 12:26 Albumin 4.2 g/dL (3.5-5.2) 02/03/25 12:26 Globulin 3.4 g/dL (1.3-4.6) 02/03/25 12:26 Lipase 11 U/L (13-60) L 02/03/25 12:26 All radiology interpretation(s) finalized by discharge Clincial Decision Support The following clinical decision support tools were used to aid in care of the patient HEART Score -> History: Highly Suspicious, EKG: Non-specific Changes, Age: 45-64 yrs, Risk Factors: >/=3 Risk Factors, Troponin: Baseline Trop <16 ng/L. Resulting HEART Score: 6. Discharge Plan Discharge Patient Disposition: Placed in Observation Clinical Impression: Chest pain, Coronary artery disease Coding Level of Care Code ED Prosthetics Lab Technician for Annie Wright
[2025-02-03 13:15] LABS: Alanine Aminotransferase 11 U/L (0-33); Albumin Level 4.2 g/dL (3.5-5.2); Alkaline Phosphatase 87 U/L (35-105); Anion Gap 14.7 (5-19); Aspartate Amino Transferase 17 U/L (0-32); Blood Urea Nitrogen 15 mg/dL (6-20); Calcium 9.4 mg/dL (8.5-10.5); Carbon Dioxide 24 mmol/L (22-29); Chloride 103 mmol/L (98-107); Creatinine Clr Calc Pharmacy 81.3476; Globulin 3.4 g/dL (1.3-4.6); Glomerular Filtration Rate 74.7 mL/min (90-130); Glucose 109 mg/dL (65-115); Lipase 11 U/L (13-60); NT Pro B Type Natriuretic Pept 1634 pg/mL (0-125); Osmolality Calculated 285 mOsm/kg (285-295); Potassium 4.7 mmol/L (3.5-5.1); Sodium 137 mmol/L (136-145); Total Bilirubin 1.5 mg/dL (0.15-1.2); Total Protein 7.6 g/dL (6.6-8.7)
[2025-02-03] MEDS: acetaminophen 1,000 MG/100 ML PIGGYBACK 400 MG IV (14:07)
--- NOTE | 2025-02-03 14:20 | ECG_ITS ---
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 Measurements Intervals [place] Rate: 49 P: 65 TX: 187 QRS: -37 QRSD: 119 T: 127 QT: 495 QTc: 448 Interpretive Statements SINUS BRADYCARDIA POSSIBLE LEFT ATRIAL ENLARGEMENT [-0.1mV P-WAVE IN V1/V2] LEFT AXIS DEVIATION [QRS AXIS < -30] POSSIBLE RIGHT VENTRICULAR CONDUCTION DELAY [RSR (QR) IN V1/V2] LEFT VENTRICULAR HYPERTROPHY AND ST-T CHANGE [VOLTAGE CRITERIA PLUS ST/T ABNORMALITY] POSSIBLE ANTEROSEPTAL MYOCARDIAL INFARCTION , OF INDETERMINATE AGE [30 ms Q WAVE IN V1-V4] Compared to ECG 02/03/2025 11:31:45 Incomplete right bundle-branch block no longer present ST (T wave) deviation still present Myocardial infarct finding still present Electronically Signed On 02-04-2025 10:42:29 CDT by Swati Daniels M.D. [id number]
[2025-02-03 14:55] LABS: Troponin 5 2HR 15.84 ng/L (0-10); Troponin 5 2HR Delta 2.84 ABS# (0-10)
[2025-02-03] MEDS: morphine 4 mg/mL SDV 1 mL IVP (15:08)
--- NOTE | 2025-02-03 15:13 | USCV_ITS ---
Silvia Persaud Age: 54 Gender: F : 1970 Exam Date: 02/03/2025 16:02 Ordering Phys: Moreno Nascimento MD Technologist: CIERRA Exam Location: [facility] [place] Indication: SoB BP: 181 / 78 HR: 48 Rhythm: Sinus Technical Quality: Adequate MEASUREMENTS (Male / Female) Normal Values 2D ECHO LV Diastolic Diameter PLAX 4.8 cm 4.2 - 5.9 / 3.9 - 5.3 cm IVS Diastolic Thickness 1.1 cm 0.6 - 1.0 / 0.6 - 0.9 cm IVS Systolic Thickness 2.0 cm LVPW Diastolic Thickness 1.7 cm 0.6 - 1.0 / 0.6 - 0.9 cm LVPW Systolic Thickness 1.8 cm LVOT Diameter 1.8 cm LV Ejection Fraction 2D Teich 52.9 % LV Ejection Fraction MOD 4C 56.2 % LV Ejection Fraction MOD 2C 65.2 % LV Ejection Fraction 2C AL 64.5 % LA Diameter 2.8 cm RA Systolic Volume 4C AL 62.9 ml RA Systolic Volume 4C MOD 56.6 ml LA Sys Volume AL 51.8 cm cubed LA Sys Volume Index AL 26.8 cm cubed/m squared Aorta at Sinotubular Diameter 1.9 cm M-MODE LA Ao Ratio MM 1.7 AV Cusp Separation MM 1.1 cm DOPPLER AV Peak Velocity 203.7 cm/s LVOT Peak Velocity 159.0 cm/s AV Area Cont Eq vti 1.7 cm squared AV Area Cont Eq pk 1.9 cm squared MV Peak Velocity 124.0 cm/s MV Area PHT 2.1 cm squared Mitral E to A Ratio 0.5 TV Peak E Velocity 64.0 cm/s PV Peak Velocity 120.0 cm/s FINDINGS Left Ventricle Normal LV size with a slightly reduced ejection fraction of 50% (visual). Mild diffuse hypokinesis of the LV apex.Grade I/IV diastolic dysfunction (abnormal relaxation filling pattern), normal to mildly elevated filling pressures. Mild left ventricular hypertrophy. Right Ventricle Normal right ventricular size and systolic function. Right Atrium Normal right atrial size. Left Atrium Mildly increased left atrial size. Mitral Valve No gross abnormalities noted Aortic Valve Aortic leaflets could not visualized well. Elevated velocity across aortic valve Tricuspid Valve Tricuspid valve not well visualized. Pulmonic Valve Pulmonic valve not well visualized. Pericardium No pericardial effusion. Aorta Normal aortic annulus size. IVC Inferior vena cava not visualized. CONCLUSIONS Normal LV size with a slightly reduced ejection fraction of 50% (visual). Mild diffuse hypokinesis of the LV apex.Grade I/IV diastolic dysfunction (abnormal relaxation filling pattern), normal to mildly elevated filling pressures. Mild left ventricular hypertrophy. Mildly increased left atrial size. Elevated velocity across aortic valve.-Possible aortic valve sclerosis versus mild LV outflow obstruction. There is no pericardial effusion. Compared to the study from 07/31/2023, there may be a significant change in the 2D findings Dr Swati Daniels MD [facility] (Electronically Signed) Final Date: 03 February 2025 22:00 S
--- NOTE | 2025-02-03 16:56 | PM.HP ---
Providers/Chief Complaint Admitting Physician: Moreno Nascimento MD Primary Care Provider: Jossie Topete NP Chief Complaint: chest pressure,abd pain, headache History of Present Illness Silvia Persaud is a 54 year old female with a past medical history of hypertension, hyperlipidemia, CAD status post stenting, CHF, current smoker, COPD, history of marijuana use, who presents [facility] for chest pain. Patient reports anterior substernal chest pain today, she has been having chest pain on and off for the last few months, today the chest pain was much more severe, seemed like something sitting on her chest, no nausea, no diaphoresis, currently chest pain is minimal, 3 out of 10, she has received nitroglycerin, receiving morphine Review of Systems Const: Denies: fever(s) or chills Card: Reports: chest pain Resp: Denies: dyspnea Medications/Allergies Home Medications ?Medication ?Instructions ?Recorded ?Confirmed ?Last Taken ?Type aspirin 81 mg tablet,delayed 81 mg PO QAM #90 tabs 07/31/23 02/03/25 02/03/25 Rx release clopidogrel 75 mg tablet 75 mg PO DAILY #90 tabs 07/01/24 02/03/25 02/03/25 Rx isosorbide mononitrate 30 mg 30 mg PO DAILY #90 tabs 07/01/24 02/03/25 02/03/25 Rx tablet,extended release 24 hr lisinopril 40 mg tablet 40 mg PO DAILY #90 tabs 07/01/24 02/03/25 02/03/25 Rx magnesium L-lactate 84 mg 168 mg (2 x 84 mg) PO DAILY #90 07/12/24 02/03/25 02/03/25 Rx tablet,extended release tabs albuterol sulfate 90 mcg/actuation 2 inh inhalation Q4H PRN shortness 07/13/24 02/03/25 11/08/24 Rx aerosol inhaler of breath or wheezing #18 grams budesonide-formoterol HFA 160 1 puff inhalation Q12H PRN COPD 07/13/24 02/03/25 11/08/24 Rx mcg-4.5 mcg/actuation aerosol #10.2 grams inhaler (Symbicort) atorvastatin 40 mg tablet 40 mg PO QAM #90 tabs 11/01/24 02/03/25 02/03/25 Rx furosemide 40 mg tablet 40 mg PO DAILY 11/09/24 02/03/25 02/03/25 History carvedilol 6.25 mg tablet 6.25 mg PO BID #180 tabs 12/23/24 02/03/25 02/03/25 Rx ondansetron 4 mg disintegrating 4 mg PO Q6H PRN nausea and 01/04/25 02/03/25 Unknown Rx tablet vomiting #30 tabs ydzvsxkpz-joguvl-vaifkmyr-scop 10 ml PO BID PRN indigestion #120 01/31/25 02/03/25 Unknown Rx 16.2 mg-0.1037 mg-0.0194 mg/5 mL mL elixir () hydroxyzine HCl 50 mg tablet 25 - 50 mg PO .bedtime PRN sleep 02/03/25 02/03/25 Unknown History Allergies Allergy/AdvReac Type Severity Reaction Status Date / Time No Known Allergies Allergy Verified 01/31/25 12:19 PFSH Acute PFSH: Medical History Poor sleep pattern Encounter to establish care Encounter for smoking cessation counseling Chest pain Hypertensive urgency Smoker Unstable angina Bipolar disease, chronic History of seizure GERD (gastroesophageal reflux disease) Chest pain Coronary artery disease Hypertension Ischemic cardiomyopathy Tobacco abuse COPD (chronic obstructive pulmonary disease) Adult-onset obesity Acute anterior wall [place] 01/2014 Surgical History History of heart artery stent Hx of cholecystectomy Hx of tubal ligation Family History Grandmother Cancer Maternal cervical Father Cancer lung and throat Hyperlipidemia Hypertension Grandmother Cancer Paternal-unknown Sister Stroke Grandfather Cancer Paternal-brain Denies family history of Diabetes CAD (coronary artery disease) Clotting disorder Dementia Psychiatric illness Chronic kidney disease (CKD) Suicide Anesthesia complication Bleeding disorder Family history of premature coronary artery disease Lung disease Social History Smoking and tobacco/nicotine status: current every day tobacco/nicotine user cigarettes Packs smoked per day: 1 Second hand smoke exposure: No Alcohol intake: never Substance/Drug Use: never Lives independently: Yes Marital status: Single Number of children: 3 Current occupational status: employed Previous occupational history: [employer] Special shandra needs: No Agree to transfusion: Yes Vitals/I&O/Wt Last Vital Signs Temp 98.0 F 02/03/25 11:29 Pulse 55 L 02/03/25 16:53 Resp 21 H 02/03/25 16:53 BP 177/85 02/03/25 16:53 Pulse Ox 94 02/03/25 16:53 O2 Del Method Room Air 02/03/25 16:53 02/03/25 02/03/25 02/03/25 06:59 14:59 22:59 Intake Total 100 / 100 Balance 100 / 100 Weight last 48 hrs Weight 81.647 kg Physical Exam Const: COMMON NORMALS: no acute distress and patient oriented x3 HENMT: COMMON NORMALS: normocephalic HEAD & SCALP: normocephalic Neck/C-Spine: COMMON NORMALS: no JVD Resp: COMMON NORMALS: normal respiratory effort, No retractions, No use of accessory muscles and clear to auscultation bilaterally AUSCULTATION: crackles and wheezes Cardio: COMMON NORMALS: no JVD, regular rate, regular rhythm, S1 normal heart sound present and S2 normal heart sound present RATE: regular rate RHYTHM: regular rhythm HEART SOUNDS: S1 normal heart sound present and S2 normal heart sound present GI: COMMON NORMALS: Normal to inspection, nondistended, normoactive bowel sounds present, Soft to palpation, non-tender, No hepatosplenomegaly present, no masses and no bruits PALPATION: Yes Soft to palpation and Yes No hepatosplenomegaly present Extremity: COMMON NORMALS: no calf tenderness NARRATIVE EXTREMITY EXAM: 1+ edema Neuro: COMMON NORMALS: patient oriented x3, CN's II-XII intact bilaterally and moves all extremities Psych: COMMON NORMALS: mental status grossly normal Data 02/03/25 12:26 02/03/25 12:26 A&P Assessment and plan (1) Chest pain: (2) Combined systolic and diastolic cardiac dysfunction: Plan Chest pain - Serial EKGs, serial troponins, telemetry monitoring - Aspirin, statin, Plavix, beta-beth - Nitro as needed for chest pain - Morphine as needed - Cardiac echo - N.p.o. midnight - Cardiac stress test tomorrow morning Concerns for systolic diastolic CHF exacerbation, does have 1+ pitting edema lower extremities, scattered crackles on examination, will start Lasix 40 mg IV Full code Lovenox for DVT prophylaxis PDMP PDMP Reviewed: Not Reviewed Attestations Medical Necessity Statement*: Patient requires hospitalization, outpatient with observation, for chest pain, CHF exacerbation Diagnoses Chest pain R07.9 Combined systolic and diastolic cardiac dysfunction I51.89
--- NOTE | 2025-02-03 17:21 | ECG_ITS ---
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 Interpretive Statements Lung unchanged pre/post procedure; Intraprocedure shortess of breath; Symptoms resoled by discharge PROCEDURE: At the baseline, the EKG revealed sinus bradycardia with a poor R wave progression. Possible old septal TN. Diffuse nonspecific ST-T changes. Nonspecific IVCD. Voltage of anterior for LVH. The baseline heart was 50 bpm with a blood pressue of 132/70 mm of Hg Lexiscan was infused over a period of 20 seconds. A total of 0.4 milligrams of Lexiscan was infused. The stress phase was continued for a total of 5 minutes. Heart rate at the end of the stress phase was 78 bpm with a blood pressure 166/87 mm of Hg. The EKG at the peak infusion revealed no significant changes. Sestamibi was injected 20 seconds after the Lexiscan infusion. Heart rate at the end of the recovery phase was left anterior descending artery bpm with a blood pressure of 150/90 mm of Hg. CONCLUSION: 1. No significant EKG changes with the LexiScan infusion 2. No LexiScan induced chest pain or cardiac arrhythmia 3. Normal blood pressure and heart rate response 4. Sestamibi/sestamibi perfusion scan pending; see separate report. Electronically Signed On 02-06-2025 13:05:34 CDT by Swati Daniels M.D. [email or web address] [id number]
[2025-02-03] MEDS: enoxaparin 40 mg/0.4 mL Syringe SUBCUT (17:35)
[2025-02-03] MEDS: FUROsemide 10 mg/mL SDV 4mL 40 MG IVP (17:35)
[2025-02-03] MEDS: pantoprazole 40 mg SDV IVP (17:35)
[2025-02-03 17:59] LABS: Chol HDL Ratio 4.13 mg/dL (0.0-4.40); Cholesterol 132 mg/dL (0-200); HDL Cholesterol 32 mg/dL (60-100); LDL Cholesterol Calculated 79 mg/dL (50-129); LDL HDL Ratio 2.47 RATIO (0.00-3.22); Thyroid Stimulating Hormone 0.53 uIU/mL (0.27-4.20); Triglycerides 107 mg/dL (0-150)
--- NOTE | 2025-02-03 18:10 | ECG_ITS ---
[facility] Date: 2025-02-03 Pat Name: Silvia Persaud Department: Room: 112 Gender: Female Director Medical Affairs: : 1970 Requested By: Renetta Marino Order Number: [id number] Ana Laura MD: Swati Daniels M.D. Measurements Intervals [place] Rate: 49 P: 64 LA: 177 QRS: -24 QRSD: 145 T: 139 QT: 519 QTc: 469 Interpretive Statements SINUS BRADYCARDIA WITH OCCASIONAL VENTRICULAR PREMATURE COMPLEXES BORDERLINE LEFT AXIS DEVIATION [QRS AXIS < -20] INTRAVENTRICULAR CONDUCTION DELAY [130+ ms QRS DURATION] Anteroseptal VT Compared to ECG 02/03/2025 14:20:57 Ventricular premature complex(es) now present Intraventricular conduction delay now present Left ventricular hypertrophy no longer present ST (T wave) deviation no longer present Myocardial infarct finding no longer present Electronically Signed On 02-04-2025 10:41:27 CDT by Swati Daniels M.D. [id number] [id number]
[2025-02-03 18:53] LABS: Bilirubin Urine Negative (Negative); Blood Urine Trace (Negative); Glucose Urine UA Negative (Normal); Ketones Urine Negative (Negative); Leukocyte Esterase Urine Negative (Negative); Nitrate Urine Negative (Negative); Protein Urine Negative (Negative); Specific Gravity, Urine 1.014 (1.005-1.030); Urine Appearance Clear (CLEAR); Urine Color Yellow (Yellow); Urobilinogen Urine 0.2 mg/dL (Negative); pH Urine 5.5 (5-7)
[2025-02-03 18:58] LABS: Bacteria Urine None Seen /hpf; Hyaline Casts Urine 0-4 /lpf; RBC Urine 0-2 /hpf (0-2); Squamous Epithelial Cell Urine 0-5 /hpf (0-5); WBC Urine 0-5 /hpf (0-5)
[2025-02-03 19:30] LABS: Add Urine Culture? No
[2025-02-03 19:51] LABS: Troponin 5 6HR 17.33 ng/L (0-10); Troponin 5 6HR Delta 4.33 ng/L (0-12)
[2025-02-03] MEDS: morphine 4 mg/mL SDV 1 mL 2 MG IVP (20:42)
[2025-02-03 21:09] LABS: Estmated Average Glucose 117; Hemoglobin A1C 5.7 % (4.0-6.0)
[2025-02-04] VITALS (13 sets, daily range): BP systolic 94–164; BP diastolic 55–90; PULSE 47–80; RESP 11–23; TEMP 36.5–37; O2SAT 90–94
[2025-02-04] MEDS: morphine 4 mg/mL SDV 1 mL 2 MG IVP ×5 (02:48→22:45)
[2025-02-04 03:46] LABS: Alanine Aminotransferase 10 U/L (0-33); Albumin Level 4.2 g/dL (3.5-5.2); Alkaline Phosphatase 86 U/L (35-105); Anion Gap 17.3 (5-19); Aspartate Amino Transferase 17 U/L (0-32); Blood Urea Nitrogen 20 mg/dL (6-20); Calcium 9.2 mg/dL (8.5-10.5); Carbon Dioxide 24 mmol/L (22-29); Chloride 102 mmol/L (98-107); Creatinine Clr Calc Pharmacy 34.7692; Globulin 3.4 g/dL (1.3-4.6); Glomerular Filtration Rate 57.8 mL/min (90-130); Glucose 96 mg/dL (65-115); Osmolality Calculated 290 mOsm/kg (285-295); Phosphorus 4.3 mg/dL (2.5-4.5); Potassium 4.3 mmol/L (3.5-5.1); Sodium 139 mmol/L (136-145); Total Protein 7.6 g/dL (6.6-8.7)
[2025-02-04 03:47] LABS: NT Pro B Type Natriuretic Pept 1318 pg/mL (0-125)
[2025-02-04] MEDS: atorvastatin 40 mg Tablet PO (05:14)
[2025-02-04] MEDS: aspirin 81 mg EC Tablet PO (05:14)
[2025-02-04 06:37] LABS: Basophils % 0.5 %; Eosinophils % 0.2 %; Lymphocytes # 1.6 10^3/uL (0.8-4.8); Lymphocytes % 25.4 %; Mean Corpuscular HGB Conc 31.3 g/dL (30-55); Mean Corpuscular Hemoglobin 31.3 pg (27-33); Mean Platelet Volume 10.5 fL (7.4-10.4); Monocytes # 0.5 10^3/uL (0.2-0.9); Monocytes % 8.3 %; Neutrophils # 4.02 10^3/uL (1.8-7.7); Neutrophils % 65.4 %; Nucleated Red Blood Cells % 0 %; Platelet Count 235 10^3/cmm (157-399); Red Cell Distribution Width 14.9 % (12.1-15.1); White Blood Count 6.14 10^3/uL (3.29-11.43)
[2025-02-04] MEDS: regadenoson 0.4 Mg/5 ml Syringe IVP (07:09)
[2025-02-04] MEDS: ondansetron 2 mg/ML SDV 2 mL 4 MG IVP (07:18)
[2025-02-04] MEDS: clopidogrel 75 mg Tablet PO (08:43)
[2025-02-04] MEDS: carvedilol 6.25 mg Tablet PO ×2 (08:43→16:45)
[2025-02-04] MEDS: magnesium lactate 84 mg Tablet 168 MG PO (08:43)
[2025-02-04] MEDS: isosorbide mononitrate ER 30 mg Tablet PO (08:43)
--- NOTE | 2025-02-04 13:14 | P.CONIM_ITS ---
<Statement entered by Marbella Forbes MD - 02/04/25 19:38> Patient was evaluated and cared for in conjunction with an advanced practice practitioner. I personally examined the patient and reviewed the chart and all pertinent data including imaging, telemetry, and laboratory results. I discussed the patient in detail with the advanced practice practitioner. Please see their note for complete H&P testing result and agreed upon plan of care for the patient. Patient underwent stress test which showed old myocardial infarction with subtle ischemia however patient continues to have symptoms at rest chest pressure upon mild exertion she has chest pain and would not like to go home without having definite answer. According to the patient for the past couple of months she has been struggling with worsening of chest pain along with shortness of breath now to the extent that more frequently she get chest pressure at rest. Her presentation is very typical. Do stress test is not suggestive of moderate to large ischemia burden however given her presentation and history of multiple stents I have suspicion patient may have possible in-stent restenosis or any new blockages therefore will recommend proceeding with left heart cath tomorrow. GENERAL: Patient is alert, awake and oriented x3. HEART: Regular S1 and S2. No murmur, rub or gallop. LUNGS: Clear to auscultate bilaterally. CENTRAL NERVOUS SYSTEM: Grossly nonfocal. EXTREMITIES: Lower extremities with out edema bilaterally. Chest pain Abnormal stress test Ischemic cardiomyopathy Proceed with left heart cath tomorrow she will be n.p.o. overnight Providers/Reason For Consult 2 Consulting Physician/Specialty*: Marbella Forbes MD Reason for Consult*: Chest pain, history of CAD Requesting Physician: Dr. Nascimento Attending Physician: Moreno Nascimento MD Primary Care Provider: Jossie Topete NP History of Present Illness History of Present Illness Silvia Persaud is a 54 year old female who has a history of severe coronary artery disease status post stenting of the left circumflex with drug-eluting stent x 3, at the time RCA showed mild to moderate disease, LAD had moderate in- stent stenosis at that time. This was in 2022. She does currently smoke. History of hypertension, hyperlipidemia, and COPD. She came to the ER yesterday with a complaint of several days of chest pressure. She states it felt like elephant was sitting on her chest . She states this all started Friday and came and went. She states it originally woke her up in her sleep. She denies any aggravating factors. She states that the chest pressure did radiate to her neck. She states in the ER she was given nitro and her chest pressure improved. Tropes were mildly elevated at 13-15-17. proBNP elevated at 1318. Denies any shortness of breath or orthopnea at this time. Echo was done that showed EF 50% with mild diffuse hypokinesis of the left apex. Stress test showed myocardial perfusion imaging revealing moderate area of persistent decreased tracer uptake involving all apical segments and LV apex with a subtle area of reversibility suggesting myocardial scarring involving mostly the apical region with a subtle area of ischemia. There was diffuse severe hypokinesis of the left ventricular apex seen. Most recent EKG shows sinus bradycardia with occasional PVCs, no significant ST elevation or T wave abnormality seen. Creatinine is ok at 1.0. Review of Systems 2 Narrative: Consitutional: denies fever, chills, body aches, or changes in appetite, denies abnormal weight loss Eyes: Denies changes in vision Card: reports chest pressurex3 days, palpitations, irregular heart rhythm, edema, syncope, shortness of breath, orthopnea, leg pain with exertion Resp: Denies shortness of breath, denies hemoptysis, denies cough GI: denies abdominal pain, denies nausea or voimting, denies blood in stool : denies blood in urine, denies dysuria Musc: Denies extremity pain, denies limited range of motion or recent injury Skin: Denies rash, lesions, or wounds, denies changes to skin color Neuro: Denies nubmness in extremities, h/a, s/s of stroke Sandro: Denies easy bruiding/bleeding Medications/Allergies Home Medications ?Medication ?Instructions ?Recorded ?Confirmed ?Last Taken ?Type aspirin 81 mg tablet,delayed 81 mg PO QAM #90 tabs 02/03/25 02/03/25 Rx release clopidogrel 75 mg tablet 75 mg PO DAILY #90 tabs 06/1302/03/25 02/03/25 Rx isosorbide mononitrate 30 mg 30 mg PO DAILY #90 tabs 0 07/01/24 02/03/25 02/03/25 Rx tablet,extended release 24 hr lisinopril 40 mg tablet 40 mg PO DAILY #90 tabs 09/07/0602/03/25 02/03/25 Rx magnesium L-lactate 84 mg 168 mg (2 x 84 mg) PO DAILY #90 07/12/24 02/03/25 02/03/25 Rx tablet,extended release tabs albuterol sulfate 90 mcg/actuation 2 inh inhalation Q4 H PRN shortness 07/13/24 02/03/25 11/08/24 Rx aerosol inhaler of breath or wheezing #18 gr ams budesonide-formoterol HFA 160 1 puff inhalation Q12H P RN COPD 07/13/24 02/03/25 11/08/24 Rx mcg-4.5 mcg/actuation aerosol #10.2 grams inhaler (Symbicort) atorvastatin 40 mg tablet 40 mg PO QAM #90 tabs 02/03/25 02/03/25 Rx furosemide 40 mg tablet 40 mg PO DAILY 11/09/24 04/02/0402/03/25 History carvedilol 6.25 mg tablet 6.25 mg PO BID #180 tabs 02/03/25 02/03/25 Rx ondansetron 4 mg disintegrating 4 mg PO Q6H PRN nausea and 01/04/25 02/03/25 Unknown Rx tablet vomiting #30 tabs fptbvccib-jxriuf-uusgqotz-scop 10 ml PO BID PRN indige stion #120 01/31/25 02/03/25 Unknown Rx 16.2 mg-0.1037 mg-0.0194 mg/5 mL mL elixir () hydroxyzine HCl 50 mg tablet 25 - 50 mg PO .bedtime MS N sleep 02/03/25 02/03/25 Unknown History Allergies Allergy/AdvReac Type Severity Reaction Status Date / Time No Known Allergies Allergy Verified 01/31/25 12:19 Current Medications Generic Name Dose Route Start Last Admin Trade Name Freq PRN Reason Stop Dose Admin Aspirin 81 mg 02/04/25 06:00 02/04/25 05:14 Aspirin 81 Mg Ec Tablet PO 81 mg QAM LILLIE Administration Atorvastatin Calcium 40 mg 02/04/25 06:00 02/04/25 05:14 Atorvastatin 40 Mg Tablet PO 40 mg QAM LILLIE Administration Carvedilol 6.25 mg 02/03/25 18:00 02/04/25 08:43 Carvedilol 6.25 Mg Tablet PO 6.25 mg BID LILLIE Administration Clopidogrel Bisulfate 75 mg 02/04/25 09:00 02/04/25 08:43 Clopidogrel 75 Mg Tablet PO 75 mg DAILY LILLIE Administration Enoxaparin Sodium 40 mg 02/03/25 17:30 02/03/25 17:35 Enoxaparin 40 Mg/0.4 Ml Syringe SUBCUT 40 mg Q24H LILLIE Administration Isosorbide Mononitrate 30 mg 02/04/25 09:00 02/04/25 08:43 Isosorbide Mononitrate Er 30 Mg Tablet PO 30 mg DAILY LILLIE Administration Magnesium Lactate 168 mg 02/04/25 09:00 02/04/25 08:43 Magnesium Lactate 84 Mg Tablet PO 168 mg DAILY LILLIE Administration Morphine Sulfate 2 mg 02/03/25 17:21 02/04/25 13:10 Morphine 4 Mg/Ml Sdv 1 Ml IVP 2 mg Q4H PRN Administration SEVERE PAIN Ondansetron HCl 4 mg 02/04/25 06:47 02/04/25 07:18 Ondansetron 2 Mg/Ml Sdv 2 Ml IVP 4 mg Q2M PRN Administration NAUSEA Pantoprazole Sodium 40 mg 02/03/25 17:21 02/03/25 17:35 Pantoprazole 40 Mg Sdv IVP 40 mg Q24H LILLIE Administration PFSH Acute 2 PFSH: Medical History Poor sleep pattern Encounter to establish care Encounter for smoking cessation counseling Chest pain Hypertensive urgency Smoker Unstable angina Bipolar disease, chronic History of seizure GERD (gastroesophageal reflux disease) Chest pain Coronary artery disease Hypertension Ischemic cardiomyopathy Tobacco abuse COPD (chronic obstructive pulmonary disease) Adult-onset obesity Acute anterior wall [place] 01/2014 Surgical History History of heart artery stent Hx of cholecystectomy Hx of tubal ligation Family History Grandmother Cancer Maternal cervical Father Cancer lung and throat Hyperlipidemia Hypertension Grandmother Cancer Paternal-unknown Sister Stroke Grandfather Cancer Paternal-brain Denies family history of Diabetes CAD (coronary artery disease) Clotting disorder Dementia Psychiatric illness Chronic kidney disease (CKD) Suicide Anesthesia complication Bleeding disorder Family history of premature coronary artery disease Lung disease Social History Smoking and tobacco/nicotine status: current every day tobacco/nicotine user cigarettes Packs smoked per day: 1 Second hand smoke exposure: No Alcohol intake: never Substance/Drug Use: never Lives independently: Yes Marital status: Single Number of children: 3 Current occupational status: employed Previous occupational history: [employer] Special shandra needs: No Agree to transfusion: Yes Vitals/I&O/Wt Last Vital Signs Temp 97.7 F 02/04/25 12:00 Pulse 54 L 02/04/25 12:00 Resp 16 02/04/25 13:10 BP 111/56 02/04/25 12:00 Pulse Ox 91 02/04/25 12:00 O2 Del Method Room Air 02/04/25 12:00 02/03/25 02/04/25 02/04/25 22:59 06:59 14:59 Intake Total 340 / 340 0 / 340 360 / 360 Output Total 1620 / 1620 300 / 1920 300 / 300 Balance -1280 / -1280 -300 / -1580 60 / 60 Weight last 48 hrs Weight 165 lb 5.547 oz Weight 75 lb 8 oz Weight 180 lb Physical Exam 2 Narrative: General: No apparent distress, healthy appearing, well nourished HENMT: normoceophalic Neck: no carotid bruit bilaterally Muskuloskeletal: Full ROM Respiratory: Normal respiratory effort, clear to auscultation bilaterally throughout all lung hennessy, no use of accessory muscles Cardio: No JVD, regular rate, regular rhythm, S1 S2 normal, no murmurs, peripheral pulses 2+ radial palpated bilaterally GI: Normal to inspection, nondistended Extremities: Full ROM, normal, normal capillary refill, no cyanosis or edema Neuro: Alert and oriented x4, no focal motor deficits Psych: Affect normal, denies suicidal ideation, mental status grossly normal Skin: No rashes or lesions noted, no wounds Data 02/04/25 05:41 02/04/25 02:50 Other data: Stress test IMPRESSIONS 1. Myocardial perfusion imaging revealing moderate area of persistent decreased tracer uptake involving all apical segments and LV apex with a subtle area reversibility suggesting myocardial scarring involving mostly the apical region with a subtle area of ischemia 2. Diminished LV ejection fraction of 39%. 3. LV wall motion analysis revealing severe diffuse hypokinesia of the LV apex 4. Moderately dilated LV cavity with end-systolic volume of 107 mL Compared to the study from 08/18/2023, ischemic burden is less. LV ejection fraction has improved from 27% to 39%. LV systolic volume has decreased from 163 mL to 107 mL Echo complete CONCLUSIONS Normal LV size with a slightly reduced ejection fraction of 50% (visual). Mild diffuse hypokinesis of the LV apex.Grade I/IV diastolic dysfunction (abnormal relaxation filling pattern), normal to mildly elevated filling pressures. Mild left ventricular hypertrophy. Mildly increased left atrial size. Elevated velocity across aortic valve.-Possible aortic valve sclerosis versus mild LV outflow obstruction. There is no pericardial effusion. Compared to the study from 07/31/2023, there may be a significant change in the 2D findings A&P Assessment and plan (1) Chest pain: Qualifiers: Chest pain type: unspecified Qualified Code(s): R07.9 - Chest pain, unspecified (2) Hyperlipidemia: Qualifiers: Hyperlipidemia type: mixed hyperlipidemia Qualified Code(s): E78.2 - Mixed hyperlipidemia (3) Tobacco abuse: (4) Combined systolic and diastolic cardiac dysfunction: (5) Coronary artery disease: Qualifiers: Associated angina: with stable angina Coronary Disease-Associated Artery/Lesion type: sioux artery [place] vs. transplanted heart: sioux heart Qualified Code(s): I25.118 - Atherosclerotic heart disease of sioux coronary artery with other forms of angina pectoris Plan At this time, patient has typical signs and symptoms of acute coronary syndrome with typical chest pain. With mildly abnormal stress test and patient's symptoms, high suspicion is for worsening CAD. We have recommended patient go to the blood bank laboratory professional for possible PCI tomorrow morning around [address] Forbes reviewed the risk and benefits in detail with the patient. The risk of bleeding, hematoma, vascular injury, myocardial infarction, myocardial perforation, malignant cardiac arrhythmias ,CVA, renal failure and other concomitant complications were explained in detail. Patient agrees to proceed. PDMP PDMP Reviewed: Not Reviewed Consult Attestations 2 Medical Necessity Statement: Deferred to primary Coding Level of Care Code Acute Code for Chg Fwd Diagnoses Chest pain, unspecified type R07.9 Chest pain type: unspecified Mixed hyperlipidemia E78.2 Hyperlipidemia type: mixed hyperlipidemia Tobacco abuse Z72.0 Combined systolic and diastolic cardiac dysfunction I51.89 Coronary artery disease of sioux artery of sioux heart with stable angina pectoris I25.118 Associated angina: with stable angina Coronary Disease-Associated Artery/Lesion type: sioux artery [place] vs. transplanted heart: sioux heart
--- NOTE | 2025-02-04 16:15 | P.PN_ITS ---
Subjective 2 Subjective: Patient was seen this morning, she did report episode of chest pain during her stress test, currently chest pain-free, no nausea, vomiting Vitals/I&O/Wt Last Vital Signs Temp 97.7 F 02/04/25 12:00 Pulse 54 L 02/04/25 12:00 Resp 16 02/04/25 13:10 BP 111/56 02/04/25 12:00 Pulse Ox 91 02/04/25 12:00 O2 Del Method Room Air 02/04/25 12:00 02/04/25 02/04/25 02/04/25 06:59 14:59 22:59 Intake Total 0 / 340 360 / 360 Output Total 300 / 1920 500 / 500 Balance -300 / -1580 -140 / -140 Weight last 48 hrs Weight 75 kg Weight 34.246 kg Weight 81.647 kg Physical Exam 2 Const: COMMON NORMALS: no acute distress and patient oriented x3 Resp: COMMON NORMALS: normal respiratory effort, No retractions, No use of accessory muscles and clear to auscultation bilaterally AUSCULTATION: clear to auscultation bilaterally Cardio: COMMON NORMALS: regular rate, regular rhythm, S1 normal heart sound present and S2 normal heart sound present RATE: regular rate RHYTHM: r egular rhythm HEART SOUNDS: S1 normal heart sound present and S2 normal heart sound present GI: COMMON NORMALS: Normal to inspection, nondistended, normoactive bowel sounds present and non-tender Extremity: COMMON NORMALS: no pedal edema Neuro: COMMON NORMALS: patient oriented x3 Psych: COMMON NORMALS: mental status grossly normal Data 02/04/25 05:41 02/04/25 02:50 A&P Assessment and plan (1) Chest pain: (2) Combined systolic and diastolic cardiac dysfunction: Plan Chest pain - Serial EKGs, serial troponins, telemetry monitoring - Aspirin, statin, Plavix, beta-beth - Nitro as needed for chest pain - Morphine as needed - Cardiac echo CONCLUSIONS Normal LV size with a slightly reduced ejection fraction of 50% (visual). Mild diffuse hypokinesis of the LV apex.Grade I/IV diastolic dysfunction (abnormal relaxation filling pattern), normal to mildly elevated filling pressures. Mild left ventricular hypertrophy. Mildly increased left atrial size. Elevated velocity across aortic valve.-Possible aortic valve sclerosis versus mild LV outflow obstruction. There is no pericardial effusion. - Cardiac stress test IMPRESSIONS 1. Myocardial perfusion imaging revealing moderate area of persistent decreased tracer uptake involving all apical segments and LV apex with a subtle area reversibility suggesting myocardial scarring involving mostly the apical region with a subtle area of ischemia 2. Diminished LV ejection fraction of 39%. 3. LV wall motion analysis revealing severe diffuse hypokinesia of the LV apex 4. Moderately dilated LV cavity with end-systolic volume of 107 mL Compared to the study from 08/18/2023, ischemic burden is less. LV ejection fraction has improved from 27% to 39%. LV systolic volume has decreased from 163 mL to 107 mL Spoke to cardiology, n.p.o. midnight, for coronary angiography tomorrow morning- Concerns for systolic diastolic CHF exacerbation, does have 1+ pitting edema lower extremities, scattered crackles on examination, appears euvolemic hold off on Lasix therapy Full code Lovenox for DVT prophylaxis PDMP PDMP Reviewed: Not Reviewed Attestations 2 Medical Necessity Statement*: Patient requires hospitalization for chest pain proceeding with coronary angiography tomorrow, inpatient, greater than 2 midnights Diagnoses Chest pain R07.9 Combined systolic and diastolic cardiac dysfunction I51.89
[2025-02-04] MEDS: pantoprazole 40 mg SDV IVP (16:45)
[2025-02-04] MEDS: enoxaparin 40 mg/0.4 mL Syringe SUBCUT (16:45)
--- NOTE | 2025-02-04 17:21 | NMCV_ITS ---
NM liang perf SPECT r/s* [id number] Silvia Persaud Age: 54 Gender: F : 1970 Exam Date: 02/04/2025 06:40 Ordering Phys: Moreno Nascimento MD Technologist: CELESTE Venegas Exam Location: [facility] Indications: CP STRESS TEST Please see separate stress test report in [facility] for full findings IMAGE PROTOCOL Rest/Stress 1 Lexiscan Day Radiopharmaceutical Dose (mCi) Administration Site Administered by Rest: Tc-99m 11 IV Nancy Seble, SLAGGER Sestamibi Stress:Tc-99m 32.4 IV Nancy Seble, SLAGGER Sestamibi Rest: 04-Feb-2025 60 Discovery 630 Stress: 04-Feb-2025 30 Discovery 630 0.4mg Lexiscan. Supine position only as patient was unable to lay prone. SPECT RESULTS Technical Quality: Good Raw Data Analysis: Normal Image Corrections: No attenuation or motion correction applied Summed Stress Score: 11 Summed Rest Score: 12 Summed Difference Score: 1 PERFUSION FINDINGS Moderate area of moderate to severely decreases uptake involving all the apical segments the apical anterior, apical septal and LV apex. No reversibility was noted in this region. Slightly decreased tracer uptake was noted in the apical inferior and apical lateral segment with a subtle area of reversibility FUNCTIONAL RESULTS (calculated via Gated SPECT) Stress Image LV EF (%): 39 Stress EDV (mL):174 TID: 1.06 Stress ESV (mL):107 FUNCTIONAL FINDINGS: Segmental wall motion analysis revealed a severe diffuse hypokinesia with LV apex. IMPRESSIONS 1. Myocardial perfusion imaging revealing moderate area of persistent decreased tracer uptake involving all apical segments and LV apex with a subtle area reversibility suggesting myocardial scarring involving mostly the apical region with a subtle area of ischemia 2. Diminished LV ejection fraction of 39%. 3. LV wall motion analysis revealing severe diffuse hypokinesia of the LV apex 4. Moderately dilated LV cavity with end-systolic volume of 107 mL Compared to the study from 08/18/2023, ischemic burden is less. LV ejection fraction has improved from 27% to 39%. LV systolic volume has decreased from 163 mL to [address] Swati Daniels MD FAC (Electronically Signed) Final Date: 04 February 2025 10:48 S
[2025-02-04] MEDS: nitroglycerin 0.4 mg sublingual Tablet SUBLINGUAL (21:35)
[2025-02-05] VITALS (29 sets, daily range): BP systolic 110–181; BP diastolic 53–87; PULSE 46–56; RESP 15–25; TEMP 36.6–37.2; O2SAT 91–95
[2025-02-05] MEDS: morphine 4 mg/mL SDV 1 mL 2 MG IVP ×3 (03:42→16:30)
[2025-02-05 05:43] LABS: Alanine Aminotransferase 10 U/L (0-33); Alkaline Phosphatase 78 U/L (35-105); Blood Urea Nitrogen 21 mg/dL (6-20); Calcium 9.1 mg/dL (8.5-10.5); Carbon Dioxide 25 mmol/L (22-29); Chloride 101 mmol/L (98-107); Creatinine Clr Calc Pharmacy 77.9733; Glomerular Filtration Rate 74.7 mL/min (90-130); Glucose 106 mg/dL (65-115); Magnesium 1.9 mg/dL (1.7-2.3); Osmolality Calculated 289 mOsm/kg (285-295); Phosphorus 3.9 mg/dL (2.5-4.5); Sodium 138 mmol/L (136-145); Total Bilirubin 0.9 mg/dL (0.15-1.2)
[2025-02-05 05:49] LABS: Anion Gap 16.6 (5-19); Potassium 4.6 mmol/L (3.5-5.1)
[2025-02-05 05:50] LABS: Aspartate Amino Transferase 16 U/L (0-32)
[2025-02-05] MEDS: atorvastatin 40 mg Tablet PO (06:03)
[2025-02-05] MEDS: aspirin 81 mg EC Tablet PO (06:03)
[2025-02-05] MEDS: sodium chloride 0.9% 1,000 ML 50 ML IV (06:03)
[2025-02-05] MEDS: ondansetron 2 mg/ML SDV 2 mL 4 MG IVP (06:16)
[2025-02-05] MEDS: clopidogrel 75 mg Tablet PO (08:04)
[2025-02-05] MEDS: carvedilol 6.25 mg Tablet PO (08:04)
[2025-02-05] MEDS: isosorbide mononitrate ER 30 mg Tablet PO (08:04)
[2025-02-05] MEDS: diphenhydrAMINE 50 mg Capsule PO (08:04)
--- NOTE | 2025-02-05 08:34 | XACV_ITS ---
Exam Room: 2 Ht: 160 cm Wt: 77 kg BSA: 1.88 m2 Gender: Female : 1970 Any Known Allergies: No known allergies Exam Priority: Routine Procedure(s): Procedure Description: Diagnostic procedure Procedure Description: Left Heart Catheterization Procedure Description: Coronary Angiography MARYAndrei SCHROEDER; Diagnostic Cath Status: Elective Conclusions 1. Indication: Persistent chest pain on agiv-mg-fgnufawn exertion suspicious for unstable angina despite of optimization of medicine. #1 No left main separate ostia #2 LAD has luminal irregularity without significant stenosis proximal stent in the LAD is patent with 50 to 60% in-stent restenosis does not appear to be significant #3 Left circumflex is large caliber size dominant vessel without significant stenosis #4 RCA has luminal irregularity without significant stenosisLeft ventricle end-diastolic pressure is within normal limit of 15 mmHg. Recommendations * Continue medical management. Diagnostic RX Recommendation: medical therapy and/or counseling Pressures Phase:Rest AO : 125 / 89 ( 107 ) @ 10:42:00 AM 174 / 82 ( 115 ) @ 10:46:00 AM 172 / 56 ( 94 ) @ 10:46:00 AM LV : 174 / 5 / 15 @ 10:45:00 AM 187 / 7 / 21 @ 10:46:00 AM Clinical Evaluation EBL: 5mL-10mL Procedural Details Procedure Consent Obtained. Current Diagnosis : Chest Pain. Pre-Procedure Time Out. Identified patient by full name and date of as verbalized by the patient/guarantor. Does the consent match the physician's order: Yes. Accurate & Complete Informed Consent: Yes. Inpatient/Outpatient History & Physical on Chart: Yes. If H&P is completed, is and addenduem needed: No; If yes, is the addendum complete: N/A. Visualize and Verify Site with Patient/Guarantor: N/A. Relevant Radiology Images available: Yes. Pre-op teaching completed and patient verbalized understanding. The risks, benefits, and alternatives of sedation and/or procedure were discussed by physician. The patient agrees to continue. Procedure started. [facility] Clinical Fraility Score: 3: Managing Well. 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 Chest Pain Symptom Assessment: Typical Angina Symptoms. Correct patient, site and procedure confirmed by cath team. Current diagnosis: Chest Pain. PERRLA. Strong, equal hand irrigation installation specialist bilaterally. Lungs clear x 5 lobes. IV Site on Arrival: 20 gauge in the left forearm. IV Fluids: 0.9% NaCl at KVO. 0 mL infused prior to oven laborer. Pre Procedural Pulses: right radial was 1+. Oxygen started at 2liters/min via nasal canula. right groin was prepped with chloroprep then draped in the usual sterile fashion. right radial was prepped with chloroprep then draped in the usual sterile fashion. Physician notified. Baseline sample Acquired. HR: 50 BPM. Physician arrived. Physician scrubbed in. Immediate Pre-Procedure Time Out. Correct Patient: Yes; Correct Procedure: Yes; Correct Site: Yes; Correct Patient Position: Yes; Correct Supplies: Yes; Dried Flammable Prep: Yes; Blood Products Available: N/A;. Lidocaine 1% infiltrated to the right radial. Unable to obtain radial access. MD attempting to gain access in the Femoral artery. Lidocaine 1% infiltrated to the right groin. Arterial access obtained with micropuncture set. A Right femoral angiogram was performed to determine safe placement of closure device. A 5 [place] JL4 catheter in over wire. Multiple views taken of left coronary artery. Physician review of cine films. Catheter removed over the standard wire. A 5 [place] JR4 catheter in over wire. EDP Sample taken: LV 174/5,15; HR: 61 BPM; SpO2: 98%. EDP Sample taken: LV 187/7,21; HR: 40 BPM; SpO2: 96%. Pullback taken: LV Off; AO Off; Mean: , Peak to Peak: , SEP: ; HR: 49 BPM; SpO2: 97%. Multiple views taken of right coronary artery. Catheter removed over the standard wire. Lidocaine 1% infiltrated to the right groin. A Angio-Seal VIP ([facility]) Lot# [id number] was successful obtaining hemostatsis at the Right Femoral artery insertion site. Vital chart was stopped. Post Procedure: Pulses reassessed and unchanged. PERRLA. Strong, equal hand irrigation installation specialist bilaterally. No VTE prophylaxis required. Medication's Wasted: Lidocaine 1% = 10 mL. Medication's Wasted: Nitro = 50 mcg. Medication's Wasted: Heparin = 1000 units. Medication's Wasted: Other = Fentanyl 75mcg Versed 1 mg. Total IV fluids: 45 mL. Complications: None. Post-op diagnosis: Non-obstructive CAD. Estimated blood loss: 5mL-10mL. Responsiveness - Normal response to verbal stimuli; alert and oriented, PERRLA. Airway - Unaffected, no intervention required; spontaneous ventilation. Circulation: W/N/L, pulses unchanged. Nausea/Vomiting: No. Procedure completed. Patient transferred by bed to 1st floor. Access Site Site: Right Femoral artery Sheath Size: 6 Fr Hemostasis Method: Angio-Seal VIP ([facility]) Hemostasis Success: Successful Procedure Medications Start: 9:12 AM Stop: 9:12 AM Medication: Versed Amount: 1 mg Route: I.V. Start: 9:12 AM Stop: 9:12 AM Medication: Fentanyl Amount: 50 mcg Route: I.V. Start: 9:13 AM Stop: 9:13 AM Medication: Zofran (ondansetron) Amount: 4 mg Route: I.V. Start: 9:20 AM Stop: 9:20 AM Medication: Versed 1 mg and Fentanyl 25 mcg Amount: 1 Route: I.V. Start: 9:25 AM Stop: 9:25 AM Medication: Versed 1 mg and Fentanyl 25 mcg Amount: 1 Route: I.V. Start: 9:29 AM Stop: 9:29 AM Medication: Benadryl Amount: 25 mg Route: I.V. Start: 9:45 AM Stop: 9:45 AM Medication: Fentanyl Amount: 25 mcg Route: I.V. I, the attending physician, have reviewed and verified all procedure medications. Yes, all medications given per verbal order History/Risk Factors Hypertension: No Dyslipidemia: Yes Peripheral Arterial Disease (PAD): No Myocardial Infarction (ND): No Obesity: No Renal Disease: No Tobacco Use: Current/Recent(w/in 1 year) Prior Interventions PCI: Yes CABG: No Valve Surgery: No Report Signatures Finalized by Marbella Frobes MD on 02/05/2025 01:21 PM
--- NOTE | 2025-02-05 09:14 | W.PM.OPSUD ---
Surgery/Procedure H&P Update DATE OF PROCEDURE: February 05, 2025 DATE H&P PERFORMED: 02/04/25 H&P UPDATE INFORMATION: I have reviewed H&P completed within last 30 days, I have examined patient prior to procedure and No changes to prior documentation PREOP DIAGNOSIS: Unstable angina PRIMARY INDICATION FOR PROCEDURE: Coronary artery disease history of multiple stents worsening of angina PLANNED PROCEDURE: Operation Date: 02/05/25 09:00 Proposed Procedures p Cardiac Catheterization(Left) - Marbella Forbes MD PATIENT REASSESSED PRIOR TO SEDATION, WITH NO CHANGE NOTED: Yes PHYSICAL EXAM: alert, oriented x 3, clear to auscultation bilaterally, regular rate & rhythm and operative site marked AIRWAY EVAL/ANESTHESIA PLAN: ASA II, Risks, benefits & alternatives of sedation and/or procedure discussed and Patient agrees to continue as planned ADDITIONAL INFORMATION: Patient has been explained all risk-benefit and alternative for the procedure. Patient understand 2% risk of stroke major bleed, patient understand 5% risk of contrast-induced nephropathy pseudoaneurysm urgent emergent bypass surgery vascular surgery hematoma and laceration. Patient would like to proceed with it.
[2025-02-05] MEDS: sodium chloride 0.9% 1,000 ML 100 ML IV (10:00)
--- NOTE | 2025-02-05 10:04 | PM.PROC ---
Procedure Note: Date of procedure: 02/05/25 Pre-procedure diagnosis: Angina/coronary artery disease Post-procedure diagnosis: same Procedure: Patent previously placed LAD stent with less than 50% mild to moderate in-stent restenosis not significant LAD and circumflex are separate ostium Mid to distal LAD has luminal irregularities Left circumflex is luminal irregularity there is a dominant vessel RCA is nondominant vessel with medium caliber has luminal irregularity with 20 to 30% stenosis in the entire length which is not significant Left ventricular end-diastolic pressure was within normal limit of less than 15 mmHg Plan: Medical management Advise quitting smoking IV fluid 100 mL/h for 5 hours Bedrest with Angio-Seal in place 4 hours Coding Level of Care Code Acute Code for Annie Fwd
--- NOTE | 2025-02-05 10:06 | P.PN_ITS ---
Subjective 2 Subjective: Patient underwent left heart catheterization noted to have diffuse luminal irregularity without significant stenosis of the coronary arteries. LAD stent has less than 50% in-stent restenosis which is not significant and may not be causing any problem. Vitals/I&O/Wt Last Vital Signs Temp 98.7 F 02/05/25 07:50 Pulse 50 L 02/05/25 07:50 Resp 18 02/05/25 07:50 BP 181/87 02/05/25 07:50 Pulse Ox 95 02/05/25 07:50 O2 Del Method Room Air 02/05/25 07:50 02/04/25 02/05/25 02/05/25 22:59 06:59 14:59 Intake Total 120 / 480 Output Total 675 / 1175 Balance 120 / -20 -675 / -695 Weight last 48 hrs Weight 170 lb 10.205 oz Weight 165 lb 5.547 oz Weight 75 lb 8 oz Weight 180 lb Physical Exam 2 Const: COMMON NORMALS: alert HENMT: OTHER: GENERAL: Patient is alert, awake and oriented x3. HEART: Regular S1 and S2. No murmur, rub or gallop. LUNGS: Clear to auscultate bilaterally. CENTRAL NERVOUS SYSTEM: Grossly nonfocal. EXTREMITIES: Lower extremities with out edema bilaterally. Resp: COMMON NORMALS: clear to auscultation bilaterally AUSCULTATION: clear to auscultation bilaterally Neuro: SENSORIUM/ORIENTATION: Yes alert Data 02/04/25 05:41 02/05/25 04:17 A&P Assessment and plan (1) Chest pain: Qualifiers: Chest pain type: unspecified Qualified Code(s): R07.9 - Chest pain, unspecified (2) Hyperlipidemia: Qualifiers: Hyperlipidemia type: mixed hyperlipidemia Qualified Code(s): E78.2 - Mixed hyperlipidemia (3) Tobacco abuse: (4) Combined systolic and diastolic cardiac dysfunction: (5) Coronary artery disease: Qualifiers: Associated angina: with stable angina Coronary Disease-Associated Artery/Lesion type: [place] artery [place] vs. transplanted heart: [place] heart Qualified Code(s): I25.118 - Atherosclerotic heart disease of [place] coronary artery with other forms of angina pectoris Plan Left heart catheterization as above has no significant obstructive disease patent previously placed LAD stent with minimal in-stent restenosis LCx and RCA has no significant disease Continue medical management Add isosorbide mononitrate to the regimen Advise quitting smoking After completing bedrest which is 4 to 5 hours from cardiovascular perspective patient can be discharged home. Follow-up with cardiology as scheduled PDMP PDMP Reviewed: Not Reviewed Attestations 2 Medical Necessity Statement*: As per medicine Coding Level of Care Code Acute Code for Chg Fwd Diagnoses Chest pain, unspecified type R07.9 Chest pain type: unspecified Mixed hyperlipidemia E78.2 Hyperlipidemia type: mixed hyperlipidemia Tobacco abuse Z72.0 Combined systolic and diastolic cardiac dysfunction I51.89 Coronary artery disease of [place] artery of [place] heart with stable angina pectoris I25.118 Associated angina: with stable angina Coronary Disease-Associated Artery/Lesion type: [place] artery [place] vs. transplanted heart: [place] heart
[2025-02-05] MEDS: magnesium lactate 84 mg Tablet 168 MG PO (11:02)
--- NOTE | 2025-02-05 11:05 | P.DS_ITS ---
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 transplanted heart: [place] heart Qualified Code(s): I25.118 - Atherosclerotic heart disease of [place] coronary artery with other forms of angina pectoris Reason for Visit Reason for Visit: chest pressure,abd pain, headache Hospital Course Hospital Course Silvia Persaud is a 54 year old female with a past medical history of hypertension, hyperlipidemia, CAD status post stenting, CHF, current smoker, COPD, history of marijuana use, who presents [facility] for chest pain. Patient reports anterior substernal chest pain today, she has been having chest pain on and off for the last few months, today the chest pain was much more severe, seemed like something sitting on her chest, no nausea, no diaphoresis, currently chest pain is minimal, 3 out of 10, she has received nitroglycerin, receiving morphine Patient was admitted to [facility] for chest pain - Serial EKGs, serial troponins, telemetry monitoring - Aspirin, statin, Plavix, beta-beth - Nitro as needed for chest pain - Morphine as needed - Cardiac echo CONCLUSIONS Normal LV size with a slightly reduced ejection fraction of 50% (visual). Mild diffuse hypokinesis of the LV apex.Grade I/IV diastolic dysfunction (abnormal relaxation filling pattern), normal to mildly elevated filling pressures. Mild left ventricular hypertrophy. Mildly increased left atrial size. Elevated velocity across aortic valve.-Possible aortic valve sclerosis versus mild LV outflow obstruction. There is no pericardial effusion. - Cardiac stress test IMPRESSIONS 1. Myocardial perfusion imaging revealing moderate area of persistent decreased tracer uptake involving all apical segments and LV apex with a subtle area reversibility suggesting myocardial scarring involving mostly the apical region with a subtle area of ischemia 2. Diminished LV ejection fraction of 39%. 3. LV wall motion analysis revealing severe diffuse hypokinesia of the LV apex 4. Moderately dilated LV cavity with end-systolic volume of 107 mL Compared to the study from 08/18/2023, ischemic burden is less. LV ejection fraction has improved from 27% to 39%. LV systolic volume has decreased from 163 mL to 107 mL Spoke to cardiology, patient underwent coronary angiography, previously placed LAD stent with less than 50% mild to moderate in-stent restenosis not significant LAD and circumflex are separate ostium Mid to distal LAD has luminal irregularities Left circumflex is luminal irregularity there is a dominant vessel RCA is nondominant vessel with medium caliber has luminal irregularity with 20 to 30% stenosis in the entire length which is not significant -Will be discharged home with close follow-up with cardiology as outpatient Physical Exam Const: COMMON NORMALS: no acute distress and patient oriented x3 Resp: COMMON NORMALS: normal respiratory effort, No retractions, No use of accessory muscles and clear to auscultation bilaterally AUSCULTATION: clear to auscultation bilaterally Cardio: COMMON NORMALS: regular rate, regular rhythm, S1 normal heart sound present and S2 normal heart sound present RATE: regular rate RHYTHM: regular rhythm HEART SOUNDS: S1 normal heart sound present and S2 normal heart sound present GI: COMMON NORMALS: Normal to inspection, nondistended, normoactive bowel sounds present and non-tender Extremity: COMMON NORMALS: no pedal edema Neuro: COMMON NORMALS: patient oriented x3 Psych: COMMON NORMALS: mental status grossly normal Discharge Data Studies Completed and Pending Completed Studies During Hospitalization Category Date Time Status Sestamibi Stress Test Request Routine Exams 02/03/25 17:21 Draft XR chest 1V portable [id number] Stat Exams 02/03/25 12:10 Completed NM liang perf SPECT r/s* [id number] Routine Nuc Med 02/04/25 17:21 Completed CV. echo complete* [id number] Stat Ultrasound 02/03/25 15:13 Completed Pending at discharge Category Date Time Status [employer] request for service Routine Exams 02/05/25 08:34 Ordered Complete Blood Count w/Auto AM LABS Lab 02/06/25 04:00 Ordered Complete Blood Count w/Auto Routine Lab 02/05/25 05:28 Ordered Comprehensive Metabolic Panel AM LABS Lab 02/06/25 04:00 Ordered Magnesium AM LABS Lab 02/06/25 04:00 Ordered Phosphorus AM LABS Lab 02/06/25 04:00 Ordered Urinalysis Routine Lab 02/03/25 17:21 Ordered Radiology Impressions Chest X-Ray 02/03/25 12:10 IMPRESSION: 1. No acute process. Laboratory Results WBC Cancelled 02/05/25 04:17 Corrected WBC Cancelled 02/05/25 04:17 RBC Cancelled 02/05/25 04:17 Hgb Cancelled 02/05/25 04:17 Hct Cancelled 02/05/25 04:17 MCV Cancelled 02/05/25 04:17 MCH Cancelled 02/05/25 04:17 MCHC Cancelled 02/05/25 04:17 RDW Cancelled 02/05/25 04:17 Plt Count Cancelled 02/05/25 04:17 MPV Cancelled 02/05/25 04:17 Gran % Cancelled 02/05/25 04:17 Neut % (Auto) Cancelled 02/05/25 04:17 Lymph % (Auto) Cancelled 02/05/25 04:17 [place] % (Auto) Cancelled 02/05/25 04:17 Eos % (Auto) Cancelled 02/05/25 04:17 Baso % (Auto) Cancelled 02/05/25 04:17 Neut # (Auto) Cancelled 02/05/25 04:17 Lymph # (Auto) Cancelled 02/05/25 04:17 [place] # (Auto) Cancelled 02/05/25 04:17 Eos # (Auto) Cancelled 02/05/25 04:17 Baso # (Auto) Cancelled 02/05/25 04:17 Absolute Gran (auto) Cancelled 02/05/25 04:17 Nucleated RBC % (auto) Cancelled 02/05/25 04:17 Nucleated RBCs # Cancelled 02/05/25 04:17 Sodium 138 mmol/L (136-145) 02/05/25 04:17 Potassium 4.6 mmol/L (3.5-5.1) 02/05/25 04:17 Chloride 101 mmol/L (98-107) 02/05/25 04:17 Carbon Dioxide 25 mmol/L (22-29) 02/05/25 04:17 Anion Gap 16.6 (5-19) 02/05/25 04:17 BUN 21 mg/dL (6-20) H 02/05/25 04:17 Creatinine 0.8 mg/dL (0.5-0.9) 02/05/25 04:17 GFR Calculation 74.7 mL/min (90-130) L 02/05/25 04:17 Glucose 106 mg/dL (65-115) 02/05/25 04:17 Estimat Average Glucose 117 02/03/25 12:26 Hemoglobin A1c 5.7 % (4.0-6.0) 02/03/25 12:26 Calculated Osmolality 289 mOsm/kg (285-295) 02/05/25 04:17 Calcium 9.1 mg/dL (8.5-10.5) 02/05/25 04:17 Phosphorus 3.9 mg/dL (2.5-4.5) 02/05/25 04:17 Magnesium 1.9 mg/dL (1.7-2.3) 02/05/25 04:17 Total Bilirubin 0.9 mg/dL (0.15-1.2) 02/05/25 04:17 AST 16 U/L (0-32) 02/05/25 04:17 ALT 10 U/L (0-33) 02/05/25 04:17 Alkaline Phosphatase 78 U/L (35-105) 02/05/25 04:17 Troponin T Baseline 13 ng/L (0-10) H 02/03/25 12:26 Troponin T 120 Minute 15.84 ng/L (0-10) H 02/03/25 14:27 Delta Troponin T 2.84 ABS# (0-10) 02/03/25 14:27 Troponin T Hi Sens 6Hr 17.33 ng/L (0-10) H 02/03/25 19:23 Troponin T Hi Sens 6Hr Delta 4.33 ng/L (0-12) 02/03/25 19:23 NT-Pro-B Natriuret Pep 1318 pg/mL (0-125) H 02/04/25 02:50 Total Protein 7.0 g/dL (6.6-8.7) 02/05/25 04:17 Albumin 4.0 g/dL (3.5-5.2) 02/05/25 04:17 Globulin 3.0 g/dL (1.3-4.6) 02/05/25 04: Triglycerides 107 mg/dL (0-150) 02/03/25 12: Cholesterol 132 mg/dL (0-200) 02/03/25 12: LDL Cholesterol, Calc 79 mg/dL (50-129) 02/03/25 12: HDL Cholesterol 32 mg/dL (60-100) L 02/03/25 12: LDL/HDL Ratio 2.47 RATIO (0.00-3.22) 02/03/25 12: Cholesterol/HDL Ratio 4.13 mg/dL (0.0-4.40) 02/03/25 12: Lipase 11 U/L (13-60) L 02/03/25 12: TSH 0.53 uIU/mL (0.27-4.20) 02/03/25 12: Urine Color Yellow (Yellow) 02/03/25 18:20 Urine Appearance Clear (CLEAR) 02/03/25 18:20 Urine pH 5.5 (5-7) 02/03/25 18:20 Ur Specific [place] 1.014 (1.005-1.030) 02/03/25 18:20 Urine Protein Negative (Negative) 02/03/25 18:20 Urine Glucose (UA) Negative (Normal) 02/03/25 18:20 Urine Ketones Negative (Negative) 02/03/25 18:20 Urine Blood Trace (Negative) A 02/03/25 18:20 Urine Nitrate Negative (Negative) 02/03/25 18:20 Urine Bilirubin Negative (Negative) 02/03/25 18:20 Urine Urobilinogen 0.2 mg/dL (Negative) 02/03/25 18:20 Ur Leukocyte Esterase Negative (Negative) 02/03/25 18:20 Urine RBC 0-2 /hpf (0-2) 02/03/25 18:20 Urine WBC 0-5 /hpf (0-5) 02/03/25 18:20 Ur Squamous Epith Cells 0-5 /hpf (0-5) 02/03/25 18:20 Amorphous Sediment Not Reportable 02/03/25 18:20 Urine Bacteria None seen /hpf (NONE) 02/03/25 18:20 Hyaline Casts 0-4 /lpf H 02/03/25 18:20 Vitals Last Vital Signs Temp 98.3 F 02/05/25 09:59 Pulse 48 L 02/05/25 09:59 Resp 16 02/05/25 09:59 BP 154/76 02/05/25 09:59 Pulse Ox 92 02/05/25 09:59 O2 Del Method Room Air 02/05/25 09:59 Discharge Plan Discharge Patient Disposition: Home Condition: Stable Prescriptions: New nitroglycerin 0.4 mg Tablet, Sublingual 0.4 mg sublingual Q5M PRN (Reason: Chest Pain) 30 Days Qty: 30 0RF Continued lisinopril 40 mg tablet 40 mg PO DAILY Qty: 90 3RF clopidogrel 75 mg tablet 75 mg PO DAILY Qty: 90 0RF isosorbide mononitrate 30 mg tablet extended release 24 hr 30 mg PO DAILY Qty: 90 2RF carvedilol 6.25 mg tablet 6.25 mg PO BID Qty: 180 3RF Rx Instructions: must administer with a meal/food ondansetron 4 mg tablet,disintegrating 4 mg PO Q6H PRN (Reason: nausea and vomiting) Qty: 30 1RF Rx Instructions: 340b please budesonide-formoterol [Symbicort] 160-4.5 mcg/actuation HFA aerosol inhaler 1 puff inhalation Q12H PRN (Reason: COPD) Qty: 10.2 2RF albuterol sulfate 90 mcg/actuation HFA aerosol inhaler 2 inh INHALATION Q4H PRN (Reason: shortness of breath or wheezing) Qty: 18 2RF cpsjvqssx-hlkhdk-tfptgloz-scop [] 16.2-0.1037 -0.0194 mg/5 mL elixir 10 ml PO BID PRN (Reason: indigestion) Qty: 120 0RF magnesium L-lactate 84 mg tablet extended release 168 mg PO DAILY Qty: 90 0RF atorvastatin 40 mg tablet 40 mg PO QAM Qty: 90 3RF furosemide 40 mg tablet 40 mg PO DAILY aspirin 81 mg tablet,delayed release (DR/EC) 81 mg PO QAM Qty: 90 3RF hydroxyzine HCl 50 mg tablet 25 - 50 mg PO .bedtime PRN (Reason: sleep) Discharge Orders: Discharge Order (Routine); Ordered 02/05/25 Ordered By: Moreno Nascimento Referrals: Jennifer Jack COMPLIANCE MANAGER [Nurse Practitioner] - 02/15/25 3:30 pm Jossie Topete NP [Primary Care Provider] - 02/15/25 1:30 pm Discharge Diet: Cardiac Discharge Activity: Resume usual activity Patient Instructions: Opioid Safety Discharge Attestations Time Spent in Discharge Care*: greater than 30 min Time Spent in Smoking Cessation: more than 10 minutes Detailed discussion about smoking cessation counseling, morbidity mortality associated, CAD, CHF, COPD Quality Metrics Clinical Quality Measures [ No reported AMI, CVA or VTE this stay] Coding Level of Care Code 23863 Total time (in minutes) for Discharge: 45 Diagnoses Chest pain, unspecified type R07.9 Chest pain type: unspecified Mixed hyperlipidemia E78.2 Hyperlipidemia type: mixed hyperlipidemia Tobacco abuse Z72.0 Combined systolic and diastolic cardiac dysfunction I51.89 Coronary artery disease of [place] artery of [place] heart with stable angina pectoris I25.118 Associated angina: with stable angina Coronary Disease-Associated Artery/Lesion type: [place] artery [place] vs. transplanted heart: [place] heart
[2025-02-05 12:10] LABS: Basophils % 0.3 %; Hematocrit 43.4 % (36-47); Lymphocytes # 0.9 10^3/uL (0.8-4.8); Lymphocytes % 13.8 %; Mean Corpuscular HGB Conc 31.8 g/dL (30-55); Mean Corpuscular Hemoglobin 31.7 pg (27-33); Mean Corpuscular Volume 99.8 fl (85-98); Mean Platelet Volume 9.8 fL (7.4-10.4); Monocytes # 0.3 10^3/uL (0.2-0.9); Monocytes % 5.1 %; Neutrophils # 5.37 10^3/uL (1.8-7.7); Neutrophils % 80.5 %; Nucleated Red Blood Cells % 0 %; Platelet Count 246 10^3/cmm (157-399); Red Blood Count 4.35 10^6/uL (3.85-5.65); Red Cell Distribution Width 14.7 % (12.1-15.1); White Blood Count 6.67 10^3/uL (3.29-11.43)
[2025-02-05] MEDS: lisinopril 20 mg Tablet 40 MG PO (12:20)
== END 2025-02-05 17:25 | disposition home or self-care (01) | DRG 286 ==
LOC: ER 15:09 → CSU 16:38
PROVIDERS: Internal Medicine Cardiovascular Disease; Admitting Provider Family Medicine; Emergency Provider Emergency Medicine; Visit Provider Family Medicine
PROC: 4A023N7 Measurement of Cardiac Sampling and Pressure, Left Heart, Percutaneous Approach (ICD-10-PCS; principal; 2025-02-05 09:00)
DX: I25.118 Atherosclerotic heart disease of native coronary artery with other forms of angina pectoris (principal); I50.43 Acute on chronic combined systolic (congestive) and diastolic (congestive) heart failure; E78.5 Hyperlipidemia, unspecified; I11.0 Hypertensive heart disease with heart failure; F17.210 Nicotine dependence, cigarettes, uncomplicated; J44.9 Chronic obstructive pulmonary disease, unspecified; K21.9 Gastro-esophageal reflux disease without esophagitis; I25.5 Ischemic cardiomyopathy; Z95.5 Presence of coronary angioplasty implant and graft; I25.2 Old myocardial infarction; Z79.82 Long term (current) use of aspirin; Z79.02 Long term (current) use of antithrombotics/antiplatelets
CPT/HCPCS: 36415; 71045; 78452; 80053; 80061; 81001; 83036; 83690; 83735; 83880; 84100; 84443; 84484; 85025; 93005; 93017; 93306; 93458; 94664; 96372; 96374; 96375; 96376; 99152; 99153; 99285; A9270; A9500; C1760; C1769; C1887; C1894; G0269; G0378; J0131; J1200; J1644; J1650; J1940; J2250; J2270; J2405; J2470; J2785; J3010; J3490; J7030; J9999; Q0163; Q9967

== ENCOUNTER → 2025-02-15 15:28 | Outpatient (BNVA) | payer MEDICAID, SELFPAY | PROVIDERS: Visit Provider Nurse Practitioner Family | DX: I25.10 Atherosclerotic heart disease of native coronary artery without angina pectoris (principal); Z09 Encounter for follow-up examination after completed treatment for conditions other than malignant neoplasm; Z79.01 Long term (current) use of anticoagulants; Z79.82 Long term (current) use of aspirin; I25.2 Old myocardial infarction; Z95.5 Presence of coronary angioplasty implant and graft; F17.210 Nicotine dependence, cigarettes, uncomplicated; I10 Essential (primary) hypertension | CPT/HCPCS: 99213 ==

== ENCOUNTER 2025-09-03 15:10 | Emergency (ER) | payer OTHER, SELFPAY ==
[2025-09-03 15:18] VITALS: BP 168/77; PULSE 57; RESP 18; TEMP 36.4; O2SAT 98; BMI 30.1
--- OUTSIDE RECORDS SUMMARY | 2025-09-03 15:18 | XMS_ITS | Data Portability ---
Author Organization [facility] Porfirio Sung [facility] Address [address] [address] Care Team Providers Care Stove Tender Name Role Phone CECY JANG Primary Care Provider Unavailabl e Assessment No assessment recorded. Plan of Treatment Reminders Order Date Submit Date Provider Last Modified By Organization Details Last Modified Time Details Appointments None recorded. Lab CMP, serum or plasma 2022 023 [facility] ([facility]), [address] [place] [address], [phone], 3 17:01:38 CBC 2022 023 [facility] ([facility]), [address] [place] [address], [phone], 3 16:47:19 lipase, serum or plasma 2022 023 [facility] ([facility]), [address] [place] [address], [phone], 4 05:00:54 Referral None recorded. Procedures None recorded. Surgeries None recorded. Imaging None recorded. Medication Orders Miralax 17 gram/dose oral powder 2022 023 [facility], [address], [place], [address], 3 12:18:14 tizanidine 4 mg tablet 2022 023 [facility], [address], [place], [address], 12:19:51 Patient TargetsNo targets recorded. Patient InstructionsNo instructions recorded. Reason for Referral None Reported. Results Created Date Observation Date Name Description Value Unit Range Abnormal Flag Note LastModifiedBy Organization Detail LastModifiedTime 01/21/2001/20/2023 CMP, serum or plasm a glucose 116.0 mg/dL 60.0-9 9.0 abnormal Not Available [facility] ([facility]) [address] [place], [address], 01/20/2023 12:18:17 01/21/20 23 01/20/2023 CMP, serum or plasm a BUN (blood urea nitrogen) 13.0 mg/dL 10.0-2 6.0 Not Available [facility] ([facility]) [address] [place], [address], 01/20/2023 12:18:17 01/21/20 23 01/20/2023 CMP, serum or plasm a creatinine (serum) 0.8 mg/dL 0.4-1. 5 Not Available [facility] ([facility]) [address] [place], [address], 01/20/2023 12:18:17 01/21/20 23 01/20/2023 CMP, serum or plasm a BUN/creatini ne ratio 16.25 ratio Not Available [facility] ( [facility]) [address] [place], [address], 01/20/2023 12:18:17 01/21/2001/20/2023 CMP, serum or plasm a eGFR calculated 80.1 Not Available [facility] ([facility]) [address] [place], [address], 01/20/2023 12:18:17 01/21/2001/20/2023 CMP, serum or plasm a total protein 7.7 g/dL 6.0-8. 5 Not Available [facility] ([facility]) [address] [place], [address], 01/20/2023 12:18:17 01/21/20 23 01/20/2023 CMP, serum or plasm a total bilirubin 0.7 mg/dL 0.2-1. 3 Not Available [facility] ([facility]) [address] [place], [address], 01/20/2023 12:18:17 01/21/20 23 01/20/2023 CMP, serum or plasm a albuminn 4.0 g/dL 3.5-5. 5 Not Available [facility] ([facility]) [address] [place], [address], 01/20/2023 12:18:17 01/21/20 23 01/20/2023 CMP, serum or plasm a globulin 3.7 calc Not Available [facility] ([facility]) [address] [place], [address], 01/20/2023 12:18:17 01/21/20 23 01/20/2023 CMP, serum or plasm a AST (SGOT) 29.0 U/L 0.0-46 .0 Not Available [facility] ([facility]) [address] [place], [address], 01/20/2023 12:18:17 01/21/20 23 01/20/2023 CMP, serum or plasm a altv (SGPT) 19.0 U/L 13.0-6 9.0 Not Available [facility] ([facility]) [address] [place], [address], 01/20/2023 12:18:17 01/21/20 23 01/20/2023 CMP, serum or plasm a A/G ratio 1.1 ratio Not Available [facility] ([facility]) [address] [place], [address], 01/20/2023 12:18:17 01/21/20 23 01/20/2023 CMP, serum or plasm a ALP phos 80.0 U/L 30.0-1 40.0 Not Available [facility] ([facility]) [address] [place], [address], 01/20/2023 12:18:17 01/21/20 23 01/20/2023 CMP, serum or plasm a calcium 8.9 mg/dL 8.4-10 .5 Not Available [facility] ([facility]) [address] [place], [address], 01/20/2023 12:18:17 01/21/20 23 01/20/2023 CMP, serum or plasm a sodium 140.0 mmol/ L 136.0- 145.0 Not Available [facility] ([facility]) [address] [place], [address], 01/20/2023 12:18:17 01/21/2001/20/2023 CMP, serum or plasm a potassium 4.7 mmol/ L 3.5-5. 1 Not Available [facility] ([facility]) [address] [place], [address], 01/20/2023 12:18:17 01/21/2001/20/2023 CMP, serum or plasm a chloride 104.0 mmol/ L 98.0-1 10.0 Not Available [facility] ([facility]) [address] [place] [address], [address], 01/20/2023 12:18:17 01/21/20 23 01/20/2023 CMP, serum or plasm a CO2 32.0 mmol/ L 22.0-3 1.0 abnormal Not Available [facility] ([facility]) [address] [place], [address], 01/20/2023 12:18:17 01/21/20 23 01/20/2023 CMP, serum or plasm a anion gap 4.0 calc Not Available [facility] ([facility]) [address] [place], [address], 01/20/2023 12:18:17 01/21/20 23 01/20/2023 CMP, serum or plasm a osmolality 290.1 calc Not Available [facility] ([facility]) [address] [place], [address], 01/20/2023 12:18:17 01/21/20 23 01/20/2023 CBC WBC 4.52 X10^3 /uL 4.0-10 .5 normal Not Available [facility] ([facility]) [address] [place], [address], 01/20/2023 12:18:20 01/21/20 23 01/20/2023 CBC RBC 4.45 X10^6 /uL 3.50-5 .50 normal Not Available [facility] ([facility]) [address] [place], [address], 01/20/2023 12:18:20 01/21/20 23 01/20/2023 CBC HGB 14.55 g/dL 12.0-1 6.0 normal Not Available [facility] ([facility]) [address] [place], [address], 01/20/2023 12:18:20 01/21/20 23 01/20/2023 CBC HCT 44.1 % 37.0-4 7.0 normal Not Available [facility] ([facility]) [address] [place], [address], 01/20/2023 12:18:20 01/21/20 23 01/20/2023 CBC MCV 99.2 fL 80.0-9 9.0 normal Not Available [facility] ([facility]) [address] [place], [address], 01/20/2023 12:18:20 01/21/20 23 01/20/2023 CBC MCH 32.7 pg 27.0-3 2.0 normal Not Available [facility] ([facility]) [address] [place], [address], 01/20/2023 12:18:20 01/21/20 23 01/20/2023 CBC MCHC 33.0 g/dL 32.0-3 6.0 normal Not Available [facility] ([facility]) [address] [place], [address], 01/20/2023 12:18:20 01/21/20 23 01/20/2023 CBC RDW 14.3 % 11.5-1 4.6 normal Not Available [facility] ([facility]) [address] [place], [address], 01/20/2023 12:18:20 01/21/20 23 01/20/2023 CBC plt 279.0 10^3/ uL 140.0- 451.0 normal Not Available [facility] ([facility]) [address] [place], [address], 01/20/2023 12:18:20 01/21/20 23 01/20/2023 CBC lymphocytes % 27.56 % 20.0-5 0.0 normal Not Available [facility] ([facility]) [address] [place], [address], 01/20/2023 12:18:20 01/21/20 23 01/20/2023 CBC granulocytes % 61.40 % 30.0-7 0.0 normal Not Available [facility] ([facility]) [address] [place], [address], 01/20/2023 12:18:20 01/21/20 23 01/20/2023 CBC monocytes % 8.84 % 2.0-10 .0 normal Not Available [facility] ([facility]) [address] [place], [address], 01/20/2023 12:18:20 01/21/20 23 01/20/2023 CBC granulocytes # 2.78 X10^3 /uL normal Not Available [facility] ([facility]) [address] [place], [address], 01/20/2023 12:18:20 01/21/20 23 01/20/2023 CBC lymphocytes # 1.25 X10^3 /uL normal Not Available [facility] ([facility]) [address] [place], [address], 01/20/2023 12:18:20 01/21/20 23 01/20/2023 CBC monocytes # 0.40 X10^3 /uL abnormal Not Available [facility] ([facility]) [address] [place], [address], 01/20/2023 12:18:20 Result Notes None recorded. Problems Name Problem SNOMED Code Status Onset Date Resolution Date Notes Provider Name and Address Organization Details Recorded Time Depressive disorder 04852200 Active 2009 Depress ion; 8:36AM by Mable cobos LPN, Office Visit; Promote d; acuity set as *; Not Available [facility] 3 03:12:32 Cholecystect nurys Active 2009 Cholecy stectom y; 8:36AM by Mable cobos LPN, Office Visit; Promote d; acuity set as *; Not Available [facility] 3 03:12:33 History of tubal ligation 123616797 Active 2009 Tubal Ligatio n; 04/14/2 010 8:36AM by Mable cobos LPN, Office Visit; Promote d; acuity set as *; Not Available [facility] 3 03:12:35 History of depression 162139268 Active 2022 LAMINSA MITCH truong [facility] 3 08:57:04 Essential hypertension 10112785 Active 2022 LAMIN truong [facility] 3 11:57:12 Hypercholest erolemia 70659229 Active 2022 LAMINSA MITCH truong, [facility] 3 11:57:24 Heart disease 18053081 Active 2022 LAMINSA MITCH truong [facility] 3 11:57:43 Nausea and vomiting 83506798 Active 2022 Cecy Jang MD [address] [place] [address], [address] , [facility] 3 12:15:23 Abdominal pain 94297774 Active 2022 Cecy Jang MD [address] [place] [address], [address] , [facility] 3 12:15:33 Constipation 87146077 Active 2022 Cecy Jang MD [address] [place] [address], [address] , [facility] 3 12:16:00 Low back pain 440998775 Active 2022 Cecy Jang MD [address] [place] [address], [address] , [facility] 3 12:19:07 Problem Notes None recorded. Procedures Surgical History Date Name Laterality Status Provider Name and Address Organization Details Recorded Time [facility] 08:58:29 [facility] 08:59:01 Imaging Results None recorded. Procedure Notes None recorded. Medical Equipment None Reported. Allergies No known drug allergies Medications Name Sig Start Date Stop Date Status Note LastModified by Organization Details LastModified Time Miralax 17 gram/dose oral powder Take 17 g every day by oral route for 30 days. 2022 active Not Available Not Available Not Avai lable atorvasta tin 40 mg tablet Take 1 tablet every day by oral route. active Not Available Not Available No t Available tizanidin e 4 mg tablet TAKE 1 TABLET BY MOUTH EVERY 8 HOURS active Not Available Not Available No t Available Claritin 10 mg tablet Take 1 tablet every day by oral route. 01/20 completed Not Available Not Available Not Available lisinopri l 20 mg tablet Take 1 tablet every day by oral route. active Not Available Not Available No t Available clopidogr el 75 mg tablet Take 1 tablet every day by oral route. active Not Available Not Available No t Available Soma 350 mg tablet Take 1 tablet 4 times a day by oral route as needed. 01/20 completed Not Available Not Available Not Available pantopraz ole 40 mg tablet,de layed release Take 1 tablet every day by oral route. active Not Available Not Available No t Available Seroquel 100 mg tablet Take 1 tablet every day by oral route at bedtime . 01/20 completed Not Available Not Available Not Available naproxen 500 mg tablet BID/PRN 2006 active Recorded 8 3:19PM by Carla Espinal CMT, Office Visit; Refill Quantity: 60; Tab; Not Available Not Available Not Available Aspirin Low-Stren gth 81 mg tablet,de layed release Take 1 tablet every day by oral route. active Not Available Not Available No t Available Soma-350 350 mg tablet qid PRN for spasms 2009 active Recorded 0 1:48PM by Catrachito Dawson MD, Refill Request; Refill Quantity: 120; Tablet; Not Available Not Available Not Available Hibiclens 4 % topical packet 2008 active Recorded 9 11:54AM by Yan Alfaro MD, Office Visit; Refill Quantity: 0; Not Available Not Available Not Available hydrocort isone TID/PRN 2009 active Recorded 0 10:39AM by Yan Alfaro MD, Office Visit; Refill Quantity: 30; Oint; Not Available Not Available Not Available Relpax as needed 2008 active take one at onset of migraine and can repeat in two hours if not improved, no more than 2 in 24 hour period; 6; Recorded 9 12:51PM by Brittany Holden LPN (Authoriz ed through Yan Alfaro MD), Annotatio n/Addendu m; Refill Quantity: 6; Tab; Not Available Not Available Not Available Vitals Date Recorded Body height Body mass index (BMI) Body weight Oxygen saturation Heart rate Respiratory rate Body temperature Systolic And Diastolic Provider Name and Address Organization Details Last Updated DateTime 3 160.02 cm 28.9 kg/m2 11982.2 6 g 97 % 69 /min 20 /min 97.6 [degF] 138/86 mm[Hg] LAMIN MEYER [facility] 3 12:01:44 Social History Question Answer Notes LastModified by [employer] Details LastModified Time Tobacco Smoking Status Current Every Day Smoker LAMIN truong [facility] 01/20/2023 09:01:25 Are You Blind Or Do You Have Difficulty Seeing? No Information not available 01/20/2023 What Is Your Level Of Caffeine Consumption? Moderate Information not available 01/20/2023 Are You Deaf Or Do You Have Serious Difficulty Hearing? No Information not available 01/20/2023 How Much Tobacco Do You Smoke? 1 PPD Information not available 01/20/2023 Do You Have Difficulty Walking Or Climbing Stairs? No Information not available 01/20/2023 Sex: Unknown Functional Status Question Answer Note LastModified by Organizat ion Details LastModified Time Do you use any illicit or recreational drugs? No Information not available 01/20/2023 Do you have transportation difficulties? No Information not available 01/20/2023 Are you able to walk independently without assistance or assistive devices? YESWOREST Information not available 01/20/2023 Do you have difficulty doing errands alone? No Information not available 01/20/2023 Are you able to care for yourself independently? Yes Information not available 01/20/2023 Do you have difficulty dressing, bathing, grooming, or toileting? No Information not available 01/20/2023 Mental Status Question Answer Note LastModified by Organization D etails LastModified Time Do you have difficulty concentrating, remembering or making decisions? No Information no t available 01/20/2023 Family History Relationship Description Onset Age of this Age Resolved Age Notes LastModified by Organization Details LastModified Time Unspecified Relation Diabetes mellitus tgregg Not available 2022 08:59:25 Unspecified Relation Malignant neoplastic disease tgregg Not available 2022 08:59:47 Unspecified Relation Essential hypertension tgregg Not available 07/2023 09:00:04 Medical History No medical history recorded. Gynecological HistoryNo gynecological history recorded. Obstetrics History GPAL:G 0 P 0 0 0 0 Past Encounters Encounter ID Performer Location Encounter Start Date Encounter Closed Date Diagnosis/Indication Diagnosis SNOMED-CT Code Diagnosis ICD10 Code Diagnosis IMO Codes Diagnosis Note [id number] Cecy Jang MD [facility] ([facility]) [address] [place] [address] 01/20/2023 11:42:37 01/27/2023 14:15:26 Nausea and vomiting 23130520 R11.2 check labs today. Abdominal pain 21612091 R10.9 Constipation 72087504 K5 9.00 likely the cause of patients symptoms. We will treat with miralax. If symptoms do not improve with constipati on resolution then we will check imaging. Essential hypertension 88989998 I10 stable on current meds Heart disease 16686883 I 51.9 doing well after recent stent placement. Hypercholesterolemia 136 90207 E78.00 tolerating statin. Low back pain 480133146 M54.50 start muscle relaxer to use as needed. Health Concerns Section Related Observation LastModified by Organization Detai ls LastModified Time None Recorded Concern Status LastModified by Organization Details LastModified Time None Recorded Advance Directives Directive None Recorded Payers Insurance Date Sequence Insurance Name Policy Number Policy Brito Covered Member ID Brito Member ID Guarantor Name 04/08/2023 1 [employer] [place]AC[place] - [place]MO) [id number] Silvia Dulce Maria Hung [id number] Silvia Persaud Notes Date Note Type Note Provider Name and Address Organization Details Recorded Time 01/21/20 23 text/htm l VomitingReported by PatientHPI:For context, patient reportssmokerbut reportsno one else with similar symptoms. For aggravating factors, patient reportseating. For associated symptoms, patient reportsabdominal painbut reportsno feverandno chills. For severity, patient reportsmild. For duration, patient reports2 months. For onset/timing, patient reportsintermittentandseveral hours after eating. For alleviating factors, patient reportsotc medicationandprescription medication. This is a 52 y/o female that Presents to establish care and to evaluate intermittent nausea. She has history of cardiac disease and has 4 stents with last 2 placed in November. She states she had the nausea prior to the stents placed. the patient also reports chronic low back pain and states muscle relaxers have worked well for her in the past. Cecy Jang MD [address] [place] [address], [phone], [facility], Teresa 01/20/2023 12:48:17 OBGyn Episode No OBEpisode recorded.
--- NOTE | 2025-09-03 16:00 | W.ED.HA ---
HPI - Headache General: Chief Complaint: Headache Stated Complaint: Headache X4 Time Seen by Provider: 09/03/25 15:59 History of Present Illness: 55-year-old female with history of migraine headaches, hypertension, psychiatric issues, bipolar disease, seizure in the past, coronary artery disease, GERD, COPD, tobacco dependence, ischemic cardiomyopathy who presents to the emergency room with a migraine for last 4 days. She taken several [id number] medications. She also took a couple of her mom's hydrocodone's. Nothing is helping. She has photophobia, nausea and vomiting. No altered mental status. No focal motor deficits. No fevers. She says she does have a history of migraines. Related Data Home Medications ?Medication ?Instructions ?Recorded ?Confirmed furosemide 40 mg tablet 40 mg PO DAILY 11/09/24 03/01/25 magnesium L-lactate 84 mg 168 mg PO DAILY PRN 02/15/25 03/01/25 tablet,extended release Previous Rx's ?Medication ?Instructions ?Recorded aspirin 81 mg tablet,delayed 81 mg PO QAM #90 tabs 07/31/23 release isosorbide mononitrate 30 mg 30 mg PO DAILY #90 tabs 07/01/24 tablet,extended release 24 hr lisinopril 40 mg tablet 40 mg PO DAILY #90 tabs 07/01/24 albuterol sulfate 90 mcg/actuation 2 inh inhalation Q4H PRN shortness 07/13/24 aerosol inhaler of breath or wheezing #18 grams budesonide-formoterol HFA 160 1 puff inhalation Q12H PRN COPD 07/13/24 mcg-4.5 mcg/actuation aerosol #10.2 grams inhaler (Symbicort) atorvastatin 40 mg tablet 40 mg PO QAM #90 tabs 11/01/24 ondansetron 4 mg disintegrating 4 mg PO Q6H PRN nausea and 01/04/25 tablet vomiting #30 tabs clopidogrel 75 mg tablet 75 mg PO DAILY 30 days #30 tabs 02/05/25 buspirone 10 mg tablet 10 mg PO TID #90 tabs 03/01/25 hydroxyzine HCl 50 mg tablet 50 mg PO QID PRN anxiety/insomnia 03/01/25 #120 tabs carvedilol 12.5 mg tablet See Rx Instructions .Route 07/28/25 .COMPLEX #60 tabs Allergies Allergy/AdvReac Type Severity Reaction Status Date / Time No Known Allergies Allergy Verified 09/03/25 15:21 Review of Systems Narrative: Constitutional symptoms: Negative except as documented in HPI. Skin symptoms: Negative except as documented in HPI. Eye symptoms: Negative except as documented in HPI. ENMT symptoms: Negative except as documented in HPI. Respiratory symptoms: Negative except as documented in HPI. Cardiovascular symptoms: Negative except as documented in HPI. Gastrointestinal symptoms: Negative except as documented in HPI. Genitourinary symptoms: Negative except as documented in HPI. Musculoskeletal symptoms: Negative except as documented in HPI. Neurologic symptoms: Negative except as documented in HPI. Psychiatric symptoms: Negative except as documented in HPI. Endocrine symptoms: Negative except as documented in HPI. PFSH ED PFSH: Medical History (Updated 09/03/25 @ 16:06 by Renetta Nuñez MD) Hypertension Psychiatric care Poor sleep pattern Encounter to establish care Encounter for smoking cessation counseling Chest pain Hypertensive urgency Smoker Unstable angina Bipolar disease, chronic History of seizure GERD (gastroesophageal reflux disease) Chest pain Coronary artery disease Ischemic cardiomyopathy Tobacco abuse COPD (chronic obstructive pulmonary disease) Adult-onset obesity Acute anterior wall [place] 01/2014 Surgical History History of heart artery stent Hx of cholecystectomy Hx of tubal ligation Family History Grandmother Cancer Maternal cervical Father Cancer lung and throat Hyperlipidemia Hypertension Grandmother Cancer Paternal-unknown Sister Stroke Grandfather Cancer Paternal-brain Denies family history of Diabetes CAD (coronary artery disease) Clotting disorder Dementia Psychiatric illness Chronic kidney disease (CKD) Suicide Anesthesia complication Bleeding disorder Family history of premature coronary artery disease Lung disease Social History Smoking and tobacco/nicotine status: current every day tobacco/nicotine user (1.5 ppd) cigarettes Packs smoked per day: 1 Second hand smoke exposure: No Alcohol intake: never Substance/Drug Use: never Lives independently: Yes Marital status: Single Number of children: 3 Current occupational status: employed Previous occupational history: [employer] Special shandra needs: No Agree to transfusion: Yes Physical Exam Narrative: EXAM NARRATIVE: General: Alert, no acute distress. Skin: Warm, dry. Head: Normocephalic, atraumatic. Neck: Supple, trachea midline. Eye: Extraocular movements are intact. Ears, nose, mouth and throat: mucosa moist. Cardiovascular: Regular, Normal peripheral perfusion. Respiratory: Lungs are clear to auscultation, respirations are non-labored, breath sounds are equal, Symmetrical chest wall expansion. Gastrointestinal: Soft, Nontender, Non distended Musculoskeletal: Normal ROM, no deformity. Neurological: Alert and oriented, No focal neurological deficit observed. Psychiatric: Cooperative, appropriate mood & affect. Course Vital Signs: Vital signs: Vital Signs Temperature 97.5 F L 09/03/25 15:18 Pulse Rate 57 L 09/03/25 15:18 Respiratory Rate 18 09/03/25 15:18 Blood Pressure 168/77 09/03/25 15:18 Pulse Oximetry 98 09/03/25 15:18 Oxygen Delivery Me thod Room Air 09/03/25 15:18 MDM - Headache Medical Decision Making Medical decision making Patient's reason for coming to the emergency room: Social determinants: I reviewed the patient's medical record. 55-year-old female with history of migraine headaches, hypertension, psychiatric issues, bipolar disease, seizure in the past, coronary artery disease, GERD, COPD, tobacco dependence, ischemic cardiomyopathy I reviewed the patient's current home meds Patient is on Plavix and aspirin Alternate historians: None Differential diagnosis for this patient presenting with severe headache including but not limited to and based on the above HPI, review of systems and physical exam: Intracranial hemorrhage, stroke, migraine, cluster headache, infections such as influenza, covid Orders placed to evaluate differential diagnosis based on the above differential, HPI and physical exam This headache is typical of her migraine headaches. No indication for CT scan today. No indication for lab work. Assessment of risk: Level of risk: Moderate risk patient with multiple comorbidities. Hospitalization considerations: No consideration of hospitalization. Reexamination: Patient remained stable. No increased work of breathing. No altered mental status. No focal motor deficits. Assessment and plan: Migraine headache - 50 mg IV Benadryl - 30 mg IV Toradol - 10 mg IV Reglan - 8 mg IV Zofran - 60 mg IV Norflex - 1 L normal saline bolus - Discharged home - Discussed plan with patient. Answered any questions. - Evaluation and treatment of this problem were appropriate in the emergency setting. No radiology studies performed this visit Discharge Plan Discharge Patient Disposition: Home Clinical Impression: Migraine, Dehydration Condition: Stable Prescriptions: No Action lisinopril 40 mg tablet 40 mg PO DAILY Qty: 90 3RF isosorbide mononitrate 30 mg tablet extended release 24 hr 30 mg PO DAILY Qty: 90 2RF ondansetron 4 mg tablet,disintegrating 4 mg PO Q6H PRN (Reason: nausea and vomiting) Qty: 30 1RF Rx Instructions: 340b please magnesium L-lactate 84 mg tablet extended release 168 mg PO DAILY PRN budesonide-formoterol [Symbicort] 160-4.5 mcg/actuation HFA aerosol inhaler 1 puff inhalation Q12H PRN (Reason: COPD) Qty: 10.2 2RF albuterol sulfate 90 mcg/actuation HFA aerosol inhaler 2 inh INHALATION Q4H PRN (Reason: shortness of breath or wheezing) Qty: 18 2RF hydroxyzine HCl 50 mg tablet 50 mg PO QID PRN (Reason: anxiety/insomnia) Qty: 120 1RF buspirone 10 mg tablet 10 mg PO TID Qty: 90 1RF atorvastatin 40 mg tablet 40 mg PO QAM Qty: 90 3RF carvedilol 12.5 mg tablet See Rx Instructions .ROUTE .COMPLEX Qty: 60 0RF Dose Instruction: TAKE 1/2 (ONE-HALF) TABLET BY MOUTH TWICE DAILY WITH FOOD/MEAL HOLD DOSE IF HEART RATE IS LESS THAN 60 Rx Instructions: TAKE 1/2 (ONE-HALF) TABLET BY MOUTH TWICE DAILY WITH FOOD/MEAL HOLD DOSE IF HEART RATE IS LESS THAN 60 furosemide 40 mg tablet 40 mg PO DAILY aspirin 81 mg tablet,delayed release (DR/EC) 81 mg PO QAM Qty: 90 3RF clopidogrel 75 mg tablet 75 mg PO DAILY 30 Days Qty: 30 0RF Discharge Orders: Discharge ED (Routine); Ordered 09/03/25 Ordered By: Renetta Nuñez Referrals: Jossie Topete NP [Primary Care Provider, Family Practice] Discharge Diet: Usual diet Discharge Activity: Increase activity as tolerated Patient Instructions: Migraine Headache (ED), Opioid Safety, Pain Management, Patient Portal & Kezia Instructions Activity Restrictions/Additional Instructions: Thank you for choosing [facility] for your healthcare needs today. You have been screened and evaluated and felt safe for discharge. Health conditions do change or evolve sometimes and as such it is important that you follow up with your Primary Doctor to be re checked, 3-5 days is a general good time frame for follow up. You are always welcome to return to the ED for re assessment if your symptoms are worsening or you have new concerns Print Language: Kosovan Coding Level of Care Code ED Front Office Administrator for Annie Wright
[2025-09-03] MEDS: diphenhydrAMINE 50 mg/mL SDV 1mL IVP (16:20)
[2025-09-03] MEDS: ondansetron 2 mg/ML SDV 2 mL 8 MG IVP (16:20)
[2025-09-03] MEDS: metoclopramide 5 mg/mL SDV 2 mL 10 MG IVP (16:20)
[2025-09-03] MEDS: orphenadrine 30 mg/mL Inj 2 mL 60 MG IVP (16:20)
[2025-09-03 16:55] VITALS: BP 169/92; PULSE 57; RESP 16; O2SAT 96
[2025-09-03 17:12] VITALS: BP 169/86; PULSE 47; RESP 16; O2SAT 98
== END 2025-09-03 17:14 | disposition home or self-care (01) ==
PROVIDERS: Emergency Provider Emergency Medicine
DX: G43.909 Migraine, unspecified, not intractable, without status migrainosus (principal); E86.0 Dehydration; I10 Essential (primary) hypertension; I25.10 Atherosclerotic heart disease of native coronary artery without angina pectoris; K21.9 Gastro-esophageal reflux disease without esophagitis; J44.9 Chronic obstructive pulmonary disease, unspecified
CPT/HCPCS: 96374; 96375; 99284; J1100; J1200; J1885; J2360; J2405; J2765

== ENCOUNTER 2025-09-04 07:44 | Emergency (ER) | payer OTHER, SELFPAY ==
[2025-09-04 07:49] VITALS: BP 137/95; PULSE 53; RESP 20; TEMP 36.2; O2SAT 96; BMI 30.1
--- NOTE | 2025-09-04 07:53 | W.ED.NAVMDI ---
HPI - Nausea/Vomiting/Diarrhea General: Chief complaint: Nausea/Vomiting/Diarrhea Stated complaint: NVD / Headache Time Seen by Provider: 09/04/25 07:51 History of Present Illness: 55-year-old female with history of migraine headaches, hypertension, psychiatric issues, bipolar disease, seizure in the past, coronary artery disease, GERD, COPD, tobacco dependence, ischemic cardiomyopathy who presents to the emergency room with nausea vomiting and epigastric pain. Says pain is very severe. I saw her in the emergency room last night and treated her for a migraine. Says the migraine has improved but now she is having severe nausea and vomiting. She is exquisitely tender in her epigastric area. She has had a cholecystectomy in the past. She has had some diarrhea. No dysuria. No altered mental status. No focal motor deficits. No fever. Related Data Home Medications ?Medication ?Instructions ?Recorded ?Confirmed furosemide 40 mg tablet 40 mg PO DAILY 11/09/24 03/01/25 magnesium L-lactate 84 mg 168 mg PO DAILY PRN 02/15/25 03/01/25 tablet,extended release Previous Rx's ?Medication ?Instructions ?Recorded aspirin 81 mg tablet,delayed 81 mg PO QAM #90 tabs 07/31/23 release isosorbide mononitrate 30 mg 30 mg PO DAILY #90 tabs 07/01/24 tablet,extended release 24 hr lisinopril 40 mg tablet 40 mg PO DAILY #90 tabs 07/01/24 albuterol sulfate 90 mcg/actuation 2 inh inhalation Q4H PRN shortness 07/13/24 aerosol inhaler of breath or wheezing #18 grams budesonide-formoterol HFA 160 1 puff inhalation Q12H PRN COPD 07/13/24 mcg-4.5 mcg/actuation aerosol #10.2 grams inhaler (Symbicort) atorvastatin 40 mg tablet 40 mg PO QAM #90 tabs 11/01/24 ondansetron 4 mg disintegrating 4 mg PO Q6H PRN nausea and 01/04/25 tablet vomiting #30 tabs clopidogrel 75 mg tablet 75 mg PO DAILY 30 days #30 tabs 02/05/25 buspirone 10 mg tablet 10 mg PO TID #90 tabs 03/01/25 hydroxyzine HCl 50 mg tablet 50 mg PO QID PRN anxiety/insomnia 03/01/25 #120 tabs carvedilol 12.5 mg tablet See Rx Instructions .Route 07/28/25 .COMPLEX #60 tabs cephalexin 500 mg tablet 500 mg PO TID 7 days #21 tabs 09/04/25 hydrocodone 5 mg-acetaminophen 325 1 tab PO Q6H PRN pain #20 tabs 09/04/25 mg tablet ondansetron 4 mg disintegrating 4 mg PO Q8H PRN nausea and 09/04/25 tablet vomiting #10 tabs polyethylene glycol 3350 17 17 g PO DAILY #510 grams 09/04/25 gram/dose oral powder (Miralax) Allergies Allergy/AdvReac Type Severity Reaction Status Date / Time No Known Allergies Allergy Verified 09/03/25 15:21 Review of Systems Narrative: Constitutional symptoms: Negative except as documented in HPI. Skin symptoms: Negative except as documented in HPI. Eye symptoms: Negative except as documented in HPI. ENMT symptoms: Negative except as documented in HPI. Respiratory symptoms: Negative except as documented in HPI. Cardiovascular symptoms: Negative except as documented in HPI. Gastrointestinal symptoms: Negative except as documented in HPI. Genitourinary symptoms: Negative except as documented in HPI. Musculoskeletal symptoms: Negative except as documented in HPI. Neurologic symptoms: Negative except as documented in HPI. Psychiatric symptoms: Negative except as documented in HPI. Endocrine symptoms: Negative except as documented in HPI. PFS ED PFSH: Medical History (Updated 09/04/25 @ 09:47 by Renetta Nuñez MD) Hypertension Psychiatric care Poor sleep pattern Encounter to establish care Encounter for smoking cessation counseling Chest pain Hypertensive urgency Smoker Unstable angina Bipolar disease, chronic History of seizure GERD (gastroesophageal reflux disease) Chest pain Coronary artery disease Ischemic cardiomyopathy Tobacco abuse COPD (chronic obstructive pulmonary disease) Adult-onset obesity Acute anterior wall [place] 01/2014 Surgical History History of heart artery stent Hx of cholecystectomy Hx of tubal ligation Family History Grandmother Cancer Maternal cervical Father Cancer lung and throat Hyperlipidemia Hypertension Grandmother Cancer Paternal-unknown Sister Stroke Grandfather Cancer Paternal-brain Denies family history of Diabetes CAD (coronary artery disease) Clotting disorder Dementia Psychiatric illness Chronic kidney disease (CKD) Suicide Anesthesia complication Bleeding disorder Family history of premature coronary artery disease Lung disease Social History Smoking and tobacco/nicotine status: current every day tobacco/nicotine user (1.5 ppd) cigarettes Packs smoked per day: 1 Second hand smoke exposure: No Alcohol intake: never Substance/Drug Use: never Lives independently: Yes Marital status: Single Number of children: 3 Current occupational status: employed Previous occupational history: [employer] Special shandra needs: No Agree to transfusion: Yes Physical Exam Narrative: EXAM NARRATIVE: General: Alert, no acute distress. Skin: Warm, dry. Head: Normocephalic, atraumatic. Neck: Supple, trachea midline. Eye: Extraocular movements are intact. Ears, nose, mouth and throat: Tacky oral mucosa Cardiovascular: Regular, Normal peripheral perfusion. Respiratory: Lungs are clear to auscultation, respirations are non-labored, breath sounds are equal, Symmetrical chest wall expansion. Gastrointestinal: Soft, severe epigastric tenderness to palpation, Non distended Musculoskeletal: Normal ROM, no deformity. Neurological: Alert and oriented, No focal neurological deficit observed. Psychiatric: Cooperative, appropriate mood & affect. Course Vital Signs: Vital signs: Vital Signs Temperature 97.2 F L 09/04/25 07:49 Pulse Rate 59 L 09/04/25 10:07 Respiratory Rate 20 H 09/04/25 07:49 Blood Pressure 143/95 09/04/25 10:07 Pulse Oximetry 94 09/04/25 10:07 Oxygen Delivery Me thod Room Air 09/04/25 07:49 MDM - Nausea/Vomiting/Diarrhea Medical Decision Making Medical decision making Patient's reason for coming to the emergency room: Abdominal pain Social determinants: Patient works at [employer] I reviewed the patient's medical record. 55-year-old female with history of migraine headaches, hypertension, psychiatric issues, bipolar disease, seizure in the past, coronary artery disease, GERD, COPD, tobacco dependence, ischemic cardiomyopathy, cholecystectomy I reviewed the patient's current home meds Patient is on Plavix and aspirin Alternate historians: None Differential diagnosis including but not limited to and based on the above HPI, review of systems and physical exam: In this patient with epigastric pain differential would include cholelithiasis or cholecystitis. Hepatitis. Diverticulitis. Constipation. UTI. colitis. small bowel obstruction. Crohn's flare. pancreatitis. gastritis. peptic ulcer. also concern for acute cardiac event. Orders placed to evaluate differential diagnosis based on the above differential, HPI and physical exam Lab Review: Laboratory results were reviewed and interpreted by myself the emergency room physician. Mild leukocytosis. No anemia. No renal failure. Urinalysis did show 0-5 whites with 1+ bacteria so I am going to treat her for a possible early urine infection. CT of the abdomen pelvis with contrast: No acute findings. This was reviewed and interpreted by myself the emergency room physician. I also reviewed the radiology report. Assessment of risk: Level of risk: Moderate risk patient. Multiple comorbidities. Hospitalization considerations: No consideration of hospitalization today. Reexamination: Patient remained stable. No increased work of breathing. No altered mental status. No focal motor deficits. Pain improved with pain medications. We discussed findings. Discussed signs and symptoms to look for to return to the emergency room. Assessment and plan: Abdominal pain Urinary tract infection Dehydration ?IV fluids, IV Dilaudid and IV Zofran in the emergency room - Discharged home - Discussed plan with patient. Answered any questions. - Evaluation and treatment of this problem were appropriate in the emergency setting. Lab Data 09/04/25 08:04 09/04/25 08:04 Radiology Impressions Abdomen/Pelvis CT 09/04/25 08:53 IMPRESSION: 1. No acute findings. 2. Colonic diverticulosis without diverticulitis. 3. Moderate diffuse aortoiliac calcifications. COMMENTS: Consistent with the [employer]'s Incidental Findings Committee white paper (J Am Ryan Radiol 2018): Any incidental renal lesion less than 1 cm or classified as too small to characterize, or any incidental cystic renal lesion characterized as simple-appearing, is likely benign. No follow-up imaging is recommended for these lesions per consensus recommendations based on imaging criteria. Laboratory Results WBC 12.49 10^3/uL (3.29-11.43) H 09/04/25 08:04 RBC 4.72 10^6/uL (3.85-5.65) 09/04/25 08:04 Hgb 15.80 g/dL (11.27-16.99) 09/04/25 08:04 Hct 47.0 % (36-47) 09/04/25 08:04 MCV 99.6 fl (85-98) H 09/04/25 08:04 MCH 33.5 pg (27-33) H 09/04/25 08:04 MCHC 33.6 g/dL (30-55) 09/04/25 08:04 RDW 13.2 % (12.1-15.1) 09/04/25 08:04 Plt Count 263 10^3/cmm (157-399) 09/04/25 08:04 MPV 10.2 fL (7.4-10.4) 09/04/25 08:04 Neut % (Auto) 90.8 % 09/04/25 08:04 Lymph % (Auto) 5.7 % 09/04/25 08:04 Baca % (Auto) 3.0 % 09/04/25 08:04 Eos % (Auto) 0.0 % 09/04/25 08:04 Baso % (Auto) 0.1 % 09/04/25 08:04 Neut # (Auto) 11.35 10^3/uL (1.8-7.7) H 09/04/25 08:04 Lymph # (Auto) 0.7 10^3/uL (0.8-4.8) L 09/04/25 08:04 Baca # (Auto) 0.4 10^3/uL (0.2-0.9) 09/04/25 08:04 Eos # (Auto) 0.0 10^3/uL (0.0-0.8) 09/04/25 08:04 Baso # (Auto) 0.0 10^3/uL (0.0-0.1) 09/04/25 08:04 Nucleated RBC % (auto) 0 % 09/04/25 08:04 Nucleated RBCs # 0.0 /100WBC 09/04/25 08:04 Sodium 139 mmol/L (136-145) 09/04/25 08:04 Potassium 4.3 mmol/L (3.5-5.1) 09/04/25 08:04 Chloride 104 mmol/L (98-107) 09/04/25 08:04 Carbon Dioxide 20 mmol/L (22-29) L 09/04/25 08:04 Anion Gap 19.3 (5-19) H 09/04/25 08:04 BUN 18 mg/dL (6-20) 09/04/25 08:04 Creatinine 0.9 mg/dL (0.5-0.9) 09/04/25 08:04 GFR Calculation 65.0 mL/min (90-130) L 09/04/25 08:04 Glucose 151 mg/dL (65-115) H 09/04/25 08:04 Calculated Osmolality 293 mOsm/kg (285-295) 09/04/25 08:04 Lactic Acid 2.0 mmol/L (0.5-2.2) 09/04/25 08:04 Calcium 9.8 mg/dL (8.5-10.5) 09/04/25 08:04 Total Bilirubin 1.3 mg/dL (0.15-1.2) H 09/04/25 08:04 AST 18 U/L (0-32) 09/04/25 08:04 ALT 7 U/L (0-33) 09/04/25 08:04 Alkaline Phosphatase 100 U/L (35-105) 09/04/25 08:04 C-Reactive Protein 3.0 mg/L (0.0-4.9) 09/04/25 08:04 Total Protein 8.6 g/dL (6.6-8.7) 09/04/25 08:04 Albumin 4.7 g/dL (3.5-5.2) 09/04/25 08:04 Globulin 3.9 g/dL (1.3-4.6) 09/04/25 08:04 Lipase 10 U/L (13-60) L 09/04/25 08:04 Urine Color Yellow (Yellow) 09/04/25 08:12 Urine Appearance Clear (CLEAR) 09/04/25 08:12 Urine pH 5.5 (5-7) 09/04/25 08:12 Ur Specific [place] 1.031 (1.005-1.030) H 09/04/25 08:12 Urine Protein 3+ (Negative) A 09/04/25 08:12 Urine Glucose (UA) Negative (Normal) 09/04/25 08:12 Urine Ketones 1+ (Negative) H 09/04/25 08:12 Urine Blood 2+ (Negative) A 09/04/25 08:12 Urine Nitrate Negative (Negative) 09/04/25 08:12 Urine Bilirubin Negative (Negative) 09/04/25 08:12 Urine Urobilinogen 1.0 mg/dL (Negative) 09/04/25 08:12 Ur Leukocyte Esterase Negative (Negative) 09/04/25 08:12 Urine RBC 11-20 /hpf (0-2) H 09/04/25 08:12 Urine WBC 0-5 /hpf (0-5) 09/04/25 08:12 Ur Squamous Epith Cells 6-10 /hpf (0-5) 09/04/25 08:12 Amorphous Sediment Not Reportable 09/04/25 08:12 Urine Bacteria 1+ /hpf (NONE) H 09/04/25 08:12 Hyaline Casts 2.05 /lpf 09/04/25 08:12 Urine Opiates Screen Positive ng/mL (Negative) H 09/04/25 08:12 Ur Barbiturates Screen Negative ng/mL (Negative) 09/04/25 08:12 Ur Phencyclidine Scrn Negative ng/mL (Negative) 09/04/25 08:12 Ur Amphetamines Screen Negative ng/mL (Negative) 09/04/25 08:12 U Benzodiazepines Scrn Negative ng/mL (Negative) 09/04/25 08:12 Urine Cocaine Screen Negative ng/mL (Negative) 09/04/25 08:12 U Marijuana (THC) Screen Positive ng/mL (Negative) H 09/04/25 08:12 Influenza A (PCR) Negative (Negative) 09/04/25 08:10 Influenza Type B (PCR) Negative (Negative) 09/04/25 08:10 RSV (PCR) Negative (Negative) 09/04/25 08:10 SARS-CoV-2 (PCR) Negative (Negative) 09/04/25 08:10 All radiology interpretation(s) finalized by discharge Discharge Plan Discharge Patient Disposition: Home Clinical Impression: Urinary tract infection, Abdominal pain Condition: Stable Prescriptions: New cephalexin 500 mg tablet 500 mg PO TID 7 Days Qty: 21 0RF hydrocodone-acetaminophen 5-325 mg tablet 1 tab PO Q6H PRN (Reason: pain) Qty: 20 0RF polyethylene glycol 3350 [Miralax] 17 gram/dose powder 17 g PO DAILY Qty: 510 0RF Rx Instructions: Take 1 scoop daily while taking pain medications. ondansetron 4 mg tablet,disintegrating 4 mg PO Q8H PRN (Reason: nausea and vomiting) Qty: 10 0RF No Action lisinopril 40 mg tablet 40 mg PO DAILY Qty: 90 3RF isosorbide mononitrate 30 mg tablet extended release 24 hr 30 mg PO DAILY Qty: 90 2RF ondansetron 4 mg tablet,disintegrating 4 mg PO Q6H PRN (Reason: nausea and vomiting) Qty: 30 1RF Rx Instructions: 340b please magnesium L-lactate 84 mg tablet extended release 168 mg PO DAILY PRN budesonide-formoterol [Symbicort] 160-4.5 mcg/actuation HFA aerosol inhaler 1 puff inhalation Q12H PRN (Reason: COPD) Qty: 10.2 2RF albuterol sulfate 90 mcg/actuation HFA aerosol inhaler 2 inh INHALATION Q4H PRN (Reason: shortness of breath or wheezing) Qty: 18 2RF hydroxyzine HCl 50 mg tablet 50 mg PO QID PRN (Reason: anxiety/insomnia) Qty: 120 1RF buspirone 10 mg tablet 10 mg PO TID Qty: 90 1RF atorvastatin 40 mg tablet 40 mg PO QAM Qty: 90 3RF carvedilol 12.5 mg tablet See Rx Instructions .ROUTE .COMPLEX Qty: 60 0RF Dose Instruction: TAKE 1/2 (ONE-HALF) TABLET BY MOUTH TWICE DAILY WITH FOOD/MEAL HOLD DOSE IF HEART RATE IS LESS THAN 60 Rx Instructions: TAKE 1/2 (ONE-HALF) TABLET BY MOUTH TWICE DAILY WITH FOOD/MEAL HOLD DOSE IF HEART RATE IS LESS THAN 60 furosemide 40 mg tablet 40 mg PO DAILY aspirin 81 mg tablet,delayed release (DR/EC) 81 mg PO QAM Qty: 90 3RF clopidogrel 75 mg tablet 75 mg PO DAILY 30 Days Qty: 30 0RF Discharge Orders: Discharge ED (Routine); Ordered 09/04/25 Ordered By: Renetta Nuñez Referrals: Jossie Topete NP [Primary Care Provider, Family Practice] Discharge Diet: Usual diet Discharge Activity: Increase activity as tolerated Patient Instructions: Abdominal Pain (ED), Opioid Safety, Pain Management, Patient Portal & Kezia Instructions Activity Restrictions/Additional Instructions: Thank you for choosing [facility] for your healthcare needs today. You have been screened and evaluated and felt safe for discharge. Health conditions do change or evolve sometimes and as such it is important that you follow up with your Primary Doctor to be re checked, 3-5 days is a general good time frame for follow up. 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
[2025-09-04] MEDS: ondansetron 2 mg/ML SDV 2 mL 8 MG IVP (08:07)
[2025-09-04] MEDS: HYDROmorphone 0.5 MG/0.5 ML INJ 1 MG IVP (08:14)
[2025-09-04 08:27] LABS: Glucose Urine UA Negative (Normal); Nitrate Urine Negative (Negative)
[2025-09-04 08:33] LABS: Hematocrit 47.0 % (36-47); Hemoglobin 15.80 g/dL (11.27-16.99); Mean Corpuscular HGB Conc 33.6 g/dL (30-55); Mean Corpuscular Hemoglobin 33.5 pg (27-33); Mean Corpuscular Volume 99.6 fl (85-98); Nucleated Red Blood Cells % 0 %; Platelet Count 263 10^3/cmm (157-399); Red Blood Count 4.72 10^6/uL (3.85-5.65); White Blood Count 12.49 10^3/uL (3.29-11.43)
[2025-09-04 08:36] LABS: Alanine Aminotransferase 7 U/L (0-33); Albumin Level 4.7 g/dL (3.5-5.2); Alkaline Phosphatase 100 U/L (35-105); Anion Gap 19.3 (5-19); Aspartate Amino Transferase 18 U/L (0-32); Blood Urea Nitrogen 18 mg/dL (6-20); Calcium 9.8 mg/dL (8.5-10.5); Carbon Dioxide 20 mmol/L (22-29); Chloride 104 mmol/L (98-107); Globulin 3.9 g/dL (1.3-4.6); Glucose 151 mg/dL (65-115); Lipase 10 U/L (13-60); Osmolality Calculated 293 mOsm/kg (285-295); Potassium 4.3 mmol/L (3.5-5.1); Sodium 139 mmol/L (136-145); Total Protein 8.6 g/dL (6.6-8.7)
[2025-09-04 08:37] LABS: Lactic Sepsis W/Reflex 2.0 mmol/L (0.5-2.2)
[2025-09-04 08:45] LABS: Specific Gravity, Urine 1.031 (1.005-1.030)
--- NOTE | 2025-09-04 08:53 | CTR_ITS ---
PROCEDURE INFORMATION: Exam: CT Abdomen And Pelvis With Contrast Exam date and time: 09/04/2025 9:09 AM Age: 55 years old Clinical indication: Abdominal pain; Prior surgery; Surgery date: 6+ months; Surgery type: Gb TECHNIQUE: Imaging protocol: Computed tomography of the abdomen and pelvis with contrast. Radiation optimization: All CT scans at this facility use at least one of these dose optimization techniques: automated exposure control; mA and/or kV adjustment per patient size (includes targeted exams where dose is matched to clinical indication); or iterative reconstruction. Contrast material: OMNI 350; Contrast volume: 100 ml; Contrast route: INTRAVENOUS (IV); COMPARISON: CT abdomen pelvis wo con [id number] 11/09/2024 9:17 AM RADIATION DOSE METRICS: Total DLP (mGy-cm): 585.9 FINDINGS: Liver: Normal. No mass. Gallbladder and biliary ducts: Status post cholecystectomy. Mildly prominent common bile duct likely related to reservoir effect. Pancreas: Similar atrophic appearance of the pancreas. Spleen: Normal. No splenomegaly. Adrenal glands: Bilateral adrenal thickening with a stable 7 mm left adrenal nodule, likely an adenoma. Kidneys and ureters: Subcentimeter left renal hypodensities too small to characterize but likely represents a cyst. Prominent extrarenal pelvis on the right appears unchanged. No hydronephrosis. Stomach and bowel: Colonic diverticulosis without evidence of acute diverticulitis. No evidence of bowel obstruction. Appendix: No evidence of appendicitis. Intraperitoneal space: Unremarkable. No free air. No significant fluid collection. Vasculature: Moderate diffuse atherosclerotic aortoiliac calcifications. No abdominal aortic aneurysm. Lymph nodes: Unremarkable. No enlarged lymph nodes. Urinary bladder: Unremarkable as visualized. Reproductive: Status post hysterectomy. No suspicious adnexal mass. Bones/joints: Unremarkable. No acute fracture. Soft tissues: Unremarkable. CT/CT abdomen pelvis w con* [id number] IMPRESSION: 1. No acute findings. 2. Colonic diverticulosis without diverticulitis. 3. Moderate diffuse aortoiliac calcifications. COMMENTS: Consistent with the [employer]'s Incidental Findings Committee white paper (J Am Ryan Radiol 2018): Any incidental renal lesion less than 1 cm or classified as too small to characterize, or any incidental cystic renal lesion characterized as simple-appearing, is likely benign. No follow-up imaging is recommended for these lesions per consensus recommendations based on imaging criteria.
[2025-09-04 09:02] LABS: Respiratory Syncytial Virus Ce NEGATIVE (Negative); SARS-CoV-2 PCR NEGATIVE (Negative)
[2025-09-04 09:09] VITALS: BP 149/69; PULSE 62; O2SAT 96
[2025-09-04] MEDS: iohexol 350 mg/mL 500 mL Btl (per mL) IV (09:16)
[2025-09-04 09:33] LABS: PCP Screen Urine Negative (Negative)
[2025-09-04] MEDS: cefTRIAXone 1,000 mg SDV 1000 MG IVP (10:05)
[2025-09-04 10:07] VITALS: BP 143/95; PULSE 59; O2SAT 94
== END 2025-09-04 10:15 | disposition home or self-care (01) ==
PROVIDERS: Emergency Provider Emergency Medicine
DX: N39.0 Urinary tract infection, site not specified (principal); R10.9 Unspecified abdominal pain; E86.0 Dehydration
CPT/HCPCS: 36415; 74177; 80053; 80306; 81001; 83605; 83690; 85025; 86140; 87040; 87086; 87637; 96361; 96374; 96375; 99285; J0696; J1171; J2405; J7030

== ENCOUNTER 2025-09-06 02:09 | Emergency (ER) | payer OTHER, SELFPAY ==
[2025-09-06] VITALS (9 sets, daily range): BP systolic 158–230; BP diastolic 70–111; PULSE 55–72; RESP 17–18; TEMP 36.5; O2SAT 96–98; BMI 30.1
--- OUTSIDE RECORDS SUMMARY | 2025-09-06 02:14 | XMS_ITS | Data Portability ---
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 Plan of Treatment Reminders Order Date Submit Date Provider Last Modified By Organization Details Last Modified Time Details Appointments None recorded. Lab CMP, serum or plasma 2022 023 [facility] ([facility]), [address] [place] [address], [phone], 3 17:01:38 CBC 2022 023 [facility] ([facility]), [address] [place] [address], [phone], 3 16:47:19 lipase, serum or plasma 2022 023 [facility] ([facility]), [address] [place] [address], [phone], 4 05:00:54 Referral None recorded. Procedures None recorded. Surgeries None recorded. Imaging None recorded. Medication Orders Miralax 17 gram/dose oral powder 2022 023 [facility], [address], [place], [address], 3 12:18:14 tizanidine 4 mg tablet 2022 023 [facility], [address], [place], [address], 12:19:51 Patient TargetsNo targets recorded. Patient InstructionsNo instructions recorded. Reason for Referral None Reported. Results Created Date Observation Date Name Description Value Unit Range Abnormal Flag Note LastModifiedBy Organization Detail LastModifiedTime 01/21/2001/20/2023 CMP, serum or plasm a glucose 116.0 mg/dL 60.0-9 9.0 abnormal Not Available [facility] ([facility]) [address] [place], [address], 01/20/2023 12:18:17 01/21/20 23 01/20/2023 CMP, serum or plasm a BUN (blood urea nitrogen) 13.0 mg/dL 10.0-2 6.0 Not Available [facility] ([facility]) [address] [place], [address], 01/20/2023 12:18:17 01/21/20 23 01/20/2023 CMP, serum or plasm a creatinine (serum) 0.8 mg/dL 0.4-1. 5 Not Available [facility] ([facility]) [address] [place], [address], 01/20/2023 12:18:17 01/21/20 23 01/20/2023 CMP, serum or plasm a BUN/creatini ne ratio 16.25 ratio Not Available [facility] ( [facility]) [address] [place], [address], 01/20/2023 12:18:17 01/21/2001/20/2023 CMP, serum or plasm a eGFR calculated 80.1 Not Available [facility] ([facility]) [address] [place], [address], 01/20/2023 12:18:17 01/21/2001/20/2023 CMP, serum or plasm a total protein 7.7 g/dL 6.0-8. 5 Not Available [facility] ([facility]) [address] [place], [address], 01/20/2023 12:18:17 01/21/20 23 01/20/2023 CMP, serum or plasm a total bilirubin 0.7 mg/dL 0.2-1. 3 Not Available [facility] ([facility]) [address] [place], [address], 01/20/2023 12:18:17 01/21/20 23 01/20/2023 CMP, serum or plasm a albuminn 4.0 g/dL 3.5-5. 5 Not Available [facility] ([facility]) [address] [place], [address], 01/20/2023 12:18:17 01/21/20 23 01/20/2023 CMP, serum or plasm a globulin 3.7 calc Not Available [facility] ([facility]) [address] [place], [address], 01/20/2023 12:18:17 01/21/20 23 01/20/2023 CMP, serum or plasm a AST (SGOT) 29.0 U/L 0.0-46 .0 Not Available [facility] ([facility]) [address] [place], [address], 01/20/2023 12:18:17 01/21/20 23 01/20/2023 CMP, serum or plasm a altv (SGPT) 19.0 U/L 13.0-6 9.0 Not Available [facility] ([facility]) [address] [place], [address], 01/20/2023 12:18:17 01/21/20 23 01/20/2023 CMP, serum or plasm a A/G ratio 1.1 ratio Not Available [facility] ([facility]) [address] [place], [address], 01/20/2023 12:18:17 01/21/20 23 01/20/2023 CMP, serum or plasm a ALP phos 80.0 U/L 30.0-1 40.0 Not Available [facility] ([facility]) [address] [place], [address], 01/20/2023 12:18:17 01/21/20 23 01/20/2023 CMP, serum or plasm a calcium 8.9 mg/dL 8.4-10 .5 Not Available [facility] ([facility]) [address] [place], [address], 01/20/2023 12:18:17 01/21/20 23 01/20/2023 CMP, serum or plasm a sodium 140.0 mmol/ L 136.0- 145.0 Not Available [facility] ([facility]) [address] [place], [address], 01/20/2023 12:18:17 01/21/2001/20/2023 CMP, serum or plasm a potassium 4.7 mmol/ L 3.5-5. 1 Not Available [facility] ([facility]) [address] [place], [address], 01/20/2023 12:18:17 01/21/2001/20/2023 CMP, serum or plasm a chloride 104.0 mmol/ L 98.0-1 10.0 Not Available [facility] ([facility]) [address] [place] [address], [address], 01/20/2023 12:18:17 01/21/20 23 01/20/2023 CMP, serum or plasm a CO2 32.0 mmol/ L 22.0-3 1.0 abnormal Not Available [facility] ([facility]) [address] [place], [address], 01/20/2023 12:18:17 01/21/20 23 01/20/2023 CMP, serum or plasm a anion gap 4.0 calc Not Available [facility] ([facility]) [address] [place], [address], 01/20/2023 12:18:17 01/21/20 23 01/20/2023 CMP, serum or plasm a osmolality 290.1 calc Not Available [facility] ([facility]) [address] [place], [address], 01/20/2023 12:18:17 01/21/20 23 01/20/2023 CBC WBC 4.52 X10^3 /uL 4.0-10 .5 normal Not Available [facility] ([facility]) [address] [place], [address], 01/20/2023 12:18:20 01/21/20 23 01/20/2023 CBC RBC 4.45 X10^6 /uL 3.50-5 .50 normal Not Available [facility] ([facility]) [address] [place], [address], 01/20/2023 12:18:20 01/21/20 23 01/20/2023 CBC HGB 14.55 g/dL 12.0-1 6.0 normal Not Available [facility] ([facility]) [address] [place], [address], 01/20/2023 12:18:20 01/21/20 23 01/20/2023 CBC HCT 44.1 % 37.0-4 7.0 normal Not Available [facility] ([facility]) [address] [place], [address], 01/20/2023 12:18:20 01/21/20 23 01/20/2023 CBC MCV 99.2 fL 80.0-9 9.0 normal Not Available [facility] ([facility]) [address] [place], [address], 01/20/2023 12:18:20 01/21/20 23 01/20/2023 CBC MCH 32.7 pg 27.0-3 2.0 normal Not Available [facility] ([facility]) [address] [place], [address], 01/20/2023 12:18:20 01/21/20 23 01/20/2023 CBC MCHC 33.0 g/dL 32.0-3 6.0 normal Not Available [facility] ([facility]) [address] [place], [address], 01/20/2023 12:18:20 01/21/20 23 01/20/2023 CBC RDW 14.3 % 11.5-1 4.6 normal Not Available [facility] ([facility]) [address] [place], [address], 01/20/2023 12:18:20 01/21/20 23 01/20/2023 CBC plt 279.0 10^3/ uL 140.0- 451.0 normal Not Available [facility] ([facility]) [address] [place], [address], 01/20/2023 12:18:20 01/21/20 23 01/20/2023 CBC lymphocytes % 27.56 % 20.0-5 0.0 normal Not Available [facility] ([facility]) [address] [place], [address], 01/20/2023 12:18:20 01/21/20 23 01/20/2023 CBC granulocytes % 61.40 % 30.0-7 0.0 normal Not Available [facility] ([facility]) [address] [place], [address], 01/20/2023 12:18:20 01/21/20 23 01/20/2023 CBC monocytes % 8.84 % 2.0-10 .0 normal Not Available [facility] ([facility]) [address] [place], [address], 01/20/2023 12:18:20 01/21/20 23 01/20/2023 CBC granulocytes # 2.78 X10^3 /uL normal Not Available [facility] ([facility]) [address] [place], [address], 01/20/2023 12:18:20 01/21/20 23 01/20/2023 CBC lymphocytes # 1.25 X10^3 /uL normal Not Available [facility] ([facility]) [address] [place], [address], 01/20/2023 12:18:20 01/21/20 23 01/20/2023 CBC monocytes # 0.40 X10^3 /uL abnormal Not Available [facility] ([facility]) [address] [place], [address], 01/20/2023 12:18:20 Result Notes None recorded. Problems Name Problem SNOMED Code Status Onset Date Resolution Date Notes Provider Name and Address Organization Details Recorded Time Depressive disorder 70881209 Active 2009 Depress ion; 8:36AM by Mable cobos LPN, Office Visit; Promote d; acuity set as *; Not Available [facility] 3 03:12:32 Cholecystect nurys Active 2009 Cholecy stectom y; 8:36AM by Mable cobos LPN, Office Visit; Promote d; acuity set as *; Not Available [facility] 3 03:12:33 History of tubal ligation 696833429 Active 2009 Tubal Ligatio n; 04/14/2 010 8:36AM by Mable cobos LPN, Office Visit; Promote d; acuity set as *; Not Available [facility] 3 03:12:35 History of depression 476791231 Active 2022 LAMINSA MITCH truong [facility] 3 08:57:04 Essential hypertension 64295521 Active 2022 LAMIN truong [facility] 3 11:57:12 Hypercholest erolemia 22982679 Active 2022 LAMINSA MITCH truong, [facility] 3 11:57:24 Heart disease 12554416 Active 2022 LAMINSA MITCH truong [facility] 3 11:57:43 Nausea and vomiting 82681339 Active 2022 Cecy Jang MD [address] [place] [address], [address] , [facility] 3 12:15:23 Abdominal pain 83979302 Active 2022 Cecy aJng MD [address] [place] [address], [address] , [facility] 3 12:15:33 Constipation 10393134 Active 2022 Cecy Jang MD [address] [place] [address], [address] , [facility] 3 12:16:00 Low back pain 154653287 Active 2022 Cecy Jang MD [address] [place] [address], [address] , [facility] 3 12:19:07 Problem Notes None recorded. Procedures Surgical History Date Name Laterality Status Provider Name and Address Organization Details Recorded Time [facility] 08:58:29 [facility] 08:59:01 Imaging Results None recorded. Procedure [...] Updated DateTime 3 160.02 cm 28.9 kg/m2 32139.2 6 g 97 % 69 /min 20 /min 97.6 [degF] 138/86 mm[Hg] LAMIN MEYER [facility] 3 12:01:44 Social History Question Answer Notes LastModified by BonaYou Details LastModified Time Tobacco Smoking Status Current Every Day Smoker LAMIN truong [facility] 01/20/2023 09:01:25 Are You Blind Or [...] Codes Diagnosis Note [id number] Cecy Jang MD [facility] ([facility]) [address] [place] [address] 01/20/2023 11:42:37 01/27/2023 14:15:26 Nausea and vomiting 58897880 R11.2 check labs today. Abdominal pain 58273476 R10.9 Constipation 33539738 K5 9.00 likely the cause of patients symptoms. We will treat with miralax. If symptoms do not improve with constipati on resolution then we will check imaging. Essential hypertension 23319001 I10 stable on current meds Heart disease 77920934 I 51.9 doing well after recent stent placement. Hypercholesterolemia 136 40093 E78.00 tolerating statin. Low back pain 120791729 M54.50 start muscle relaxer to use as [...] [place] [id number] Silvia Dulce Maria Hung [id number] 49 Silvia Persaud Notes Date Note Type [...] her in the past. Cecy Jang MD [address] [place] [address], [address], [facility], Teresa 01/20/2023 12:48:17 OBGyn Episode No OBEpisode recorded.
--- NOTE | 2025-09-06 02:19 | ED_ITS ---
HPI - General Adult 2 General: Chief complaint: Nausea/Vomiting/Diarrhea Stated complaint: N\V\ Time Seen by Provider: 09/06/25 02:16 History of Present Illness: 55-year-old female presents emergency ro om with complaints of continued abdominal pain with nausea and vomiting. She has been seen twice in the last 2 days she was given antiemetics states this has not helped. Previous laboratory studies did not show any significant abnormalities. CT of the abdomen done yesterday did not show any abnormalities. No hematemesis or coffee-ground emesis denies dysuria urgency or frequency. Does not use any THC products regularly. Associated symptoms: Reports nausea and vomiting; Deny chest pain, dyspnea or rash Related Data Home Medications ?Medication ?Instructions ?Recorded ?Confirmed furosemide 40 mg tablet 40 mg PO DAILY 11/09/2402/11 magnesium L-lactate 84 mg 168 mg PO DAILY PRN 02/15/25 03/01/25 tablet,extended release Previous Rx's ?Medication ?Instructions ?Recorded aspirin 81 mg tablet,delayed 81 mg PO QAM #90 tabs release isosorbide mononitrate 30 mg 30 mg PO DAILY #90 tabs 0 07/01/24 tablet,extended release 24 hr lisinopril 40 mg tablet 40 mg PO DAILY #90 tabs 06/13 07/06 albuterol sulfate 90 mcg/actuation 2 inh inhalation Q4 H PRN shortness 07/13/24 aerosol inhaler of breath or wheezing #18 gr ams budesonide-formoterol HFA 160 1 puff inhalation Q12H P RN COPD 07/13/24 mcg-4.5 mcg/actuation aerosol #10.2 grams inhaler (Symbicort) atorvastatin 40 mg tablet 40 mg PO QAM #90 tabs ondansetron 4 mg disintegrating 4 mg PO Q6H PRN nausea and 01/04/25 tablet vomiting #30 tabs clopidogrel 75 mg tablet 75 mg PO DAILY 30 days #30 t abs 02/05/25 buspirone 10 mg tablet 10 mg PO TID #90 tabs hydroxyzine HCl 50 mg tablet 50 mg PO QID PRN anxiety/ insomnia 03/01/25 #120 tabs carvedilol 12.5 mg tablet See Rx Instructions .Route 1 .COMPLEX #60 tabs cephalexin 500 mg tablet 500 mg PO TID 7 days #21 tab s 09/04/25 hydrocodone 5 mg-acetaminophen 325 1 tab PO Q6H PRN pa in #20 tabs 09/04/25 mg tablet ondansetron 4 mg disintegrating 4 mg PO Q8H PRN nausea and 09/04/25 tablet vomiting #10 tabs polyethylene glycol 3350 17 17 g PO DAILY #510 grams 1 11/04/24 gram/dose oral powder (Miralax) amlodipine 5 mg tablet 5 mg PO DAILY #30 tabs 09/06 Allergies Allergy/AdvReac Type Severity Reaction Status Date / Time No Known Allergies Allergy Verified 09/03/25 15:21 Review of Systems 2 Const: Denies: fever(s) or chills Card: Denies: chest pain Resp: Denies: dyspnea GI: Reports: abdominal pain, nausea and vomiting; Denies: hematemesis, hematochezia or melena : Denies: dysuria, urinary frequency or urinary urgency Musc: Denies: neck pain or back pain Skin/Breast: Denies: rash PFSH ED 2 PFSH: Medical History Hypertension Psychiatric care Poor sleep pattern Encounter to establish care Encounter for smoking cessation counseling Chest pain Hypertensive urgency Smoker Unstable angina Bipolar disease, chronic History of seizure GERD (gastroesophageal reflux disease) Chest pain Coronary artery disease Ischemic cardiomyopathy Tobacco abuse COPD (chronic obstructive pulmonary disease) Adult-onset obesity Acute anterior wall NH 01/2014 Surgical History History of heart artery stent Hx of cholecystectomy Hx of tubal ligation Family History Grandmother Cancer Maternal cervical Father Cancer lung and throat Hyperlipidemia Hypertension Grandmother Cancer Paternal-unknown Sister Stroke Grandfather Cancer Paternal-brain Denies family history of Diabetes CAD (coronary artery disease) Clotting disorder Dementia Psychiatric illness Chronic kidney disease (CKD) Suicide Anesthesia complication Bleeding disorder Family history of premature coronary artery disease Lung disease Social History Smoking and tobacco/nicotine status: current every day tobacco/nicotine user (1.5 ppd) cigarettes Packs smoked per day: 1 Second hand smoke exposure: No Alcohol intake: never Substance/Drug Use: never Lives independently: Yes Marital status: Single Number of children: 3 Current occupational status: employed Previous occupational history: [employer] Special shandra needs: No Agree to transfusion: Yes Physical Exam 2 Const: GENERAL APPEARANCE: cooperative ORIENTATION/CONSCIOUSNESS: Yes awake, Yes oriented to person, Yes oriented to place and Yes oriented to time HENMT: COMMON NORMALS: normocephalic, atraumatic and hearing grossly normal bilaterally HEAD & SCALP: normocephalic and atraumatic Resp: COMMON NORMALS: normal respiratory effort, No retractions, No use of accessory muscles and clear to auscultation bilaterally AUSCULTATION: clear to auscultation bilaterally Cardio: COMMON NORMALS: regular rate, regular rhythm and No murmurs present (Cardio) RATE: regular rate RHYTHM: regular rhythm GI: COMMON NORMALS: No hepatosplenomegaly present AUSCULTATION: Yes normoactive bowel sounds PALPATION: Yes Tenderness to palpation present (GI) (Upper abdominal), No Guarding due to palpation present (GI) and Yes No hepatosplenomegaly present Extremity: COMMON NORMALS: normal to inspection, capillary refill normal, no clubbing, cyanosis or edema, no calf tenderness and no pedal edema Neuro: SENSORIUM/ORIENTATION: Yes oriented to person, Yes oriented to place and Yes oriented to time Skin: COMMON NORMALS: no rashes or lesions noted GENERAL SKIN EXAM: no rashes or lesions noted Course 2 Vital Signs: Vital signs: Vital Signs Temperature 97.7 F 09/06/25 02:18 Pulse Rate 72 09/06/25 05:39 Respiratory Rate 17 09/06/25 04:56 Blood Pressure 175/70 09/06/25 05:39 Pulse Oximetry 96 09/06/25 05:39 Oxygen Delivery Me thod Room Air 09/06/25 05:39 MDM - General Adult Medical Decision Making Medical decision making Social determinants: None I reviewed the patient's medical record. I reviewed the patient's current home meds Alternate historians: None Differential diagnosis accelerated hypertension versus CVA gastroenteritis persistent nausea vomiting Lab Review: Reviewed as found on the chart Imaging: CT head is negative Assessment of risk: Level of risk: Low Hospitalization considerations: None Reexamination: On repeat exam patient is improved after blood pressure improved. Assessment and plan: Nausea vomiting improved headache improved after blood pressure control discharge home continue same medications same add amlodipine 5 mg daily follow-up with primary care can continue to use previously prescribed antiemetics return if has further problems Medical Records I reviewed the patient's medical records. Lab Data I reviewed the patient's lab results. 09/06/25 02:28 09/06/25 02:[address] 09/06/25 04:41 IMPRESSION: No acute intracranial abnormality. Laboratory Results WBC 10.44 10^3/uL (3.29-11.43) 09/06/25 02:28 RBC 4.96 10^6/uL (3.85-5.65) 09/06/25 02:28 Hgb 16.40 g/dL (11.27-16.99) 09/06/25 02:28 Hct 48.8 % (36-47) H 09/06/25 02:28 MCV 98.4 fl (85-98) H 09/06/25 02:28 MCH 33.1 pg (27-33) H 09/06/25 02:28 MCHC 33.6 g/dL (30-55) 09/06/25 02:28 RDW 13.7 % (12.1-15.1) 09/06/25 02:28 Plt Count 240 10^3/cmm (157-399) 09/06/25 02:28 MPV 9.7 fL (7.4-10.4) 09/06/25 02:28 Neut % (Auto) 79.5 % 09/06/25 02:28 Lymph % (Auto) 13.5 % 09/06/25 02:28 [place] % (Auto) 6.3 % 09/06/25 02:28 Eos % (Auto) 0.0 % 09/06/25 02:28 Baso % (Auto) 0.2 % 09/06/25 02:28 Neut # (Auto) 8.30 10^3/uL (1.8-7.7) H 09/06/25 02:28 Lymph # (Auto) 1.4 10^3/uL (0.8-4.8) 09/06/25 02:28 [place] # (Auto) 0.7 10^3/uL (0.2-0.9) 09/06/25 02:28 Eos # (Auto) 0.0 10^3/uL (0.0-0.8) 09/06/25 02:28 Baso # (Auto) 0.0 10^3/uL (0.0-0.1) 09/06/25 02:28 Nucleated RBC % (auto) 0 % 09/06/25 02:28 Nucleated RBCs # 0.0 /100WBC 09/06/25 02:28 Sodium 135 mmol/L (136-145) L 09/06/25 02:28 Potassium 3.5 mmol/L (3.5-5.1) 09/06/25 02:28 Chloride 99 mmol/L (98-107) 09/06/25 02:28 Carbon Dioxide 22 mmol/L (22-29) 09/06/25 02:28 Anion Gap 17.5 (5-19) 09/06/25 02:28 BUN 10 mg/dL (6-20) 09/06/25 02:28 Creatinine 0.8 mg/dL (0.5-0.9) 09/06/25 02:28 GFR Calculation 74.5 mL/min (90-130) L 09/06/25 02:28 Glucose 156 mg/dL (65-115) H 09/06/25 02:28 Calculated Osmolality 282 mOsm/kg (285-295) L 09/06/25 02:28 Calcium 9.3 mg/dL (8.5-10.5) 09/06/25 02:28 Magnesium 1.8 mg/dL (1.7-2.3) 09/06/25 02:28 Total Bilirubin 1.2 mg/dL (0.15-1.2) 09/06/25 02:28 AST 22 U/L (0-32) 09/06/25 02:28 ALT 9 U/L (0-33) 09/06/25 02:28 Alkaline Phosphatase 85 U/L (35-105) 09/06/25 02:28 Total Protein 7.8 g/dL (6.6-8.7) 09/06/25 02:28 Albumin 4.5 g/dL (3.5-5.2) 09/06/25 02:28 Globulin 3.3 g/dL (1.3-4.6) 09/06/25 02:28 Lipase 14 U/L (13-60) 09/06/25 02:28 Urine Color Yellow (Yellow) 09/06/25 03:24 Urine Appearance Clear (CLEAR) 09/06/25 03:24 Urine pH 6.5 (5-7) 09/06/25 03:24 Ur Specific [place] 1.006 (1.005-1.030) 09/06/25 03:24 Urine Protein Trace (Negative) A 09/06/25 03:24 Urine Glucose (UA) Negative (Normal) 09/06/25 03:24 Urine Ketones Negative (Negative) 09/06/25 03:24 Urine Blood 1+ (Negative) A 09/06/25 03:24 Urine Nitrate Negative (Negative) 09/06/25 03:24 Urine Bilirubin Negative (Negative) 09/06/25 03:24 Urine Urobilinogen 0.2 mg/dL (Negative) 09/06/25 03:24 Ur Leukocyte Esterase Negative (Negative) 09/06/25 03:24 Urine RBC 3-5 /hpf (0-2) 09/06/25 03:24 Urine WBC 0-5 /hpf (0-5) 09/06/25 03:24 Ur Squamous Epith Cells 0-5 /hpf (0-5) 09/06/25 03:24 Amorphous Sediment Not Reportable 09/06/25 03:24 Urine Bacteria None seen /hpf (NONE) 09/06/25 03:24 Hyaline Casts 0-4 /lpf H 09/06/25 03:24 All radiology interpretation(s) finalized by discharge EKG Data EKG 1: Computer generated interpretation: Head CT 09/06/25 04:41 IMPRESSION: No acute intracranial abnormality. Discharge Plan Discharge Patient Disposition: Home Clinical Impression: HTN (hypertension), Nausea and vomiting Condition: Stable Prescriptions: New amlodipine 5 mg tablet 5 mg PO DAILY Qty: 30 0RF No Action lisinopril 40 mg tablet 40 mg PO DAILY Qty: 90 3RF isosorbide mononitrate 30 mg tablet extended release 24 hr 30 mg PO DAILY Qty: 90 2RF ondansetron 4 mg tablet,disintegrating 4 mg PO Q6H PRN (Reason: nausea and vomiting) Qty: 30 1RF Rx Instructions: 340b please magnesium L-lactate 84 mg tablet extended release 168 mg PO DAILY PRN budesonide-formoterol [Symbicort] 160-4.5 mcg/actuation HFA aerosol inhaler 1 puff inhalation Q12H PRN (Reason: COPD) Qty: 10.2 2RF albuterol sulfate 90 mcg/actuation HFA aerosol inhaler 2 inh INHALATION Q4H PRN (Reason: shortness of breath or wheezing) Qty: 18 2RF hydroxyzine HCl 50 mg tablet 50 mg PO QID PRN (Reason: anxiety/insomnia) Qty: 120 1RF buspirone 10 mg tablet 10 mg PO TID Qty: 90 1RF atorvastatin 40 mg tablet 40 mg PO QAM Qty: 90 3RF carvedilol 12.5 mg tablet See Rx Instructions .ROUTE .COMPLEX Qty: 60 0RF Dose Instruction: TAKE 1/2 (ONE-HALF) TABLET BY MOUTH TWICE DAILY WITH FOOD/MEAL HOLD DOSE IF HEART RATE IS LESS THAN 60 Rx Instructions: TAKE 1/2 (ONE-HALF) TABLET BY MOUTH TWICE DAILY WITH FOOD/MEAL HOLD DOSE IF HEART RATE IS LESS THAN 60 furosemide 40 mg tablet 40 mg PO DAILY aspirin 81 mg tablet,delayed release (DR/EC) 81 mg PO QAM Qty: 90 3RF clopidogrel 75 mg tablet 75 mg PO DAILY 30 Days Qty: 30 0RF cephalexin 500 mg tablet 500 mg PO TID 7 Days Qty: 21 0RF hydrocodone-acetaminophen 5-325 mg tablet 1 tab PO Q6H PRN (Reason: pain) Qty: 20 0RF polyethylene glycol 3350 [Miralax] 17 gram/dose powder 17 g PO DAILY Qty: 510 0RF Rx Instructions: Take 1 scoop daily while taking pain medications. ondansetron 4 mg tablet,disintegrating 4 mg PO Q8H PRN (Reason: nausea and vomiting) Qty: 10 0RF Discharge Orders: Discharge ED (Routine); Ordered 09/06/25 Ordered By: Alpesh Rowley Referrals: Jossie Topete NP [Primary Care Provider, Family Practice] Discharge Diet: Usual diet Discharge Activity: Increase activity as tolerated Patient Instructions: Opioid Safety, Pain Management, Patient Portal & [place] Instructions Activity Restrictions/Additional Instructions: Thank you for choosing [facility] for your healthcare needs today. It is very important that you follow up as instructed or that you return to the Emergency Department should you have concerns or if your condition changes or worsens in any way. Emergency department visits are focused on emergent conditions, in some cases you may require further evaluation on an outpatient basis. You were seen in the emergency room with complaints of persistent nausea vomiting. Your blood pressure was also markedly elevated CT of your head was negative laboratory test did not show any significant change from previous visits. You reported improvement after antiemetics and control your blood pressure. Continue your current blood pressure medications in addition we will add amlodipine 5 mg daily. Recommend you follow-up with your primary care doctor within the next few days to reevaluate your blood pressure. (Please note that included in your discharge packet is information concerning opioid safety and pain management. This information is given to all patients were discharged from the ER regardless of their discharge diagnosis or the medicines they usually take or are prescribed.) Stand Alone Forms: Work/School Release Print Language: [place] Citizen Coding Level of Care Code ED Graphic Artist for Annie Wright
[2025-09-06 02:38] LABS: Hematocrit 48.8 % (36-47); Hemoglobin 16.40 g/dL (11.27-16.99); Mean Corpuscular HGB Conc 33.6 g/dL (30-55); Mean Corpuscular Hemoglobin 33.1 pg (27-33); Mean Corpuscular Volume 98.4 fl (85-98); Nucleated Red Blood Cells % 0 %; Platelet Count 240 10^3/cmm (157-399); Red Blood Count 4.96 10^6/uL (3.85-5.65); White Blood Count 10.44 10^3/uL (3.29-11.43)
[2025-09-06] MEDS: ondansetron 2 mg/ML SDV 2 mL 4 MG IVP (02:40)
[2025-09-06 02:55] LABS: Alanine Aminotransferase 9 U/L (0-33); Albumin Level 4.5 g/dL (3.5-5.2); Alkaline Phosphatase 85 U/L (35-105); Anion Gap 17.5 (5-19); Aspartate Amino Transferase 22 U/L (0-32); Blood Urea Nitrogen 10 mg/dL (6-20); Calcium 9.3 mg/dL (8.5-10.5); Carbon Dioxide 22 mmol/L (22-29); Chloride 99 mmol/L (98-107); Globulin 3.3 g/dL (1.3-4.6); Glucose 156 mg/dL (65-115); Lipase 14 U/L (13-60); Magnesium 1.8 mg/dL (1.7-2.3); Osmolality Calculated 282 mOsm/kg (285-295); Potassium 3.5 mmol/L (3.5-5.1); Sodium 135 mmol/L (136-145); Total Protein 7.8 g/dL (6.6-8.7)
[2025-09-06 03:38] LABS: Glucose Urine UA Negative (Normal); Nitrate Urine Negative (Negative); Specific Gravity, Urine 1.006 (1.005-1.030)
[2025-09-06 03:40] LABS: Add Urine Microscopic? YES
[2025-09-06] MEDS: labetalol 5 mg/mL SDV 20mL 10 MG IVP (03:53)
[2025-09-06] MEDS: hyDRALAzine 20 mg/mL INJ 1 mL 10 MG IVP ×2 (03:53→04:56)
--- NOTE | 2025-09-06 04:27 | PC.NURSE ---
PROVIDER WAS NOTIFIED OF HYPERTENSION
--- NOTE | 2025-09-06 04:41 | CTR_ITS ---
PROCEDURE INFORMATION: Exam: CT Head Without Contrast Exam date and time: 09/06/2025 5:07 AM Age: 55 years old Clinical indication: Pain; Headache; Additional info: Accelerated hypertension, headache, nausea vomiting TECHNIQUE: Imaging protocol: Computed tomography of the head without contrast. Radiation optimization: All CT scans at this facility use at least one of these dose optimization techniques: automated exposure control; mA and/or kV adjustment per patient size (includes targeted exams where dose is matched to clinical indication); or iterative reconstruction. COMPARISON: No relevant prior studies available. RADIATION DOSE METRICS: Total DLP (mGy-cm): 1097.88 FINDINGS: Brain: No acute lobar infarct. No hemorrhage. Unremarkable white matter. No mass effect. Cerebral ventricles: No ventriculomegaly. Paranasal sinuses: Visualized sinuses are unremarkable. No fluid levels. Mastoid air cells: Visualized mastoid air cells are well aerated. Bones: Unremarkable. No acute fracture. Soft tissues: Unremarkable. CT/CT head wo con* [id number] IMPRESSION: No acute intracranial abnormality.
[2025-09-06] MEDS: morphine 4 mg/mL SDV 1 mL IVP (04:56)
== END 2025-09-06 05:54 | disposition home or self-care (01) ==
PROVIDERS: Emergency Provider Family Medicine
DX: R11.2 Nausea with vomiting, unspecified (principal); I10 Essential (primary) hypertension; Z79.02 Long term (current) use of antithrombotics/antiplatelets; Z79.82 Long term (current) use of aspirin; F17.210 Nicotine dependence, cigarettes, uncomplicated; J44.9 Chronic obstructive pulmonary disease, unspecified; I25.10 Atherosclerotic heart disease of native coronary artery without angina pectoris
CPT/HCPCS: 70450; 80053; 81001; 83690; 83735; 85025; 96374; 96375; 96376; 99285; J0360; J2270; J2405; J2550; J3490; J7030